=== PATIENT | male | born 1950 | race Caucasian/White ===

== ENCOUNTER 2020-03-07 20:04 | Emergency (ER) | payer OTHER ==
[2020-03-07 20:34] LABS: Absolute Lymphocytes (CBC) 0.8 K/uL (0.7-4.9); Hematocrit 25.3 % (39.6-49.0); Lymphocytes % 19.3 % (15.3-44.8); MPV 8.4 fL (7.6-11.3); RBC Red Blood Cell Count 2.94 M/uL (4.33-5.43)
[2020-03-07 20:35] LABS: Protime INR 0.98
[2020-03-07] MEDS ORDERED: METHYLPREDNISOLONE 125 MG INJ ONE (20:40)
[2020-03-07] MEDS ORDERED: ALBUTEROL 2.5 MG/3 ML NEB SOL ONE (20:41)
[2020-03-07] MEDS ORDERED: IPRATROPIUM BROM 0.5MG/2.5ML ONE (20:41)
[2020-03-07 20:55] LABS: ALT/SGPT 67 U/L (12-78); AST/SGOT 149 U/L (15-37); Albumin 3.1 g/dL (3.4-5.0); Alkaline Phosphatase 188 U/L (45-117); BUN Blood Urea Nitrogen 23 mg/dL (7-18); Bicarbonate 29 mmol/L (21-32); Bilirubin Direct 0.3 mg/dL (0-0.2); Bilirubin Total 0.8 mg/dL (0.2-1.0); Glucose Level 155 mg/dL (74-106); Lipase 148 U/L (73-393); Magnesium 1.8 mg/dL (1.8-2.4); NT PRO-BNP 486 pg/mL (<125); Potassium 3.6 mmol/L (3.5-5.1); Protein, Total 6.6 g/dL (6.4-8.2); Sodium Level 131 mmol/L (136-145); Troponin (Emerg Dept Use Only) < 0.02 ng/mL (0.0-0.045)
[2020-03-07 21:04] LABS: Platelet Estimate DECR
[2020-03-07 21:05] LABS: Anisocytosis 1+; Blood Morphology Comment NOTED (NOT SEEN); Hypochromasia 1+
[2020-03-07 21:08] LABS: Urine Blood 1+ (NEG); Urine Glucose NEGATIVE (NEG); Urine Protein 3+ (NEG); Urine Specific Gravity >1.030 (1.005-1.030)
--- NOTE | 2020-03-07 22:05 | RAD REPORT ---
EXAM DESCRIPTION: RAD - Chest Single View - 03/07/2020 8:43 pm CLINICAL HISTORY: SOB Chest pain. COMPARISON: CHEST PA AND LAT 2 VIEW dated 06/19/2010; CHEST SINGLE VIEW dated 08/25/2007; CHEST SINGLE VIEW dated 08/23/2007; CHEST SINGLE VIEW dated 08/22/2007 FINDINGS: Portable technique limits examination quality. The lungs are emphysematous but grossly clear. The heart is normal in size. No displaced fractures. IMPRESSION: COPD.
[2020-03-07] MEDS ORDERED: NA CHLORIDE 0.9% 1,000 ML ONE (22:28)
[2020-03-07] MEDS ORDERED: HYDROCODONE/APAP 5/325 MG TAB ONE (22:28)
--- NOTE | 2020-03-07 23:09 | EDPHYS ---
Physician Documentation [facility] Name: Christian Griffith Age: 69 yrs Sex: Male : 1950 Arrival Date: 03/07/2020 Time: 20:11 Bed 6 Private MD: ED Physician Yang Elias HPI: 03/07 20:18 This 69 yrs old Male presents to ER via EMS with complaints of COPD mh7 Exacerbation. 20:18 The patient has shortness of breath at rest. Onset: The symptoms/episode began/occurred mh7 3 day(s) ago. Duration: The symptoms are intermittent, with no pattern. The patient's shortness of breath is aggravated by exertion. Associated signs and symptoms: Pertinent positives: nausea, Pertinent negatives: chest pain, non-productive cough, productive cough, diaphoresis, dizziness, fever, hemoptysis, loss of consciousness, numbness in extremities, visual changes, vomiting. Severity of symptoms: At their worst the symptoms were moderate yesterday, in the emergency department the symptoms have improved mildly. The patient has experienced similar episodes in the past, multiple times. 23:13 Patient reports symptoms of SOB started after finding out that his son in a motor mh7 vehicle accident 3 days ago. Denies any fever, chest pain, injuries, sick contacts, or recent travel.. Historical: - Allergies: 20:18 No Known Allergies; ea - PMHx: 20:18 COPD; Hypertension; ea - Immunization history:: Adult Immunizations up to date. - Social history:: Smoking status: Patient reports the use of cigarette tobacco products, smokes one-half pack cigarettes per day. ROS: 20:18 Constitutional: Negative for fever, chills, and weight loss, Eyes: Negative for injury, mh7 pain, redness, and discharge, ENT: Negative for injury, pain, and discharge, Neck: Negative for injury, pain, and swelling, Cardiovascular: Negative for chest pain, palpitations, and edema, Back: Negative for injury and pain, : Negative for injury, bleeding, discharge, and swelling, MS/Extremity: Negative for injury and deformity, Skin: Negative for injury, rash, and discoloration, Psych: Negative for depression, anxiety, suicide ideation, homicidal ideation, and hallucinations, Allergy/Immunology: Negative for hives, rash, and allergies, Endocrine: Negative for neck swelling, polydipsia, polyuria, polyphagia, and marked weight changes, Hematologic/Lymphatic: Negative for swollen nodes, abnormal bleeding, and unusual bruising. Exam: 20:18 Head/Face: Normocephalic, atraumatic. Eyes: Pupils equal round and reactive to light, mh7 extra-ocular motions intact. Lids and lashes normal. Conjunctiva and sclera are non-icteric and not injected. Cornea within normal limits. Periorbital areas with no swelling, redness, or edema. Neck: Trachea midline, no thyromegaly or masses palpated, and no cervical lymphadenopathy. Supple, full range of motion without nuchal rigidity, or vertebral point tenderness. No Meningismus. Chest/axilla: Normal chest wall appearance and motion. Nontender with no deformity. No lesions are appreciated. Cardiovascular: Regular rate and rhythm with a normal S1 and S2. No gallops, murmurs, or rubs. Normal PMI, no JVD. No pulse deficits. 20:18 Abdomen/GI: Soft, non-tender, with normal bowel sounds. No distension or tympany. No guarding or rebound. No evidence of tenderness throughout. Back: No spinal tenderness. No costovertebral tenderness. Full range of motion. Skin: Warm, dry with normal turgor. Normal color with no rashes, no lesions, and no evidence of cellulitis. MS/ Extremity: Pulses equal, no cyanosis. Neurovascular intact. Full, normal range of motion. Neuro: Awake and alert, GCS 15, oriented to person, place, time, and situation. Cranial nerves II-XII grossly intact. Motor strength 5/5 in all extremities. Sensory grossly intact. Cerebellar exam normal. Normal gait. Psych: Awake, alert, with orientation to person, place and time. Behavior, mood, and affect are within normal limits. 20:18 Constitutional: The patient appears in no acute distress, alert, awake, anxious, uncomfortable. 20:18 Respiratory: mild respiratory distress is noted, Respirations: prolonged exhalation, that is moderate, tachypnea, that is mild, Breath sounds: decreased breath sounds, that are mild, are scattered, wheezing: expiratory that is mild, is scattered, Respiratory rate: 27 Vital Signs: 20:00 BP 215 / 73; Pulse 98; Resp 27; Temp 98.8; Pulse Ox 99% on R/A; Weight 49.9 kg; Height ea 5 ft. 9 in. (175.26 cm); Pain 0/10; 20:16 BP 215 / 73; Pulse 90; Temp 99.1; Pulse Ox 99% on R/A; mg2 20:38 BP 202 / 67; Pulse 79; Resp 22; Pulse Ox 100% on Nebulizer Mask; ea 21:05 BP 199 / 69; Pulse 94; Resp 22; Pulse Ox 99% on Nebulizer Mask; mg2 22:00 BP 167 / 114; Pulse 94; Resp 24; Pulse Ox 100% on 2 lpm NC; mg2 22:03 BP 163 / 90; Pulse 105; Resp 24; Pulse Ox 100% on 2 lpm NC; ea 22:19 Pulse 89; Pulse Ox 100% on 2 lpm NC; mg2 22:55 BP 183 / 65; Pulse 90; Resp 22; Pulse Ox 99% on R/A; ea 20:00 Body Mass Index 16.24 (49.90 kg, 175.26 cm) ea MDM: 20:11 Patient medically screened. [facility] 23:05 Differential diagnosis: Anemia Anxiety Reaction asthma, Bronchitis CHF exacerbation, mh7 Chronic Obstructive Pulmonary Disease Myocardial Infarction pneumonia, Pneumothorax pulmonary edema, reactive airway disease. Data reviewed: vital signs, nurses notes, EMS record, lab test result(s), cardiac enzymes, CBC, electrolytes, Flu: negative urinalysis, EKG, radiologic studies, plain films. Data interpreted: Pulse oximetry: on room air is 99 %. Interpretation: normal. Counseling: I had a detailed discussion with the patient and/or guardian regarding: the historical points, exam findings, and any diagnostic results supporting the discharge/admit diagnosis, the presence of at least one elevated blood pressure reading (>120/80) during this emergency department visit, lab results, radiology results. Response to treatment: the patient's symptoms have resolved after treatment, the patient's blood pressure is in an acceptable range, mental status has returned to baseline, the patient no longer shows bradycardia, the patient is not short of breath, the patient is not tachycardic, the patient's pain is gone, the patient's temperature has normalized. Refusal of service: The patient/guardian displays adequate decision making capability and despite a detailed discussion of alternatives, benefits, risks, and consequences refuses: Admission to the hospital for further work-up and treatment. 23:13 Refusal of service: The patient/guardian displays adequate decision making capability mh7 and despite a detailed discussion of alternatives, benefits, risks, and consequences refuses: all lab tests, Medications. 03/07 20:13 Order name: Basic Metabolic Panel; Complete Time: 21:37 mh7 03/07 20:13 Order name: CBC with Diff; Complete Time: 21:37 7 03/07 20:13 Order name: LFT's; Complete Time: 21:37 7 03/07 20:13 Order name: Magnesium; Complete Time: 21:37 7 03/07 20:13 Order name: NT PRO-BNP; Complete Time: 21:37 7 03/07 20:13 Order name: PT-INR; Complete Time: 21:37 7 03/07 20:13 Order name: Troponin (emerg Dept Use Only); Complete Time: 21:37 7 03/07 20:13 Order name: XRAY Chest (1 view); Complete Time: 22:13 [facility] 03/07 20:13 Order name: Lipase; Complete Time: 21:37 7 03/07 20:13 Order name: Influenza Screen (a \T\ B); Complete Time: 21:37 7 03/07 20:41 Order name: Manual Differential; Complete Time: 21:37 EDMS 03/07 20:43 Order name: Urine Dipstick--Ancillary (enter results); Complete Time: 21:37 tt3 03/07 20:13 Order name: EKG; Complete Time: 20:15 7 03/07 20:13 Order name: Cardiac monitoring; Complete Time: 20:15 7 03/07 20:13 Order name: EKG - Nurse/Tech; Complete Time: 20:15 7 03/07 20:13 Order name: IV Saline Lock; Complete Time: 20:15 7 03/07 20:13 Order name: Labs collected and sent; Complete Time: 20:15 7 03/07 20:13 Order name: O2 Per Protocol; Complete Time: 20:15 7 03/07 20:13 Order name: O2 Sat Monitoring; Complete Time: 20:16 7 03/07 20:13 Order name: Urine Dipstick-Ancillary (obtain specimen); Complete Time: 20:37 mh7 Administered Medications: 20:37 Drug: Albuterol - atroVENT (3:1) (2.5 mg - 0.5 mg) 3 ml Route: Nebulizer; mg2 22:00 Follow up: Response: No adverse reaction mg2 20:37 Drug: SOLU-Medrol 125 mg Route: IVP; Site: right antecubital; mg2 21:59 Follow up: Response: No adverse reaction mg2 22:19 Drug: [place] 5 mg-325 mg 1 tabs Route: PO; mg2 23:10 Follow up: Response: No adverse reaction mg2 22:19 Drug: NS 0.9% 1000 ml Route: IV; Rate: 1000 ml; Site: right antecubital; mg2 23:29 Follow up: Response: No adverse reaction; IV Status: Completed infusion; IV Intake: mg2 1000ml Disposition: 03/07/20 23:08 Discharged to Home. Impression: COPD Exacerbation, Anemia, Hypertension. - Condition is Stable. - Discharge Instructions: Anemia, Nonspecific, Hypertension, [id number], Chronic Obstructive Pulmonary Disease Exacerbation, [id number]. - Prescriptions for Prednisone 20 mg Oral Tablet - take 2 tablet by ORAL route once daily for 5 days; 10 tablet. Albuterol Sulfate 90 mcg/actuation - inhale 1-2 puff by INHALATION route every 4-6 hours; 1 Inhaler. - Medication Reconciliation Form, Thank You Letter, Antibiotic Education, Prescription Opioid Use form. - Follow up: Private Physician; When: 1 - 2 days; Reason: Worsening of condition, Recheck today's complaints, Continuance of care, Re-evaluation by your physician. Follow up: Tato Perez MD; When: 1 - 2 days; Reason: Worsening of condition, Recheck today's complaints. Follow up: Edin Hernandez MD; When: 1 - 2 days; Reason: Worsening of condition, Recheck today's complaints. - Problem is an acute exacerbation. - Symptoms have improved. Signatures: Dispatcher [employer] EDJosette Ortiz RN RN ea Gardose, Michele, RN RN mg2 Holmes, Maurice, MD MD mh7 Corrections: (The following items were deleted from the chart) 23:10 23:08 03/07/2020 23:08 Discharged to Home. Impression: COPD Exacerbation. Condition is mh7 Stable. Forms are Medication Reconciliation Form, Thank You Letter, Antibiotic Education, Prescription Opioid Use. Follow up: Private Physician; When: 1 - 2 days; Reason: Worsening of condition, Recheck today's complaints, Continuance of care, Re-evaluation by your physician. Follow up: Tato Perez; When: 1 - 2 days; Reason: Worsening of condition, Recheck today's complaints. Follow up: Edin Hernandez; When: 1 - 2 days; Reason: Worsening of condition, Recheck today's complaints. Problem is an acute exacerbation. Symptoms have improved. [facility] 23:29 23:10 03/07/2020 23:08 Discharged to Home. Impression: COPD Exacerbation; Anemia; mg2 Hypertension. Condition is Stable. Prescriptions for Prednisone 20 mg Oral Tablet - take 2 tablet by ORAL route once daily for 5 days; 10 tablet, Albuterol Sulfate 90 mcg/actuation - inhale 1-2 puff by INHALATION route every 4-6 hours; 1 Inhaler. and Forms are Medication Reconciliation Form, Thank You Letter, Antibiotic Education, Prescription Opioid Use. Follow up: Private Physician; When: 1 - 2 days; Reason: Worsening of condition, Recheck today's complaints, Continuance of care, Re-evaluation by your physician. Follow up: Tato Perez; When: 1 - 2 days; Reason: Worsening of condition, Recheck today's complaints. Follow up: Edin Hernandez; When: 1 - 2 days; Reason: Worsening of condition, Recheck today's complaints. Problem is an acute exacerbation. Symptoms have improved. 7
--- NOTE | 2020-03-07 23:09 | ER ---
Nurse's Notes [facility] Name: Christian Griffith Age: 69 yrs Sex: Male : 1950 Arrival Date: 03/07/2020 Time: 20:11 Bed 6 Private MD: Diagnosis: COPD Exacerbation;Anemia;Hypertension Presentation: 03/07 20:00 Chief complaint: EMS states: Report pt son Tuesday since then he has been ea feeling weak, pt reports his COPD has been flaring up. Pt reported nausea and vomiting. Reports he has not been taking BP meds, took meds prior to arrival. Coronavirus screen: At this time, the client does not indicate any symptoms associated with coronavirus-19. Ebola Screen: No symptoms or risks identified at this time. Initial Sepsis Screen: Does the patient meet any 2 criteria? No. Patient's initial sepsis screen is negative. Does the patient have a suspected source of infection? No. Patient's initial sepsis screen is negative. Risk Assessment: Do you want to hurt yourself or someone else? Patient reports no desire to harm self or others. Onset of symptoms was March 07, 2020. Care prior to arrival: 18 G IV initiated per EMS to right forearm, 200mls of NS administered. 20:00 Method Of Arrival: EMS: [facility] ea 20:00 Acuity: ROLANDO 3 ea Triage Assessment: 20:19 General: Appears uncomfortable, slender, Behavior is appropriate for age. Pain: Denies ea pain. Neuro: Level of Consciousness is awake, alert, obeys commands, Oriented to person, place, time, situation. Cardiovascular: Patient's skin is warm and dry. Respiratory: Airway is patent Respiratory effort is even, unlabored, Respiratory pattern is regular, symmetrical. Derm: Skin is pale. Historical: - Allergies: 20:18 No Known Allergies; ea - PMHx: 20:18 COPD; Hypertension; ea - Immunization history:: Adult Immunizations up to date. - Social history:: Smoking status: Patient reports the use of cigarette tobacco products, smokes one-half pack cigarettes per day. Screenin:12 Abuse screen: Denies threats or abuse. Nutritional screening: No deficits noted. ea Tuberculosis screening: No symptoms or risk factors identified. Fall Risk IV access (20 points). Assessment: 20:20 Reassessment: see triage assessment. ea 21:06 Reassessment: Patient appears in no apparent distress at this time. Patient and/or mg2 family updated on plan of care and expected duration. Pain level reassessed. 22:50 Reassessment: Patient and/or family updated on plan of care and expected duration. Pain ea level reassessed. Patient is alert, oriented x 3, equal unlabored respirations, skin warm/dry/pink. 23:27 Reassessment: Patient states feeling better. mg2 23:28 Reassessment: provider said patient refused for covid test and possible admission. he mg2 said he is feeling better though. Vital Signs: 20:00 BP 215 / 73; Pulse 98; Resp 27; Temp 98.8; Pulse Ox 99% on R/A; Weight 49.9 kg; Height ea 5 ft. 9 in. (175.26 cm); Pain 0/10; 20:16 BP 215 / 73; Pulse 90; Temp 99.1; Pulse Ox 99% on R/A; mg2 20:38 BP 202 / 67; Pulse 79; Resp 22; Pulse Ox 100% on Nebulizer Mask; ea 21:05 BP 199 / 69; Pulse 94; Resp 22; Pulse Ox 99% on Nebulizer Mask; mg2 22:00 BP 167 / 114; Pulse 94; Resp 24; Pulse Ox 100% on 2 lpm NC; mg2 22:03 BP 163 / 90; Pulse 105; Resp 24; Pulse Ox 100% on 2 lpm NC; ea 22:19 Pulse 89; Pulse Ox 100% on 2 lpm NC; mg2 22:55 BP 183 / 65; Pulse 90; Resp 22; Pulse Ox 99% on R/A; ea 20:00 Body Mass Index 16.24 (49.90 kg, 175.26 cm) ea ED Course: 20:11 Patient arrived in ED. ea 20:11 Yang Elias MD is Attending Physician. [facility] 20:12 David Rubalcava RN is Primary Nurse. mg2 20:16 Triage completed. ea 20:16 Arm band placed on right wrist. Patient placed in an exam room, on a stretcher, on ea pulse oximetry. 20:16 Patient has correct armband on for positive identification. Bed in low position. Call ea light in reach. Side rails up X2. 20:23 No provider procedures requiring assistance completed. Maintain EMS IV. Site clean \T\ mg2 dry. Gauge \T\ site: 18 \T\ RAC. 20:41 XRAY Chest (1 view) In Process Unspecified. EDMS 23:07 Tato Perez MD is Referral Physician. mh7 23:08 Edin Hernandez MD is Referral Physician. 7 23:27 IV discontinued, intact, bleeding controlled, No redness/swelling at site. Pressure mg2 dressing applied. Administered Medications: 20:37 Drug: Albuterol - atroVENT (3:1) (2.5 mg - 0.5 mg) 3 ml Route: Nebulizer; mg2 22:00 Follow up: Response: No adverse reaction mg2 20:37 Drug: SOLU-Medrol 125 mg Route: IVP; Site: right antecubital; mg2 21:59 Follow up: Response: No adverse reaction mg2 22:19 Drug: [place] 5 mg-325 mg 1 tabs Route: PO; mg2 23:10 Follow up: Response: No adverse reaction mg2 22:19 Drug: NS 0.9% 1000 ml Route: IV; Rate: 1000 ml; Site: right antecubital; mg2 23:29 Follow up: Response: No adverse reaction; IV Status: Completed infusion; IV Intake: mg2 1000ml Intake: 23:29 IV: 1000ml; Total: 1000ml. mg2 Outcome: 23:08 Discharge ordered by . 7 23:27 Discharged to home via wheelchair, with family. mg2 23:27 Condition: stable 23:27 Discharge instructions given to patient, family, Instructed on discharge instructions, follow up and referral plans. medication usage, Demonstrated understanding of instructions, follow-up care, medications, Prescriptions given X 2. 23:29 Patient left the ED. mg2 Signatures: Dispatcher [employer] EDMS Josette Conner RN RN David Rae RN RN mg2 Yang Elias MD MD 7 Corrections: (The following items were deleted from the chart) 23:29 23:28 Reassessment: provider said patient refused for covid test and admit. mg2 mg2
[2020-03-08 04:07] VITALS: TEMP 99.1
[2020-03-08 04:20] VITALS: BP 183/65; O2SAT 99
--- NOTE | 2020-03-09 07:44 | EKG ---
Test Date: 2020-03-07 Test Time: 20:09:34 [employer] Vendor: MEASUREMENT RESULTS: Intervals: Rate: 95 AK: 136 QRSD: 88 QT: 334 QTc: 419 Windfall: P: 85 AK: 136 QRS: 86 T: 83 INTERPRETIVE STATEMENTS: Normal sinus rhythm Anteroseptal infarct, age undetermined Abnormal ECG Compared to ECG 06/19/2010 08:55:06 Atrial premature complex(es) no longer present Myocardial infarct finding still present Electronically Signed On 03-09-20 07:40:56 DRY ROOM ATTENDANT by Ayden Perez
== END 2020-03-07 23:29 | disposition home or self-care (01) ==
LOC: ER 20:04
DX: J44.1 Chronic obstructive pulmonary disease with (acute) exacerbation (principal); D64.9 Anemia, unspecified; I10 Essential (primary) hypertension; F17.210 Nicotine dependence, cigarettes, uncomplicated
CPT/HCPCS: 96361; 93005; 85025; 80048; 36415; 83735; 85610; 80076; 81003; 84484; 83690; 83880; 87804 ×2; 71045; 96374; 99284; J7030; J2930

== ENCOUNTER 2020-06-11 13:49 | Inpatient (IN) | payer OTHER ==
[2020-06-11] MEDS ORDERED: NA CHLORIDE 0.9% 1,000 ML with FOLIC ACID 1 MG, THIAMINE HCL 100 MG, MULTIVITAMINS INJ ... IV SCH ×4 (14:30)
--- NOTE | 2020-06-11 14:30 | RAD REPORT ---
EXAM DESCRIPTION: CT - [id number] - 06/11/2020 2:13 pm CLINICAL HISTORY: seizure, altered mental status, possible head and neck trauma, headache and neck p ain COMPARISON: MRI BRAIN WITHOUT CONTRAST dated 06/19/2010 TECHNIQUE: Axial 5 mm thick images of the head were obtained. Axial 2 mm thick images of the cervic al spine were obtained with sagittal and coronal reconstruction images generated and reviewed. All CT scans are performed using dose optimization technique as appropriate and may include automated exposure control or mA/KV adjustment according to patient size. FINDINGS: No intracranial hemorrhage, mass, edema or acute intracranial finding. No acute cortical b ased infarction identified. No focal abnormality seen as a possible seizure focus. Moderate atrophy a nd mild to moderate chronic ischemic changes are present. Ventricles are in proportion to the volume loss. Brain parenchyma is similar in appearance to the 2011 MRI study. No extra-axial fluid collectio ns. Mastoid air cells and paranasal sinuses are clear. No globe or orbit abnormality seen. Dense carotid bulb calcifications are present. Any possible stenoses cannot be assessed on a CT cervi mic spine examination. Cervical bodies are normal in height. A very slight retrolisthesis of C5 on C6 noted. C5-6 and C6-7 d isc space narrowing present. No fracture or acute bony abnormality. Multilevel facet joint degenerati ve changes are present. C3-4 disc bulge changes are present. Disc bulge at C4-5 also seen. Disc bulge and endplate spurring changes at C5-6 cause central spinal stenosis to 8-9 mm. Moderate right-sided and mild left-sided foraminal stenosis seen. Mild to moderate left-sided bony foraminal stenosis at C 6-7. Prominent midline disc bulge is present. Central canal stenosis to 8 millimeter is seen. Central canal detail is inherently limited. No paraspinal mass or hematoma. IMPRESSION: No acute intracranial finding identified. No abnormality seen as a possible seizure focu s. Patient has atrophy and chronic ischemic change ranging from mild to moderate in severity. Intracrani al findings are not substantially different from 2011. No fracture or acute cervical spine finding. Patient has multilevel cervical spondylosis changes caus ing spinal stenosis and foraminal stenosis as detailed.
--- NOTE | 2020-06-11 14:32 | RAD REPORT ---
EXAM DESCRIPTION: RAD - Chest Single View - 06/11/2020 2:14 pm CLINICAL HISTORY: seizure COMPARISON: Portable February 2020 TECHNIQUE: AP portable chest image was obtained 06/11/2020 2:14 pm . FINDINGS: No peripheral mass or consolidation identified. Nodularity in each upper lung field in pro ximity to the cardiac leads not clearly different from prior imaging. Fibrotic lung pattern matches c omparison. No significant failure or volume overload. Heart and vasculature are normal. No measurable pleural effusion and no pneumothorax. No acute bony abnormality seen. No acute aortic findings suspected. IMPRESSION: COPD similar to prior imaging. No acute finding confirmed.
[2020-06-11 14:45] LABS: ALT/SGPT 33 U/L (12-78); AST/SGOT 47 U/L (15-37); Albumin 3.4 g/dL (3.4-5.0); Alkaline Phosphatase 137 U/L (45-117); BUN Blood Urea Nitrogen 12 mg/dL (7-18); Bicarbonate 27 mmol/L (21-32); Bilirubin Direct 0.3 mg/dL (0-0.2); Bilirubin Total 0.7 mg/dL (0.2-1.0); Glucose Level 130 mg/dL (74-106); Magnesium 2.5 mg/dL (1.8-2.4); NT PRO-BNP 790 pg/mL (<125); Protein, Total 6.9 g/dL (6.4-8.2); Sodium Level 131 mmol/L (136-145); Troponin (Emerg Dept Use Only) < 0.02 ng/mL (0.0-0.045)
[2020-06-11] MEDS ORDERED: DIAZEPAM 10 MG/2 ML INJ SYRINGE ONE (15:02)
[2020-06-11 15:04] LABS: Protime INR 0.98
[2020-06-11 16:14] LABS: Urine Blood TRACE (NEG); Urine Glucose NEGATIVE (NEG); Urine Protein NEGATIVE (NEG); Urine Specific Gravity >1.030 (1.005-1.030)
[2020-06-11 16:15] LABS: Absolute Lymphocytes (CBC) 1.4 K/uL (0.7-4.9); Basophils % 0.4 % (0-1.3); Hematocrit 33.7 % (39.6-49.0); Lymphocytes % 16.3 % (15.3-44.8); MPV 7.1 fL (7.6-11.3); RBC Red Blood Cell Count 4.06 M/uL (4.33-5.43)
--- NOTE | 2020-06-11 16:43 | ER ---
Nurse's Notes [facility] Name: Christian Griffith Age: 69 yrs Sex: Male : 1950 Arrival Date: 06/11/2020 Time: 13:55 Bed 20 Private MD: Diagnosis: Alcohol dependence with withdrawal;Seizure Presentation: 06/11 13:56 Chief complaint: EMS states: " heard him holler and when she walked up, saw him ss stiff, shaking and foaming at the mouth." EMS reports that patient was post ictal upon arrival to home, but now is A\\T\\O x 3. Coronavirus screen: Client denies travel out of the [place] in the last 14 days. Ebola Screen: Patient denies exposure to infectious person. Patient denies travel to an Ebola-affected area in the 21 days before illness onset. Initial Sepsis Screen: Does the patient meet any 2 criteria? No. Patient's initial sepsis screen is negative. Does the patient have a suspected source of infection? No. Patient's initial sepsis screen is negative. Risk Assessment: Do you want to hurt yourself or someone else? Patient reports no desire to harm self or others. Onset of symptoms was June 11, 2020. 13:56 Method Of Arrival: EMS: [facility] 13:56 Acuity: ROLANDO 3 ss Triage Assessment: 13:56 General: Appears in no apparent distress. comfortable, slender, emaciated, Behavior is sv calm, cooperative, appropriate for age. Pain: Complains of pain in back. Neuro: Level of Consciousness is awake, alert, obeys commands, Oriented to person, place, time, situation, Telecommunications Field Technician are equal bilaterally Moves all extremities. Full function Speech is normal. Respiratory: Airway is patent Respiratory effort is even, unlabored, Respiratory pattern is regular, symmetrical. Derm: Skin is mottled, pale. Musculoskeletal: Circulation, motion, and sensation intact. Range of motion: intact in all extremities. Historical: - Allergies: 14:07 No Known Allergies; ss - PMHx: 14:07 COPD; Hypertension; ss - Immunization history:: Adult Immunizations up to date. - Social history:: Smoking status: Patient reports the use of cigarette tobacco products, smokes one pack cigarettes per day. Patient uses alcohol, on a daily basis. Screenin:55 Abuse screen: Denies threats or abuse. Denies injuries from another. Nutritional sv screening: No deficits noted. Tuberculosis screening: No symptoms or risk factors identified. Fall Risk None identified. Assessment: 15:17 Reassessment: Patient appears in no apparent distress at this time. No changes from sv previously documented assessment. Patient and/or family updated on plan of care and expected duration. Pain level reassessed. Patient is alert, oriented x 3, equal unlabored respirations, skin warm/dry/pink. 16:30 Reassessment: Patient appears in no apparent distress at this time. No changes from sv previously documented assessment. Patient and/or family updated on plan of care and expected duration. Pain level reassessed. Patient is alert, oriented x 3, equal unlabored respirations, skin warm/dry/pink. 18:02 Reassessment: Patient appears in no apparent distress at this time. No changes from sv previously documented assessment. Patient and/or family updated on plan of care and expected duration. Pain level reassessed. Patient is alert, oriented x 3, equal unlabored respirations, skin warm/dry/pink. 19:15 Reassessment: Patient appears in no apparent distress at this time. Patient and/or wh family updated on plan of care and expected duration. Pain level reassessed. Patient is alert, oriented x 3, equal unlabored respirations, skin warm/dry/pink. Vital Signs: 13:56 BP 125 / 75; Pulse 118; Resp 20; Temp 97.9(TE); Pulse Ox 95% on R/A; Weight 47.63 kg; Height 5 ft. 9 in. (175.26 cm); Pain 3/10; 15:17 BP 164 / 75; Pulse 91; Resp 20; Pulse Ox 95% ; sv 16:21 BP 158 / 70; Pulse 80; Resp 20; Pulse Ox 95% ; sv 17:00 BP 173 / 66; Pulse 79; Resp 20; Pulse Ox 97% ; sv 17:30 Pulse 81; Resp 22; Pulse Ox 97% ; sv 19:00 BP 136 / 88; Pulse 86; Resp 22; Pulse Ox 97% on R/A; wh 13:56 Body Mass Index 15.51 (47.63 kg, 175.26 cm) Holden Coma Score: 13:56 Eye Response: spontaneous(4). Verbal Response: oriented(5). Motor Response: obeys sv commands(6). Total: 15. ED Course: 13:55 Patient arrived in ED. sv 13:55 Colleen Stratton RN is Primary Nurse. sv 13:55 Arm band placed on Patient placed in an exam room, on a stretcher. sv 13:55 Patient has correct armband on for positive identification. Placed in gown. Bed in low sv position. Call light in reach. Side rails up X2. Seizure precautions initiated. ekg monitor on. Pulse ox on. NIBP on. 13:57 Randy Leung PA is PHCP. cp 13:57 Tato Sun MD is Attending Physician. cp 14:00 Initial lab(s) drawn, by me, sent to lab. sv 14:00 Maintain EMS IV. Dressing intact. Good blood return noted. Site clean \\T\\ dry. Gauge \\T\\ sv site: 20G R AC. 14:05 room 6 son....Christopher [phone]. bd 14:06 Triage completed. ss 14:[address] via stretcher. sv 14:07 X-ray(s) taken. sv 14:09 Basic Metabolic Panel Sent. sv 14:09 XRAY Chest (1 view) Sent. sv 14:14 CT Head C Spine In Process Unspecified. EDMS 14:14 XRAY Chest (1 view) In Process Unspecified. EDMS 14:54 Lab(s) recollected, by me, sent to lab. EKG done, by ED staff, reviewed by Randy Leung em1 PA. 15:18 Awaiting lab results, Awaiting radiology results. sv 16:41 Imtiaz Paul DO is Hospitalizing Provider. cp 18:02 No provider procedures requiring assistance completed. Patient admitted, IV remains in sv place. intact. 19:19 Primary Nurse role handed off by Colleen Stratton RN sv 19:19 Report given to Belinda KOHLER and Ishan KOHLER. sv 19:37 Belinda De La Garza RN is Primary Nurse. 02 07:25 Primary Nurse role handed off by Belinda De La Garza, RN em1 Administered Medications: 06/11 15:11 Drug: Valium 1 mg Route: IVP; Site: right antecubital; sv 15:18 Follow up: Response: No adverse reaction sv 15:11 Drug: Banana Bag - (NS 0.9% 1000 ml, foLIC Acid 1 mg, Thiamine 100 mg, Multivitamin 1 sv amp) Route: IV; Rate: 100 calculated rate; Site: right antecubital; 19:37 Follow up: Response: No adverse reaction; IV Status: Completed infusion Outcome: 16:43 Decision to Hospitalize by Provider. cp 18:02 Admitted to ER Hold. Please see [facility] for further documentation. sv 18:02 Condition: stable 18:02 Instructed on the need for admit. 02 17:43 Patient left the ED. iw Signatures: Dispatcher [employer] EDMS Yue Hamm Stephanie, RN RN sv Taylor Travis, JOSE F KOHLER Danny Cortes [facility] Naila Smith RN RN ss Page, Corey, PA PA cp Habalo, Winsy, RN RN Corrections: (The following items were deleted from the chart) 06/11 19:38 19:00 BP 136 / 88; Pulse 86bpm; Resp 18bpm; Pulse Ox 97% RA; [facility]
--- NOTE | 2020-06-11 16:43 | EDPHYS ---
Physician Documentation [facility] Name: Christian Griffith Age: 69 yrs Sex: Male : 1950 Arrival Date: 06/11/2020 Time: 13:55 Bed 20 Private MD: ED Physician Tato Sun HPI: 06/11 14:05 This 69 yrs old Male presents to ER via EMS with complaints of Seizure. cp 14:05 The patient presents after having a single isolated seizure, that lasted an unknown cp period of time, the episode(s) was witnessed, by family, . Character of seizure(s): Loss of consciousness: the patient experienced loss of consciousness, brief, Motor activity: generalized, shaking all over, Incontinence: none. Seizure onset: just prior to arrival. 14:05 Patient admits to daily drinking with last drink 2 days ago. cp Historical: - Allergies: 14:07 No Known Allergies; ss - PMHx: 14:07 COPD; Hypertension; ss - Immunization history:: Adult Immunizations up to date. - Social history:: Smoking status: Patient reports the use of cigarette tobacco products, smokes one pack cigarettes per day. Patient uses alcohol, on a daily basis. ROS: 14:10 Constitutional: Negative for body aches, chills, fever, poor PO intake. cp 14:10 Eyes: Negative for injury, pain, redness, and discharge. cp 14:10 ENT: Negative for ear pain, sore throat, difficulty swallowing, difficulty handling secretions. 14:10 Cardiovascular: Negative for chest pain, palpitations. 14:10 Respiratory: Negative for cough, shortness of breath, wheezing. 14:10 Abdomen/GI: Negative for abdominal pain, nausea, vomiting, and diarrhea, black/tarry stool, rectal bleeding. 14:10 : Negative for urinary symptoms. 14:10 Neuro: Positive for history of seizure, Negative for altered mental status, headache. 14:10 All other systems are negative. Exam: 14:15 Constitutional: The patient appears in no acute distress, alert, awake, cp non-diaphoretic, non-toxic, well developed, frail. 14:15 Head/Face: Normocephalic, atraumatic. cp 14:15 Eyes: Periorbital structures: appear normal, Pupils: equal, round, and reactive to light and accomodation, Extraocular movements: intact throughout, Conjunctiva: normal, no exudate, no injection, Sclera: no appreciated abnormality, Lids and lashes: appear normal, bilaterally. 14:15 ENT: External ear(s): are unremarkable, Nose: is normal, Mouth: Lips: moist, Oral mucosa: moist, Posterior pharynx: Airway: no evidence of obstruction, patent. 14:15 Neck: ROM/movement: is normal, is supple, without pain, no range of motions limitations, no meningismus. 14:15 Chest/axilla: Inspection: normal, Palpation: crepitus, is not appreciated, tenderness, is not appreciated. 14:15 Cardiovascular: Rate: tachycardic, Rhythm: regular, Edema: is not appreciated, JVD: is not appreciated. 14:15 Respiratory: the patient does not display signs of respiratory distress, Respirations: normal, no use of accessory muscles, no retractions, labored breathing, is not present, Breath sounds: are clear throughout, no decreased breath sounds, no stridor, no wheezing. 14:15 Abdomen/GI: Inspection: abdomen appears normal, Palpation: abdomen is soft and non-tender, in all quadrants. 14:15 Back: pain, that is mild, of the lumbar area, ROM is normal. 14:15 Skin: cellulitis, is not appreciated, no rash present. 14:15 Neuro: Orientation: to person, place \T\ time. Mentation: is normal, Motor: moves all fours, strength is normal, Abnormal movements: resting tremor, is located in the right hand and left hand. 14:56 ECG was reviewed by the Attending Physician. cp 16:38 : Rectal exam: Stool: brown, soft, Guaiac testing: results were negative for occult cp blood. Vital Signs: 13:56 BP 125 / 75; Pulse 118; Resp 20; Temp 97.9(TE); Pulse Ox 95% on R/A; Weight 47.63 kg; ss Height 5 ft. 9 in. (175.26 cm); Pain 3/10; 15:17 BP 164 / 75; Pulse 91; Resp 20; Pulse Ox 95% ; sv 16:21 BP 158 / 70; Pulse 80; Resp 20; Pulse Ox 95% ; sv 17:00 BP 173 / 66; Pulse 79; Resp 20; Pulse Ox 97% ; sv 17:30 Pulse 81; Resp 22; Pulse Ox 97% ; sv 19:00 BP 136 / 88; Pulse 86; Resp 22; Pulse Ox 97% on R/A; wh 13:56 Body Mass Index 15.51 (47.63 kg, 175.26 cm) ss Holden Coma Score: 13:56 Eye Response: spontaneous(4). Verbal Response: oriented(5). Motor Response: obeys sv commands(6). Total: 15. MDM: 14:00 Patient medically screened. cp 16:40 Data reviewed: vital signs, nurses notes, lab test result(s), EKG, radiologic studies, cp CT scan, plain films. 16:40 Test interpretation: by ED physician or midlevel provider: ECG, plain radiologic cp studies. 06/11 13:59 Order name: Basic Metabolic Panel cp 06/11 13:59 Order name: CBC with Diff cp 06/11 16:33 Interpretation: Normal except: RBC 4.06; HGB 10.8; HCT 33.7; MCV 83.0; MCH 26.6; RDW cp 18.4; MPV 7.1; TAURUS% 77.3. 06/11 13:59 Order name: LFT's; Complete Time: 16:02 06/11 16:03 Interpretation: Normal except: AST 47; ALK 137; BILID 0.3; A/G 1.0. 06/11 13:59 Order name: Magnesium; Complete Time: 16:02 06/11 13:59 Order name: NT PRO-BNP; Complete Time: 16:02 06/11 13:59 Order name: PT-INR; Complete Time: 16:02 06/11 13:59 Order name: Troponin (emerg Dept Use Only); Complete Time: 16:02 06/11 13:59 Order name: XRAY Chest (1 view); Complete Time: 14:41 06/11 13:59 Order name: EKG; Complete Time: 14:00 06/11 13:59 Order name: Cardiac monitoring; Complete Time: 14:01 06/11 13:59 Order name: EKG - Nurse/Tech; Complete Time: 14:09 06/11 13:59 Order name: IV Saline Lock; Complete Time: 14:09 06/11 13:59 Order name: Labs collected and sent; Complete Time: 14:01 06/11 13:59 Order name: O2 Per Protocol; Complete Time: 14:01 06/11 13:59 Order name: O2 Sat Monitoring; Complete Time: 14:01 06/11 13:59 Order name: CT Head C Spine; Complete Time: 14:41 06/11 14:42 Interpretation: Reviewed report. 06/11 13:59 Order name: ETOH Level; Complete Time: 16:02 06/11 13:59 Order name: UDS 06/11 13:59 Order name: Urine Dipstick-Ancillary (obtain specimen); Complete Time: 16:07 06/11 13:59 Order name: Basic Metabolic Panel; Complete Time: 16:02 EDMT 06/11 14:23 Order name: Labs - recollect needed: recollect blue and lavendar top; Complete Time: bd 14:54 06/11 16:02 Order name: Urine Dipstick--Ancillary (enter results); Complete Time: 16:16 bd 06/11 16:16 Order name: Manual Differential EDMT 06/11 17:45 Order name: Regular EDMT 06/11 17:45 Order name: Urinalysis EDMT 06/11 17:45 Order name: Basic Metabolic Panel EDMT 06/11 17:45 Order name: Basic Metabolic Panel EDMT 06/11 17:45 Order name: Magnesium EDMT 06/11 17:45 Order name: Magnesium EDMT 06/11 17:45 Order name: Phosphorus EDMT 06/11 17:45 Order name: Phosphorus EDMT 06/11 17:45 Order name: Delirium Tremens Prophylaxis-IV Meds EDMT 06/11 17:46 Order name: Social Service Consult EDMT 06/11 18:16 Order name: SARS-COV-2 RT PCR EDMT 06/12 05:13 Order name: CBC with Automated Diff EDMS EC:56 Rate is 88 beats/min. Rhythm is regular. WI interval is normal. QRS interval is normal. cp QT interval is normal. T waves are Inverted in lead aVL. Interpreted by me. Reviewed by me. Administered Medications: 15:11 Drug: Valium 1 mg Route: IVP; Site: right antecubital; sv 15:18 Follow up: Response: No adverse reaction sv 15:11 Drug: Banana Bag - (NS 0.9% 1000 ml, foLIC Acid 1 mg, Thiamine 100 mg, Multivitamin 1 sv amp) Route: IV; Rate: 100 calculated rate; Site: right antecubital; 19:37 Follow up: Response: No adverse reaction; IV Status: Completed infusion Disposition: 06/11/20 16:43 Hospitalization ordered by Imtiaz Paul for Inpatient Admission. Preliminary diagnosis are Alcohol dependence with withdrawal, Seizure. - Bed requested for Telemetry/MedSurg (Inpatient). - Status is Inpatient Admission. iw - Condition is Stable. - Problem is new. - Symptoms have improved. Addendum: 07/04/2020 02:15 Co-signature as Attending Physician, Tato Sun MD. m a2 Signatures: Dispatcher [employer] [facility] Yue Hamm Stephanie, RN JOSE F Taylor Travis RN RN Naila Smith RN RN ss Page, Corey, Hosea Bruner cp, RN RN ja1 Alzahri, Mohammad, MD MD [facility] Belinda De La Garza RN Corrections: (The following items were deleted from the chart) 06/11 17:30 16:43 Hospitalization Ordered by Imtiaz Paul DO for Inpatient Admission. Preliminary bd diagnosis is Alcohol dependence with withdrawal; Seizure. Bed requested for Telemetry/MedSurg (Inpatient). Status is Inpatient Admission. Condition is Stable. Problem is new. Symptoms have improved. cp 17:47 16:41 CORONAVIRUS+MR.LAB.BRZ ordered. [facility] 06/12 15:02 06/11 17:30 06/11/2020 16:43 Hospitalization Ordered by Imtiaz Paul DO for Inpatient ja1 Admission. Preliminary diagnosis is Alcohol dependence with withdrawal; Seizure. Bed requested for [facility] ER HOLD. Status is Inpatient Admission. Condition is Stable. Problem is new. Symptoms have improved. bd 06/12 17:43 15:02 06/11/2020 16:43 Hospitalization Ordered by Imtiaz Paul DO for Inpatient iw Admission. Preliminary diagnosis is Alcohol dependence with withdrawal; Seizure. Bed requested for Telemetry/MedSurg (Inpatient). Status is Inpatient Admission. Condition is Stable. Problem is new. Symptoms have improved. ja
[2020-06-11 16:44] LABS: Barbiturates POSITIVE (NEGATIVE); Benzodiazepines NEGATIVE (NEGATIVE); Cocaine NEGATIVE (NEGATIVE); METHAMPHETAM NEGATIVE (NEGATIVE); Methadone NEGATIVE (NEGATIVE); Opiates NEGATIVE (NEGATIVE); Phencyclidine NEGATIVE (NEGATIVE); THC Cannibis NEGATIVE (NEGATIVE)
[2020-06-11 17:00] LABS: Platelet Estimate ADEQ
[2020-06-11 17:01] LABS: Blood Morphology Comment NOT SEEN (NOT SEEN)
[2020-06-11] MEDS ORDERED: ONDANSETRON 4 MG/2 ML VIAL IV PRN (17:08)
[2020-06-11] MEDS ORDERED: FLUMAZENIL 0.1 MG/ML (5 mL VIAL) IV PRN (17:11)
[2020-06-11] MEDS ORDERED: LORazepam 2 MG/ML VIAL IV PRN (17:11)
--- NOTE | 2020-06-11 17:18 | P.HP ---
Certification for Inpatient With expected LOS: >2 Midnights Patient will require the following post-hospital care: Home Health Services Practitioner: I am a practitioner with admitting privileges, knowledge of patient current condition, hospital course, and medical plan of care. Services: Services provided to patient in accordance with Admission requirements found in Title 42 Section 412.3 of the Code of Federal Regulations Patient History Date of Service: 06/11/20 Reason for admission: seizures, alcohol with drawal, malnutrition. History of Present Illness: 69 y o male pt who was brought to the hospital after he was said to have had a seire at home. he has a hx of chronic alcoholism and he was noted to have seizure episode at home. no eye witness account of episode in the ER. report was given by EMS personnel. His surveillance imaging showed no acute abnormality. He was noted to be very cachectic and confabulating. he was disoriented and not answering question appropriately. He was started on alcohol withdrawal protocol and he was admitted for in pt care. Allergies No Known Allergies Allergy (Unverified 06/11/20 14:12) Review of Systems is unable to be obtained (due to disorientation.) Physical Examination - Physical Exam General: Alert, Other (disoriented.) HEENT: Atraumatic, Normocephalic Neck: Supple Respiratory: Clear to auscultation bilaterally Cardiovascular: No edema, Normal pulses, Regular rate/rhythm Gastrointestinal: Soft and benign, Other (scaphoid.) Musculoskeletal: No swelling Neurological: Normal speech, Cranial nerves 3-12 intact - Studies Laboratory Data (last 24 hrs) 06/11/20 16:02: WBC 8.50, Hgb 10.8 L, Hct 33.7 L, Plt Count 156 06/11/20 14:50: PT 11.3, INR 0.98 06/11/20 14:05: Sodium 131 L, Potassium 4.0, BUN 12, Creatinine 0.89, Glucose 130 H, Magnesium 2.5 H D, Total Bilirubin 0.7, AST 47 H, ALT 33, Alkaline Phosphatase 137 H Assessment and Plan - Plan 1.Seizure- Deemed due to alcohol withdrawal. seizure precautions started. prn lorazepam started. we will observe. may need neurology eval. 2.Alcohol withdrawal- started on banana bag and alcohol withdrawal protocol. we will monitor closely. 3.Malnutrition- started on ensure high protein supplements. nutrition to evaluate. 4.Chronic alcoholism- started on thiamine, folic acid and multivitamin. we will monitor. seems to be confabulating. 5. hyponatremia-mild at 131. may be due to beer potomania physiology. we will feed and monitor sodium level closely. - Advance Directives Does patient have a Living Will: No Does patient have a Durable POA for Healthcare: No
[2020-06-11] MEDS: ENOXAPARIN 40 MG/0.4 ML SQ SCH (18:00)
[2020-06-11] MEDS: LORazepam 2 MG/ML VIAL IV SCH ×2 (18:00→23:00)
[2020-06-11] MEDS ORDERED: LORazepam 2 MG/ML VIAL ONE ×2 (20:28→22:07)
[2020-06-11] MEDS: ENSURE HIGH PROTEIN 237 ML CAN PO SCH (20:50)
[2020-06-11] MEDS ORDERED: ENOXAPARIN 40 MG/0.4 ML SQ ONE (21:09)
[2020-06-11 21:47] VITALS: BMI 15.5
[2020-06-12] MEDS ORDERED: LORazepam 2 MG/ML VIAL ONE ×6 (01:44→17:09)
[2020-06-12] MEDS: LORazepam 2 MG/ML VIAL IV SCH ×6 (01:55→22:31)
[2020-06-12 05:12] LABS: Absolute Lymphocytes (CBC) 0.7 K/uL (0.7-4.9); Basophils % 0.1 % (0-1.3); Hematocrit 33.6 % (39.6-49.0); Lymphocytes % 12.3 % (15.3-44.8); RBC Red Blood Cell Count 4.01 M/uL (4.33-5.43)
[2020-06-12 05:36] LABS: BUN Blood Urea Nitrogen 11 mg/dL (7-18); Bicarbonate 30 mmol/L (21-32); Glucose Level 75 mg/dL (74-106); Magnesium 2.1 mg/dL (1.8-2.4); Phosphorus 2.8 mg/dL (2.5-4.9); Potassium 3.2 mmol/L (3.5-5.1); Sodium Level 135 mmol/L (136-145)
[2020-06-12] MEDS ORDERED: POTASSIUM 25 MEQ EFFERV TAB PO ONE (07:19)
--- NOTE | 2020-06-12 07:30 | P.PN ---
Subjective Date of Service: 06/12/20 Chief Complaint: seizures, alcohol with drawal, malnutrition. Subjective: Improving (still has feeding issues.) Physical Examination - Vital Signs Temperature: 97.4 F Blood Pressure: 161/97 Pulse: 76 Respirations: 16 Pulse Ox (%): 98 - Physical Exam General: Alert, Oriented x3 HEENT: Atraumatic, Normocephalic Respiratory: Clear to auscultation bilaterally Cardiovascular: Regular rate/rhythm, Normal S1 S2 Gastrointestinal: Normal bowel sounds Musculoskeletal: Other (muscle wasting ++.) Neurological: Normal speech, Cranial nerves 3-12 intact - Studies Laboratory Data (last 24 hrs) 06/11/20 16:02: WBC 8.50, Hgb 10.8 L, Hct 33.7 L, Plt Count 156 06/11/20 14:50: PT 11.3, INR 0.98 06/11/20 14:05: Sodium 131 L, Potassium 4.0, BUN 12, Creatinine 0.89, Glucose 130 H, Magnesium 2.5 H D, Total Bilirubin 0.7, AST 47 H, ALT 33, Alkaline Phosphatase 137 H Assessment And Plan - Plan 1.Seizure: Deemed due to alcohol withdrawal. seizure precautions started. prn lorazepam started. we will observe. may need neurology eval. 2.Alcohol withdrawal: Still needing lorazepam doses. we will continue banana bag and alcohol withdrawal protocol. we will monitor closely. 3.Malnutrition: very emaciated. started on ensure high protein supplements. nutrition to evaluate. 4.Chronic alcoholism: started on thiamine, folic acid and multivitamin. we will monitor. 5.Hyponatremia: Improved at 135. may be due to beer potomania physiology. we will feed and monitor sodium level closely. 6.Hypokalemia: Potassium is low at 3.2 today. supplements started.
[2020-06-12] MEDS ORDERED: INFLUENZA VACCINE (for 3y+) 0.5 ML DOSE IMVAC ONE (08:00)
[2020-06-12] MEDS ORDERED: PNEUMOCOCCAL VACCINE 0.5 ML IMVAC ONE (08:00)
[2020-06-12] MEDS ORDERED: MULTIVITAMIN TAB PO ONE (08:59)
[2020-06-12] MEDS ORDERED: FOLIC ACID 1 MG TABLET ONE (09:00)
[2020-06-12] MEDS ORDERED: FOLIC ACID 1 MG, MULTIVITAMINS INJ 10 ML, THIAMINE HCL 100 MG in NA CHLORIDE 0.9% 1,000 ML IV SCH (09:00)
[2020-06-12] MEDS ORDERED: THIAMINE HCL 100 MG TABLET ONE (09:00)
[2020-06-12] MEDS ORDERED: ENOXAPARIN 40 MG/0.4 ML SQ ONE (09:00)
[2020-06-12] MEDS ORDERED: POTASSIUM 25 MEQ EFFERV TAB ONE (09:00)
[2020-06-12] MEDS: MULTIVITAMIN TAB PO SCH (09:14)
[2020-06-12] MEDS: FOLIC ACID 1 MG TABLET PO SCH (09:14)
[2020-06-12] MEDS: THIAMINE HCL 100 MG TABLET PO SCH (09:14)
[2020-06-12] MEDS: ENOXAPARIN 40 MG/0.4 ML SQ SCH (09:14)
[2020-06-12] MEDS: ENSURE HIGH PROTEIN 237 ML CAN PO SCH (09:15)
[2020-06-12] MEDS: ENSURE ENLIVE 237 ML CAN PO SCH ×2 (14:09→22:32)
[2020-06-13] MEDS: LORazepam 2 MG/ML VIAL IV SCH ×5 (01:52→18:23)
[2020-06-13 08:20] LABS: BUN Blood Urea Nitrogen 20 mg/dL (7-18); Bicarbonate 33 mmol/L (21-32); Glucose Level 91 mg/dL (74-106); Potassium 3.2 mmol/L (3.5-5.1); Sodium Level 135 mmol/L (136-145)
--- NOTE | 2020-06-13 08:28 | P.PN ---
Subjective Date of Service: 06/13/20 Chief Complaint: seizures, alcohol withdrawal, malnutrition. Physical Examination - Vital Signs Temperature: 98.0 F Blood Pressure: 147/62 Pulse: 87 Respirations: 16 Pulse Ox (%): 93 - Physical Exam General: Alert, Oriented x2, Other (cachectic.) HEENT: Atraumatic, Normocephalic Neck: Supple Respiratory: Clear to auscultation bilaterally Cardiovascular: Regular rate/rhythm, Normal S1 S2 Gastrointestinal: Soft and benign Neurological: Cranial nerves 3-12 intact Assessment And Plan - Plan 1.Seizure: Deemed due to alcohol withdrawal. seizure precautions started. prn lorazepam started. we will observe. may need neurology eval. 2.Alcohol withdrawal: Still needing lorazepam doses. we will continue thiamine supplements and alcohol withdrawal protocol. we will monitor closely. 3.Malnutrition: very emaciated. started on ensure high protein supplements. nutrition on board. 4.Chronic alcoholism: started on thiamine, folic acid and multivitamin. we will monitor. 5.Hyponatremia: Improved at 135. may be due to beer potomania physiology. we will continue to feed and monitor sodium level closely. 6.Hypokalemia: Potassium is still low at 3.2 today. supplements started.
[2020-06-13] MEDS: ENSURE ENLIVE 237 ML CAN PO SCH ×3 (09:00→20:50)
[2020-06-13] MEDS: MULTIVITAMIN TAB PO SCH (09:25)
[2020-06-13] MEDS: FOLIC ACID 1 MG TABLET PO SCH (09:25)
[2020-06-13] MEDS: THIAMINE HCL 100 MG TABLET PO SCH (09:25)
[2020-06-13] MEDS: ENOXAPARIN 40 MG/0.4 ML SQ SCH (09:25)
[2020-06-13] MEDS: NICOTINE 14 MG/PAT TD SCH (14:22)
[2020-06-14] MEDS: LORazepam 2 MG/ML VIAL IV SCH ×2 (00:27→06:13)
[2020-06-14] MEDS: THIAMINE HCL 100 MG TABLET PO SCH (08:54)
[2020-06-14] MEDS: ENSURE ENLIVE 237 ML CAN PO SCH ×3 (08:54→20:34)
[2020-06-14] MEDS: ENOXAPARIN 40 MG/0.4 ML SQ SCH (08:54)
[2020-06-14] MEDS: FOLIC ACID 1 MG TABLET PO SCH (08:54)
[2020-06-14] MEDS: MULTIVITAMIN TAB PO SCH (08:54)
[2020-06-14] MEDS ORDERED: AMLODIPINE 5 MG TAB PO SCH (09:00)
[2020-06-14] MEDS: ARFORMOTEROL TARTRATE 15 MCG/2 ML VIAL.NEB NEB SCH ×2 (09:52→21:00)
[2020-06-14] MEDS ORDERED: POTASSIUM CL 40 MEQ in NA CHLORIDE 0.9% 500 ML IV SCH (10:00)
[2020-06-14] MEDS ORDERED: chlordiazePOXIDE HCl 5 MG CAP PO PRN (10:57)
--- NOTE | 2020-06-14 11:01 | P.PN ---
Subjective Date of Service: 06/14/20 Chief Complaint: seizures, alcohol withdrawal, malnutrition. Subjective: Improving (Patient is doing well better he is still hallucinating and hold a conversation alert) Review of Systems General: Weakness Respiratory: Shortness of Breath Physical Examination - Vital Signs Temperature: 97.1 F Blood Pressure: 156/77 Pulse: 80 Respirations: 16 Pulse Ox (%): 99 - Physical Exam General: Alert, Oriented x2 Respiratory: Expiratory wheezes Cardiovascular: No edema, Normal S1 S2 Assessment & Plan - Problems (Diagnosis) (1) Alcohol withdrawal Current Visit: Yes Status: Acute Plan: Patient admitted with alcohol withdrawal possibly alcohol withdrawal seizures as not had any further seizures he continues to be in slight delirium although the patient has improved start on p.o. thymine (2) COPD (chronic obstructive pulmonary disease) Current Visit: Yes Status: Acute Plan: Patient has severe COPD maximize bronchodilator therapy had some Librium replace potassium patient is mildly anemic oxygenation satisfactory blood pressure elevated increase some low to be to 5 mg p.o. b.i.d. and evaluate for discharge tomorrow he has had no further seizures no treatment required CT scan of the head does not show any evidence of any acute changes Qualifiers: Emphysema type: unspecified
[2020-06-14] MEDS: AMLODIPINE 5 MG TAB PO SCH (20:33)
[2020-06-14] MEDS ORDERED: METHYLPREDNISOLONE 125 MG INJ IV SCH (21:00)
[2020-06-15 07:07] LABS: BUN Blood Urea Nitrogen 29 mg/dL (7-18); Bicarbonate 32 mmol/L (21-32); Glucose Level 109 mg/dL (74-106); Magnesium 1.9 mg/dL (1.8-2.4); Potassium 4.2 mmol/L (3.5-5.1); Sodium Level 136 mmol/L (136-145)
[2020-06-15] MEDS: ARFORMOTEROL TARTRATE 15 MCG/2 ML VIAL.NEB NEB SCH (08:10)
[2020-06-15] MEDS: MULTIVITAMIN TAB PO SCH (08:45)
[2020-06-15] MEDS: ENOXAPARIN 40 MG/0.4 ML SQ SCH (08:45)
[2020-06-15] MEDS: NICOTINE 14 MG/PAT TD SCH (08:45)
[2020-06-15] MEDS: AMLODIPINE 5 MG TAB PO SCH (08:45)
[2020-06-15] MEDS: THIAMINE HCL 100 MG TABLET PO SCH (08:45)
[2020-06-15] MEDS: FOLIC ACID 1 MG TABLET PO SCH (08:45)
[2020-06-15] MEDS: ENSURE ENLIVE 237 ML CAN PO SCH (08:46)
[2020-06-15] MEDS ORDERED: METHYLPREDNISOLONE 40 MG INJ IV SCH (09:00)
[2020-06-15 09:36] VITALS: O2SAT 98
--- NOTE | 2020-06-15 09:59 | P.DS ---
Admission Date: 06/11/20 Discharge Date: 06/15/20 Disposition: ROUTINE DISCHARGE Discharge Condition: FAIR Reason for Admission: seizures, alcohol withdrawal, malnutrition. - Problems (1) Alcohol withdrawal Current Visit: Yes Status: Acute Qualifiers: Complication of substance-induced condition: uncomplicated Qualified Code(s): F10.230 - Alcohol dependence with withdrawal, uncomplicated (2) COPD (chronic obstructive pulmonary disease) Current Visit: Yes Status: Acute Qualifiers: Emphysema type: unspecified Brief History of Present Illness: Patient is 69 years of age admitted with seizure alcohol withdrawal history of COPD Hospital Course: Patient was admitted observe did well patient was also hypokalemic that was corrected patient was instructed not to drink to light replacement was instituted no acute changes observed on CT scan at the time of discharge patient alert oriented responsive cooperative as not hallucinating had improved significantly chest gorman diminished expiratory wheezing cardiovascular system os sounds normal abdomen soft labs all reviewed patient alert oriented cooperative responsive as physical therapy at home neurological exam renal grossly normal no obvious weakness discuss with the nurse stable to be discharged he is to resume his home medication home medication list on was incomplete vital signs oxygenation stable Vital Signs/Physical Exam: Temp Pulse Resp BP Pulse Ox 97.8 F 74 18 162/78 H 96 06/15/20 08:00 06/15/20 08:00 06/15/20 08:00 06/15/20 08:00 06/15/20 08:00 Laboratory Data at Discharge: WBC 5.80 K/uL (4.3-10.9) D 06/12/20 04:46 Hgb 10.7 g/dL (13.6-17.9) L 06/12/20 04:46 Hct 33.6 % (39.6-49.0) L 06/12/20 04:46 Plt Count 141 K/uL (152-406) L 06/12/20 04:46 PT 11.3 SECONDS (9.5-12.5) 06/11/20 14:50 INR 0.98 06/11/20 14:50 Sodium 136 mmol/L (136-145) 06/15/20 06:08 Potassium 4.2 mmol/L (3.5-5.1) 06/15/20 06:08 BUN 29 mg/dL (7-18) H 06/15/20 06:08 Creatinine 0.62 mg/dL (0.55-1.3) 06/15/20 06:08 Glucose 109 mg/dL (74-106) H 06/15/20 06:08 Phosphorus 2.8 mg/dL (2.5-4.9) 06/12/20 04:46 Magnesium 1.9 mg/dL (1.8-2.4) 06/15/20 06:08 Total Bilirubin 0.7 mg/dL (0.2-1.0) 06/11/20 14:05 AST 47 U/L (15-37) H 06/11/20 14:05 ALT 33 U/L (12-78) 06/11/20 14:05 Alkaline Phosphatase 137 U/L (45-117) H 06/11/20 14:05 Home Medications: Amlodipine [Norvasc*] 5 mg PO DAILY 06/13/20 Methocarbamol [Robaxin-750] 750 mg PO BID 06/13/20 Physician Discharge Instructions: Patient console to stop drinking take over the counter vitamin B1 resume his regular inhalers at home for medication list incomplete follow-up with me in 1 or 2 weeks Diet: Regular Activity: Ad anant Followup: NONE,NONE [Primary Care Provider] -
[2020-06-15 13:11] VITALS: BP 166/66; TEMP 98.2
== END 2020-06-15 12:20 | disposition home or self-care (01) | DRG 897 ==
LOC: ER 13:49 → ERHOLD 20:09 → 4TH 06-12 15:58
PROVIDERS: ADMIT Internal Medicine Sleep Medicine; ATTEND Internal Medicine Sleep Medicine
DX: F10.230 Alcohol dependence with withdrawal, uncomplicated (principal); Z68.1 Body mass index [BMI] 19.9 or less, adult; E87.1 Hypo-osmolality and hyponatremia; R44.3 Hallucinations, unspecified; E44.1 Mild protein-calorie malnutrition; E87.6 Hypokalemia; J43.9 Emphysema, unspecified; R56.9 Unspecified convulsions; Z79.899 Other long term (current) drug therapy
CPT/HCPCS: 36415; 70450; 71045; 72125; 80048; 80076; 80307; 80320; 81003; 83735; 83880; 84100; 84443; 84484; 85025; 85610; 94640; 96365; 96366; 96375; 97161; 99285; J1650; J2920; J2930; J3360; J3411; J3480; J7030; J7040; J7605; U0003

== ENCOUNTER 2021-02-10 19:08 | Inpatient (IN) | payer OTHER ==
[2021-02-10 22:19] LABS: ALT/SGPT 35 U/L (12-78); AST/SGOT 65 U/L (15-37); Albumin 3.3 g/dL (3.4-5.0); Alkaline Phosphatase 75 U/L (45-117); BUN Blood Urea Nitrogen 18 mg/dL (7-18); Bicarbonate 33 mmol/L (21-32); Bilirubin Direct 0.2 mg/dL (0-0.2); Bilirubin Total 0.4 mg/dL (0.2-1.0); CKMB Creatine Kinase MB 1.4 ng/mL (1.0-3.6); Creatine Phosphokinase 79 U/L (39-308); Glucose Level 93 mg/dL (74-106); Lipase 149 U/L (73-393); NT PRO-BNP 1557 pg/mL (<125); Potassium 4.1 mmol/L (3.5-5.1); Protein, Total 6.7 g/dL (6.4-8.2); Sodium Level 130 mmol/L (136-145); Troponin (Emerg Dept Use Only) < 0.02 ng/mL (0.0-0.045)
[2021-02-10] MEDS ORDERED: ONDANSETRON 4 MG/2 ML VIAL ONE (22:52)
[2021-02-10] MEDS ORDERED: MORPHINE 2 MG/ML SYR ONE (22:52)
[2021-02-10] MEDS ORDERED: NA CHLORIDE 0.9% 1,000 ML ONE (22:53)
[2021-02-10 23:27] LABS: Hematocrit 27.7 % (39.6-49.0); MPV 7.1 fL (7.6-11.3); RBC Red Blood Cell Count 3.34 M/uL (4.33-5.43)
[2021-02-11 00:13] LABS: Protime INR 0.97
[2021-02-11 00:21] LABS: Blood Morphology Comment NOTED (NOT SEEN); Hypochromasia 1+; Platelet Estimate ADEQ
[2021-02-11 01:54] LABS: Urine Blood Negative (Negative); Urine Glucose Negative (Negative); Urine Protein 1+ (Negative); Urine Specific Gravity 1.015 (1.005-1.030)
--- NOTE | 2021-02-11 02:25 | EDPHYS ---
Physician Documentation [facility] Name: Christian Griffith Age: 70 yrs Sex: Male : 1950 Arrival Date: 02/10/2021 Time: 19:11 Bed 7 Private MD: ED Physician Yang Elias HPI: 02/10 21:55 This 70 yrs old Male presents to ER via Wheelchair with complaints of Back mh7 Pain, Weakness, Breathing Difficulty. 21:55 The patient presents with pain that is chronic, with no known mechanism of injury. The mh7 symptoms are located in the low back. Onset: The symptoms/episode began/occurred 8 month(s) ago, and became worse 1 month(s) ago. The pain does not radiate. Associated signs and symptoms: Pertinent positives: weakness, Generalized, Pertinent negatives: abdominal pain, chest pain, constipation, dysuria, fever, headache, hematuria, incontinence, nausea, numbness, tingling, urinary retention, vomiting. The problem was sustained from unknown cause. Modifying factors: The patient symptoms are alleviated by nothing, the patient symptoms are aggravated by movement. Severity of symptoms: At their worst the symptoms were moderate, 4 weeks ago, in the emergency department the symptoms have improved, moderately. The patient has experienced similar episodes in the past, chronically. Patient with a history of chronic back pain for several months. He complains of increased pain for the past several weeks. He complains of generalized weakness, fatigue, decreased appetite, weight loss. He also complains of intermittent episodes of shortness of breath. Denies any headache, fever, cough, chest pain, abdominal pain, nausea, vomiting, diarrhea, dizziness, numbness/tingling, or dysuria.. Historical: - Allergies: 19:55 No Known Allergies; sj1 - PMHx: 19:55 COPD; Hypertension; sj1 - Immunization history:: Client reports having NOT received the Covid vaccine. - Social history:: Smoking status: Patient reports the use of cigarette tobacco products, smokes one pack cigarettes per day. Patient/guardian denies using tobacco. ROS: 21:55 Eyes: Negative for injury, pain, redness, and discharge, ENT: Negative for injury, mh7 pain, and discharge, Neck: Negative for injury, pain, and swelling, Cardiovascular: Negative for chest pain, palpitations, and edema, Abdomen/GI: Negative for abdominal pain, nausea, vomiting, diarrhea, and constipation, : Negative for injury, bleeding, discharge, and swelling, MS/Extremity: Negative for injury and deformity, Skin: Negative for injury, rash, and discoloration, Psych: Negative for depression, anxiety, suicide ideation, homicidal ideation, and hallucinations, Allergy/Immunology: Negative for hives, rash, and allergies, Endocrine: Negative for neck swelling, polydipsia, polyuria, polyphagia, and marked weight changes, Hematologic/Lymphatic: Negative for swollen nodes, abnormal bleeding, and unusual bruising. Exam: 21:55 Eyes: Pupils equal round and reactive to light, extra-ocular motions intact. Lids and mh7 lashes normal. Conjunctiva and sclera are non-icteric and not injected. Cornea within normal limits. Periorbital areas with no swelling, redness, or edema. Neck: Trachea midline, no thyromegaly or masses palpated, and no cervical lymphadenopathy. Supple, full range of motion without nuchal rigidity, or vertebral point tenderness. No Meningismus. Chest/axilla: Normal chest wall appearance and motion. Nontender with no deformity. No lesions are appreciated. Cardiovascular: Regular rate and rhythm with a normal S1 and S2. No gallops, murmurs, or rubs. Normal PMI, no JVD. No pulse deficits. Respiratory: Lungs have equal breath sounds bilaterally, clear to auscultation and percussion. No rales, rhonchi or wheezes noted. No increased work of breathing, no retractions or nasal flaring. Abdomen/GI: Soft, non-tender, with normal bowel sounds. No distension or tympany. No guarding or rebound. No evidence of tenderness throughout. 21:55 Skin: Warm, dry with normal turgor. Normal color with no rashes, no lesions, and no evidence of cellulitis. MS/ Extremity: Pulses equal, no cyanosis. Neurovascular intact. Full, normal range of motion. Neuro: Awake and alert, GCS 15, oriented to person, place, time, and situation. Cranial nerves II-XII grossly intact. Motor strength 5/5 in all extremities. Sensory grossly intact. Cerebellar exam normal. Normal gait. Psych: Awake, alert, with orientation to person, place and time. Behavior, mood, and affect are within normal limits. 21:55 Constitutional: The patient appears in no acute distress, alert, awake, emaciated, frail. Vital Signs: 19:53 BP 150 / 64; Pulse 90; Resp 16; Temp 99.3(O); Pulse Ox 99% ; Weight 49.9 kg; Height 5 sj1 ft. 9 in. (175.26 cm); Pain 10/10; 23:33 BP 180 / 76; Pulse 73; Resp 18; Pulse Ox 100% on R/A; ms4 02/11 01:40 Pulse 68; Resp 16; Pulse Ox 98% on R/A; Pain 0/10; ms4 03:16 BP 139 / 101; Pulse 67; Resp 16; Temp 98.1; Pulse Ox 100% on R/A; Pain 0/10; ms4 04:31 BP 176 / 69; Pulse 65; Resp 18; Pulse Ox 98% on R/A; Pain 0/10; ms4 02/10 19:53 Body Mass Index 16.24 (49.90 kg, 175.26 cm) [facility] MDM: 02:19 Differential diagnosis: chronic back pain, Pyelonephritis Ureterolithiasis mh7 Malnutrition, failure to thrive. Data reviewed: vital signs, nurses notes, lab test result(s), cardiac enzymes, CBC, electrolytes, urinalysis, EKG, radiologic studies, CT scan, plain films, ultrasound. Data interpreted: Pulse oximetry: on room air is 98 %. Interpretation: normal. Counseling: I had a detailed discussion with the patient and/or guardian regarding: the historical points, exam findings, and any diagnostic results supporting the discharge/admit diagnosis, the presence of at least one elevated blood pressure reading (>120/80) during this emergency department visit, lab results, radiology results, the need for further work-up and treatment in the hospital. Response to treatment: the patient's symptoms have mildly improved after treatment. 02:24 Patient medically screened. mh7 02/10 21:14 Order name: BMP ms4 02/10 21:14 Order name: Blood Culture Adult (2) ms4 02/10 21:14 Order name: CBC with Diff ms4 02/10 21:14 Order name: CPK ms4 02/10 21:14 Order name: Ckmb ms4 02/10 21:14 Order name: D-Dimer ms4 02/10 21:14 Order name: Hepatic Function ms4 02/10 21:14 Order name: Lipase ms4 02/10 21:14 Order name: Magnesium ms4 02/10 21:14 Order name: NT PRO-BNP; Complete Time: 22:22 wa4 02/10 21:14 Order name: PT-INR; Complete Time: 00:26 wa4 02/10 21:14 Order name: Ptt, Activated; Complete Time: 00:26 wa4 02/10 21:14 Order name: Troponin (emerg Dept Use Only); Complete Time: 22:22 wa4 02/10 21:15 Order name: Basic Metabolic Panel; Complete Time: 22:22 EDMS 02/10 21:15 Order name: Blood Culture; Complete Time: 01:45 EDMS 02/10 21:15 Order name: CBC with Automated Diff; Complete Time: 00:26 MS 02/10 21:15 Order name: Creatine Phosphokinase; Complete Time: 22:22 MS 02/10 21:15 Order name: CKMB Creatine Kinase MB; Complete Time: 22:22 MS 02/10 21:15 Order name: D-Dimer; Complete Time: 00:26 EDMS 02/10 21:15 Order name: Liver (Hepatic) Function; Complete Time: 22:22 EDMS 02/10 21:15 Order name: Lipase; Complete Time: 22:22 MS 02/10 21:15 Order name: Magnesium; Complete Time: 22:22 MS 02/10 21:35 Order name: Lactate wa4 02/10 21:35 Order name: Lactate; Complete Time: 22:22 MS 02/10 22:08 Order name: TSH; Complete Time: 00:26 [facility] 02/10 22:48 Order name: SARS-COV-2 RT PCR; Complete Time: 00:26 EDMS 02/10 23:33 Order name: Manual Differential; Complete Time: 00:26 MS 02/10 23:51 Order name: AMMONIA; Complete Time: 01:14 [facility] 02/11 01:54 Order name: Urine Dipstick-Ancillary; Complete Time: 02:19 EDMS 02/10 21:14 Order name: EKG; Complete Time: 21:15 [facility] 02/10 21:14 Order name: Cardiac monitoring; Complete Time: 21:33 [facility] 02/10 21:14 Order name: EKG - Nurse/Tech; Complete Time: 21:33 ms4 02/10 21:14 Order name: IV Saline Lock; Complete Time: 21:33 ms4 02/10 21:14 Order name: Labs collected and sent; Complete Time: 21:33 ms4 02/10 21:14 Order name: O2 Per Protocol; Complete Time: 21:33 ms4 02/10 21:14 Order name: O2 Sat Monitoring; Complete Time: 21:33 ms4 02/10 22:08 Order name: Chest Single View XRAY; Complete Time: :45 7 02/10 22:09 Order name: CT Head Brain wo Cont; Complete Time: :45 7 02/10 22:09 Order name: CT Abd/Pelvis - IV Contrast Only; Complete Time: :45 7 02/11 00:29 Order name: US Extremity Venous W Compression Fletcher; Complete Time: :45 7 02/11 01:14 Order name: Urine Dipstick-Ancillary (obtain specimen); Complete Time: 01:54 7 Administered Medications: 02/10 22:38 Drug: morphine 2 mg Route: IVP; Site: right antecubital; ms4 22:38 Drug: Zofran (Ondansetron) 4 mg Route: IVP; Site: right antecubital; ms4 22:39 Drug: NS 0.9% 1000 ml Route: IV; Rate: 1000 ml; Site: right antecubital; ms4 Disposition Summary: 02/11/21 02:24 Hospitalization Ordered Hospitalization Status: Inpatient Admission [facility] Provider: Tato Perez [facility] Location: Telemetry/MedSurg (Inpatient) [facility] Condition: Stable [facility] Problem: an ongoing problem [facility] Symptoms: have improved [facility] Bed/Room Type: Standard [facility] Room Assignment: 205(02/11/21 04:08) eb1 Diagnosis - Generalized weakness mh7 - Adult failure to thrive mh7 - Low back pain [facility] - Dehydration [facility] Forms: - Medication Reconciliation Form [facility] - SBAR form [facility] Signatures: Dispatcher [employer] EDJose Dent MD MD rn Basinger, Emily, RN RN eb1 Yang Elias MD MD 7 Kareen Skelton RN RN ms4 Sheree Bailon RN RN sj1 Corrections: (The following items were deleted from the chart) 22:47 22:23 CORONAVIRUS+.BRZ ordered. EDMS EDMS 02/11 04:08 02:24 mh7 eb1
--- NOTE | 2021-02-11 02:25 | ER ---
Nurse's Notes [facility] Name: Christian Griffith Age: 70 yrs Sex: Male : 1950 Arrival Date: 02/10/2021 Time: 19:11 Bed 7 Private MD: Diagnosis: Generalized weakness;Adult failure to thrive;Low back pain;Dehydration Presentation: 02/10 19:53 Chief complaint: Patient states: rt lower back pain, gen weakness, and intermittent sj1 SOB. Coronavirus screen: Vaccine status: Patient reports being unvaccinated. Ebola Screen: Patient negative for fever greater than or equal to 101.5 degrees Fahrenheit, and additional compatible Ebola Virus Disease symptoms Patient denies exposure to infectious person. Patient denies travel to an Ebola-affected area in the 21 days before illness onset. No symptoms or risks identified at this time. Initial Sepsis Screen: Does the patient meet any 2 criteria? No. Patient's initial sepsis screen is negative. Does the patient have a suspected source of infection? No. Patient's initial sepsis screen is negative. Risk Assessment: Do you want to hurt yourself or someone else? Patient reports no desire to harm self or others. Onset of symptoms was February 05, 2021. 19:53 Method Of Arrival: Wheelchair sj1 19:53 Acuity: ROLANDO 3 sj1 Triage Assessment: 19:55 General: Appears in no apparent distress. Behavior is calm, cooperative, appropriate sj1 for age. Pain: Complains of pain in RT LOWER BACK PAIN. Musculoskeletal: Reports weakness in GEN WEAKNESS pain in LOW BACK PAIN. Historical: - Allergies: 19:55 No Known Allergies; sj1 - PMHx: 19:55 COPD; Hypertension; sj1 - Immunization history:: Client reports having NOT received the Covid vaccine. - Social history:: Smoking status: Patient reports the use of cigarette tobacco products, smokes one pack cigarettes per day. Patient/guardian denies using tobacco. Screenin:34 Abuse screen: Denies threats or abuse. Denies injuries from another. Nutritional ms4 screening: No deficits noted. Tuberculosis screening: No symptoms or risk factors identified. Fall Risk None identified. Assessment: 23:34 General: Appears in no apparent distress. Behavior is calm, cooperative, appropriate ms4 for age. Pain: Complains of pain in back. Neuro: No deficits noted. Level of Consciousness is awake, alert. Neuro: Reports weakness. Cardiovascular: No deficits noted. Respiratory: Reports shortness of breath. Vital Signs: 19:53 BP 150 / 64; Pulse 90; Resp 16; Temp 99.3(O); Pulse Ox 99% ; Weight 49.9 kg; Height 5 sj1 ft. 9 in. (175.26 cm); Pain 10/10; 23:33 BP 180 / 76; Pulse 73; Resp 18; Pulse Ox 100% on R/A; ms4 02/11 01:40 Pulse 68; Resp 16; Pulse Ox 98% on R/A; Pain 0/10; ms4 03:16 BP 139 / 101; Pulse 67; Resp 16; Temp 98.1; Pulse Ox 100% on R/A; Pain 0/10; ms4 04:31 BP 176 / 69; Pulse 65; Resp 18; Pulse Ox 98% on R/A; Pain 0/10; ms4 02/10 19:53 Body Mass Index 16.24 (49.90 kg, 175.26 cm) [facility] ED Course: 02/10 19:11 Patient arrived in ED. ja2 19:55 Triage completed. sj1 21:32 Yang Elias MD is Attending Physician. mh7 21:34 BMP Sent. ms4 21:34 Blood Culture Adult (2) Sent. ms4 21:34 CBC with Diff Sent. ms4 21:34 CPK Sent. ms4 21:34 Ckmb Sent. ms4 21:34 D-Dimer Sent. ms4 21:34 Hepatic Function Sent. ms4 21:34 Lipase Sent. ms4 21:34 Magnesium Sent. ms4 21:44 Lactate Sent. sj1 21:44 Lactate Sent. sj1 21:44 Magnesium Sent. sj1 21:44 Liver (Hepatic) Function Sent. sj1 21:44 Lipase Sent. sj1 21:44 CKMB Creatine Kinase MB Sent. sj1 21:44 D-Dimer Sent. sj1 21:44 CBC with Automated Diff Sent. sj1 21:44 Creatine Phosphokinase Sent. sj1 21:44 Basic Metabolic Panel Sent. sj1 21:44 Blood Culture Sent. sj1 21:44 NT PRO-BNP Sent. sj1 21:44 PT-INR Sent. sj1 21:44 Ptt, Activated Sent. sj1 21:44 Troponin (emerg Dept Use Only) Sent. sj1 22:25 Chest Single View XRAY In Process Unspecified. EDMS 22:41 D-Dimer Sent. wg 22:41 CBC with Automated Diff Sent. wg 22:41 Blood Culture Sent. wg 22:41 PT-INR Sent. wg 22:41 Ptt, Activated Sent. 22:41 TSH Sent. wg 23:00 CT Head Brain wo Cont In Process Unspecified. EDMS 23:04 CT Abd/Pelvis - IV Contrast Only In Process Unspecified. EDMS 23:34 Patient has correct armband on for positive identification. ms4 02/11 00:41 AMMONIA Sent. ms4 01:18 US Extremity Venous W Compression Fletcher In Process Unspecified. EDMS 02:22 Tato Perez MD is Hospitalizing Provider. [facility] Administered Medications: 02/10 22:38 Drug: morphine 2 mg Route: IVP; Site: right antecubital; ms4 22:38 Drug: Zofran (Ondansetron) 4 mg Route: IVP; Site: right antecubital; ms4 22:39 Drug: NS 0.9% 1000 ml Route: IV; Rate: 1000 ml; Site: right antecubital; ms4 Outcome: 02/11 02:24 Decision to Hospitalize by Provider. 7 04:42 Patient left the ED. ms4 Signatures: Dispatcher [employer] EDYang Rodriguez MD MD 7 Kareen Skelton, RN RN ms4 Luiz Ross, JOSE F Mercy Mckeon Sade, RN RN sj1 Corrections: (The following items were deleted from the chart) 02/10 22:47 22:41 CORONAVIRUS+MR.LAB.ASHELY drawn and sent. EDMS
[2021-02-11] MEDS ORDERED: IPRATROPIUM BROM 0.5MG/2.5ML NEB PRN (04:17)
[2021-02-11] MEDS ORDERED: ALBUTEROL 2.5 MG/3 ML NEB SOL NEB PRN ×2 (04:17→16:00)
[2021-02-11] MEDS: NA CHLORIDE 0.9% 1,000 ML IV SCH ×3 (04:17→14:26)
[2021-02-11] MEDS ORDERED: ONDANSETRON 4 MG/2 ML VIAL IV PRN (04:17)
[2021-02-11 05:32] VITALS: BMI 14.1
--- NOTE | 2021-02-11 05:36 | P.HP ---
Certification for Inpatient Patient admitted to: Inpatient With expected LOS: <2 Midnights Patient will require the following post-hospital care: None Practitioner: I am a practitioner with admitting privileges, knowledge of patient current condition, hospital course, and medical plan of care. Services: Services provided to patient in accordance with Admission requirements found in Title 42 Section 412.3 of the Code of Federal Regulations Patient History Date of Service: 02/11/21 Reason for admission: weakness History of Present Illness: Mr. Griffith is a 70 yo M with COPD, HTN, history of CVA and chronic alcoholism who presents with three weeks of increased weakness, fatigue, anorexia, weight loss, and SOB. He had a fever upon arrival. reports some night sweats and chills as well as intermittent confusion. At bedside, patient is AOx4 but does display weakness. He has been steadily declining. He has been having recurrent falls where he loses his balance. Denies LOC. He has chronic back pain from a herniated disc and symptoms were initially attributed to the pain. He received his pain injections last Tuesday. He smokes 1 ppd. also reports he has been depressed. Their son was killed one year ago around this time. H/H 8.9, Ddimer 5802, Na 130, Cl 92, BNP 1557. DVT US without acute findings. Allergies No Known Allergies Allergy (Verified 02/11/21 05:15) Home Medications: Amlodipine [Norvasc*] 5 mg PO DAILY 06/13/20 methocarbamoL [Robaxin-750] 750 mg PO BID 06/13/20 - Past Medical/Surgical History Diabetic: No -: COPD -: HTN -: CVA Past Surgical History: Patient denies surgical history - Family History Family History: Reviewed- Non-Contributory - Social History Smoking Status: Current every day smoker Alcohol use: No CD- Drugs: No Caffeine use: No Place of Residence: Home Review of Systems 10-point ROS is otherwise unremarkable General: Chills, Sweats, Weakness, Malaise Eyes: Unremarkable ENT: Unremarkable Respiratory: Shortness of Breath, As per HPI Cardiovascular: Unremarkable Gastrointestinal: Unremarkable Genitourinary: Unremarkable Musculoskeletal: Back Pain, As per HPI Integumentary: Unremarkable Neurological: Weakness, Incoordination, As per HPI Lymphatics: Unremarkable Physical Examination - Vital Signs Temperature: 98.1 F Blood Pressure: 176/69 Pulse: 65 Respirations: 18 - Physical Exam General: Alert, In no apparent distress, Oriented x3, Cooperative, Cachectic HEENT: Atraumatic, PERRLA, Mucous membr. moist/pink, EOMI, Sclerae nonicteric Neck: Supple, 2+ carotid pulse no bruit, No LAD, Without JVD or thyroid abnormality Respiratory: Normal air movement, Expiratory wheezes Cardiovascular: No edema, Regular rate/rhythm, Normal S1 S2 Gastrointestinal: Normal bowel sounds, No tenderness Musculoskeletal: No tenderness Integumentary: No rashes Neurological: Normal speech, Normal tone, Sensation intact, Normal affect, Abnormal strength Lymphatics: No axilla or inguinal lymphadenopathy - Studies Laboratory Data (last 24 hrs) 02/10/21 23:17: PT 11.2, INR 0.97, APTT 30.6 02/10/21 23:17: WBC 7.00, Hgb 8.9 L, Hct 27.7 L, Plt Count 194 02/10/21 21:30: Sodium 130 L, Potassium 4.1, BUN 18, Creatinine 0.68, Glucose 93, Magnesium 2.0, Total Bilirubin 0.4, AST 65 H, ALT 35, Alkaline Phosphatase 75, Lipase 149 Assessment and Plan - Problems (Diagnosis) (1) HTN (hypertension) Current Visit: Yes Status: Chronic Qualifiers: Hypertension type: primary hypertension Qualified Code(s): I10 - Essential (primary) hypertension (2) Chronic back pain Current Visit: Yes Status: Chronic Qualifiers: Back pain location: back pain in unspecified location Back pain laterality: unspecified Qualified Code(s): M54.9 - Dorsalgia, unspecified; G89.29 - Other chronic pain (3) Weakness Current Visit: Yes Status: Acute (4) COPD (chronic obstructive pulmonary disease) Current Visit: No Status: Chronic Qualifiers: COPD type: unspecified COPD Qualified Code(s): J44.9 - Chronic obstructive pulmonary disease, unspecified - Plan MRI brain pending, will obtain imaging of the chest to rule out PE and evaluate for lung masses continue IVF hydration anemia workup pending, thiamine and folic acid levels pending dietitian consulted, PT consulted serum alcohol pending hydralazine PRN for BP DVT ppx Discharge Plan: Home Plan to discharge in: 24 Hours - Advance Directives Does patient have a Living Will: No Does patient have a Durable POA for Healthcare: No - Code Status/Comfort Care Code Status Assessed: Yes (full code ) Critical Care: No Time Spent Managing Pts Care (In Minutes): 70
[2021-02-11 06:14] LABS: ALT/SGPT 30 U/L (12-78); AST/SGOT 37 U/L (15-37); Albumin 3.1 g/dL (3.4-5.0); Alkaline Phosphatase 66 U/L (45-117); BUN Blood Urea Nitrogen 15 mg/dL (7-18); Bicarbonate 28 mmol/L (21-32); Bilirubin Total 0.4 mg/dL (0.2-1.0); Glucose Level 90 mg/dL (74-106); Magnesium 1.9 mg/dL (1.8-2.4); Phosphorus 3.3 mg/dL (2.5-4.9); Potassium 3.9 mmol/L (3.5-5.1); Protein, Total 6.2 g/dL (6.4-8.2); Sodium Level 132 mmol/L (136-145)
[2021-02-11 07:10] LABS: Ferritin 14.7 ng/mL (26-388); Folic Acid, (Folate) 12.5 ng/mL (3.1-17.5)
--- NOTE | 2021-02-11 07:32 | RAD REPORT ---
EXAM DESCRIPTION: USExtrem Venous W Compress Bil02/11/2021 1:18 am CLINICAL HISTORY: Leg pain COMPARISON: none FINDINGS: The common femoral, superficial femoral, popliteal and posterior tibial veins bilaterally are compressible and demonstrate augmentation. Doppler demonstrates good flow. IMPRESSION: No evidence of deep venous thrombosis involving either lower extremity.
--- NOTE | 2021-02-11 07:36 | RAD REPORT ---
EXAM DESCRIPTION: [place] Single View02/10/2021 10:25 pm CLINICAL HISTORY: Shortness of breath COMPARISON: May 2020 FINDINGS: Lungs are hyperaerated. The lungs appear clear of acute infiltrate. The heart is normal size IMPRESSION: No acute abnormalities displayed
[2021-02-11 08:15] LABS: Barbiturates POSITIVE (NEGATIVE); Benzodiazepines NEGATIVE (NEGATIVE); Cocaine NEGATIVE (NEGATIVE); METHAMPHETAM NEGATIVE (NEGATIVE); Methadone NEGATIVE (NEGATIVE); Opiates NEGATIVE (NEGATIVE); Phencyclidine NEGATIVE (NEGATIVE); THC Cannibis NEGATIVE (NEGATIVE)
[2021-02-11] MEDS: ACETAMINOPHEN 500 MG TAB PO PRN ×3 (08:43→23:18)
[2021-02-11] MEDS ORDERED: POTASSIUM CL SA 10 MEQ TAB PO ONE (09:00)
[2021-02-11 12:29] LABS: MPV 7.4 fL (7.6-11.3); RBC Red Blood Cell Count 2.99 M/uL (4.33-5.43)
[2021-02-11 13:10] LABS: Blood Morphology Comment NOT SEEN (NOT SEEN); Platelet Estimate ND
--- NOTE | 2021-02-11 13:55 | RAD REPORT ---
EXAM DESCRIPTION: MRI - Brain Wo Cont - 02/11/2021 1:45 pm CLINICAL HISTORY: weakness COMPARISON: MRI BRAIN WITHOUT CONTRAST dated 06/19/2010; MRA HEAD W O CONTRAST dated 06/19/2010; MRI B RAIN WITHOUT CONTRAST dated 04/29/2006 TECHNIQUE: Sagittal T1-weighted images were obtained along with PD/heavily T2-weighted and T2-FLAIR images. Axial DWI and ADC mapping sequences were also obtained along with coronal heavily T2-weighted images were obtained. FINDINGS: No intracranial hemorrhage, mass or acute infarction. There is no edema or shift of midlin e structures. No extra-axial fluid collections. Signal voids are seen as a normal finding in the shani r intracranial vessels. Mild chronic small vessel ischemic changes. Cerebral atrophy. Trace mastoid effusions. IMPRESSION: No acute intracranial abnormality. Mild chronic small vessel ischemic changes. No signif icant change from prior.
[2021-02-11] MEDS: ENSURE ENLIVE 237 ML CAN PO SCH ×2 (14:28→21:00)
--- NOTE | 2021-02-11 15:34 | P.PN ---
Subjective Date of Service: 02/11/21 Patient is completely emaciated. He is cachectic and he has lost over 20 lb over the last year. He states that his 20 lb he did not have to lose. He was already very thin to begin with. At this time, will continue with workup with CT of the chest. Will start him on some steroids for appetite stimulation and for COPD treatment. Patient is not ambulating. He was ambulating with a walker before he came in. Will do physical therapy evaluation. He has diffuse muscular atrophy. Workup pending. He will need to be inpatient hospitalization. Review of Systems 10-point ROS is otherwise unremarkable Physical Examination - Vital Signs Temperature: 97.1 F Blood Pressure: 153/65 Pulse: 68 Respirations: 20 Pulse Ox (%): 94 - Physical Exam General: Alert, In no apparent distress, Cachectic HEENT: Atraumatic, PERRLA, EOMI Neck: Supple, JVD not distended, LAD Respiratory: Clear to auscultation bilaterally, Normal air movement Cardiovascular: Regular rate/rhythm, Normal S1 S2 Gastrointestinal: Normal bowel sounds, No tenderness Musculoskeletal: No tenderness Integumentary: No rashes Neurological: Normal speech, Normal tone, Normal affect Lymphatics: No axilla or inguinal lymphadenopathy - Studies Laboratory Data (last 24 hrs) 02/11/21 12:19: WBC 6.60, Hgb 7.6 L, Hct 25.0 L, Plt Count 197 02/11/21 05:21: Sodium 132 L, Potassium 3.9, BUN 15, Creatinine 0.59, Glucose 90, Phosphorus 3.3, Magnesium 1.9, Total Bilirubin 0.4, AST 37, ALT 30, Alkaline Phosphatase 66 02/10/21 23:17: PT 11.2, INR 0.97, APTT 30.6 02/10/21 23:17: WBC 7.00, Hgb 8.9 L, Hct 27.7 L, Plt Count 194 02/10/21 21:30: Sodium 130 L, Potassium 4.1, BUN 18, Creatinine 0.68, Glucose 93, Magnesium 2.0, Total Bilirubin 0.4, AST 65 H, ALT 35, Alkaline Phosphatase 75, Lipase 149 Medications List Reviewed: Yes Assessment & Plan - Problems (Diagnosis) (1) Emaciated Current Visit: Yes Status: Acute (2) Weight loss Current Visit: Yes Status: Acute (3) Alcohol abuse Current Visit: Yes Status: Acute (4) Tobacco abuse Current Visit: Yes Status: Acute (5) Severe malnutrition Current Visit: Yes Status: Acute (6) Weakness Current Visit: Yes Status: Acute (7) HTN (hypertension) Current Visit: Yes Status: Chronic Qualifiers: Hypertension type: primary hypertension Qualified Code(s): I10 - Essential (primary) hypertension (8) COPD (chronic obstructive pulmonary disease) Current Visit: No Status: Chronic Qualifiers: COPD type: unspecified COPD Qualified Code(s): J44.9 - Chronic obstructive pulmonary disease, unspecified - Plan Plan: 1. CT of the chest 2. Malignancy workup 3. Physical therapy 4. Appetite stimulation 5. Increase caloric intake 6. Dietary consultation 7. Monitor electrolytes 8. Iron supplementation 9. GI and DVT prophylaxis - Advance Directives Does patient have a Living Will: No Does patient have a Durable POA for Healthcare: No
--- NOTE | 2021-02-11 17:40 | RAD REPORT ---
EXAM DESCRIPTION: CT - Head Brain Wo Cont - 02/11/2021 6:53 am CLINICAL HISTORY: WEAKNESS. TECHNIQUE: Axial, coronal, and sagittal images through the brain were performed in the absence of in travenous contrast. This exam was performed according to our departmental dose-optimization program w hich includes use of Automated Exposure Control, adjustment of the mA and/or kV according to patient size and/or use of iterative reconstruction technique. COMPARISON: CT head from June 11, 2020. FINDINGS: There is diffuse age-appropriate atrophy throughout the brain parenchyma. Mild periventric ular white matter changes are present, and there is mild ex vacuo dilatation of the ventricular syste m. There is no intra-axial or extra-axial bleed. There is no mass or mass effect.The visualized paran jena sinuses and mastoid air cells are patent. No acute fracture is identified.IMPRESSION:1. No acu te intracranial abnormality identified.2. Mild chronic age-related and microvascular ischemic potts es.Electronically signed by: Yen Ewing MD 02/10/2021 11:16 PM CDT Due to temporary technical issues with the PACS/Fluency reporting system, reports are being signed by the in house radiologists without review as a courtesy to insure prompt reporting. The interpreting radiologist is fully responsible for the content of the report.
--- NOTE | 2021-02-11 19:04 | RAD REPORT ---
EXAM DESCRIPTION: CT - Abdomen Pelvis W Contrast - 02/11/2021 6:53 am CLINICAL HISTORY: FLANK PAIN. Weakness and constipation. COMPARISON: None. TECHNIQUE: CT of the abdomen and pelvis was performed following intravenous administration of iodina svitlana contrast. Arterial phase images through the abdomen, and portal venous phase images through the a bdomen and pelvis were obtained. Oral contrast was not administered. Axial, coronal, and sagittal sof t tissue window reconstructions were created and sent to PACS. This exam was performed according to our departmental dose-optimization program, which includes autom ated exposure control, adjustment of the mA and/or kV according to patient size and/or use of iterati ve reconstruction technique. FINDINGS: Thoracic: Mild centrilobular emphysema in the visualized lower lungs. Hepatobiliary: Grossly nodular hepatic contour. No concerning hepatic lesion identified. The portal v eins are patent. A few small calcified gallstones are present within the gallbladder. No definite gal lbladder wall thickening. No biliary ductal dilatation. Pancreas: Unremarkable. Spleen: Unremarkable. Gastrointestinal: No evidence of bowel obstruction or perienteric inflammation. The appendix is surgi sharlene absent. Small to moderate amount of fecal material throughout the colon. Adrenals: No abnormality identified in either adrenal gland. Renal: Interpolar right renal 1.2 cm simple cyst. Tiny hypodensity in the superior right kidney, also likely a cyst. No concerning parenchymal abnormality in either kidney. No hydronephrosis or urolithi asis. Bladder/Reproductive: Unremarkable appearance of the urinary bladder by CT technique. Mild prostatome yung. Vascular/Lymphatics: No lymphadenopathy identified by CT size criteria. Prominent mixed atheroscleros is. Infrarenal abdominal aortic aneurysm measures up to 3.3 cm in diameter. 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 Reconstitution at the level of the right common iliac artery. Musculoskeletal: No concerning osseous lesion identified. Osteopenia. Fluid / peritoneum: Mild perihepatic free fluid. No free intraperitoneal air identified. IMPRESSION 1. Small to moderate amount of fecal material throughout the colon. Suspected hepatic c irrhosis. Mild perihepatic free fluid. Patent portal veins. 2. 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 Reconstitution at the ri ght common iliac artery. 3. Infrarenal abdominal aortic aneurysm measuring up to 3.3 cm in diameter. Recommend imaging follo w-up every three years. 4. Cholelithiasis without CT evidence of acute cholecystitis. Electronically signed by: Yen Ewing MD 02/10/2021 11:25 PM CDT Due to temporary technical issues with the PACS/Fluency reporting system, reports are being signed by the in house radiologists without review as a courtesy to insure prompt reporting. The interpreting radiologist is fully responsible for the content of the report.
[2021-02-12] MEDS: HYDRALAZINE HCL 20 MG/ML VIAL IV PRN ×2 (00:07→10:51)
[2021-02-12] MEDS: NA CHLORIDE 0.9% 1,000 ML IV SCH ×3 (00:10→17:18)
[2021-02-12] MEDS ORDERED: CYCLOBENZAPRINE 10 MG TAB PO PRN (00:19)
[2021-02-12] MEDS ORDERED: FENTANYL CITR 100 MCG/2 ML IV ONE (01:05)
[2021-02-12 05:27] LABS: Absolute Lymphocytes (CBC) 1.2 K/uL (0.7-4.9); Basophils % 0.3 % (0-1.3); Hematocrit 25.5 % (39.6-49.0); Lymphocytes % 10.9 % (15.3-44.8); MPV 7.4 fL (7.6-11.3); RBC Red Blood Cell Count 3.07 M/uL (4.33-5.43)
[2021-02-12 05:57] LABS: ALT/SGPT 46 U/L (12-78); AST/SGOT 67 U/L (15-37); Albumin 2.6 g/dL (3.4-5.0); Alkaline Phosphatase 78 U/L (45-117); BUN Blood Urea Nitrogen 15 mg/dL (7-18); Bicarbonate 26 mmol/L (21-32); Bilirubin Total 0.3 mg/dL (0.2-1.0); Glucose Level 101 mg/dL (74-106); HDL Cholesterol 74 mg/dL (40-60); LDL Cholesterol, Calculated 77 (<130); Magnesium 1.8 mg/dL (1.8-2.4); Phosphorus 2.7 mg/dL (2.5-4.9); Potassium 4.3 mmol/L (3.5-5.1); Protein, Total 5.9 g/dL (6.4-8.2); Sodium Level 133 mmol/L (136-145)
[2021-02-12] MEDS: AMLODIPINE 5 MG TAB PO SCH (08:54)
[2021-02-12] MEDS: ENSURE ENLIVE 237 ML CAN PO SCH ×3 (08:55→21:00)
[2021-02-12] MEDS: SOD FERRIC GLUC COMPLX/SUCROSE 250 MG in NA CHLORIDE 0.9% 250 ML IV SCH (08:55)
[2021-02-12] MEDS: chlordiazePOXIDE HCl 5 MG CAP PO PRN ×2 (08:55→17:05)
[2021-02-12] MEDS: MORPHINE 4 MG/ML SYR IV PRN ×2 (11:54→21:33)
--- NOTE | 2021-02-12 14:10 | RAD REPORT ---
EXAM DESCRIPTION: CT - Angio Aorta For Dissection - 02/12/2021 3:09 am CLINICAL HISTORY: Back pain COMPARISON: 02/10/2021 TECHNIQUE: CTA of the chest, abdomen and pelvis performed following IV administration of iodinated c ontrast. 3-D/MIP reformatted images available. This exam was performed according to our departmental dose-optimization program, which includes automated exposure control, adjustment of the mA and/or kV according to patient size and/or use of iterative reconstruction technique. FINDINGS: Chest: Thyroid: No abnormalities of the visualized thyroid. Great Vessels: Great vessels have normal anatomic configuration. Thoracic Aorta: Normal caliber thoracic aorta with mild atherosclerotic plaque. No evidence of dissec tion. Pulmonary arteries: No filling defects identified. Heart: Coronary artery atherosclerosis. No cardiomegaly or significant pericardial effusion. Lymph Nodes: No enlarged mediastinal lymph nodes identified. Esophagus: No abnormalities of the esophagus identified Other: No additional findings. Lungs: Severe centrilobular emphysematous change. Biapical pleural parenchymal scarring. Bibasilar co mpressive atelectasis. 1.2 x 0.9 cm spiculated pulmonary nodule in the right upper lobe best seen on image #52, series 402. Pleura: Small bilateral pleural effusions. Trachea/Airways: No acute abnormalities of the trachea. Abdomen: Liver: Nodular contour of the liver Gallbladder: Calcified gallstones. Spleen, Pancreas, and Adrenal Glands: The spleen, pancreas, and adrenal glands are unremarkable. Kidneys: The kidneys have normal size and contour without evidence of solid mass or hydronephrosis. Small right renal cyst. Vasculature: Aortoiliac atherosclerosis. No evidence of aortic dissection. Redemonstrated infrarenal abdominal aortic aneurysm measuring 3.3 x 3.3 cm. High-grade stenosis of greater than 50% at the orig in of the common iliac artery. Tandem greater than 50% stenosis of the distal left common iliac arter y with redemonstrated short segment dissection with no evidence of propagation. The external iliac ar nicky on the left is patent. Occlusion of the right common and external iliac arteries again identifie d. The IVC is unremarkable. Likely chronic occlusion at the origin of the celiac artery with reconsti tution of flow in the mid and distal celiac artery on the basis of mesenteric collaterals.. Nonflow l imiting atherosclerotic plaque at the origin of the superior mesenteric artery. The inferior mesenter ic artery is patent. Nonflow limiting ostial plaque of the bilateral renal arteries. Stomach: The stomach and duodenum have normal course. Other: No free intraperitoneal air. Moderate amount of free fluid. Pelvis: Bladder: Urinary bladder is unremarkable. Bowel: No dilated loops of large or small bowel. Large amount stool in the rectum. Scattered divert icula of the colon. Appendix: Normal appendix. Pelvis: Prostate is not enlarged. Bones: Osteopenia. Mild multilevel endplate spondylosis. Stable apical to compression deformity. IMPRESSION: 1. No evidence of aortic dissection. Stable infrarenal abdominal aortic aneurysm measu ring 3.3 cm. Follow-up imaging in 3 years recommended. 2. High-grade stenosis of greater than 50% at the origin of the right common iliac artery. 3. Tandem greater than 50% stenosis of the distal left common iliac artery with redemonstrated shor t segment dissection with no evidence of propagation. 4. Occlusion of the right common and external iliac arteries again identified. 5. 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 Smal l bilateral pleural effusions with bibasilar compressive atelectasis. 6. Severe centrilobular emphysematous change. 7. Coronary artery atherosclerosis. 8. Nodular contour of the liver. Findings concerning for cirrhosis. 9. Cholelithiasis. 10. Moderate amount of ascites. 11. Diverticulosis without evidence of acute diverticulitis. 12. 1.2 cm spiculated pulmonary nodule in the right upper lobe. Findings concerning for malignancy. Consider CT at 3 months, PET/CT, or tissue sampling for continued evaluation. Electronically signed by: Frank Taylor 02/12/2021 3:03 AM CDT Due to temporary technical issues with the PACS/Fluency reporting system, reports are being signed by the in house radiologists without review as a courtesy to insure prompt reporting. The interpreting radiologist is fully responsible for the content of the report.
[2021-02-12] MEDS: CARBIDOPA/LEVODOPA 25/100 TAB PO SCH ×2 (18:02→21:33)
[2021-02-12] MEDS: NICOTINE 14 MG/PAT TD SCH (18:39)
[2021-02-13] MEDS: NA CHLORIDE 0.9% 1,000 ML IV SCH ×2 (03:32→23:36)
[2021-02-13] MEDS: chlordiazePOXIDE HCl 5 MG CAP PO PRN ×3 (04:16→22:41)
[2021-02-13 06:41] LABS: ALT/SGPT 11 U/L (12-78); AST/SGOT 43 U/L (15-37); Albumin 2.7 g/dL (3.4-5.0); Alkaline Phosphatase 65 U/L (45-117); BUN Blood Urea Nitrogen 10 mg/dL (7-18); Bicarbonate 24 mmol/L (21-32); Bilirubin Total 0.2 mg/dL (0.2-1.0); Folic Acid, (Folate) 14.3 ng/mL (3.1-17.5); Glucose Level 84 mg/dL (74-106); Magnesium 1.8 mg/dL (1.8-2.4); Phosphorus 2.8 mg/dL (2.5-4.9); Potassium 4.1 mmol/L (3.5-5.1); Protein, Total 6.3 g/dL (6.4-8.2); Sodium Level 131 mmol/L (136-145)
[2021-02-13 07:41] LABS: Hematocrit 26.7 % (39.6-49.0); MPV 6.7 fL (7.6-11.3)
[2021-02-13] MEDS: SOD FERRIC GLUC COMPLX/SUCROSE 250 MG in NA CHLORIDE 0.9% 250 ML IV SCH (08:34)
[2021-02-13] MEDS: ENSURE ENLIVE 237 ML CAN PO SCH ×3 (08:34→20:22)
[2021-02-13] MEDS: NICOTINE 14 MG/PAT TD SCH (08:35)
[2021-02-13] MEDS: AMLODIPINE 5 MG TAB PO SCH (08:35)
[2021-02-13] MEDS: CARBIDOPA/LEVODOPA 25/100 TAB PO SCH ×4 (08:35→20:20)
[2021-02-13] MEDS ORDERED: MAGNESIUM SULFATE 1 gm IVPB 1 GM/100 ML BAG IV ONE (09:00)
[2021-02-13 09:25] LABS: Blood Morphology Comment NOTED (NOT SEEN); Hypochromasia 1+; Platelet Estimate ADEQ
[2021-02-13] MEDS: ACETAMINOPHEN 500 MG TAB PO PRN (10:52)
--- NOTE | 2021-02-13 11:30 | P.PN ---
Date of Service: 02/12/21 Subjective Multiple worrisome findings on CT scan. Patient with lung not deal which will need to be further evaluated as an outpatient once he build his strength up. Even if this is a malignancy with his performance status being so diminished she does not really qualify for chemo or radiation were any surgical intervention at this time. He does have diffuse atherosclerotic disease from is history of tobacco abuse. He has a occlusion around the celiac artery but it appears he has good collaterals as well as plaquing in the common iliac artery and external iliac artery but once again he has good collaterals. Will get Pulmonary to see the patient. He also has Parkinson's like symptoms which we are treating him with medication at this time. I will get neurology consultation as well. Review of Systems 10-point ROS is otherwise unremarkable Physical Examination - Vital Signs Reviewed - Physical Exam General: Alert, In no apparent distress, Cachectic Neck: Supple, JVD not distended, anterior cervical LAD Respiratory: Clear to auscultation bilaterally, Normal air movement Cardiovascular: Regular rate/rhythm, Normal S1 S2 Gastrointestinal: Normal bowel sounds, No tenderness Musculoskeletal: No tenderness Neurological: Tremors and some ataxia with shuffled gaits Lymphatics: anterior cervical lymphadenopathy Assessment & Plan - Problems (Diagnosis) (1) Emaciated Current Visit: Yes Status: Acute (2) Weight loss Current Visit: Yes Status: Acute (3) Alcohol abuse/Tobacco abuse Current Visit: Yes Status: Chronic (4) Severe peripheral arterial disease Current Visit: Yes Status: Acute (5) Severe malnutrition Current Visit: Yes Status: Acute (6) Parkinson's disease Current Visit: Yes Status: Acute (7) Lung mass Current Visit: Yes Status: Chronic Qualifiers: Hypertension type: primary hypertension Qualified Code(s): I10 - Essential (primary) hypertension (8) COPD (chronic obstructive pulmonary disease) Current Visit: No Status: Chronic Qualifiers: COPD type: unspecified COPD Qualified Code(s): J44.9 - Chronic obstructive pulmonary disease, unspecified - Plan Plan: 1. Pulmonary consultation for lung mass 2. Cardiology consultation for severe peripheral arterial dz 3. Neurology consultation for Parkinson's symptoms 4. Continue weight Appetite stimulation to increase patient's strength has if he has a lung mass he will need to increase his performance status before any intervention 5. Increase caloric intake 6. Dietary consultation 7. Monitor electrolytes 8. Iron supplementation 9. GI and DVT prophylaxis - Advance Directives Does patient have a Living Will: No Does patient have a Durable POA for Healthcare: No
[2021-02-13] MEDS: HYDROCODONE/APAP 10/325 TAB PO PRN (15:45)
--- NOTE | 2021-02-13 16:11 | RAD REPORT ---
EXAM DESCRIPTION: RAD - Chest Single View - 02/13/2021 3:59 pm CLINICAL HISTORY: Dyspnea Chest pain. COMPARISON: Chest Single View dated 02/10/2021; Chest Single View dated 06/11/2020; Chest Single View dated 03/07/2020; CHEST PA AND LAT 2 VIEW dated 06/19/2010; Angio Aorta For Dissection dated 021 FINDINGS: Portable technique limits examination quality. The lungs are emphysematous with mild opacities in both lung bases which may represent atelectasis or developing infiltrate. The heart is normal in size. No displaced fractures.
--- NOTE | 2021-02-13 20:02 | CON ---
Reason For Consultation: Consultation called because of diffuse weakness. History Of Present Illness: Mr. Griffith is a 70-year-old right-handed patient with a hist ory of chronic tobacco and alcohol abuse, hypertension, COPD, and prior strokes, who comes in with 6- 8 months of progressive weakness and inability to stand and ambulate. Alcohol consumption was about a fifth a day for perhaps 20 years; however, he reportedly sobered up about 5-10 years ago. He still smokes maybe a pack of cigarettes daily. The patient has also been significantly depressed as his s on was killed around about a year ago. His notes he has lower back pain and was treated for his back pain with injections and an attempt was made at physical therapy, but he did not improve over 6 weeks. He has had recurrent falls where he would suddenly lose his strength in the lower extremitie s and fall. He has a history of polio as a child with bilateral lower extremity numbness and signifi cant atrophy where he is unable to be on his legs for a long time without them giving out. His [facility] p at [facility] includes a head CT scan, which showed no acute ischemic or hemorrhagic potts es; however, there is age-related diffuse atrophy, mild small-vessel ischemic disease, and ex-vacuo d ilatation of the ventricles. His brain MRI showed no acute ischemic hemorrhagic changes, mild atroph y due to small-vessel ischemic disease. His CT angiogram scan of the chest, abdomen, and pelvis iden tified a 1.2 x 9 cm speculated pulmonary nodule in the right upper lobe in addition to an infrarenal abdominal aortic aneurysm measuring 3.3 x 3.2 cm and there was high-grade stenosis of the common daina c artery, occlusion of the right common external iliac artery. He did have Doppler studies of the ex tremities showing no deep vein thrombi in either lower extremities. The patient's said that at times he would have tremors of the hands and they are concerned about the possibility of Parkinson disease. Past Medical History: Noted. Allergies: NO KNOWN DRUG ALLERGIES. Medications: At home: Norvasc 5 mg daily and methocarbamol 750 mg twice daily. Past Surgical History: Denies surgical history. Family History: Noncontributory. Social History: Smokes 1 pack cigarettes a day. Drank heavily up to perhaps 5 years ago. Review of Systems: Diffuse weakness, occasional chills, malaise, fatigue, incoordination, loss of balance, and gait, as well as weight loss, shortness of breath, some tunneling of vision along with chronic back pain, and depression. Otherwise, negative on a 10-point systems review. Physical Examination: Vital Signs: Blood pressure 174/70, pulse 83, respiratory rate 18, temperature 97.6, oxygen saturati on 97%. Weight 96 pounds, height 5 feet 9 inches at 14.2. General: Mr. Griffith is resting in bed. He is cachectic appearing, very wasted in the upper and lo wer extremities and his chest, hollowed out in his cheeks as well and in his sabianist regions. HEENT: Otherwise, he appears normocephalic and atraumatic. Sclera is anicteric. Oropharynx is mois t. Neck: Supple. Chest: Decreased breath sounds bilaterally. Extremities: Thin, cachectic, and wasted, but no significant cyanosis or clubbing noted. Neurologic: Reflexes are absent in upper and lower extremities. Coordination: He has ataxia noted in upper and lower extremities. Sensation: He has a stocking-glove loss to light touch, temperature in legs and arms. He does have position sense intact in his toes. Gait: Unable to stand and ambul ate. He just took 2 steps with physical therapy, and he is very ataxic, unsteady, and has high fall risk. Laboratory Studies: Complete blood count with differential shows white blood cell count 8.2, hemoglo bin 8.3, platelets 196. INR 0.97. Chemistries show low sodium at 131, creatinine 0.59. AST 43, ALT 11. Vitamin B12 level 1053, folate 14.3. TSH 2.5, free T4 0.99. Urinalysis essentially unremarkab le. Toxicology screen positive for barbiturates, otherwise negative. COVID-19 test is negative. Assessment: Mr. Griffith is a 70-year-old patient with multiple reasons for diffuse weakness and mul tiple falls. He has post-polio syndrome involving the lower extremities. He possibly has a paraneop lastic syndrome from potential lung cancer with a lung mass and should be checked for voltage-gated c alcium channel presynaptic antibodies. Also, he is cachectic and wasted and is malnourished with ane carlos. In addition, he is debilitated. He does not have evidence of stroke or spinal cord compression . Plan: 1.May do blood work for voltage-gated calcium channel antibodies. This will rule out Lambert-Eaton myasthenic syndrome. 2.May consider Sinemet 25/100 and re-evaluate ambulation to see if there is an improvement for possi ble parkinsonism. 3.He should have gentle therapy as he is unlikely to regain strength, and if pushed, may waste his l ower extremities further. 4.Electrolytes may be corrected as appropriate. 5.If he can withstand, perhaps a bronc or FNA to make a diagnosis to rule out small-cell lung cancer or some other form of cancer, which may be contributing to his weakness as a paraneoplastic syndrome and obvious primary treatment for that. 6.He was told to stop smoking cigarettes. 7.The patient [facility] and worked up as appropriate. MICHEL/GUICHO Voice ID: [id number] Report ID: [id number]
--- NOTE | 2021-02-13 21:17 | CON ---
Date of Consultation: 02/13/2021 Reason For Consultation: Peripheral vascular disease. History Of Present Illness: 70-year-old with COPD, CVA, hypertension, chronic alcoholism, active smo ker, presented with shortness of breath and been treated for COPD exacerbation. Had a CT scan of the chest and abdomen to rule out dissection, found to have significant peripheral vascular disease and significant coronary calcifications. Patient denies having any chest pain at the present time. Past Medical History: As outlined above in the HPI. Medications: Refer reconciliation sheet for detailed list. Allergies: NO KNOWN DRUG ALLERGIES. Family History: No premature coronary disease or cancer. Social History: Active smoker more than pack per day. Does not use any drugs. Review of Systems: All systems reviewed and they were negative except mentioned in HPI. Physical Examination: Vital Signs: Reviewed. Head and Neck: Pupils are equal and reactive to light. Intact eye movements. No JVD. No cervical adenopathy. Neck is supple. Thyroid is not enlarged. Lungs: Clear to auscultation bilaterally. No rhonchi, rales, or crackles. No accessory muscle use. Heart: Regular rate and rhythm. No extra sounds. Abdomen: Soft, nontender. Bowel sounds positive. No organomegaly. No tenderness. No rigidity or rebound. Extremities: No clubbing, cyanosis. Decreased pulses bilaterally in both feet. No signs of acute i schemia. Neurologic: Alert, awake, oriented x3. No acute events appreciated. Lymph Nodes: No cervical or axillary lymphadenopathy. Investigations: His troponin was negative on admission, but NT-proBNP was 1557. Assessment And Recommendations: 1.Severe peripheral artery disease bilaterally. Peripheral vascular disease. No signs of acute isc hemia. Patient will need a peripheral angiogram. Once the patient's condition is stable and dischar ged from the hospital, we will arrange for this as outpatient. 2.Severe coronary calcification on CT scan with multiple risk factors including heavy smoking histor y. Recommend coronary angiogram also to be done. Once the peripheral angiogram is done, above can b e arranged for as an outpatient. Thank you for the consult. /GUICHO Voice ID: [id number] Report ID: [id number]
[2021-02-14] MEDS: HYDRALAZINE HCL 20 MG/ML VIAL IV PRN ×3 (01:03→21:56)
[2021-02-14] MEDS: HYDROCODONE/APAP 10/325 TAB PO PRN ×4 (04:01→22:22)
[2021-02-14 06:28] LABS: Absolute Lymphocytes (CBC) 1.6 K/uL (0.7-4.9); Basophils % 0.2 % (0-1.3); Lymphocytes % 14.8 % (15.3-44.8); MPV 7.6 fL (7.6-11.3); RBC Red Blood Cell Count 3.33 M/uL (4.33-5.43)
[2021-02-14 06:55] LABS: BUN Blood Urea Nitrogen 10 mg/dL (7-18); Bicarbonate 26 mmol/L (21-32); Glucose Level 94 mg/dL (74-106); Magnesium 2.1 mg/dL (1.8-2.4); Potassium 4.1 mmol/L (3.5-5.1); Sodium Level 133 mmol/L (136-145)
[2021-02-14] MEDS: NICOTINE 14 MG/PAT TD SCH (08:58)
[2021-02-14] MEDS: CARBIDOPA/LEVODOPA 25/100 TAB PO SCH ×4 (08:58→21:55)
[2021-02-14] MEDS: AMLODIPINE 5 MG TAB PO SCH (08:58)
[2021-02-14] MEDS: ENSURE ENLIVE 237 ML CAN PO SCH ×3 (08:59→21:00)
[2021-02-14] MEDS: SOD FERRIC GLUC COMPLX/SUCROSE 250 MG in NA CHLORIDE 0.9% 250 ML IV SCH (09:39)
--- NOTE | 2021-02-14 10:43 | P.CNS ---
Date of Consult: 02/14/21 Reason for Consult: COPD exacerbation right upper lobe nodule Chief Complaint: weakness History of Present Illness: Patient is 70 years of age with a history of COPD hypertension history of stroke chronic alcoholism gotten worse over the past 3 weeks complaining of weakness unable to walk freely fatigue anorexia weight loss worsening shortness of breath heavy smoker 1 pack a day apparently was driving until about 3 weeks ago remittent confusion takes bronchodilators on a as needed basis CT scan showed right upper lobe spiculated nodule Allergies No Known Allergies Allergy (Verified 02/11/21 05:15) Home Medications: Amlodipine [Norvasc] 5 mg PO DAILY 02/11/21 Cyclobenzaprine [Flexeril] 10 mg GT Q8H PRN 02/11/21 - Past Medical/Surgical History Diabetic: No -: COPD -: HTN -: CVA - Social History Smoking Status: Current every day smoker Alcohol use: No CD- Drugs: No Caffeine use: No Place of Residence: Home Review of Systems 10-point ROS is otherwise unremarkable General: Weakness Respiratory: Shortness of Breath Physical Examination Temp Pulse Resp BP Pulse Ox 98.1 F 82 18 168/84 H 95 02/14/21 08:00 02/14/21 08:58 02/14/21 08:00 02/14/21 08:58 02/14/21 08:00 General: Alert, Oriented x3, Mild distress Respiratory: Diminished, Expiratory wheezes Cardiovascular: No edema, Normal S1 S2 Gastrointestinal: Normal bowel sounds, Soft and benign - Problems (1) COPD exacerbation Current Visit: Yes Status: Acute Plan: Patient is 70 years of age admitted with weakness worsening dyspnea suspect that he she has severe COPD continues to smoke patient is mildly anemic CT scan shows 1.2 cm right upper lobe spiculated nodule suspicious for cancer significant peripheral vascular disease multiple atherosclerotic lesions noted in his abdominal and and his lower extremities.pressure is mildly elevated carmelina ent has iron deficiency currently receiving IV iron infusion history of alcoholism very weak optimize bronchodilator therapy have added some prednisone and bronchodilators check room air pulse ox (2) Solitary pulmonary nodule Current Visit: Yes Status: Acute Plan: Patient has a spiculated 1.2 cm right upper lobe nodule suspicious for lung cancer continues to smoke heavily continued currently he is very weak debilitated I informed the patient that he'll need an outpatient work-up regarding a PET scan and pulmonary function testing before we proceed to further diagnostic procedures denies not a candidate for therapy until he is more ambulatory
[2021-02-14] MEDS: NA CHLORIDE 0.9% 1,000 ML IV SCH (11:38)
[2021-02-14] MEDS: THIAMINE HCL 100 MG TABLET PO SCH ×2 (11:38→21:55)
[2021-02-14] MEDS: predniSONE 20 MG TAB PO SCH ×2 (11:38→21:55)
[2021-02-14] MEDS: chlordiazePOXIDE HCl 5 MG CAP PO PRN (17:23)
[2021-02-14] MEDS: ARFORMOTEROL TARTRATE 15 MCG/2 ML VIAL.NEB NEB SCH (20:00)
[2021-02-15] MEDS: NA CHLORIDE 0.9% 1,000 ML IV SCH ×2 (02:27→16:09)
[2021-02-15] MEDS: chlordiazePOXIDE HCl 5 MG CAP PO PRN ×2 (02:27→11:30)
[2021-02-15] MEDS: HYDRALAZINE HCL 20 MG/ML VIAL IV PRN ×3 (05:02→22:57)
[2021-02-15] MEDS: HYDROCODONE/APAP 10/325 TAB PO PRN ×2 (05:02→22:56)
[2021-02-15] MEDS: ARFORMOTEROL TARTRATE 15 MCG/2 ML VIAL.NEB NEB SCH ×2 (07:50→20:50)
[2021-02-15] MEDS: AMLODIPINE 5 MG TAB PO SCH (08:37)
[2021-02-15] MEDS: ACETAMINOPHEN 500 MG TAB PO PRN (08:37)
[2021-02-15] MEDS: THIAMINE HCL 100 MG TABLET PO SCH ×2 (08:38→22:00)
[2021-02-15] MEDS: NICOTINE 14 MG/PAT TD SCH (08:38)
[2021-02-15] MEDS: predniSONE 20 MG TAB PO SCH ×2 (08:38→22:00)
[2021-02-15] MEDS: CARBIDOPA/LEVODOPA 25/100 TAB PO SCH ×4 (08:38→22:00)
[2021-02-15] MEDS: ENSURE ENLIVE 237 ML CAN PO SCH ×3 (08:40→21:00)
[2021-02-15] MEDS: SOD FERRIC GLUC COMPLX/SUCROSE 250 MG in NA CHLORIDE 0.9% 250 ML IV SCH (09:00)
[2021-02-15] MEDS ORDERED: chlordiazePOXIDE HCl 25 MG CAP PO ONE (14:40)
--- NOTE | 2021-02-15 14:45 | P.PN ---
Date of Service: 02/13/21 Subjective The patient is feeling better. Tremors are solid improved. Appetite is still diminished. We have started patient on IV steroids as well. Respiratory status is somewhat better. Patient will follow up as an outpatient for further workup of the malignancy. Patient is waiting on fpc facility placement. Review of Systems 10-point ROS is otherwise unremarkable Physical Examination - Vital Signs Reviewed - Physical Exam General: Alert, In no apparent distress, Cachectic Neck: Supple, JVD not distended, anterior cervical LAD Respiratory: Basilar wheezing Cardiovascular: Regular rate/rhythm, Normal S1 S2 Gastrointestinal: Normal bowel sounds, No tenderness Musculoskeletal: No tenderness Neurological: Tremors and some ataxia with shuffled gaits Lymphatics: anterior cervical lymphadenopathy Assessment & Plan - Problems (Diagnosis) (1) Emaciated Current Visit: Yes Status: Acute (2) Weight loss Current Visit: Yes Status: Acute (3) Alcohol abuse/Tobacco abuse Current Visit: Yes Status: Chronic (4) Severe peripheral arterial disease Current Visit: Yes Status: Acute (5) Severe malnutrition Current Visit: Yes Status: Acute (6) Parkinson's disease Current Visit: Yes Status: Acute (7) Lung mass Current Visit: Yes Status: Chronic Qualifiers: Hypertension type: primary hypertension Qualified Code(s): I10 - Essential (primary) hypertension (8) COPD (chronic obstructive pulmonary disease) Current Visit: No Status: Chronic Qualifiers: COPD type: unspecified COPD Qualified Code(s): J44.9 - Chronic obstructive pulmonary disease, unspecified - Plan Plan: 1. Pulmonary consultation recommending outpatient follow-up 2. Cardiology consultation for severe peripheral arterial dz and they have recommended outpatient angiogram 3. Neurology consultation appreciated-started on carbo/levodopa 4. Continue with IV steroids over 24 hr and oral prednisone 5. Continue to increase caloric intake 6. Physical therapy evaluation along with fpc facility placement 7. GI and DVT prophylaxis - Advance Directives Does patient have a Living Will: No Does patient have a Durable POA for Healthcare: No
--- NOTE | 2021-02-15 14:46 | P.PN ---
Date of Service: 02/14/21 Subjective Patient continues to slowly improve. Awaiting group home facility placement Review of Systems 10-point ROS is otherwise unremarkable Physical Examination - Vital Signs Reviewed - Physical Exam General: Alert, In no apparent distress, Cachectic Neck: Supple, JVD not distended, anterior cervical LAD Respiratory: Basilar wheezing Cardiovascular: Regular rate/rhythm, Normal S1 S2 Gastrointestinal: Normal bowel sounds, No tenderness Musculoskeletal: No tenderness Neurological: Tremors and some ataxia with shuffled gaits Lymphatics: anterior cervical lymphadenopathy Assessment & Plan - Problems (Diagnosis) (1) Emaciated Current Visit: Yes Status: Acute (2) Weight loss Current Visit: Yes Status: Acute (3) Alcohol abuse/Tobacco abuse Current Visit: Yes Status: Chronic (4) Severe peripheral arterial disease Current Visit: Yes Status: Acute (5) Severe malnutrition Current Visit: Yes Status: Acute (6) Parkinson's disease Current Visit: Yes Status: Acute (7) Lung mass Current Visit: Yes Status: Chronic Qualifiers: Hypertension type: primary hypertension Qualified Code(s): I10 - Essential (primary) hypertension (8) COPD (chronic obstructive pulmonary disease) Current Visit: No Status: Chronic Qualifiers: COPD type: unspecified COPD Qualified Code(s): J44.9 - Chronic obstructive pulmonary disease, unspecified - Plan Continue with plan of care as mentioned below: 1. Pulmonary consultation recommending outpatient follow-up; 2. Cardiology consultation for severe peripheral arterial dz and they have recommended outpatient angiogram 3. Neurology consultation appreciated-started on carbo/levodopa 4. Tapering dose of oral steroids 5. Continue to increase caloric intake 6. Physical therapy evaluation along with group home facility placement 7. GI and DVT prophylaxis - Advance Directives Does patient have a Living Will: No Does patient have a Durable POA for Healthcare: No
--- NOTE | 2021-02-15 14:50 | P.PN ---
Date of Service: 02/15/21 Subjective Patient appears to be more agitated today. Spoke to the patient's and she believes it started yesterday evening. Continue the Librium and will also change from intravenous steroids to oral steroids Review of Systems 10-point ROS is otherwise unremarkable Physical Examination - Vital Signs Reviewed - Physical Exam General: Alert, In no apparent distress, Cachectic Neck: Supple, JVD not distended, anterior cervical LAD Respiratory: Basilar wheezing Cardiovascular: Regular rate/rhythm, Normal S1 S2 Gastrointestinal: Normal bowel sounds, No tenderness Musculoskeletal: No tenderness Neurological: Tremors and some ataxia with shuffled gaits Lymphatics: anterior cervical lymphadenopathy Assessment & Plan - Problems (Diagnosis) (1) Emaciated Current Visit: Yes Status: Acute (2) Weight loss Current Visit: Yes Status: Acute (3) Alcohol abuse/Tobacco abuse Current Visit: Yes Status: Chronic (4) Severe peripheral arterial disease Current Visit: Yes Status: Acute (5) Severe malnutrition Current Visit: Yes Status: Acute (6) Parkinson's disease Current Visit: Yes Status: Acute (7) Lung mass Current Visit: Yes Status: Chronic Qualifiers: Hypertension type: primary hypertension Qualified Code(s): I10 - Essential (primary) hypertension (8) COPD (chronic obstructive pulmonary disease) Current Visit: No Status: Chronic Qualifiers: COPD type: unspecified COPD Qualified Code(s): J44.9 - Chronic obstructive pulmonary disease, unspecified - Plan Continue with plan of care as mentioned below: 1. Pulmonary consultation recommending outpatient follow-up; continue inhaler therapy 2. Cardiology consultation for severe peripheral arterial dz and they have recommended outpatient angiogram 3. Neurology consultation appreciated-started on carbo/levodopa 4. Tapering dose of oral steroids 5. Continue to increase caloric intake 6. Physical therapy evaluation along with correction facility placement 7. GI and DVT prophylaxis - Advance Directives Does patient have a Living Will: No Does patient have a Durable POA for Healthcare: No
[2021-02-15] MEDS ORDERED: chlordiazePOXIDE HCl 5 MG CAP PO ONE (16:00)
[2021-02-15] MEDS: chlordiazePOXIDE HCl 5 MG CAP PO SCH (22:00)
[2021-02-15] MEDS ORDERED: LORazepam 2 MG/ML VIAL IV ONE (23:51)
[2021-02-16] MEDS ORDERED: chlordiazePOXIDE HCl 5 MG CAP PO PRN (04:12)
[2021-02-16] MEDS: HYDROCODONE/APAP 10/325 TAB PO PRN ×2 (04:46→15:02)
[2021-02-16] MEDS: NA CHLORIDE 0.9% 1,000 ML IV SCH ×2 (07:06→09:04)
[2021-02-16] MEDS: ARFORMOTEROL TARTRATE 15 MCG/2 ML VIAL.NEB NEB SCH ×2 (07:31→19:50)
[2021-02-16] MEDS: chlordiazePOXIDE HCl 5 MG CAP PO SCH ×3 (08:55→21:50)
[2021-02-16] MEDS: predniSONE 20 MG TAB PO SCH ×2 (08:56→21:50)
[2021-02-16] MEDS: NICOTINE 14 MG/PAT TD SCH (08:56)
[2021-02-16] MEDS: AMLODIPINE 5 MG TAB PO SCH (08:56)
[2021-02-16] MEDS: THIAMINE HCL 100 MG TABLET PO SCH ×2 (08:56→21:51)
[2021-02-16] MEDS: ENSURE ENLIVE 237 ML CAN PO SCH ×3 (08:57→21:00)
[2021-02-16] MEDS: CARBIDOPA/LEVODOPA 25/100 TAB PO SCH ×4 (08:57→21:50)
[2021-02-16] MEDS: ACETAMINOPHEN 500 MG TAB PO PRN ×2 (09:01→21:56)
--- NOTE | 2021-02-16 09:38 | P.PN ---
Subjective Date of Service: 02/16/21 Chief Complaint: weakness Subjective: Doing well (Currently on 2 liters) Physical Examination - Vital Signs Temperature: 97.7 F Blood Pressure: 191/74 Pulse: 96 Respirations: 19 Pulse Ox (%): 92 - Studies Microbiology Data (last 24 hrs): 02/10/21 21:40 Blood - Blood Aerobic Blood Culture - Final No growth in 5 days. 02/10/21 21:40 Blood - Blood Anaerobic Blood Culture - Final No growth in 5 days. 02/10/21 21:30 Blood - Blood Aerobic Blood Culture - Final No growth in 5 days. 02/10/21 21:30 Blood - Blood Anaerobic Blood Culture - Final No growth in 5 days. Medications List Reviewed: Yes Assessment & Plan Discharge Plan: Other (SNF) Plan to discharge in: 48 Hours Physician Review Additional Text: COVID: Negative CT Head: COMPARISON: CT head from June 11, 2020. FINDINGS: There is diffuse age-appropriate atrophy throughout the brain parenchyma. Mild periventricular white matter changes are present, and there is mild ex vacuo dilatation of the ventricular system. There is no intra-axial or extra-axial bleed. There is no mass or mass effect.The visualized paranasal sinuses and mastoid air cells are patent. No acute fracture is identified. IMPRESSION: 1. No acute intracranial abnormality identified. 2. Mild chronic age-related and microvascular ischemic changes. CT Abdomen/Pelvis: COMPARISON: None. TECHNIQUE: CT of the abdomen and pelvis was performed following intravenous administration of iodinated contrast. Arterial phase images through the abdomen, and portal venous phase images through the abdomen and pelvis were obtained. Oral contrast was not administered. Axial, coronal, and sagittal soft tissue window reconstructions were created and sent to PACS. This exam was performed according to our departmental dose-optimization program, which includes automated exposure control, adjustment of the mA and/or kV according to patient size and/or use of iterative reconstruction technique. FINDINGS: Thoracic: Mild centrilobular emphysema in the visualized lower lungs. Hepatobiliary: Grossly nodular hepatic contour. No concerning hepatic lesion identified. The portal veins are patent. A few small calcified gallstones are present within the gallbladder. No definite gallbladder wall thickening. No biliary ductal dilatation. Pancreas: Unremarkable. Spleen: Unremarkable. Gastrointestinal: No evidence of bowel obstruction or perienteric inflammation. The appendix is surgically absent. Small to moderate amount of fecal material throughout the colon. Adrenals: No abnormality identified in either adrenal gland. Renal: Interpolar right renal 1.2 cm simple cyst. Tiny hypodensity in the superior right kidney, also likely a cyst. No concerning parenchymal abnormality in either kidney. No hydronephrosis or urolithiasis. Bladder/Reproductive: Unremarkable appearance of the urinary bladder by CT technique. Mild prostatomegaly. Vascular/Lymphatics: No lymphadenopathy identified by CT size criteria. Prominent mixed atherosclerosis. Infrarenal abdominal aortic aneurysm measures up to 3.3 cm in diameter. 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 Reconstitution at the level of the right common iliac artery. Musculoskeletal: No concerning osseous lesion identified. Osteopenia. Fluid / peritoneum: Mild perihepatic free fluid. No free intraperitoneal air identified. IMPRESSION 1. Small to moderate amount of fecal material throughout the colon. Suspected hepatic cirrhosis. Mild perihepatic free fluid. Patent portal veins. 2. 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 Reconstitution at the right common iliac artery. 3. Infrarenal abdominal aortic aneurysm measuring up to 3.3 cm in diameter. Recommend imaging follow-up every three years. 4. Cholelithiasis without CT evidence of acute cholecystitis. Venous doppler: COMPARISON: none FINDINGS: The common femoral, superficial femoral, popliteal and posterior tibial veins bilaterally are compressible and demonstrate augmentation. Doppler demonstrates good flow. IMPRESSION: No evidence of deep venous thrombosis involving either lower ext remity. MRI Brain: COMPARISON: MRI BRAIN WITHOUT CONTRAST dated 06/19/2010; MRA HEAD W O CONTRAST dated 06/19/2010; MRI BRAIN WITHOUT CONTRAST dated 04/29/2006 TECHNIQUE: Sagittal T1-weighted images were obtained along with PD/heavily T2- weighted and T2-FLAIR images. Axial DWI and ADC mapping sequences were also obtained along with coronal heavily T2-weighted images were obtained. FINDINGS: No intracranial hemorrhage, mass or acute infarction. There is no edema or shift of midline structures. No extra-axial fluid collections. Signal voids are seen as a normal finding in the major intracranial vessels. Mild chronic small vessel ischemic changes. Cerebral atrophy. Trace mastoid effusions. IMPRESSION: No acute intracranial abnormality. Mild chronic small vessel ischemic changes. No significant change from prior. CT Dissection: COMPARISON: 02/10/2021 TECHNIQUE: CTA of the chest, abdomen and pelvis performed following IV administration of iodinated contrast. 3-D/MIP reformatted images available. This exam was performed according to our departmental dose-optimization program, which includes automated exposure control, adjustment of the mA and/or kV according to patient size and/or use of iterative reconstruction technique. FINDINGS: Chest: Thyroid: No abnormalities of the visualized thyroid. Great Vessels: Great vessels have normal anatomic configuration. Thoracic Aorta: Normal caliber thoracic aorta with mild atherosclerotic plaque. No evidence of dissection. Pulmonary arteries: No filling defects identified. Heart: Coronary artery atherosclerosis. No cardiomegaly or significant pericardial effusion. Lymph Nodes: No enlarged mediastinal lymph nodes identified. Esophagus: No abnormalities of the esophagus identified Other: No additional findings. Lungs: Severe centrilobular emphysematous change. Biapical pleural parenchymal scarring. Bibasilar compressive atelectasis. 1.2 x 0.9 cm spiculated pulmonary nodule in the right upper lobe best seen on image #52, series 402. Pleura: Small bilateral pleural effusions. Trachea/Airways: No acute abnormalities of the trachea. Abdomen: Liver: Nodular contour of the liver Gallbladder: Calcified gallstones. Spleen, Pancreas, and Adrenal Glands: The spleen, pancreas, and adrenal glands are unremarkable. Kidneys: The kidneys have normal size and contour without evidence of solid mass or hydronephrosis. Small right renal cyst. Vasculature: Aortoiliac atherosclerosis. No evidence of aortic dissection. Redemonstrated infrarenal abdominal aortic aneurysm measuring 3.3 x 3.3 cm. High-grade stenosis of greater than 50% at the origin of the common iliac artery. Tandem greater than 50% stenosis of the distal left common iliac artery with redemonstrated short segment dissection with no evidence of propagation. The external iliac artery on the left is patent. Occlusion of the right common and external iliac arteries again identified. The IVC is unremarkable. Likely chronic occlusion at the origin of the celiac artery with reconstitution of flow in the mid and distal celiac artery on the basis of mesenteric collaterals.. Nonflow limiting atherosclerotic plaque at the origin of the superior mesenteric artery. The inferior mesenteric artery is patent. Nonflow limiting ostial plaque of the bilateral renal arteries. Stomach: The stomach and duodenum have normal course. Other: No free intraperitoneal air. Moderate amount of free fluid. Pelvis: Bladder: Urinary bladder is unremarkable. Bowel: No dilated loops of large or small bowel. Large amount stool in the rectum. Scattered diverticula of the colon. Appendix: Normal appendix. Pelvis: Prostate is not enlarged. Bones: Osteopenia. Mild multilevel endplate spondylosis. Stable apical to compression deformity. IMPRESSION: 1. No evidence of aortic dissection. Stable infrarenal abdominal aortic aneurysm measuring 3.3 cm. Follow-up imaging in 3 years recommended. 2. High-grade stenosis of greater than 50% at the origin of the right common iliac artery. 3. Tandem greater than 50% stenosis of the distal left common iliac artery with redemonstrated short segment dissection with no evidence of propagation. 4. Occlusion of the right common and external iliac arteries again identified. 5. 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 Small bilateral pleural effusions with bibasilar compressive atelectasis. 6. Severe centrilobular emphysematous change. 7. Coronary artery atherosclerosis. 8. Nodular contour of the liver. Findings concerning for cirrhosis. 9. Cholelithiasis. 10. Moderate amount of ascites. 11. Diverticulosis without evidence of acute diverticulitis. 12. 1.2 cm spiculated pulmonary nodule in the right upper lobe. Findings concerning for malignancy. Consider CT at 3 months, PET/CT, or tissue sampling for continued evaluation. Physical Exam: GENERAL: Patient alert, cooperative. Muscle wasting noted throughout VITAL SIGNS: Neck supple LUNGS: clear to auscultation. No crackles or wheezes are heard. HEART: regular rate and rhythm, no appreciable gallops, rubs, murmurs or extra heart sounds ABDOMEN: soft, nontender, and nondistended. Positive bowel sounds. No hepatosplenomegaly was noted. EXTREMITIES: Without cyanosis, clubbing, rash, lesions or peripheral edema. NEUROLOGIC: Patient alert, cooperative SKIN: normal color, turgor and temperature. No ulcerations or rashes noted. 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 1.2 cm spiculated pulmonary nodule in the right upper lobe Liver cirrhosis Infrarenal abdominal aortic aneurysm measuring 3.3 cm Iron deficiency anemia Hypertension Plan: Severe malnutrition with history of alcohol and tobacco abuse: Continue with nutrition. Patient on Librium 10 mg 1 pill 3 times a day. Will taper off. Continue thiamine. Will monitor closely. Tobacco and alcohol cessation addressed in detail. Patient with nicotine patch. Awaiting approval for skilled placement. Dietary consulted to address daily needs. Continue physical therapy. Encourage incentive spirometer. Fall precautions in place. Parkinson's disease: Neurology has evaluated patient. Patient has been started on carbidopa levodopa 25/100 mg 1 pill 4 times a day. Physical therapy to continue to monitor and assess. Await approval for skilled placement. Fall precautions in place COPD: Continue COPD medicationBrovana 1 unit dose twice daily, albuterol 1 unit dose 3 times a day as needed for shortness of breath and Atrovent 1 unit dose 3 times a day as needed for shortness of breath. Wean off oxygen. Taper off prednisone. Peripheral vascular disease with noted chronic occlusion of the celiac artery with reconstitution of blood flow from collateral vessels, high-grade stenosis of greater than 50% at origin of right common iliac artery and greater than 50% stenosis of the distal left common iliac artery with redemonstrated short segm ent dissection with no evidence of propagation: Overall stable. Cardiology has evaluated patient. Cardiology recommends outpatient angiogram to further evaluate and treat. No intervention required at this time. 1.2 cm spiculated pulmonary nodule in the right upper lobe: Pulmonology recommends follow-up as an outpatient. Patient should have outpatient PT/CT scan or tissue evaluation in the near future. This can be done as outpatient. Liver cirrhosis: Encourage alcohol cessation. This can be further addressed as an outpatient by GI. Infrarenal abdominal aortic aneurysm measuring 3.3 cm: Overall stable. Recommend to recheck with ultrasound or CT scan in 6 to 12 months. Iron deficiency anemia: We will start IV iron. Will need supplementation at discharge. Hypertension: Increase Norvasc for better control. We will add metoprolol 12.5 mg 1 pill twice daily. Code Status: Full code DVT prophylaxis: Heparin Advanced Care Planning-30 minutes: Awaiting approval for skilled placement. Time Spent Managing Pts Care (In Minutes): 55
[2021-02-16] MEDS: SOD FERRIC GLUC COMPLX/SUCROSE 125 MG in NA CHLORIDE 0.9% 100 ML IV SCH (15:36)
[2021-02-16] MEDS: METOPROLOL TAR 25 MG TAB PO SCH (17:09)
[2021-02-16] MEDS: HEPARIN 5000 UNIT/ML 1 ML VIAL SQ SCH (21:52)
[2021-02-17] MEDS: HYDROCODONE/APAP 10/325 TAB PO PRN ×2 (03:52→17:57)
[2021-02-17 05:11] LABS: Absolute Lymphocytes (CBC) 0.9 K/uL (0.7-4.9); Basophils % 0.3 % (0-1.3); Hematocrit 25.1 % (39.6-49.0); Lymphocytes % 8.3 % (15.3-44.8); MPV 7.5 fL (7.6-11.3); RBC Red Blood Cell Count 2.94 M/uL (4.33-5.43)
[2021-02-17 05:33] LABS: BUN Blood Urea Nitrogen 16 mg/dL (7-18); Bicarbonate 27 mmol/L (21-32); Glucose Level 108 mg/dL (74-106); Potassium 4.2 mmol/L (3.5-5.1); Sodium Level 135 mmol/L (136-145)
[2021-02-17] MEDS: METOPROLOL TAR 25 MG TAB PO SCH ×2 (05:47→17:57)
--- NOTE | 2021-02-17 06:26 | P.PN ---
Subjective Date of Service: 02/17/21 Chief Complaint: weakness Subjective: Doing well Physical Examination - Vital Signs Temperature: 98.6 F Blood Pressure: 175/74 Pulse: 86 Respirations: 19 Pulse Ox (%): 93 - Studies Medications List Reviewed: Yes Assessment & Plan Discharge Plan: Other (senior care facility) Plan to discharge in: 48 Hours Physician Review Additional Text: COVID: Negative CT Head: COMPARISON: CT head from June 11, 2020. FINDINGS: There is diffuse age-appropriate atrophy throughout the brain parenchyma. Mild periventricular white matter changes are present, and there is mild ex vacuo dilatation of the ventricular system. There is no intra-axial or extra-axial bleed. There is no mass or mass effect.The visualized paranasal sinuses and mastoid air cells are patent. No acute fracture is identified. IMPRESSION: 1. No acute intracranial abnormality identified. 2. Mild chronic age-related and microvascular ischemic changes. CT Abdomen/Pelvis: COMPARISON: None. TECHNIQUE: CT of the abdomen and pelvis was performed following intravenous administration of iodinated contrast. Arterial phase images through the abdomen, and portal venous phase images through the abdomen and pelvis were obtained. Oral contrast was not administered. Axial, coronal, and sagittal soft tissue window reconstructions were created and sent to PACS. This exam was performed according to our departmental dose-optimization program, which includes automated exposure control, adjustment of the mA and/or kV according to patient size and/or use of iterative reconstruction technique. FINDINGS: Thoracic: Mild centrilobular emphysema in the visualized lower lungs. Hepatobiliary: Grossly nodular hepatic contour. No concerning hepatic lesion identified. The portal veins are patent. A few small calcified gallstones are present within the gallbladder. No definite gallbladder wall thickening. No biliary ductal dilatation. Pancreas: Unremarkable. Spleen: Unremarkable. Gastrointestinal: No evidence of bowel obstruction or perienteric inflammation. The appendix is surgically absent. Small to moderate amount of fecal material throughout the colon. Adrenals: No abnormality identified in either adrenal gland. Renal: Interpolar right renal 1.2 cm simple cyst. Tiny hypodensity in the superior right kidney, also likely a cyst. No concerning parenchymal abnormality in either kidney. No hydronephrosis or urolithiasis. Bladder/Reproductive: Unremarkable appearance of the urinary bladder by CT angela hnique. Mild prostatomegaly. Vascular/Lymphatics: No lymphadenopathy identified by CT size criteria. Prominent mixed atherosclerosis. Infrarenal abdominal aortic aneurysm measures up to 3.3 cm in diameter. 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 Reconstitution at the level of the right common iliac artery. Musculoskeletal: No concerning osseous lesion identified. Osteopenia. Fluid / peritoneum: Mild perihepatic free fluid. No free intraperitoneal air identified. IMPRESSION 1. Small to moderate amount of fecal material throughout the colon. Suspected hepatic cirrhosis. Mild perihepatic free fluid. Patent portal veins. 2. 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 Reconstitution at the right common iliac artery. 3. Infrarenal abdominal aortic aneurysm measuring up to 3.3 cm in diameter. Recommend imaging follow-up every three years. 4. Cholelithiasis without CT evidence of acute cholecystitis. Venous doppler: COMPARISON: none FINDINGS: The common femoral, superficial femoral, popliteal and posterior tibial veins bilaterally are compressible and demonstrate augmentation. Doppler demonstrates good flow. IMPRESSION: No evidence of deep venous thrombosis involving either lower extremity. MRI Brain: COMPARISON: MRI BRAIN WITHOUT CONTRAST dated 06/19/2010; MRA HEAD W O CONTRAST dated 06/19/2010; MRI BRAIN WITHOUT CONTRAST dated 04/29/2006 TECHNIQUE: Sagittal T1-weighted images were obtained along with PD/heavily T2- weighted and T2-FLAIR images. Axial DWI and ADC mapping sequences were also obtained along with coronal heavily T2-weighted images were obtained. FINDINGS: No intracranial hemorrhage, mass or acute infarction. There is no edema or shift of midline structures. No extra-axial fluid collections. Signal voids are seen as a normal finding in the major intracranial vessels. Mild chronic small vessel ischemic changes. Cerebral atrophy. Trace mastoid effusions. IMPRESSION: No acute intracranial abnormality. Mild chronic small vessel ischemic changes. No significant change from prior. CT Dissection: COMPARISON: 02/10/2021 TECHNIQUE: CTA of the chest, abdomen and pelvis performed following IV administration of iodinated contrast. 3-D/MIP reformatted images available. This exam was performed according to our departmental dose-optimization program, which includes automated exposure control, adjustment of the mA and/or kV according to patient size and/or use of iterative reconstruction technique. FINDINGS: Chest: Thyroid: No abnormalities of the visualized thyroid. Great Vessels: Great vessels have normal anatomic configuration. Thoracic Aorta: Normal caliber thoracic aorta with mild atherosclerotic plaque. No evidence of dissection. Pulmonary arteries: No filling defects identified. Heart: Coronary artery atherosclerosis. No cardiomegaly or significant pericardial effusion. Lymph Nodes: No enlarged mediastinal lymph nodes identified. Esophagus: No abnormalities of the esophagus identified Other: No additional findings. Lungs: Severe centrilobular emphysematous change. Biapical pleural parenchymal scarring. Bibasilar compressive atelectasis. 1.2 x 0.9 cm spiculated pulmonary nodule in the right upper lobe best seen on image #52, series 402. Pleura: Small bilateral pleural effusions. Trachea/Airways: No acute abnormalities of the trachea. Abdomen: Liver: Nodular contour of the liver Gallbladder: Calcified gallstones. Spleen, Pancreas, and Adrenal Glands: The spleen, pancreas, and adrenal glands are unremarkable. Kidneys: The kidneys have normal size and contour without evidence of solid mass or hydronephrosis. Small right renal cyst. Vasculature: Aortoiliac atherosclerosis. No evidence of aortic dissection. Redemonstrated infrarenal abdominal aortic aneurysm measuring 3.3 x 3.3 cm. High-grade stenosis of greater than 50% at the origin of the common iliac artery. Tandem greater than 50% stenosis of the distal left common iliac artery with redemonstrated short segment dissection with no evidence of propagation. The external iliac artery on the left is patent. Occlusion of the right common and external iliac arteries again identified. The IVC is unremarkable. Likely chronic occlusion at the origin of the celiac artery with reconstitution of flow in the mid and distal celiac artery on the basis of mesenteric collaterals.. Nonflow limiting atherosclerotic plaque at the origin of the superior mesenteric artery. The inferior mesenteric artery is patent. Nonflow limiting ostial plaque of the bilateral renal arteries. Stomach: The stomach and duodenum have normal course. Other: No free intraperitoneal air. Moderate amount of free fluid. Pelvis: Bladder: Urinary bladder is unremarkable. Bowel: No dilated loops of large or small bowel. Large amount stool in the rectum. Scattered diverticula of the colon. Appendix: Normal appendix. Pelvis: Prostate is not enlarged. Bones: Osteopenia. Mild multilevel endplate spondylosis. Stable apical to compression deformity. IMPRESSION: 1. No evidence of aortic dissection. Stable infrarenal abdominal aortic aneurysm measuring 3.3 cm. Follow-up imaging in 3 years recommended. 2. High-grade stenosis of greater than 50% at the origin of the right common iliac artery. 3. Tandem greater than 50% stenosis of the distal left common iliac artery with redemonstrated short segment dissection with no evidence of propagation. 4. Occlusion of the right common and external iliac arteries again identified. 5. 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 Small bilateral pleural effusions with bibasilar compressive atelectasis. 6. Severe centrilobular emphysematous change. 7. Coronary artery atherosclerosis. 8. Nodular contour of the liver. Findings concerning for cirrhosis. 9. Cholelithiasis. 10. Moderate amount of ascites. 11. Diverticulosis without evidence of acute diverticulitis. 12. 1.2 cm spiculated pulmonary nodule in the right upper lobe. Findings concerning for malignancy. Consider CT at 3 months, PET/CT, or tissue sampling for continued evaluation. Physical Exam: GENERAL: Patient alert, cooperative. Muscle wasting noted throughout. Overall stable. VITAL SIGNS: Neck supple LUNGS: clear to auscultation. No crackles or wheezes are heard. HEART: regular rate and rhythm, no appreciable gallops, rubs, murmurs or extra heart sounds ABDOMEN: soft, nontender, and nondistended. Positive bowel sounds. No hepatosplenomegaly was noted. EXTREMITIES: Without cyanosis, clubbing, rash, lesions or peripheral edema. NEUROLOGIC: Patient alert, cooperative SKIN: normal color, turgor and temperature. No ulcerations or rashes noted. 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 1.2 cm spiculated pulmonary nodule in the right upper lobe Liver cirrhosis Infrarenal abdominal aortic aneurysm measuring 3.3 cm Iron deficiency anemia Hypertension Plan: Severe malnutrition with history of alcohol and tobacco abuse: Patient reports improvement. Nutrition improved. Patient remains on Librium 10 mg 1 pill 3 times a day. Will taper off. Continue thiamine. Will monitor closely. Tobac co and alcohol cessation addressed in detail. Patient with nicotine patch. Awaiting approval for skilled placement. Dietary consulted to address daily needs. Continue physical therapy. Encourage incentive spirometer. Fall precautions in place. Left message with to discuss plan of care. Parkinson's disease: Neurology has evaluated patient. Patient has been started on carbidopa levodopa 25/100 mg 1 pill 4 times a day. Physical therapy to continue to monitor and assess. Await approval for skilled placement. Fall precautions in place COPD: Continue COPD medicationBrovana 1 unit dose twice daily, albuterol 1 unit dose 3 times a day as needed for shortness of breath and Atrovent 1 unit dose 3 times a day as needed for shortness of breath. Wean off oxygen. Taper off prednisone. 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 Cardiology has evaluated patient. Cardiology recommends outpatient angiogram to further evaluate and treat. No intervention required at this time. 1.2 cm spiculated pulmonary nodule in the right upper lobe: Pulmonology recommends follow-up as an outpatient. Patient should have outpatient PT/CT scan or tissue evaluation in the near future. This can be done as outpatient. Liver cirrhosis: Encourage alcohol cessation. This can be further addressed as an outpatient by GI. Infrarenal abdominal aortic aneurysm measuring 3.3 cm: Overall stable. Recommend to recheck with ultrasound or CT scan in 6 to 12 months. Iron deficiency anemia: Continue IV iron. Will need supplementation at discharge. Hypertension: Continue with Norvasc. Blood pressure improved with addition of metoprolol. Code Status: Full code DVT prophylaxis: Heparin Advanced Care Planning-30 minutes: Awaiting approval for skilled placement. Time Spent Managing Pts Care (In Minutes): 55
[2021-02-17 06:38] LABS: Platelet Estimate ADEQ
[2021-02-17 06:39] LABS: Blood Morphology Comment NOT SEEN (NOT SEEN)
[2021-02-17] MEDS: ARFORMOTEROL TARTRATE 15 MCG/2 ML VIAL.NEB NEB SCH ×2 (07:32→20:00)
[2021-02-17] MEDS ORDERED: SOD FERRIC GLUC COMPLX/SUCROSE 125 MG in NA CHLORIDE 0.9% 100 ML IV SCH (09:00)
[2021-02-17] MEDS: ENSURE ENLIVE 237 ML CAN PO SCH ×3 (09:00→21:30)
[2021-02-17] MEDS: SOD FERRIC GLUC COMPLX/SUCROSE 125 MG in NA CHLORIDE 0.9% 100 ML IV SCH (09:34)
[2021-02-17] MEDS: predniSONE 20 MG TAB PO SCH ×2 (09:35→21:24)
[2021-02-17] MEDS: NICOTINE 14 MG/PAT TD SCH (09:36)
[2021-02-17] MEDS: chlordiazePOXIDE HCl 5 MG CAP PO SCH ×3 (09:38→21:24)
[2021-02-17] MEDS: THIAMINE HCL 100 MG TABLET PO SCH ×2 (09:39→21:24)
[2021-02-17] MEDS: AMLODIPINE 10 MG TAB PO SCH (09:39)
[2021-02-17] MEDS: CARBIDOPA/LEVODOPA 25/100 TAB PO SCH ×4 (09:40→21:24)
[2021-02-17] MEDS: HEPARIN 5000 UNIT/ML 1 ML VIAL SQ SCH ×2 (09:40→21:23)
[2021-02-17] MEDS ORDERED: LACTULOSE 20 GM/30 ML UCUP PO PRN (15:55)
[2021-02-18 05:17] LABS: Absolute Lymphocytes (CBC) 1.4 K/uL (0.7-4.9); Basophils % 0.1 % (0-1.3); Hematocrit 26.6 % (39.6-49.0); MPV 7.9 fL (7.6-11.3); RBC Red Blood Cell Count 3.09 M/uL (4.33-5.43)
[2021-02-18] MEDS: METOPROLOL TAR 25 MG TAB PO SCH (05:28)
[2021-02-18 05:50] LABS: BUN Blood Urea Nitrogen 17 mg/dL (7-18); Bicarbonate 28 mmol/L (21-32); Glucose Level 112 mg/dL (74-106); Magnesium 1.9 mg/dL (1.8-2.4); Potassium 4.1 mmol/L (3.5-5.1); Sodium Level 133 mmol/L (136-145)
--- NOTE | 2021-02-18 05:58 | P.PN ---
Subjective Date of Service: 02/18/21 Chief Complaint: weakness Subjective: Improving, Doing well Physical Examination - Vital Signs Temperature: 98.1 F Blood Pressure: 135/60 Pulse: 94 Respirations: 20 Pulse Ox (%): 91 - Studies Medications List Reviewed: Yes Assessment & Plan Discharge Plan: Other (residential facility) Plan to discharge in: 24 Hours Physician Review Additional Text: COVID: Negative CT Head: COMPARISON: CT head from June 11, 2020. FINDINGS: There is diffuse age-appropriate atrophy throughout the brain p arenchyma. Mild periventricular white matter changes are present, and there is mild ex vacuo dilatation of the ventricular system. There is no intra-axial or extra-axial bleed. There is no mass or mass effect.The visualized paranasal sinuses and mastoid air cells are patent. No acute fracture is identified. IMPRESSION: 1. No acute intracranial abnormality identified. 2. Mild chronic age-related and microvascular ischemic changes. CT Abdomen/Pelvis: COMPARISON: None. TECHNIQUE: CT of the abdomen and pelvis was performed following intravenous administration of iodinated contrast. Arterial phase images through the abdomen, and portal venous phase images through the abdomen and pelvis were obtained. Oral contrast was not administered. Axial, coronal, and sagittal soft tissue window reconstructions were created and sent to PACS. This exam was performed according to our departmental dose-optimization program, which includes automated exposure control, adjustment of the mA and/or kV according to patient size and/or use of iterative reconstruction technique. FINDINGS: Thoracic: Mild centrilobular emphysema in the visualized lower lungs. Hepatobiliary: Grossly nodular hepatic contour. No concerning hepatic lesion identified. The portal veins are patent. A few small calcified gallstones are present within the gallbladder. No definite gallbladder wall thickening. No biliary ductal dilatation. Pancreas: Unremarkable. Spleen: Unremarkable. Gastrointestinal: No evidence of bowel obstruction or perienteric inflammation. The appendix is surgically absent. Small to moderate amount of fecal material throughout the colon. Adrenals: No abnormality identified in either adrenal gland. Renal: Interpolar right renal 1.2 cm simple cyst. Tiny hypodensity in the s uperior right kidney, also likely a cyst. No concerning parenchymal abnormality in either kidney. No hydronephrosis or urolithiasis. Bladder/Reproductive: Unremarkable appearance of the urinary bladder by CT technique. Mild prostatomegaly. Vascular/Lymphatics: No lymphadenopathy identified by CT size criteria. Prominent mixed atherosclerosis. Infrarenal abdominal aortic aneurysm measures up to 3.3 cm in diameter. 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 Reconstitution at the level of the right common iliac artery. Musculoskeletal: No concerning osseous lesion identified. Osteopenia. Fluid / peritoneum: Mild perihepatic free fluid. No free intraperitoneal air identified. IMPRESSION 1. Small to moderate amount of fecal material throughout the colon. Suspected hepatic cirrhosis. Mild perihepatic free fluid. Patent portal veins. 2. 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 Reconstitution at the right common iliac artery. 3. Infrarenal abdominal aortic aneurysm measuring up to 3.3 cm in diameter. Recommend imaging follow-up every three years. 4. Cholelithiasis without CT evidence of acute cholecystitis. Venous doppler: COMPARISON: none FINDINGS: The common femoral, superficial femoral, popliteal and posterior tibial veins bilaterally are compressible and demonstrate augmentation. Doppler demonstrates good flow. IMPRESSION: No evidence of deep venous thrombosis involving either lower extremity. MRI Brain: COMPARISON: MRI BRAIN WITHOUT CONTRAST dated 06/19/2010; MRA HEAD W O CONTRAST dated 06/19/2010; MRI BRAIN WITHOUT CONTRAST dated 04/29/2006 TECHNIQUE: Sagittal T1-weighted images were obtained along with PD/heavily T2- weighted and T2-FLAIR images. Axial DWI and ADC mapping sequences were also obtained along with coronal heavily T2-weighted images were obtained. FINDINGS: No intracranial hemorrhage, mass or acute infarction. There is no edema or shift of midline structures. No extra-axial fluid collections. Signal voids are seen as a normal finding in the major intracranial vessels. Mild chronic small vessel ischemic changes. Cerebral atrophy. Trace mastoid effusions. IMPRESSION: No acute intracranial abnormality. Mild chronic small vessel ischemic changes. No significant change from prior. CT Dissection: COMPARISON: 02/10/2021 TECHNIQUE: CTA of the chest, abdomen and pelvis performed following IV administration of iodinated contrast. 3-D/MIP reformatted images available. This exam was performed according to our departmental dose-optimization program, which includes automated exposure control, adjustment of the mA and/or kV according to patient size and/or use of iterative reconstruction technique. FINDINGS: Chest: Thyroid: No abnormalities of the visualized thyroid. Great Vessels: Great vessels have normal anatomic configuration. Thoracic Aorta: Normal caliber thoracic aorta with mild atherosclerotic plaque. No evidence of dissection. Pulmonary arteries: No filling defects identified. Heart: Coronary artery atherosclerosis. No cardiomegaly or significant pericardial effusion. Lymph Nodes: No enlarged mediastinal lymph nodes identified. Esophagus: No abnormalities of the esophagus identified Other: No additional findings. Lungs: Severe centrilobular emphysematous change. Biapical pleural parenchymal scarring. Bibasilar compressive atelectasis. 1.2 x 0.9 cm spiculated pulmonary nodule in the right upper lobe best seen on image #52, series 402. Pleura: Small bilateral pleural effusions. Trachea/Airways: No acute abnormalities of the trachea. Abdomen: Liver: Nodular contour of the liver Gallbladder: Calcified gallstones. Spleen, Pancreas, and Adrenal Glands: The spleen, pancreas, and adrenal glands are unremarkable. Kidneys: The kidneys have normal size and contour without evidence of solid mass or hydronephrosis. Small right renal cyst. Vasculature: Aortoiliac atherosclerosis. No evidence of aortic dissection. Redemonstrated infrarenal abdominal aortic aneurysm measuring 3.3 x 3.3 cm. High-grade stenosis of greater than 50% at the origin of the common iliac a rtery. Tandem greater than 50% stenosis of the distal left common iliac artery with redemonstrated short segment dissection with no evidence of propagation. The external iliac artery on the left is patent. Occlusion of the right common and external iliac arteries again identified. The IVC is unremarkable. Likely chronic occlusion at the origin of the celiac artery with reconstitution of flow in the mid and distal celiac artery on the basis of mesenteric collaterals.. Nonflow limiting atherosclerotic plaque at the origin of the superior mesenteric artery. The inferior mesenteric artery is patent. Nonflow limiting ostial plaque of the bilateral renal arteries. Stomach: The stomach and duodenum have normal course. Other: No free intraperitoneal air. Moderate amount of free fluid. Pelvis: Bladder: Urinary bladder is unremarkable. Bowel: No dilated loops of large or small bowel. Large amount stool in the rectum. Scattered diverticula of the colon. Appendix: Normal appendix. Pelvis: Prostate is not enlarged. Bones: Osteopenia. Mild multilevel endplate spondylosis. Stable apical to compression deformity. IMPRESSION: 1. No evidence of aortic dissection. Stable infrarenal abdominal aortic aneurysm measuring 3.3 cm. Follow-up imaging in 3 years recommended. 2. High-grade stenosis of greater than 50% at the origin of the right common iliac artery. 3. Tandem greater than 50% stenosis of the distal left common iliac artery with redemonstrated short segment dissection with no evidence of propagation. 4. Occlusion of the right common and external iliac arteries again identified. 5. 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 Small bilateral pleural effusions with bibasilar compressive atelectasis. 6. Severe centrilobular emphysematous change. 7. Coronary artery atherosclerosis. 8. Nodular contour of the liver. Findings concerning for cirrhosis. 9. Cholelithiasis. 10. Moderate amount of ascites. 11. Diverticulosis without evidence of acute diverticulitis. 12. 1.2 cm spiculated pulmonary nodule in the right upper lobe. Findings concerning for malignancy. Consider CT at 3 months, PET/CT, or tissue sampling for continued evaluation. Physical Exam: GENERAL: Patient alert, cooperative. Muscle wasting noted throughout. Overall stable. VITAL SIGNS: Neck supple LUNGS: clear to auscultation. No crackles or wheezes are heard. HEART: regular rate and rhythm, no appreciable gallops, rubs, murmurs or extra heart sounds ABDOMEN: soft, nontender, and nondistended. Positive bowel sounds. No hepatosplenomegaly was noted. EXTREMITIES: Without cyanosis, clubbing, rash, lesions or peripheral edema. NEUROLOGIC: Patient alert, cooperative SKIN: normal color, turgor and temperature. No ulcerations or rashes noted. 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 1.2 cm spiculated pulmonary nodule in the right upper lobe Liver cirrhosis Infrarenal abdominal aortic aneurysm measuring 3.3 cm Iron deficiency anemia Hypertension Plan: Severe malnutrition with history of alcohol and tobacco abuse: Patient continues to improve. Nutrition improved. Will decrease Librium to 5 mg 1 pill 3 times a day. We will continue to taper off Librium over the next week. Continue thiamine. Will monitor closely. Tobacco and alcohol cessation addressed in detail. Patient with nicotine patch. Dietary consulted to address daily needs. Continue physical therapy. Encourage incentive spirometer. Fall precautions in place. Case discussed at length with and patient. Awaiting approval for skilled placement. Parkinson's disease: Neurology has evaluated patient. Continue with carbidopa levodopa 25/100 mg 1 pill 4 times a day. Physical therapy to continue to monitor and assess. Await approval for skilled placement. Fall precautions in place COPD: Continue COPD medicationBrovana 1 unit dose twice daily, albuterol 1 unit dose 3 times a day as needed for shortness of breath and Atrovent 1 unit dose 3 times a day as needed for shortness of breath. Wean off oxygen. Will decrease prednisone to 20 mg daily and taper off over the next week. Encourage incentive spirometer. 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 Cardiology has evaluated patient. Cardiology recommends outpatient angiogram to further evaluate and treat. No intervention required at this time. 1.2 cm spiculated pulmonary nodule in the right upper lobe: Pulmonology recommends follow-up as an outpatient. Patient should have outpatient PT/CT scan or tissue evaluation in the near future. This can be done as outpatient. Liver cirrhosis: Encourage alcohol cessation. This can be further addressed as an outpatient by GI. Infrarenal abdominal aortic aneurysm measuring 3.3 cm: Overall stable. Recommend to recheck with ultrasound or CT scan in 6 to 12 months. Iron deficiency anemia: Overall improved. Continue IV iron. Will need supplementation at discharge. Hypertension: Continue with Norvasc and metoprolol. Continue to monitor and adjust medication. Code Status: Full code DVT prophylaxis: Heparin Advanced Care Planning-30 minutes: Awaiting approval for skilled placement. Time Spent Managing Pts Care (In Minutes): 55
[2021-02-18] MEDS: ARFORMOTEROL TARTRATE 15 MCG/2 ML VIAL.NEB NEB SCH (07:49)
[2021-02-18] MEDS: ENSURE ENLIVE 237 ML CAN PO SCH (09:00)
[2021-02-18] MEDS ORDERED: DOCUSATE NA 100 MG CAP PO SCH (09:00)
[2021-02-18] MEDS ORDERED: chlordiazePOXIDE HCl 5 MG CAP PO SCH (09:00)
[2021-02-18] MEDS: predniSONE 20 MG TAB PO SCH (09:00)
[2021-02-18] MEDS: CARBIDOPA/LEVODOPA 25/100 TAB PO SCH (09:15)
[2021-02-18] MEDS: AMLODIPINE 10 MG TAB PO SCH (09:15)
[2021-02-18] MEDS: THIAMINE HCL 100 MG TABLET PO SCH (09:15)
[2021-02-18] MEDS: SOD FERRIC GLUC COMPLX/SUCROSE 125 MG in NA CHLORIDE 0.9% 100 ML IV SCH (09:16)
[2021-02-18] MEDS: NICOTINE 14 MG/PAT TD SCH (09:16)
[2021-02-18] MEDS: HEPARIN 5000 UNIT/ML 1 ML VIAL SQ SCH (09:17)
[2021-02-18 09:42] VITALS: O2SAT 96
--- NOTE | 2021-02-18 11:22 | P.DS ---
Admission Date: 02/11/21 Discharge Date: 02/18/21 Primary Care Provider: Dr. Valenzuela Disposition: TRANSFER TO SNF - MEDICAL Discharge Condition: GOOD Reason for Admission: weakness Consultations: Pulmonary-Dr. Hernandez Cardiology-Dr. Perez Neurology-Dr. Paez Procedures: COVID: Negative CT Head: COMPARISON: CT head from June 11, 2020. FINDINGS: There is diffuse age-appropriate atrophy throughout the brain parenchyma. Mild periventricular white matter changes are present, and there is mild ex vacuo dilatation of the ventricular system. There is no intra-axial or extra-axial bleed. There is no mass or mass effect.The visualized paranasal sinuses and mastoid air cells are patent. No acute fracture is identified. IMPRESSION: 1. No acute intracranial abnormality identified. 2. Mild chronic age-related and microvascular ischemic changes. CT Abdomen/Pelvis: COMPARISON: None. TECHNIQUE: CT of the abdomen and pelvis was performed following intravenous administration of iodinated contrast. Arterial phase images through the abdomen, and portal venous phase images through the abdomen and pelvis were obtained. Oral contrast was not administered. Axial, coronal, and sagittal soft tissue window reconstructions were created and sent to PACS. This exam was performed according to our departmental dose-optimization program, which includes automated exposure control, adjustment of the mA and/or kV according to patient size and/or use of iterative reconstruction technique. FINDINGS: Thoracic: Mild centrilobular emphysema in the visualized lower lungs. Hepatobiliary: Grossly nodular hepatic contour. No concerning hepatic lesion identified. The portal veins are patent. A few small calcified gallstones are present within the gallbladder. No definite gallbladder wall thickening. No biliary ductal dilatation. Pancreas: Unremarkable. Spleen: Unremarkable. Gastrointestinal: No evidence of bowel obstruction or perienteric inflammation. The appendix is surgically absent. Small to moderate amount of fecal material throughout the colon. Adrenals: No abnormality identified in either adrenal gland. Renal: Interpolar right renal 1.2 cm simple cyst. Tiny hypodensity in the superior right kidney, also likely a cyst. No concerning parenchymal abnormality in either kidney. No hydronephrosis or urolithiasis. Bladder/Reproductive: Unremarkable appearance of the urinary bladder by CT technique. Mild prostatomegaly. Vascular/Lymphatics: No lymphadenopathy identified by CT size criteria. Prominent mixed atherosclerosis. Infrarenal abdominal aortic aneurysm measures up to 3.3 cm in diameter. 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 Reconstitution at the level of the right common iliac artery. Musculoskeletal: No concerning osseous lesion identified. Osteopenia. Fluid / peritoneum: Mild perihepatic free fluid. No free intraperitoneal air identified. IMPRESSION 1. Small to moderate amount of fecal material throughout the colon. Suspected hepatic cirrhosis. Mild perihepatic free fluid. Patent portal veins. 2. 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 Reconstitution at the right common iliac artery. 3. Infrarenal abdominal aortic aneurysm measuring up to 3.3 cm in diameter. Recommend imaging follow-up every three years. 4. Cholelithiasis without CT evidence of acute cholecystitis. Venous doppler: COMPARISON: none FINDINGS: The common femoral, superficial femoral, popliteal and posterior tibial veins bilaterally are compressible and demonstrate augmentation. Doppler demonstrates good flow. IMPRESSION: No evidence of deep venous thrombosis involving either lower extremity. MRI Brain: COMPARISON: MRI BRAIN WITHOUT CONTRAST dated 06/19/2010; MRA HEAD W O CONTRAST dated 06/19/2010; MRI BRAIN WITHOUT CONTRAST dated 04/29/2006 TECHNIQUE: Sagittal T1-weighted images were obtained along with PD/heavily T2- weighted and T2-FLAIR images. Axial DWI and ADC mapping sequences were also obtained along with coronal heavily T2-weighted images were obtained. FINDINGS: No intracranial hemorrhage, mass or acute infarction. There is no edema or shift of midline structures. No extra-axial fluid collections. Signal voids are seen as a normal finding in the major intracranial vessels. Mild chronic small vessel ischemic changes. Cerebral atrophy. Trace mastoid effusions. IMPRESSION: No acute intracranial abnormality. Mild chronic small vessel ischemic changes. No significant change from prior. CT Dissection: COMPARISON: 02/10/2021 TECHNIQUE: CTA of the chest, abdomen and pelvis performed following IV administration of iodinated contrast. 3-D/MIP reformatted images available. This exam was performed according to our departmental dose-optimization program, which includes automated exposure control, adjustment of the mA and/or kV according to patient size and/or use of iterative reconstruction technique. FINDINGS: Chest: Thyroid: No abnormalities of the visualized thyroid. Great Vessels: Great vessels have normal anatomic configuration. Thoracic Aorta: Normal caliber thoracic aorta with mild atherosclerotic plaque. No evidence of dissection. Pulmonary arteries: No filling defects identified. Heart: Coronary artery atherosclerosis. No cardiomegaly or significant pericardial effusion. Lymph Nodes: No enlarged mediastinal lymph nodes identified. Esophagus: No abnormalities of the esophagus identified Other: No additional findings. Lungs: Severe centrilobular emphysematous change. Biapical pleural parenchymal scarring. Bibasilar compressive atelectasis. 1.2 x 0.9 cm spiculated pulmonary nodule in the right upper lobe best seen on image #52, series 402. Pleura: Small bilateral pleural effusions. Trachea/Airways: No acute abnormalities of the trachea. Abdomen: Liver: Nodular contour of the liver Gallbladder: Calcified gallstones. Spleen, Pancreas, and Adrenal Glands: The spleen, pancreas, and adrenal glands are unremarkable. Kidneys: The kidneys have normal size and contour without evidence of solid mass or hydronephrosis. Small right renal cyst. Vasculature: Aortoiliac atherosclerosis. No evidence of aortic dissection. Redemonstrated infrarenal abdominal aortic aneurysm measuring 3.3 x 3.3 cm. High-grade stenosis of greater than 50% at the origin of the common iliac artery. Tandem greater than 50% stenosis of the distal left common iliac artery with redemonstrated short segment dissection with no evidence of propagation. The external iliac artery on the left is patent. Occlusion of the right common and external iliac arteries again identified. The IVC is unremarkable. Likely chronic occlusion at the origin of the celiac artery with reconstitution of flow in the mid and distal celiac artery on the basis of mesenteric collaterals.. Nonflow limiting atherosclerotic plaque at the origin of the superior mesenteric artery. The inferior mesenteric artery is patent. Nonflow limiting ostial plaque of the bilateral renal arteries. Stomach: The stomach and duodenum have normal course. Other: No free intraperitoneal air. Moderate amount of free fluid. Pelvis: Bladder: Urinary bladder is unremarkable. Bowel: No dilated loops of large or small bowel. Large amount stool in the rectum. Scattered diverticula of the colon. Appendix: Normal appendix. Pelvis: Prostate is not enlarged. Bones: Osteopenia. Mild multilevel endplate spondylosis. Stable apical to compression deformity. IMPRESSION: 1. No evidence of aortic dissection. Stable infrarenal abdominal aortic aneurysm measuring 3.3 cm. Follow-up imaging in 3 years recommended. 2. High-grade stenosis of greater than 50% at the origin of the right common iliac artery. 3. Tandem greater than 50% stenosis of the distal left common iliac artery with redemonstrated short segment dissection with no evidence of propagation. 4. Occlusion of the right common and external iliac arteries again identified. 5. 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 Small bilateral pleural effusions with bibasilar compressive atelectasis. 6. Severe centrilobular emphysematous change. 7. Coronary artery atherosclerosis. 8. Nodular contour of the liver. Findings concerning for cirrhosis. 9. Cholelithiasis. 10. Moderate amount of ascites. 11. Diverticulosis without evidence of acute diverticulitis. 12. 1.2 cm spiculated pulmonary nodule in the right upper lobe. Findings concerning for malignancy. Consider CT at 3 months, PET/CT, or tissue sampling for continued evaluation. 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 1.2 cm spiculated pulmonary nodule in the right upper lobe Liver cirrhosis Infrarenal abdominal aortic aneurysm measuring 3.3 cm Iron deficiency anemia Hypertension GERD Brief History of Present Illness: 70-year-old male with history of COPD, hypertension, prior CVA, alcohol abuse. Patient presented with 3 weeks of increased weakness, fatigue, anorexia and weight loss. Patient had fever upon arrival. Patient with intermittent confusion. Patient was evaluated in the emergency room. Patient admitted for treatment. Hospital Course: Patient presented with severe malnutrition with history of alcohol and tobacco abuse. Patient was hospitalized. Patient required treatment for alcohol withdrawal. Patient also found to have Parkinson's and COPD exacerbation. During the course of his stay patient was seen by multiple specialists including neurology, pulmonology and cardiology. His condition improved. Patient was evaluated for skilled placement. Patient accepted to skilled placement. For his alcohol abuse and withdrawal along with malnutrition, the patient will continue with Librium 5 mg 1 pill 3 times a day for 5 days then 1 pill twice daily for 5 days then 1 pill daily for 5 days. Patient will continue with alcohol cessation. At discharge the patient will continue with thiamine 100 mg daily and folic acid 1 mg daily. Patient will go to skilled placement to continue rehabilitation. Recommend alcohol rehab or counseling after skilled placement. This will include Alcoholics Anonymous. Alcohol cessation education provided. This will need to be enforced by his PCP. Recommend follow-up with PCP within 1 to 2 weeks. As mentioned above patient was evaluated by neurology for his Parkinson's. Patient was started on medication carbidopa levodopa. Patient has done well. Patient continues with physical therapy. At discharge patient will continue with physical therapy at skilled facility. At discharge patient will continue with carbidopa levodopa 25/100 mg 1 pill 4 times a day. Recommend follow-up with neurology in 2 to 4 weeks to follow-up his hospitalization and further monitor his care. Education on Parkinson's will be provided. As mentioned above patient presented with COPD. Mild exacerbation noted. At discharge patient remained stable. Patient will continue with oxygen at 2 L per nasal cannula. This can be weaned off to maintain sats above 90%. At discharge the patient will continue with Brovana 1 unit dose twice daily and albuterol 1 unit dose 3 times a day as needed for shortness of breath. Patient will continue with prednisone 20 mg daily for 7 days. Recommend follow-up with pulmonology in 2 to 4 weeks to follow-up his hospitalization and to continue to monitor his care. 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 Patient was evaluated by cardiology. Cardiology recommended no intervention during the course of his stay. Cardiology recommends follow-up in 2 to 4 weeks to further evaluate. Patient will require outpatient angiogram to further address. At discharge patient will continue with aspirin 81 mg daily. Patient with hypertension. Overall stable. At discharge patient will continue with Norvasc 5 mg daily and metoprolol 12.5 mg 1 pill twice daily. Recommend to maintain blood pressure less than 130/80. If blood pressure remains above 140/90 further adjustment in medication may be required. This can be done with the help of his PCP. Patient found to have iron deficiency anemia. Patient received IV iron with improvement. At discharge patient will continue with iron 325 mg 1 pill twice daily. Recommend to recheck labCBC and iron level in 2 to 4 weeks to monitor his progress. Further adjustment in medication may be required. This can be done with the help of his PCP. Patient with noted liver cirrhosis. Alcohol cessation addressed in detail. Patient will continue with above recommendations. Patient may follow-up with GI as an outpatient to further address. Patient with infrarenal abdominal aortic aneurysm noted on CT scan. This measured 3.3 cm. Recommend to recheck ultrasound or CT scan in 6 to 12 months to monitor stability. Patient with tobacco abuse. Tobacco cessation education provided. Patient will be provided nicotine patch daily to help with cessation. Patient with malnutrition. At discharge patient will continue with Ensure Enlive 1 can 3 times a day. Patient will continue with docusate 100 mg daily as a stool softener. Patient likely with underlying GERD. At discharge patient will continue with Protonix 40 mg daily. Vital Signs/Physical Exam: Temp Pulse Resp BP Pulse Ox 98.1 F 94 H 20 135/60 91 02/18/21 09:11 02/18/21 09:11 02/18/21 09:11 02/18/21 09:15 02/18/21 09:11 General: Alert, In no apparent distress, Oriented x3, Cooperative HEENT: Atraumatic Neck: Supple Respiratory: Clear to auscultation bilaterally, Normal air movement Cardiovascular: Normal pulses, Regular rate/rhythm Gastrointestinal: Normal bowel sounds, No ascites Musculoskeletal: No erythema, No tenderness, No warmth Integumentary: Other (Muscle wasting to the upper and lower extremities.) Neurological: Normal speech, Normal strength at 5/5 x4 extr, Normal tone, Normal affect, Other (Tremors improved) Laboratory Data at Discharge: WBC 10.60 K/uL (4.3-10.9) 02/18/21 05:05 Hgb 8.5 g/dL (13.6-17.9) L 02/18/21 05:05 Hct 26.6 % (39.6-49.0) L 02/18/21 05:05 Plt Count 270 K/uL (152-406) 02/18/21 05:05 PT 11.2 SECONDS (9.5-12.5) 02/10/21 23:17 INR 0.97 02/10/21 23:17 APTT 30.6 SECONDS (24.3-36.9) 02/10/21 23:17 Sodium 133 mmol/L (136-145) L 02/18/21 05:05 Potassium 4.1 mmol/L (3.5-5.1) 02/18/21 05:05 BUN 17 mg/dL (7-18) 02/18/21 05:05 Creatinine 0.54 mg/dL (0.55-1.3) L 02/18/21 05:05 Glucose 112 mg/dL (74-106) H 02/18/21 05:05 Phosphorus 2.8 mg/dL (2.5-4.9) 02/13/21 05:33 Magnesium 1.9 mg/dL (1.8-2.4) 02/18/21 05:05 Total Bilirubin 0.2 mg/dL (0.2-1.0) 02/13/21 05:33 AST 43 U/L (15-37) H 02/13/21 05:33 ALT 11 U/L (12-78) L 02/13/21 05:33 Alkaline Phosphatase 65 U/L (45-117) 02/13/21 05:33 Triglycerides 38 mg/dL (<150) 02/12/21 05:20 Cholesterol 159 mg/dL (<200) 02/12/21 05:20 HDL Cholesterol 74 mg/dL (40-60) H 02/12/21 05:20 Cholesterol/HDL Ratio 2.15 02/12/21 05:20 Lipase 149 U/L (73-393) 02/10/21 21:30 Home Medications: Amlodipine [Norvasc*] 5 mg PO DAILY 02/11/21 Albuterol Neb [Proventil 0.083% Neb Soln] 3 ml NEB TID PRN #90 amp 02/18/21 Arformoterol Tartrate [Brovana] 2 ml NEB BIDRESP #60 vial.neb 02/18/21 Aspirin [Aspirin EC 81 MG] 81 mg PO DAILY #90 tablet. 02/18/21 Carbidopa/Levodopa 25-100 [Sinemet 25-100*] 1 tab PO QID #120 tab 02/18/21 Docusate [Colace Cap*] 100 mg PO DAILY #30 cap 02/18/21 Ensure Enlive 237 ml PO TID #90 can 02/18/21 Ferrous Sulfate [Iron] 325 mg PO BID #60 tablet 02/18/21 Folic Acid 1 mg PO DAILY #90 tablet 02/18/21 Metoprolol Tartrate [Lopressor*] 12.5 mg PO BID 6AM 6PM #60 tab 02/18/21 Nicotine [Nicoderm*] 14 mg TD DAILY #30 patch.td24 02/18/21 Pantoprazole [Protonix Tab] 40 mg PO DAILY #30 tab 02/18/21 Thiamine HCl [Vitamin B-1*] 100 mg PO DAILY #90 tablet 02/18/21 chlordiazePOXIDE HCl [Librium*] 5 mg PO SEECOM #30 cap 02/18/21 predniSONE [Prednisone*] 20 mg PO DAILY #7 tab 02/18/21 New Medications: Aspirin [Aspirin EC 81 MG] 81 mg PO DAILY #90 tablet. Arformoterol Tartrate [Brovana] 2 ml NEB BIDRESP #60 vial.neb Docusate [Colace Cap*] 100 mg PO DAILY #30 cap Ensure Enlive 237 ml PO TID #90 can Folic Acid 1 mg PO DAILY #90 tablet Ferrous Sulfate [Iron] 325 mg PO BID #60 tablet chlordiazePOXIDE HCl [Librium*] 5 mg PO SEECOM #30 cap Metoprolol Tartrate [Lopressor*] 12.5 mg PO BID 6AM 6PM #60 tab Nicotine [Nicoderm*] 14 mg TD DAILY #30 patch.td24 predniSONE [Prednisone*] 20 mg PO DAILY #7 tab Pantoprazole [Protonix Tab] 40 mg PO DAILY #30 tab Albuterol Neb [Proventil 0.083% Neb Soln] 3 ml NEB TID PRN #90 amp PRN Reason: Shortness Of Breath Carbidopa/Levodopa 25-100 [Sinemet 25-100*] 1 tab PO QID #120 tab Thiamine HCl [Vitamin B-1*] 100 mg PO DAILY #90 tablet Physician Discharge Instructions: Patient presented with severe malnutrition with history of alcohol and tobacco abuse. Patient was hospitalized. Patient required treatment for alcohol withdrawal. Patient also found to have Parkinson's and COPD exacerbation. During the course of his stay patient was seen by multiple specialists including neurology, pulmonology and cardiology. His condition improved. Patient was evaluated for skilled placement. Patient accepted to skilled placement. For his alcohol abuse and withdrawal along with malnutrition, the patient will continue with Librium 5 mg 1 pill 3 times a day for 5 days then 1 pill twice daily for 5 days then 1 pill daily for 5 days. Patient will continue with alcohol cessation. At discharge the patient will continue with thiamine 100 mg daily and folic acid 1 mg daily. Patient will go to skilled placement to continue rehabilitation. Recommend alcohol rehab or counseling after skilled placement. This will include Alcoholics Anonymous. Alcohol cessation education provided. This will need to be enforced by his PCP. Recommend follow-up with PCP within 1 to 2 weeks. As mentioned above patient was evaluated by neurology for his Parkinson's. Patient was started on medication carbidopa levodopa. Patient has done well. Patient continues with physical therapy. At discharge patient will continue with physical therapy at skilled facility. At discharge patient will continue with carbidopa levodopa 25/100 mg 1 pill 4 times a day. Recommend follow-up with neurology in 2 to 4 weeks to follow-up his hospitalization and further monitor his care. Education on Parkinson's will be provided. As mentioned above patient presented with COPD. Mild exacerbation noted. At discharge patient remained stable. Patient will continue with oxygen at 2 L per nasal cannula. This can be weaned off to maintain sats above 90%. At discharge the patient will continue with Brovana 1 unit dose twice daily and albuterol 1 unit dose 3 times a day as needed for shortness of breath. Patient will continue with prednisone 20 mg daily for 7 days. Recommend follow-up with pulmonology in 2 to 4 weeks to follow-up his hospitalization and to continue to monitor his care. 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 Patient was evaluated by cardiology. Cardiology recommended no intervention during the course of his stay. Cardiology recommends follow-up in 2 to 4 weeks to further evaluate. Patient will require outpatient angiogram to further address. At discharge patient will continue with aspirin 81 mg daily. Patient with hypertension. Overall stable. At discharge patient will continue with Norvasc 5 mg daily and metoprolol 12.5 mg 1 pill twice daily. Recommend to maintain blood pressure less than 130/80. If blood pressure remains above 140/90 further adjustment in medication may be required. This can be done with the help of his PCP. Patient found to have iron deficiency anemia. Patient received IV iron with improvement. At discharge patient will continue with iron 325 mg 1 pill twice daily. Recommend to recheck labCBC and iron level in 2 to 4 weeks to monitor his progress. Further adjustment in medication may be required. This can be done with the help of his PCP. Patient with noted liver cirrhosis. Alcohol cessation addressed in detail. Patient will continue with above recommendations. Patient may follow-up with GI as an outpatient to further address. Patient with infrarenal abdominal aortic aneurysm noted on CT scan. This measured 3.3 cm. Recommend to recheck ultrasound or CT scan in 6 to 12 months to monitor stability. Patient with tobacco abuse. Tobacco cessation education provided. Patient will be provided nicotine patch daily to help with cessation. Patient with malnutrition. At discharge patient will continue with Ensure Enlive 1 can 3 times a day. Patient will continue with docusate 100 mg daily as a stool softener. Patient likely with underlying GERD. At discharge patient will continue with Protonix 40 mg daily. Diet: AHA Activity: Ad anant Followup: Tristin Valenzuela MD [Primary Care Provider] - Time spent managing pt's care (in minutes): 55
[2021-02-18 12:31] VITALS: BP 137/67; TEMP 98.4
[2021-02-19] MEDS ORDERED: predniSONE 20 MG TAB PO SCH (09:00)
== END 2021-02-18 14:14 | DRG 896 ==
LOC: ER 19:08 → ERHOLD 02-11 04:02 → 2ND 02-11 04:13 → OBSVTOIN 02-11 13:01
PROVIDERS: ADMIT Hospitalist; ATTEND Family Medicine
DX: F10.139 Alcohol abuse with withdrawal, unspecified (principal); E43 Unspecified severe protein-calorie malnutrition; J44.1 Chronic obstructive pulmonary disease with (acute) exacerbation; Z68.1 Body mass index [BMI] 19.9 or less, adult; R64 Cachexia; R62.7 Adult failure to thrive; G20 Parkinson's disease; K74.60 Unspecified cirrhosis of liver; I10 Essential (primary) hypertension; F17.210 Nicotine dependence, cigarettes, uncomplicated; G89.29 Other chronic pain; E86.0 Dehydration; M54.9 Dorsalgia, unspecified; I73.9 Peripheral vascular disease, unspecified; I70.90 Unspecified atherosclerosis; K21.9 Gastro-esophageal reflux disease without esophagitis; I71.4 Abdominal aortic aneurysm, without rupture; D50.9 Iron deficiency anemia, unspecified; R91.8 Other nonspecific abnormal finding of lung field; R91.1 Solitary pulmonary nodule; Z86.73 Personal history of transient ischemic attack (TIA), and cerebral infarction without residual deficits; Z79.899 Other long term (current) drug therapy; Z79.82 Long term (current) use of aspirin; Z79.52 Long term (current) use of systemic steroids; Z20.822 Contact with and (suspected) exposure to COVID-19
CPT/HCPCS: 36415; 70450; 70551; 71045; 71275; 74175; 74177; 80048; 80053; 80061; 80076; 80307; 80320; 81003; 82140; 82550; 82553; 82607; 82728; 82746; 83540; 83605; 83690; 83735; 83880; 84100; 84425; 84439; 84443; 84466; 84484; 85025; 85379; 85610; 85730; 87040; 93005; 93970; 94010; 94760; 96374; 96375; 97110; 97116; 97161; 97530; 99284; G0378; J0360; J1644; J2270; J2405; J2916; J3010; J3475; J7030; J7050; J7512; J7605; Q9967; U0003

== ENCOUNTER 2021-04-14 08:50 | Day surgery (SDC) | payer OTHER ==
[2021-04-10 11:05] LABS: Protime INR 0.95
[2021-04-10 11:13] LABS: Absolute Lymphocytes (CBC) 1.2 K/uL (0.7-4.9); Basophils % 0.9 % (0-1.3); Hematocrit 40.4 % (39.6-49.0); Lymphocytes % 20.4 % (15.3-44.8); MPV 8.3 fL (7.6-11.3); RBC Red Blood Cell Count 4.23 M/uL (4.33-5.43)
[2021-04-10 11:19] LABS: Potassium 3.7 mmol/L (3.5-5.1)
[2021-04-10 11:44] LABS: Platelet Estimate ADEQ; White Blood Cell Scan OK (OK)
[2021-04-10 11:45] LABS: Anisocytosis 1+; Blood Morphology Comment NOTED (NOT SEEN)
--- NOTE | 2021-04-11 17:01 | EKG ---
Test Date: 2021-04-10 Test Time: 10:28:22 [employer] Manager: LAURIE MEASUREMENT RESULTS: Intervals: Rate: 73 RI: 148 QRSD: 78 QT: 408 QTc: 449 [place]: P: 81 RI: 148 QRS: 86 T: 83 INTERPRETIVE STATEMENTS: Normal sinus rhythm Normal ECG Compared to ECG 02/10/2021 21:14:54 No significant changes Electronically Signed On 04-11-21 17:00:00 [employer]OUN[employer] PROCESS ENGINEER by Ayden Perez
[2021-04-14] MEDS ORDERED: NA CHLORIDE 0.9% 500 ML ONE (09:07)
[2021-04-14 09:36] VITALS: TEMP 97.8
[2021-04-14] MEDS ORDERED: HEPA 1000U/500MLS 2,000 UNIT/1,000 ML BAG IV ONE (10:46)
[2021-04-14] MEDS ORDERED: LIDOCAINE 1% 20 ML MDV ONE (10:46)
[2021-04-14] MEDS ORDERED: MIDAZOLAM HCL 2 MG/2 ML INJ ONE (10:49)
[2021-04-14] MEDS ORDERED: VERAPAMIL HCL 10 MG/4 ML VIAL IV ONE (10:49)
[2021-04-14] MEDS ORDERED: FENTANYL CITR 100 MCG/2 ML ONE (10:50)
[2021-04-14] MEDS ORDERED: HEPARIN 5000 UNIT/ML 1 ML VIAL ONE (10:50)
[2021-04-14] MEDS ORDERED: NITROGLYCERIN 100 MCG/ML SYR (for cath lab use only) IV ONE (10:50)
[2021-04-14] MEDS ORDERED: ATROPINE SULF 1 MG/10 ML SYR IV ONE (10:50)
[2021-04-14 13:01] VITALS: O2SAT 100
[2021-04-14] MEDS ORDERED: HYDRALAZINE HCL 20 MG/ML VIAL ONE (13:18)
--- NOTE | 2021-04-14 13:48 | OP ---
Date of Procedure: 04/14/2021 Surgeon: CANDE WONG Procedures Performed: 1.Selective coronary angiogram. 2.Distal aorta exam with limited peripheral angiogram. Access: Right radial artery 6-[place] closed with TR band. Complications: None. Bleeding: Less than 10 mL. Anesthesia: Total sedation time was 25 minutes. Description Of Procedure: After risks, benefits, and alternatives were explained, the patient agreed to procedure and signed informed consent. The patient was brought into the cardiac catheterization laboratory, prepped and draped in the usual sterile fashion. Then, I accessed the right radial arter y using pediatric micropuncture kit with a 6-[place] Slender sheath. Then, I took a 5-[place] 4. 0 catheter into the aortic root over a J-wire, engaged the left main and right coronary artery. Took standard views and then using the sensor wire advanced pigtail into the distal aorta and this aortog augie with limited runoff due to table malfunction was done and then removed the catheter and sheath, p laced TR band with good hemostasis. Findings: 1.Left main is normal. 2.LAD; large with luminal irregularities. 3.Left circumflex; codominant with luminal irregularities. 4.RCA; large and codominant with luminal irregularities. Peripheral Angiogram: 1.Distal aorta is with diffuse 10% to 20% stenosis. 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 3.Left common iliac has diffuse 50% to 60% and the left common femoral artery has multiple lesions o f 80% to 90% and patent profunda. Conclusions: 1.Normal coronary arteries. 2.Severe peripheral vascular disease. Plan: Consult Vascular Surgery. /OSCARL Voice ID: [id number] Report ID: [id number]
[2021-04-14 16:03] VITALS: BP 156/54
== END 2021-04-14 15:35 | disposition home or self-care (01) ==
LOC: CCL 08:50
PROVIDERS: ATTEND Internal Medicine
PROC: B40DYZZ Plain Radiography of Aorta and Bilateral Lower Extremity Arteries using Other Contrast (ICD-10-PCS; principal; 2021-04-14)
DX: I70.203 Unspecified atherosclerosis of native arteries of extremities, bilateral legs (principal); I70.92 Chronic total occlusion of artery of the extremities; I25.10 Atherosclerotic heart disease of native coronary artery without angina pectoris; I10 Essential (primary) hypertension; F17.210 Nicotine dependence, cigarettes, uncomplicated; Z20.822 Contact with and (suspected) exposure to COVID-19
CPT/HCPCS: 93005; 85025; 80048; 36415; 85610; 85730; 93454; 75630; U0003; C1893; J0360; J2250; J3010; J7040; J1644

== ENCOUNTER 2022-10-10 02:59 | Emergency (ER) | payer OTHER ==
--- OUTSIDE RECORDS SUMMARY | 2022-10-10 03:05 | XMS REPORT | Continuity of Care Document ---
:1950 Author Organization [facility] Address [address] [place] [address]. [address] [place] [address] Care Team Providers Name Role Phone Tristin Valenzuela MD Primary Care Physician Ana Cline MD Attending Clinician EDMAR BERMAN Attending Clinician Unavailable Becky Loaiza MD Attending Clinician Johanny Cottrell Attending Clinician Unavailable Ana Cline MD Attending Clinician ANA CLINE Attending Clinician Unavailable ANA CLINE Attending Clinician Unavailable ANA CLINE Admitting Clinician Unavailable Payers Payer Name Policy Type Policy Number Effective Date Expiration Date Wayne FLOWER MEDICARE [id number] 2021 00:00:00 Problems Condition Condition Condition Status Onset Resolution Last Treating Co mments Source Name Details Category Date Date Treatment Clinician Date 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 00:00: Medica l (AAA) 3.0 (AAA) 3.0 00 Cent er cm to 5.5 cm to 5.5 cm in cm in diameter diameter in male in male PAD PAD Disease Active [facility] (periphera (periphera 06-03 Co llege l artery l artery 00:00: of disease) disease) 00 Medici n (HCCode) (HCCode) e Claudicati Claudicati Disease Active [facility] 06-03 College (HCCode) (HCCode) 00:00: of 00 Medicin e Abdominal Abdominal Disease Active [facility] aortic aortic 209 College aneurysm aneurysm 00:00: of (AAA) 3.0 (AAA) 3.0 00 Medi pedro cm to 5.5 cm to 5.5 e cm in cm in diameter diameter in male in male (HCCode) (HCCode) Allergies, Adverse Reactions, Alerts Allergy Allergy Status Severity Reaction(s) Onset Inactive Treating Comm ents Source Name Type Date Date Clinician NO KNOWN Allergy Active [facility] Social History Social Habit Start Date Stop Date Quantity Comments Source History of tobacco Smoker [facility] use [facility] History [facility]-Med Medical Center Exposure to 2021-08-09 2021-08-19 Not sure [facility] Susan galindo SARS-CoV-2 (event) 00:00:00 12:54:00 of Med icine Alcohol intake 2021-08-11 2021-08-11 Ex-drinker [facility]00 (finding) Medical Center History [facility] 2021-08-07 2021-08-[address] [facility] Housing Unable to 00:00:00 00:00:00 Medical Center Pay History [facility] 2021-08-07 2021-08-[address] [facility] Housing Places 00:00:00 00:00:00 Medical nter Lived History [facility] 2021-08-07 2021-08-[address] [facility] Housing Homeless 00:00:00 00:00:00 Medical Center Last Year History [facility] 2021-08-07 2021-08-[address] [facility] Transport Med 00:00:00 00:00:[address] [facility] [address] Tobacco use and 2021-08-05 2021-08-[address] [facility] exposure 00:00:00 00:00:00 [facility] Tobacco Comment 2021-08-05 2021-08-[address] [facility] 00:00:00 00:00:00 nicotine patches [facility] Cigarettes smoked 2021-08-05 2021-08-[address] [facility] current (pack per 00:00:00 00:00:00 Medical Center day) - Reported Cigarette 2021-08-05 2021-08-[address] [facility] pack-years 00:00:00 00:00:00 Medical Center Sex Assigned At [address] [facility] 00[facility]00[facility]00 00[facility]00 Medical Center Smoking Status Start Date Stop Date Source Ex-smoker 2021-07-01 00:00:00 2021-07-01 00:00:00 [facility] Smokes tobacco daily 2021-06-03 00:00:00 [facility] Medications Ordered Filled Start Stop Current Ordering Indication Dosage Frequency Signature Comments Components Source Medication Medication Date Date Medication? Clinician (SIG) Name Name aspirin EC Yes 81mg Take 81 mg [facility] 81 MG -04 by mouth College tablet 10:27: daily. of 19 Medicin e amlodipine 10mg Take 10 mg [facility] (NORVASC) 08-26 05-04 by mouth Colle ge 10 MG 10:25: 00:00 daily. of tablet 17 :00 Medicin e atorvastati Yes [facility] n (LIPITOR) 08-24 College 40 MG 00:00: of tablet 00 Medicin e carbidopa-l Yes 1{tbl} Take [address] evodopa 4-19 tablet by [facility] (SINEMET) 15:00: mouth 3 Medic al 25-100 mg 04 (three) Center per tablet times daily as needed. methocarbam Yes 750mg Take [address] oL 4-19 mg by [facility] (ROBAXIN) 15:00: mouth 4 Medic al 750 MG 04 (four) Center tablet times daily as needed. fluticasone Yes 1{puff} Inhale [address] propion-lily 4-19 puff by [facility]ukes meteroL 15:00: mouth via Medic al (Wixela 04 inhaler Center [facility]) every 12 250-50 (twelve) mcg/dose hours. diskus inhaler amLODIPine Yes 10mg QD Take [address] (NORVASC) 4-19 by mouth [facility] 10 MG 15:00: daily. Medical tablet 04 Center mirtazapine Yes 30mg QD Take [address] (REMERON) 4-19 by mouth [facility] 30 MG 15:00: nightly. Medical tablet 04 Center aspirin 81 0 Yes 81mg QD Take [address] MG EC 4-19 by mouth [facility] tablet 15:00: daily. Medical 04 Center clopidogreL 0 Yes 75mg QD Take [address] (PLAVIX) 75 4-19 tablet (75 [facility] mg tablet 00:00: mg total) Med ical 00 by mouth Center daily. clopidogrel 0 Yes 75mg Take 75 mg [facility] (PLAVIX) 75 4-19 by mouth. Col lege MG Tablet 00:00: of 00 Medicin e metoprolol 0 Yes 25mg QD Take 1 [facility] t succinate 4-18 tablet (25 Luke s (TOPROL-XL) 00:00: mg total) M edical 25 MG 24 hr 00 by mouth Cent er tablet daily. metoprolol 0 Yes 25mg Take 25 mg [facility] (TOPROL-XL) 4-18 by mouth Linda [facility] 25 MG XL 00:00: daily. of tablet 00 Medicin e carbidopa-l Yes 1{tbl} Take [address] evodopa 4-16 tablet by [facility] (SINEMET) 18:14: mouth 3 Medic al 25-100 mg 36 (three) Center per tablet times daily as needed. methocarbam Yes 750mg Take [address] oL 4-16 mg by [facility] (ROBAXIN) 18:14: mouth 4 Medic al 750 MG 36 (four) Center tablet times daily as needed. fluticasone Yes 1{puff} Inhale [address] propion-lily 4-16 puff by [facility]ukes meteroL 18:14: mouth via Medic al (Wixela 36 inhaler Center [facility]) every 12 250-50 (twelve) mcg/dose hours. diskus inhaler amLODIPine 0 Yes 10mg QD Take [address] (NORVASC) 4-16 by mouth [facility] 10 MG 18:14: daily. Medical tablet 36 Center mirtazapine 0 Yes 30mg QD Take [address] (REMERON) 4-16 by mouth [facility] 30 MG 18:14: nightly. Medical tablet 36 Center aspirin 81 0 Yes 81mg QD Take [address] MG EC 4-16 by mouth [facility] tablet 18:14: daily. [address] amlodipine 2021-0 Yes 10mg Take 10 mg [facility] (NORVASC) 3-09 by mouth Colleg e 10 MG 13:09: daily. of tablet 45 Medicin e aspirin EC 2021-0 Yes 81mg Take 81 mg [facility] 81 MG 3-09 by mouth College tablet 13:09: daily. of 45 Medicin e mirtazapine 2021-0 Yes TAKE 1 [facility] (REMERON) 2-17 TABLET BY Colle ge 30 MG 00:00: MOUTH of tablet 00 EVERYDAY Medicin AT BEDTIME e mirtazapine 2021-0 Yes 30mg Take 30 mg [facility] (REMERON) 2-17 by mouth Colleg e 30 MG 00:00: every of tablet 00 evening. Medicin e aspirin EC 2021-0 Yes 81mg Take 81 mg [facility] 81 MG 2-09 by mouth College tablet 13:34: daily. of 41 Medicin e amlodipine 2021-0 Yes 10mg Take 10 mg [facility] (NORVASC) 2-09 by mouth Colleg e 10 MG 13:33: daily. of tablet 03 Medicin e escitalopra 2021-0 Yes [facility] (LEXAPRO) 2-05 College 10 MG 00:00: of tablet 00 Medicin e escitalopra 2021-0 Yes [facility] (LEXAPRO) 2-05 [place] 10 MG 00:00: of tablet 00 Medicin e escitalopra 2021-0 Yes 10mg Take 10 mg [facility] m (LEXAPRO) 2-05 by mouth Linda [facility] 10 MG 00:00: daily. of tablet 00 Medicin e methocarbam 2021-0 Yes TAKE 1 [facility] 1-23 TABLET BY [place] (ROBAXIN) 00:00: MOUTH of 750 MG 00 TWICE A Medicin tablet DAY e methocarbam 2021-0 Yes TAKE 1 [facility] 1-23 TABLET BY [place] (ROBAXIN) 00:00: MOUTH of 750 MG 00 TWICE A Medicin tablet DAY e methocarbam 2021-0 Yes 750mg Take 750 [facility] 1-23 mg by [place] (ROBAXIN) 00:00: mouth two of 750 MG 00 times Medicin tablet daily. e WIXELA 2021-0 Yes USE 1 PUFF [facility] -12 BY MOUTH 2 [place] 250-50 00:00: TIMES A of MCG/DOSE 00 DAY 30 Medicin inhaler DAY(S) e WIXELA 2021-0 Yes USE 1 PUFF [facility] 1-12 BY MOUTH 2 [place] 250-50 00:00: TIMES A of MCG/DOSE 00 DAY 30 Medicin inhaler DAY(S) e WIXELA 2021-0 Yes Inhale by [facility] INHUB 1-12 mouth two [place] 250-50 00:00: times of MCG/DOSE 00 daily. Medicin inhaler e carbidopa-l 2020-04 Yes TAKE 1 [facility] evodopa 1-29 TABLET BY [place] (SINEMET) 00:00: MOUTH of 25-100 MG 00 EVERY 6 Medicin per tablet HOURS e carbidopa-l 2020-04 Yes TAKE 1 [facility] evodopa 1-29 TABLET BY [place] (SINEMET) 00:00: MOUTH of 25-100 MG 00 EVERY 6 Medicin per tablet HOURS e carbidopa-l 2020-04 Yes TAKE 1 [facility] evodopa 1-29 TABLET BY [place] (SINEMET) 00:00: MOUTH of 25-100 MG 00 EVERY 6 Medicin per tablet HOURS e Vital Signs Vital Name Observation Time Observation Value Comments Source Systolic blood 2021-08-26 15:22:00 140 mm[Hg] [facility] pressure Medicine Diastolic blood 2021-08-26 15:22:00 62 mm[Hg] [facility] of pressure Medicine Heart rate 2021-08-26 15:22:00 61 /min [facility] Body weight 2021-08-26 15:22:00 45.178 kg [facility] BMI 2021-08-26 15:22:00 14.71 kg/m2 [facility] HEIGHT 2021-08-07 05:47:00 175.3 cm WEIGHT 2021-08-07 05:47:00 48.6 kg HEIGHT 2021-08-05 15:46:00 175.3 cm WEIGHT 2021-08-05 15:46:00 47.628 kg HEIGHT 2021-08-07 05:47:00 175.3 cm WEIGHT 2021-08-07 05:47:00 48.6 kg HEIGHT 2021-08-05 15:46:00 175.3 cm WEIGHT 2021-08-05 15:46:00 47.628 kg Systolic blood 2021-07-01 19:08:00 140 mm[Hg] [facility] Diastolic blood 2021-07-01 19:08:00 80 mm[Hg] [facility] Heart rate 2021-07-01 19:08:00 80 /min [facility] Body height 2021-07-01 19:08:00 175.3 cm [facility] Body weight 2021-07-01 19:08:00 45.269 kg [facility] BMI 2021-07-01 19:08:00 14.74 kg/m2 [facility] Systolic blood 2021-06-03 19:13:00 170 mm[Hg] [facility] Diastolic blood 2021-06-03 19:13:00 83 mm[Hg] [facility] Medicine Heart rate 2021-06-03 19:13:00 69 /min [facility] Heart rate 2021-08-10 09:00:00 106 /min [facility] Oxygen saturation in 2021-08-10 08:21:00 100 /min [facility] Arterial blood by Medical Ce nter Pulse oximetry Respiratory rate 2021-08-10 08:10:00 18 /min [facility] Systolic blood 2021-08-10 07:27:00 155 mm[Hg] [facility] Diastolic blood 2021-08-10 07:27:00 67 mm[Hg] [facility] Body temperature 2021-08-10 07:27:00 36.78 Niya [facility] Body height 2021-08-07 05:47:00 175.3 cm [facility] Body weight 2021-08-07 05:47:00 48.6 kg [facility] BMI 2021-08-07 05:47:00 15.82 kg/m2 [facility] Procedures Procedure Date / Time Performed Performing Clinician Sour e BASIC METABOLIC PANEL 2021-08-10 04:06:00 Ching, [facility] () [facility] MAGNESIUM 2021-08-10 04:06:00 Ching, [facility] ECG 12-LEAD 2021-08-09 15:50:11 Unknown, Hl7 [facility] ECG 12-LEAD 2021-08-09 15:50:11 Unknown, Hl7 [facility] CBC (HEMOGRAM ONLY) 2021-08-09 05:09:00 Ching, [facility] BASIC METABOLIC PANEL 2021-08-09 05:09:00 Ching, [facility] () [facility] MAGNESIUM 2021-08-09 05:09:00 Ching, [facility] LIPID PANEL 2021-08-08 17:31:00 [facility] 2021-08-08 06:16:00 Ching, [facility] BASIC METABOLIC PANEL 2021-08-08 04:46:00 Ching, [facility] () [facility] MAGNESIUM 2021-08-08 04:46:00 Ching, [facility] PHOSPHORUS 2021-08-08 04:46:00 Harmeet Lopes [facility] CBC W/PLT COUNT & AUTO 2021-08-07 18:05:00 Vo, [facility] CBC W/PLT COUNT & AUTO 2021-08-07 18:05:00 Vo, [facility] APTT 2021-08-07 18:04:00 Vo, [facility] BASIC METABOLIC PANEL 2021-08-07 18:04:00 Vo, [place] [address]) [facility] MAGNESIUM 2021-08-07 18:04:00 Vo, [facility] PHOSPHORUS 2021-08-07 18:04:00 Vo, [facility] PROTHROMBIN TIME/INR 2021-08-07 18:04:00 Vo, [facility] POCT-GLUCOSE METER 2021-08-07 17:46:00 [facility] PREPARE RBC 2021-08-07 13:49:00 [facility] POCT-ACT 2021-08-07 12:33:00 [facility] POCT-ACT 2021-08-07 12:19:00 [facility] POCT-ACT 2021-08-07 11:36:00 [facility] RRL CRITICAL LABS 2021-08-07 11:28:25 Becky Loaiza [facility] S t [place] (ABG,NA,K,H&H,GLUCOSE) Medical C enter CALCIUM, IONIZED 2021-08-07 11:28:25 Becky Loaiza [facility] BLOOD GAS, ARTERIAL 2021-08-07 11:28:25 Becky Loaiza [facility] SODIUM NA-STAT LAB 2021-08-07 11:28:25 Becky Loaiza [facility] POTASSIUM-STAT LAB 2021-08-07 11:28:25 Becky Loaiza [facility] GLUCOSE-STAT LAB 2021-08-07 11:28:25 Becky Loaiza [facility] HGB/HCT (H&H) - STAT LAB 2021-08-07 11:28:25 Becky Loaiza [facility] POCT-ACT 2021-08-07 10:56:00 [facility] POCT-ACT 2021-08-07 10:23:00 [facility] RRL CRITICAL LABS 2021-08-07 09:10:20 Becky Loaiza [facility] S t [place] (ABG,NA,K,H&H,GLUCOSE) Medical C enter CALCIUM, IONIZED 2021-08-07 09:10:20 Becky Loaiza [facility] BLOOD GAS, ARTERIAL 2021-08-07 09:10:20 Becky Loaiza [facility] SODIUM NA-STAT LAB 2021-08-07 09:10:20 Becky Loaiza [facility] POTASSIUM-STAT LAB 2021-08-07 09:10:20 Becky Loaiza [facility] GLUCOSE-STAT LAB 2021-08-07 09:10:20 Becky Loaiza [facility] HGB/HCT (H&H) - STAT LAB 2021-08-07 09:10:20 Becky Loaiza [facility] ABORH, MANUAL 2021-08-07 06:42:00 Aruna Ashford [facility] TYPE AND SCREEN, 2021-08-07 06:22:00 Reese Pichardo [facility] s AUTOMATED [facility] POCT-GLUCOSE METER 2021-08-07 05:51:00 Ana Cline [facility] ECG 12-LEAD 2021-08-04 12:03:30 Jaspal Henderson [facility] ECG 12-LEAD 2021-08-04 12:03:30 Unknown, [facility] SARS-COV2/RT-PCR ([facility] & 2021-08-04 11:59:00 Ana Cline [facility] REF LABS) [facility] BASIC METABOLIC PANEL 2021-08-04 11:59:00 Jaspal Henderson C HI [facility] (7) [facility] HEMOGLOBIN 2021-08-04 11:59:00 Jaspal Henderson [facility] Plan of Care Planned Activity Planned Date Details Comments Source Future Scheduled 2022-12-24 Influenza Vaccine [facility] 00:00:00 (Season Ended) [code Medical Center = Influenza Vaccine (Season Ended)] Future Scheduled 2022-08-[address] [facility] Test 00:00:00 Counseling and Medical Cente r Screening (12+) [code = Tobacco Cessation Counseling and Screening (12+)] Future Scheduled 2022-04-26 MEDICARE ANNUAL [facility] Test 00:00:00 WELLNESS (YEAR 2 or Medical Center FIRST YEAR if no IPPE) [code = MEDICARE ANNUAL WELLNESS (YEAR 2 or FIRST YEAR if no IPPE)] Future Scheduled 2022-04-[address] [facility] Test 00:00:00 (12+) [code = Medical Center DEPRESSION SCREENING (12+)] Future Scheduled 2022-04-25 FALLS RISK SCREENING [facility] Test 00:00:00 [code = FALLS RISK Medical C enter SCREENING] Future Scheduled 2021-12-[address] [facility] Test 00:00:00 (Season Ended) [code Medical Center = INFLUENZA VACCINE (Season Ended)] Future Scheduled 2021-09-10 Screening for [facility] Test 08:16:50 malignant neoplasm of Medici ne of colon (procedure) [code = 646988828] Future Scheduled 2021-09-10 COVID-19 Vaccine (1) [employer] Test 08:16:50 [code = COVID-19 of Medicine Vaccine (1)] Future Scheduled 2021-09-10 TETANUS SHOT (ADULT) [employer] Test 08:16:50 [code = TETANUS SHOT of Medi cine (ADULT)] Future Scheduled 2021-09-10 BMI FOLLOW UP PLAN [employer] Test 08:16:50 [code = BMI FOLLOW of Medici ne UP PLAN] Future Scheduled 2021-09-10 Hepatitis C [facility] Test 08:16:50 screening of Medicine (procedure) [code = 901092411] Future Scheduled 2021-09-10 ZOSTER VACCINE (1 of [employer] Test 08:16:50 2) [code = ZOSTER of Medicin e VACCINE (1 of 2)] Future Scheduled 2021-09-10 Abdominal aortic [facility] [employer] Test 08:16:50 aneurysm screening of Medici ne (procedure) [code = 742070247] Future Scheduled 2021-09-10 Pneumococcal 65+ (1 [facility] [facility] [employer] Test 08:16:50 of 1 - PPSV23) [code of Medi cine = Pneumococcal 65+ (1 of 1 - PPSV23)] Future Scheduled 2021-09-10 MEDICARE IPPE [facility] Test 08:16:50 (WELCOME TO of Medicine MEDICARE) [code = MEDICARE IPPE (WELCOME TO MEDICARE)] Future Scheduled 2021-09-10 FLU VACCINE > 6 [facility] Test 08:16:50 MONTHS [code = FLU of Medici ne VACCINE > 6 MONTHS] Future Scheduled 2021-09-10 FALL SCREEN [code = [facility] Test 08:16:50 FALL SCREEN] of Medicine Future Scheduled 2021-08-26 US 1 Occurrences [facility] Test 10:32:29 AORTA,IVC,ILIACS,GRA starting of Medi cine FT COMPLETE DUPLEX 08/26/2021 until [code = 60590-8] 08/26/2022 Future Scheduled 2021-07-02 FALL SCREEN [code = [facility] Test 14:49:29 FALL SCREEN] of Medicine Future Scheduled 2021-07-02 Screening for [facility] Test 14:49:29 malignant neoplasm of Medici ne of colon (procedure) [code = 407012400] Future Scheduled 2021-07-02 COVID-19 Vaccine (1) [employer] Test 14:49:29 [code = COVID-19 of Medicine Vaccine (1)] Future Scheduled 2021-07-02 TETANUS SHOT (ADULT) [employer] Test 14:49:29 [code = TETANUS SHOT of Medi cine (ADULT)] Future Scheduled 2021-07-02 BMI FOLLOW UP PLAN [employer] Test 14:49:29 [code = BMI FOLLOW of Medici ne UP PLAN] Future Scheduled 2021-07-02 Hepatitis C [facility] Test 14:49:29 screening of Medicine (procedure) [code = 319557736] Future Scheduled 2021-07-02 ZOSTER VACCINE (1 of [employer] Test 14:49:29 2) [code = ZOSTER of Medicin e VACCINE (1 of 2)] Future Scheduled 2021-07-02 Abdominal aortic [facility] Test 14:49:29 aneurysm screening of Medici ne (procedure) [code = 082166568] Future Scheduled 2021-07-02 Pneumococcal 65+ (1 [facility] Test 14:49:29 of 1 - PPSV23) [code of Medi cine = Pneumococcal 65+ (1 of 1 - PPSV23)] Future Scheduled 2021-07-02 MEDICARE IPPE [facility] Test 14:49:29 (WELCOME TO of Medicine MEDICARE) [code = MEDICARE IPPE (WELCOME TO MEDICARE)] Future Scheduled 2021-07-02 FLU VACCINE > 6 [facility] Test 14:49:29 MONTHS [code = FLU of Medici ne VACCINE > 6 MONTHS] Future Scheduled 2021-06-03 CTA ABD AORTA AND 1 Occurrences [employer] Test 13:45:33 ILIOFEMORAL RUNOFF starting of Medici ne [code = 32841] 06/03/2021 until 06/03/2022 Future Scheduled 2021-06-03 Screening for [facility] Test 13:14:14 malignant neoplasm of Medici ne of colon (procedure) [code = 674679515] Future Scheduled 2021-06-03 COVID-19 Vaccine (1) [employer] Test 13:14:14 [code = COVID-19 of Medicine Vaccine (1)] Future Scheduled 2021-06-03 TETANUS SHOT (ADULT) [employer] Test 13:14:14 [code = TETANUS SHOT of Medi cine (ADULT)] Future Scheduled 2021-06-03 Hepatitis C [facility] Test 13:14:14 screening of Medicine (procedure) [code = 056780580] Future Scheduled 2021-06-03 ZOSTER VACCINE (1 of [facility] Test 13:14:14 2) [code = ZOSTER of Medicin e VACCINE (1 of 2)] Future Scheduled 2021-06-03 FALL SCREEN [code = [facility] Test 13:14:14 FALL SCREEN] of Medicine Future Scheduled 2021-06-03 Pneumococcal 65+ (1 [facility] Test 13:14:14 of 1 - PPSV23) [code of Medi cine = Pneumococcal 65+ (1 of 1 - PPSV23)] Future Scheduled 2021-06-03 MEDICARE IPPE [facility] Test 13:14:14 (WELCOME TO of Medicine MEDICARE) [code = MEDICARE IPPE (WELCOME TO MEDICARE)] Future Scheduled 2021-06-03 FLU VACCINE > 6 [facility] Test 13:14:14 MONTHS [code = FLU of Medici ne VACCINE > 6 MONTHS] Future Scheduled 2021-04-[address] [facility] Test 00:00:00 (WELCOME TO Medical Center MEDICARE) [code = Medicare IPPE (WELCOME TO MEDICARE)] Future Scheduled 2017 PNEUMOCOCCAL 65+ YRS [facility] Test 00:00:00 (1 of 1 - PPSV23) Medical Ce nter [code = PNEUMOCOCCAL 65+ YRS (1 of 1 - PPSV23)] Future Scheduled 2017 PNEUMOCOCCAL 65+ YRS [facility] Test 00:00:00 (1 - PCV) [code = Medical Ce nter PNEUMOCOCCAL 65+ YRS (1 - PCV)] Future Scheduled 2002 SHINGLES VACCINES ([address] [facility] Test 00:00:00 of 2) [code = Medical Center SHINGLES VACCINES (1 of 2)] Future Scheduled 2002 SHINGLES VACCINES ([address] [facility] Test 00:00:00 of 2) [code = Medical Center SHINGLES VACCINES (1 of 2)] Future Scheduled 1971-10-28 DTAP/TDAP/TD [facility] Test 00:[facility]:00 VACCINES (1 - Tdap) Medical Center [code = DTAP/TDAP/TD VACCINES (1 - Tdap)] Future Scheduled 1971-10-28 DTAP/TDAP/TD [facility] Test 00:00:00 VACCINES (1 - Tdap) Medical Center [code = DTAP/TDAP/TD VACCINES (1 - Tdap)] Future Scheduled [address] [facility] Test 00:00:00 SCREENING [code = Medical Ce nter HEPATITIS C SCREENING] Future Scheduled [address] [facility] Test 00:00:00 SCREENING [code = Medical Ce nter HEPATITIS C SCREENING] Future Scheduled 1957 COVID-19 VACCINE (1) [facility] Test 00:00:00 [code = COVID-[address] VACCINE (1)] Future Scheduled 1951-04-29 COVID-[address] [facility] Test 00:00:00 (#1) [code = Medical Center COVID-19 VACCINE (#1)] Future Scheduled [address] [facility] Test 00:00:00 (combo) [code = CT Medical C enter Colonography (combo)] Future Scheduled [address] [facility] [facility] Test 00:00:00 malignant neoplasm Medical C enter of colon (procedure) [code = 614316575] Future Scheduled [address] [facility] [facility] Test 00:00:00 malignant neoplasm Medical C enter of colon (procedure) [code = 383128470] Future Scheduled [address] [facility] Test 00:00:00 malignant neoplasm Medical C enter of colon (procedure) [code = 468214457] Future Scheduled [address] [facility] Test 00:00:00 malignant neoplasm Medical C enter of colon (procedure) [code = 491600821] Future Scheduled 1950 Sigmoidoscopy [code [facility] Test 00:00:00 = Sigmoidoscopy] Medical [facility] Encounters Start End Encounter Admission Attending Care Care Encounter Source Date/Time Date/Time Type Type Clinicians Facility Department ID 2021-08-26 2021-08-26 Office Son LETTYAnamaria [id number] [facility] 10:45:00 12:02:30 Visit Ana AMBULATOR [id number] College Y [id number] [facility] pedro 825 e 2021-08-21 2021-08-21 Outpatient [facility] [id number] [facility] 07:23:59 11:51:49 Colleg e of Medicin e 2021-08-07 2021-08-10 Inpatient [facility] Cardiology [id number] [facility] 05:34:00 15:00:00 EDMAR 2021-08-09 2021-08-09 Outpatient [facility] [id number] [facility] 00:00:00 23:59:00 Colleg e of Medicin e 2021-08-07 2021-08-07 Outpatient [facility] [id number] [facility] 05:34:00 23:59:00 Colleg e of Medicin e 2021-08-07 2021-08-[address] [facility] [id number] 07:07:00 13:31:00 Event Johanny Cottrell [facility] 2021-08-07 2021-08-07 [id number] 07:30:00 12:49:00 [facility] 2021-08-05 2021-08-05 Outpatient [facility] [id number] [facility] 16:07:10 23:59:00 2021-08-05 2021-08-05 [facility] [id number] 15:30:00 23:59:00 Encounter [facility] 2021-08-05 2021-08-05 Travel [facility] [id number] [facility] 00:[facility] 00:00:00 [facility] 2021-08-04 2021-08-04 Hospital VAISHALI Cline, [facility] [id number] 11:25:16 23:59:[address] [facility] 2021-08-04 2021-08-04 Outpatient FROY TREVINO [facility] [id number] [facility] 11:25:16 23:59:00 [facility] 2021-08-04 2021-08-04 Outpatient [facility] [id number] [facility] 00:00:00 23:59:00 [facility] 2021-08-04 2021-08-04 Outpatient VAISHALI MCDUFFIE [facility] [id number] [facility] 00:00:00 00:00:00 2021-08-04 2021-08-04 Outpatient FROY TREVINO [facility] [id number] [facility] 00:00:00 00:00:00 [facility] 2021-08-04 2021-08-[address] [facility] [id number] 00:00:00 00:00:00 Only [facility] 2021-07-01 2021-07-01 Office CLINE YAIMA [id number] [facility] 12:26:41 16:11:50 Visit [facility] AMBULATOR [id number] College Y 0.2.7.2.686 of [id number] [facility] pedro 825 e 2021-06-03 2021-06-03 Office SON YAIMA [id number] [facility] 12:19:55 16:36:53 Visit [facility] AMBULATOR 350.1.13.21 College Y 0.2.7.2.686 of [id number] [facility] 825 e Results Test Description Test Time Test Comments Results Result Comments Source CBC (HEMOGRAM ONLY) 2021-08-10 11:12:09 Test Item Value Reference Range Interpretation Comme nts WHITE BLOOD CELL COUNT (BEAKER) (test code = 775) 9.6 K/ L 3.5- 10.5 RED BLOOD CELL COUNT (BEAKER) (test code = 761) 3.44 M/ L 4.63-6 .08 L HEMOGLOBIN (BEAKER) (test code = 410) 10.8 GM/DL 13.7-17.5 L HEMATOCRIT (BEAKER) (test code = 411) 32.3 % 40.1-51.0 L MEAN CORPUSCULAR VOLUME (BEAKER) (test code = 753) 93.9 fL 79. 0-92.2 H MEAN CORPUSCULAR HEMOGLOBIN (BEAKER) (test code = 751) 31.4 pg 25.7-32.2 MEAN CORPUSCULAR HEMOGLOBIN CONC (BEAKER) (test code = 752) 33.4 GM/DL 32.3-36.5 RED CELL DISTRIBUTION WIDTH (BEAKER) (test code = 412) 12.5 % 11.6-14.4 PLATELET COUNT (BEAKER) (test code = 756) 152 K/CU MM 150-450 MEAN PLATELET VOLUME (BEAKER) (test code = 754) 11.0 fL 9.4-12 .4 NUCLEATED RED BLOOD CELLS (BEAKER) (test code = 413) 0 /100 WBC 0 -0 POC ACTIVATED CLOTTING [id number] 06:45:22 Test Item Value Reference Range Interpretation Comments Activated Clotting Time 130 sec : 74 -137 seconds, (test code = 441) Baseline: TESTED AT [address], [facility] 30: Linux Unix Engineer/Techni jitendra ID = [id number] for Candelario Hernandez [id number] 06:45:22 Test Item Value Reference Range Interpretation Comments ACTIVATED CLOTTING TIME 130 sec : 74 -137 seconds, (BEAKER) (test code = Baseli ne: TESTED AT [facility]) [address], [facility] 30: Linux Unix Engineer/Techni jitendra ID = [id number] for Candelario Hernandez [id number] 06:45:21 Test Item Value Reference Range Interpretation Comments ACTIVATED CLOTTING TIME 255 sec : 74 -137 seconds, (BEAKER) (test code = Baseli ne: TESTED AT [facility]) [address], [facility] 30: Linux Unix Engineer/Techni jitendra ID = [id number] for Candelario Hernanedz [id number] 06:44:54 Test Item Value Reference Range Interpretation Comments ACTIVATED CLOTTING TIME 285 sec : 74 -137 seconds, (BEAKER) (test code = Baseli ne: TESTED AT 441) [facility] [address] [place] [address], 770 30: Linux Unix Engineer/Techni jitendra ID = [id number] for Candelario Hernandez [id number] 06:44:53 Test Item Value Reference Range Interpretation Comments ACTIVATED CLOTTING TIME 255 sec : 74 -137 seconds, (BEAKER) (test code = Baseli ne: TESTED AT 441) [address], 770 30: Linux Unix Engineer/Techni jitendra ID = [id number] for Karen Sandoval [id number] 06:44:48 Test Item Value Reference Range Interpretation Comments ACTIVATED CLOTTING TIME 261 sec : 74 -137 seconds, (BEAKER) (test code = Baseli ne: TESTED AT 441) [address], 770 30: Linux Unix Engineer/Techni jitendra ID = [id number] for Candelario Hernandez [id number] 04:48:35 Test Item Value Reference Range Interpretation Comments MAGNESIUM (BEAKER) (test code = 1.9 mg/dL 1.6-2.6 627) Linux Unix Engineer ID - JAGRUTI WBASIC METABOLIC [id number] 04:48:34 Test Item Value Reference Range Interpretation Comments SODIUM (BEAKER) 134 meq/L 136-145 L (test code = 381) POTASSIUM (BEAKER) 4.1 meq/L 3.5-5.1 (test code = 379) CHLORIDE (BEAKER) 96 meq/L 98-107 L (test code = 382) CO2 (BEAKER) (test 28 meq/L 22-29 code = 355) BLOOD UREA NITROGEN 16 mg/dL 7-21 (BEAKER) (test code = 354) CREATININE (BEAKER) 0.89 mg/dL 0.57-1.25 (test code = 358) GLUCOSE RANDOM 90 mg/dL 70-105 (BEAKER) (test code = 652) CALCIUM (BEAKER) 8.9 mg/dL 8.4-10.2 (test code = 697) EGFR (BEAKER) (test 85 mL/min/1.73 ESTIMA LYLY GFR IS code = 1092) sq m NOT ACCURATE CREATININE CLEARANCE IN PREDICTING GLOMERULAR FILTRATION RATE . ESTIMATED GFR I S NOT APPLICABLE FOR DIALYSIS PATIEN TS. Linux Unix Engineer ID - JAGRUTI WBASIC METABOLIC [id number] 06:22:12 Test Item Value Reference Range Interpretation Comments SODIUM (BEAKER) 135 meq/L 136-145 L (test code = 381) POTASSIUM (BEAKER) 4.2 meq/L 3.5-5.1 (test code = 379) CHLORIDE (BEAKER) 97 meq/L 98-107 L (test code = 382) CO2 (BEAKER) (test 28 meq/L 22-29 code = 355) BLOOD UREA NITROGEN 13 mg/dL 7-21 (BEAKER) (test code = 354) CREATININE (BEAKER) 0.96 mg/dL 0.57-1.25 (test code = 358) GLUCOSE RANDOM 97 mg/dL 70-105 (BEAKER) (test code = 652) CALCIUM (BEAKER) 9.0 mg/dL 8.4-10.2 (test code = 697) EGFR (BEAKER) (test 78 mL/min/1.73 ESTIMA LYLY GFR IS code = 1092) sq m NOT ACCURATE CREATININE CLEARANCE IN PREDICTING GLOMERULAR FILTRATION RATE . ESTIMATED GFR I S NOT APPLICABLE FOR DIALYSIS PATIEN TS. Linux Unix Engineer ID - [id number] 06:22:12 Test Item Value Reference Range Interpretation Comments MAGNESIUM (BEAKER) (test code = 1.9 mg/dL 1.6-2.6 627) Linux Unix Engineer ID - ADMINCBC (HEMOGRAM ONLY)2021-08-09 06:11:28 Test Item Value Reference Range Interpretation Comments WHITE BLOOD CELL COUNT (BEAKER) 11.8 K/ L 3.5-10.5 H (test code = 775) RED BLOOD CELL COUNT (BEAKER) 3.87 M/ L 4.63-6.08 L (test code = 761) HEMOGLOBIN (BEAKER) (test code = 12.0 GM/DL 13.7-17.5 L 410) HEMATOCRIT (BEAKER) (test code = 37.9 % 40.1-51.0 L 411) MEAN CORPUSCULAR VOLUME (BEAKER) 97.9 fL 79.0-92.2 H (test code = 753) MEAN CORPUSCULAR HEMOGLOBIN 31.0 pg 25.7-32.2 (BEAKER) (test code = 751) MEAN CORPUSCULAR HEMOGLOBIN CONC 31.7 GM/DL 32.3-36.5 L (BEAKER) (test code = 752) RED CELL DISTRIBUTION WIDTH 12.6 % 11.6-14.4 (BEAKER) (test code = 412) PLATELET COUNT (BEAKER) (test 142 K/CU MM 150-450 L code = 756) MEAN PLATELET VOLUME (BEAKER) 10.9 fL 9.4-12.4 (test code = 754) NUCLEATED RED BLOOD CELLS 0 /100 WBC 0-0 (BEAKER) (test code = 413) LIPID [id number] 18:32:23 Test Item Value Reference Range Interpretation Comments TRIGLYCERIDES (BEAKER) (test code = 100 mg/dL 540) CHOLESTEROL (BEAKER) (test code = 152 mg/dL 631) HDL CHOLESTEROL (BEAKER) (test code 45 mg/dL = 976) LDL CHOLESTEROL CALCULATED (BEAKER) 87 mg/dL (test code = 633) Triglyceride Reference Range: Low Risk <150 Borderline 150-199 High Risk 200- 499 Very High Risk >=500Cholesterol Reference Range: Low Risk <200 Borderline 200-239 High Risk >240HDL Cholesterol Reference Range: Low Risk >=60 High Risk <40LDL Cholesterol Reference Range: Optimal <100 Near Optimal 100-129 Borderline 130-159 High 160-189 Very High >=190 Linux Unix Engineer VALENTIN BOONE MCBC (HEMOGRAM ONLY)2021-08-08 07:40:14 Test Item Value Reference Range Interpretation Comments WHITE BLOOD CELL COUNT (BEAKER) 11.4 K/ L 3.5-10.5 H (test code = 775) RED BLOOD CELL COUNT (BEAKER) 3.37 M/ L 4.63-6.08 L (test code = 761) HEMOGLOBIN (BEAKER) (test code = 10.5 GM/DL 13.7-17.5 L 410) HEMATOCRIT (BEAKER) (test code = 33.4 % 40.1-51.0 L 411) MEAN CORPUSCULAR VOLUME (BEAKER) 99.1 fL 79.0-92.2 H (test code = 753) MEAN CORPUSCULAR HEMOGLOBIN 31.2 pg 25.7-32.2 (BEAKER) (test code = 751) MEAN CORPUSCULAR HEMOGLOBIN CONC 31.4 GM/DL 32.3-36.5 L (BEAKER) (test code = 752) RED CELL DISTRIBUTION WIDTH 12.8 % 11.6-14.4 (BEAKER) (test code = 412) PLATELET COUNT (BEAKER) (test 147 K/CU MM 150-450 L code = 756) MEAN PLATELET VOLUME (BEAKER) 10.7 fL 9.4-12.4 (test code = 754) NUCLEATED RED BLOOD CELLS 0 /100 WBC 0-0 (BEAKER) (test code = 413) [id number] 05:35:54 Test Item Value Reference Range Interpretation Comments PHOSPHORUS (BEAKER) (test code = 3.6 mg/dL 2.3-4.7 604) Linux Unix Engineer ID - BSBASIC METABOLIC [id number] 05:35:53 Test Item Value Reference Range Interpretation Comments SODIUM (BEAKER) 137 meq/L 136-145 (test code = 381) POTASSIUM (BEAKER) 4.2 meq/L 3.5-5.1 (test code = 379) CHLORIDE (BEAKER) 101 meq/L 98-107 (test code = 382) CO2 (BEAKER) (test 26 meq/L 22-29 code = 355) BLOOD UREA NITROGEN 12 mg/dL 7-21 (BEAKER) (test code = 354) CREATININE (BEAKER) 1.20 mg/dL 0.57-1.25 (test code = 358) GLUCOSE RANDOM 106 mg/dL 70-105 H (BEAKER) (test code = 652) CALCIUM (BEAKER) 8.9 mg/dL 8.4-10.2 (test code = 697) EGFR (BEAKER) (test 60 mL/min/1.73 ESTIMA LYLY GFR IS code = 1092) sq m NOT ACCURATE CREATININE CLEARANCE IN PREDICTING GLOMERULAR FILTRATION RATE . ESTIMATED GFR I S NOT APPLICABLE FOR DIALYSIS PATIEN TS. Linux Unix Engineer ID - [id number] 05:35:53 Test Item Value Reference Range Interpretation Comments MAGNESIUM (BEAKER) (test code = 2.0 mg/dL 1.6-2.6 627) Linux Unix Engineer ID - [id number] 18:41:53 Test Item Value Reference Range Interpretation Comments PHOSPHORUS (BEAKER) 2.9 mg/dL 2.3-4.7 Specimen slightly (test code = 604) hemolyzed Linux Unix Engineer ID - BSBASIC METABOLIC [id number] 18:41:53 Test Item Value Reference Range Interpretation Comments SODIUM (BEAKER) 137 meq/L 136-145 (test code = 381) POTASSIUM (BEAKER) 4.4 meq/L 3.5-5.1 Specimen slightly (test code = 379) hemolyzed CHLORIDE (BEAKER) 104 meq/L 98-107 (test code = 382) CO2 (BEAKER) (test 24 meq/L 22-29 code = 355) BLOOD UREA NITROGEN 10 mg/dL 7-21 (BEAKER) (test code = 354) CREATININE (BEAKER) 1.14 mg/dL 0.57-1.25 Specimen slightly (test code = 358) hemolyzed GLUCOSE RANDOM 131 mg/dL 70-105 H (BEAKER) (test code = 652) CALCIUM (BEAKER) 9.5 mg/dL 8.4-10.2 (test code = 697) EGFR (BEAKER) (test 64 mL/min/1.73 ESTIMA LYLY GFR IS code = 1092) sq m NOT ACCURATE CREATININE CLEARANCE IN PREDICTING GLOMERULAR FILTRATION RATE . ESTIMATED GFR I S NOT APPLICABLE FOR DIALYSIS PATIEN TS. Linux Unix Engineer ID - [id number] 18:41:52 Test Item Value Reference Range Interpretation Comments MAGNESIUM (BEAKER) 1.6 mg/dL 1.6-2.6 Specimen slightly (test code = 627) hemolyzed Linux Unix Engineer ID - BSCBC W/PLT COUNT & AUTO [id number] 18:28:16 Test Item Value Reference Range Interpretation Comments WHITE BLOOD CELL COUNT (BEAKER) 11.8 K/ L 3.5-10.5 H (test code = 775) RED BLOOD CELL COUNT (BEAKER) 3.35 M/ L 4.63-6.08 L (test code = 761) HEMOGLOBIN (BEAKER) (test code = 10.5 GM/DL 13.7-17.5 L 410) HEMATOCRIT (BEAKER) (test code = 32.5 % 40.1-51.0 L 411) MEAN CORPUSCULAR VOLUME (BEAKER) 97.0 fL 79.0-92.2 H (test code = 753) MEAN CORPUSCULAR HEMOGLOBIN 31.3 pg 25.7-32.2 (BEAKER) (test code = 751) MEAN CORPUSCULAR HEMOGLOBIN CONC 32.3 GM/DL 32.3-36.5 (BEAKER) (test code = 752) RED CELL DISTRIBUTION WIDTH 12.8 % 11.6-14.4 (BEAKER) (test code = 412) PLATELET COUNT (BEAKER) (test 145 K/CU MM 150-450 L code = 756) MEAN PLATELET VOLUME (BEAKER) 10.6 fL 9.4-12.4 (test code = 754) NUCLEATED RED BLOOD CELLS 0 /100 WBC 0-0 (BEAKER) (test code = 413) NEUTROPHILS RELATIVE PERCENT 83 % (BEAKER) (test code = 429) LYMPHOCYTES RELATIVE PERCENT 8 % (BEAKER) (test code = 430) MONOCYTES RELATIVE PERCENT 8 % (BEAKER) (test code = 431) EOSINOPHILS RELATIVE PERCENT 0 % (BEAKER) (test code = 432) BASOPHILS RELATIVE PERCENT 0 % (BEAKER) (test code = 437) NEUTROPHILS ABSOLUTE COUNT 9.81 K/ L 1.78-5.38 H (BEAKER) (test code = 670) LYMPHOCYTES ABSOLUTE COUNT 0.88 K/ L 1.32-3.57 L (BEAKER) (test code = 414) MONOCYTES ABSOLUTE COUNT (BEAKER) 0.96 K/ L 0.30-0.82 H (test code = 415) EOSINOPHILS ABSOLUTE COUNT 0.03 K/ L 0.04-0.54 L (BEAKER) (test code = 416) BASOPHILS ABSOLUTE COUNT (BEAKER) 0.05 K/ L 0.01-0.08 (test code = 417) IMMATURE GRANULOCYTES-RELATIVE 0 % 0-1 PERCENT (BEAKER) (test code = 2801) [id number] 18:25:51 Test Item Value Reference Range Interpretation Comments PARTIAL THROMBOPLASTIN TIME 31.0 seconds 22.5-36.0 (BEAKER) (test code = 760) PROTHROMBIN TIME/[id number] 18:25:10 Test Item Value Reference Range Interpretation Comments PROTIME (BEAKER) 14.0 seconds 11.9-14.2 (test code = 759) INR (BEAKER) (test 1.10 See_Comment [Automat ed message] code = 370) The system [employer] generated this result transmitted ref erence range: <=5.90. The reference range was not used to int erpret this result as normal/abnormal . RECOMMENDED COUMADIN/WARFARIN INR THERAPY RANGESSTANDARD DOSE: 2.0 - 3.0 Includes: PROPHYLAXIS for venous thrombosis, systemic embolization; TREATMENT for venous thrombosis and/or pulmonary embolus.HIGH RISK: Target INR is 2.5-3.5 for patients with mechanical heart valves.POC-Glucose [id number] 18:00:01 Test Item Value Reference Range Interpretation Comments POC-Glucose Meter (test 95 mg/dL 70-110 : TE STED AT [facility] code = 1538) [address] [facility] [address] 30: Linux Unix Engineer/Techni jitendra ID = [id number] for OFE SALTER Lab Interpretation (test Normal code = 92264-4) [facility] [id number] 18:00:01 Test Item Value Reference Range Interpretation Comments POC-GLUCOSE METER 95 mg/dL 70-110 : TESTED A T [facility] 6720 (BEAKER) (test code = KHADAR Quiles [facility], 1538) [address]: Linux Unix Engineer/Techni jitendra ID = [id number] for NARESH STOVEROFE Prepare [id number] 13:49:00 Test Item Value Reference Range Interpretation Comments CROSSMATCH (test code = COMPATIBLE 2264) Unit ABO (test code = A Pos 5060601) UNIT NUMBER (test code = [id number] 934-0) Status (test code = RETURNED FROM ISSUE 7883375) Blood Bank Product (test RED BLOOD CELLS code = 2263) PRODUCT CODE (test code = P5481T06 933-2) [facility]Stat [id number] 11:39:25 Test Item Value Reference Range Interpretation Comments Hemoglobin (test code = 10.6 See_Comment L [Au tomated message] 786-4) The system [employer] generated this result transmitted ref erence range: 13.0 - 1 6.8 GM/DL. The refe rence range was not u sed to interpret this result as normal/abnor mal. Hematocrit (test code = 31.0 % 40.0-50.0 L 4544-3) Lab Interpretation (test Abnormal code = 08876-0) [facility] [id number] 11:39:25 Test Item Value Reference Range Interpretation Comments Glucose (test code = 2345-7) 122 mg/dL 70-110 H Lab Interpretation (test code = Abnormal 98147-0) [facility] [id number] 11:39:25 Test Item Value Reference Range Interpretation Comments GLUCOSE RANDOM (BEAKER) (test code 122 mg/dL 70-110 H = 652) HGB/HCT (H&H) - STAT [id number] 11:39:25 Test Item Value Reference Range Interpretation Comments HEMOGLOBIN (BEAKER) (test code = 10.6 GM/DL 13.0-16.8 L 410) HEMATOCRIT (BEAKER) (test code = 31.0 % 40.0-50.0 L 411) Blood gas, [id number] 11:39:24 Test Item Value Reference Range Interpretation Comments pH, Arterial (test code 7.35 7.35-7.45 = 2744-1) pCO2, Arterial (test 46 See_Comment H [Autom ated code = 2019-8) message] The system which generated this result transmitted reference range : 35 - 45 mm Hg. The reference range was not used to interpret this result as normal/abnormal . pO2, Arterial (test 244 See_Comment H [Automa lyly code = 2703-7) message] The system which generated this result transmitted reference range : 80 - 90 mm Hg. The reference range was not used to interpret this result as normal/abnormal . O2 Sat, Arterial (test 99.5 % 96.0-97.0 H code = 2708-6) HCO3, Arterial (test 25 mmol/L 21-29 code = 1960-4) Base Excess, Arterial -0.6 mmol/L -2.0-3.0 (test code = 1925-7) Patient Temperature 37.2 (test code = 8310-5) FIO2 (test code = 1819) 58 Lab Interpretation Abnormal (test code = 45604-4) [facility], [id number] 11:39:24 Test Item Value Reference Range Interpretation Comments Calcium, Ion (test code = 1994-3) 1.03 mmol/L 1.12-1.27 L pH, Blood (test code = 85201-0) 7.36 Lab Interpretation (test code = Abnormal 99645-1) [facility], [id number] 11:39:24 Test Item Value Reference Range Interpretation Comments CALCIUM IONIZED (BEAKER) (test 1.03 mmol/L 1.12-1.27 L code = 698) PH, BLOOD (BEAKER) (test code = 7.36 1810) BLOOD GAS, [id number] 11:39:24 Test Item Value Reference Range Interpretation Comments PH ARTERIAL (BEAKER) (test code = 7.35 7.35-7.45 383) PCO2 ARTERIAL (BEAKER) (test code 46 mm Hg 35-45 H = 384) PO2 ARTERIAL (BEAKER) (test code 244 mm Hg 80-90 H = 385) O2 SATURATION ARTERIAL (BEAKER) 99.5 % 96.0-97.0 H (test code = 386) HCO3 ARTERIAL (BEAKER) (test code 25 mmol/L 21-29 = 388) BASE EXCESS ARTERIAL (BEAKER) -0.6 mmol/L -2.0-3.0 (test code = 387) PATIENT TEMPERATURE (BEAKER) 37.2 (test code = 1818) FIO2 (BEAKER) (test code = 1819) 58.0 Sodium Na-Stat [id number] 11:38:51 Test Item Value Reference Range Interpretation Comments Sodium (test code = 2951-2) 137 meq/L 136-145 Lab Interpretation (test code = Normal 81145-3) [facility] [id number] 11:38:51 Test Item Value Reference Range Interpretation Comments Potassium (test code = 2823-3) 4.3 meq/L 3.6-5.5 Lab Interpretation (test code = Normal 19227-5) [facility] [id number] 11:38:51 Test Item Value Reference Range Interpretation Comments SODIUM (BEAKER) (test code = 381) 137 meq/L 136-145 POTASSIUM-STAT [id number] 11:38:51 Test Item Value Reference Range Interpretation Comments POTASSIUM (BEAKER) (test code = 4.3 meq/L 3.6-5.5 379) GLUCOSE-STAT [id number] 09:25:04 Test Item Value Reference Range Interpretation Comments GLUCOSE RANDOM (BEAKER) (test code 113 mg/dL 70-110 H = 652) HGB/HCT (H&H) - STAT [id number] 09:25:04 Test Item Value Reference Range Interpretation Comments HEMOGLOBIN (BEAKER) (test code = 12.2 GM/DL 13.0-16.8 L 410) HEMATOCRIT (BEAKER) (test code = 36.0 % 40.0-50.0 L 411) CALCIUM, [id number] 09:25:03 Test Item Value Reference Range Interpretation Comments CALCIUM IONIZED (BEAKER) (test 1.11 mmol/L 1.12-1.27 L code = 698) PH, BLOOD (BEAKER) (test code = 7.34 1810) BLOOD GAS, [id number] 09:24:57 Test Item Value Reference Range Interpretation Comments PH ARTERIAL (BEAKER) (test code = 7.37 7.35-7.45 383) PCO2 ARTERIAL (BEAKER) (test code 45 mm Hg 35-45 = 384) PO2 ARTERIAL (BEAKER) (test code 283 mm Hg 80-90 H = 385) O2 SATURATION ARTERIAL (BEAKER) 99.6 % 96.0-97.0 H (test code = 386) HCO3 ARTERIAL (BEAKER) (test code 26 mmol/L 21-29 = 388) BASE EXCESS ARTERIAL (BEAKER) -0.4 mmol/L -2.0-3.0 (test code = 387) PATIENT TEMPERATURE (BEAKER) 35.0 (test code = 1818) FIO2 (BEAKER) (test code = 1819) 60.0 SODIUM NA-STAT [id number] 09:23:35 Test Item Value Reference Range Interpretation Comments SODIUM (BEAKER) (test code = 381) 138 meq/L 136-145 POTASSIUM-STAT [id number] 09:23:35 Test Item Value Reference Range Interpretation Comments POTASSIUM (BEAKER) (test code = 3.5 meq/L 3.6-5.5 L 379) POCT-GLUCOSE [id number] 06:03:31 Test Item Value Reference Range Interpretation Comments POC-GLUCOSE METER 78 mg/dL 70-110 : TESTED A T [facility] 6720 (BARRETT) (test code = [place], 1538) [address]: Linux Unix Engineer/Techni jitendra ID = [id number] for ZEUS CHARLES SARS-CoV2/RT-PCR (Asymptomatic ONLY)2021-08-05 02:15:32 Test Item Value Reference Range Interpretation Comments SARS-COV2/RT-PCR (test Negative Negative code = 61506-0) MARIA E (test code = MARIA E) Negative result for this test determines that SARS-CoV-2 RNA was not present in the specimen above the Limit of Detection (LOD). However, Negative results do not preclude SARS-CoV-2 infection and should not be used as the sole basis for treatment or patient management decisions. Negative results must be combined with clinical observations, patient history, and epidemiological information. A false negative result may occur if a specimen is improperly collected, transported, or handled. A false negative result should be considered if patient's recent exposures or clinical presentation indicate that COVID-19 (SARS-CoV-2) is likely and diagnostic tests for other causes of illness are negative. Re-testing should be considered in cases of suspected false negatives. The limit of detection for this assay is 100 copies/mL. This SARS-CoV-2 test is a real-time RT_PCR test intended for the qualitative detection of nucleic acid from SARS-CoV-2 in a nasopharyngeal swab specimen collected from individuals suspected of COVID-19 by their healthcare provider. This test has not been Food and Drug Administration (FDA) cleared or approved. This is a modified version of an approved Emergency Use Authorization (EUA) and is in the process of review by the FDA. Once authorized by the FDA, the issued EUA will be effective until the declaration that circumstances exist justifying the authorization of the emergency use of in vitro diagnostic tests for detection and/or diagnosis of COVID-19 is terminated under Section 564(b)(2) of the Act or the EUA is revoked under Section 564(g) of the Act. Testing was performed using the [employer] SARS-CoV-2 assay. Fact Sheet for Healthcare Providers:https://www.anamaria garsia/lily/RT SARS-CoV-2 HCP Fact Sheet 51-182358.pdf Fact Sheet for Healthcare Patients:https://www.mo lecular.choe/lily/RT SARS-CoV-2 Patient Fact Sheet EN 51-334470Q9.pdf Lab Interpretation Normal (test code = 92067-2) [facility])2021-08-05 02:15:32 Test Item Value Reference Range Interpretation Comments SARS-COV2/RT-PCR (test code = Negative Negative 5491321) Negative result for this test determines that SARS-CoV-2 RNA was not present in the specimen above the Limit of Detection (LOD). However, Negative results do not preclude SARS-CoV-2 infection and should not be used as the sole basis for treatment or patient management decisions. Negative results must be combined with clinical observations, patient history, and epidemiological information. A false negative result may occur if a specimen is improperly collected, transported, or handled. A false negative result should be considered if patient's recent exposures or clinical presentation indicate that COVID-19 (SARS-CoV-2) is likely and diagnostic tests for other causes of illness are negative. Re-testing should be considered in cases of suspected false negatives.The limit of detection for this assay is 100 copies/mL.This SARS-CoV-2 test is a real-time RT_PCR test intended for the qualitative detection of nucleic acid from SARS-CoV-2 in a nasopharyngeal swab specimen collected from individuals suspected of COVID-19 by their healthcare provider.This test has not been Food and Drug Administration (FDA) cleared or approved. This is a modified version of an approved Emergency Use Authorization (EUA) and is in the process of review by the FDA. Once authorized by the FDA, the issued EUA will be effective until the declaration that circumstances exist justifying the authorization of the emergency use of in vitro diagnostic tests for detection and/or diagnosis of COVID-19 is terminated under Section 564(b)(2) of the Act or the EUA is revoked under Section 564(g) of the Act.Testing was performed using t [employer] SARS-CoV-2 assay.Fact Sheet for Healthcare Providers:[email or web address] SARS-CoV-2 HCP Fact Sheet [id number] Sheet for Healthcare Patients:[email or web address] SARS-CoV-2 Patient Fact Sheet [id number] METABOLIC [id number] 12:39:08 Test Item Value Reference Range Interpretation Comments SODIUM (BEAKER) 140 meq/L 136-145 (test code = 381) POTASSIUM (BEAKER) 3.7 meq/L 3.5-5.1 Specimen slightly (test code = 379) hemolyzed CHLORIDE (BEAKER) 102 meq/L 98-107 (test code = 382) CO2 (BEAKER) (test 30 meq/L 22-29 H code = 355) BLOOD UREA NITROGEN 11 mg/dL 7-21 (BEAKER) (test code = 354) CREATININE (BEAKER) 1.11 mg/dL 0.57-1.25 Specimen slightly (test code = 358) hemolyzed GLUCOSE RANDOM 46 mg/dL 70-105 L (BEAKER) (test code = 652) CALCIUM (BEAKER) 8.8 mg/dL 8.4-10.2 (test code = 697) EGFR (BEAKER) (test 66 mL/min/1.73 ESTIMA LYLY GFR IS code = 1092) sq m NOT ACCURATE CREATININE CLEARANCE IN PREDICTING GLOMERULAR FILTRATION RATE . ESTIMATED GFR I S NOT APPLICABLE FOR DIALYSIS PATIEN TS. Linux Unix Engineer ID - [id number] 12:23:56 Test Item Value Reference Range Interpretation Comments HEMOGLOBIN (BEAKER) (test code = 13.2 GM/DL 13.7-17.5 L 410) Linux Unix Engineer ID - [id number] ID - [id number]
[2022-10-10] MEDS ORDERED: LIDOCAINE 1% MPF 30 ML VIAL ONE (05:08)
[2022-10-10] MEDS ORDERED: cloNIDine HCL 0.1 MG TAB ONE (06:40)
--- NOTE | 2022-10-10 06:50 | EDPHYS ---
Physician Documentation [facility] Name: Christian Griffith Age: 71 yrs Sex: Male : 1950 Arrival Date: 10/10/2022 Time: 02:59 Bed 7 Private MD: ED Physician Casey Huynh HPI: 10/10 04:46 This 71 yrs old Male presents to ER via Wheelchair with complaints of Fall sp4 Injury, Head Injury-Adult. 04:53 Acute fall, laceration, head injury. sp4 06:43 Very pleasant 71-year-old male with history of COPD and hypertension also cachexia sp4 presents with acute fall at home secondary to Parkinson's disease. Patient states he got up to the bathroom at the nighttime and fell striking his posterior head against the door. Denied any LOC. There is laceration to posterior scalp. Historical: - Allergies: 03:33 No Known Allergies; as6 - PMHx: 03:33 COPD; Hypertension; as6 - PSHx: 03:33 Stented artery; as6 - Immunization history:: Client reports having NOT received the Covid vaccine. Last tetanus immunization: unknown. - Social history:: Smoking status: Patient/guardian denies using tobacco. - Family history:: not pertinent. ROS: 06:43 Constitutional: Negative for fever, chills, and weight loss, positive posterior scalp sp4 contusion, hematoma, posterior scalp laceration. Eyes: Negative for injury, pain, redness, and discharge, ENT: Negative for injury, pain, and discharge, Neck: Negative for injury, pain, and swelling, Cardiovascular: Negative for chest pain, palpitations, and edema, Respiratory: Negative for shortness of breath, cough, wheezing, and pleuritic chest pain, Abdomen/GI: Negative for abdominal pain, nausea, vomiting, diarrhea, and constipation, Back: Negative for injury and pain, : Negative for injury, bleeding, discharge, and swelling, MS/Extremity: Bilateral elbow abrasion and contusion. Skin: Negative for injury, rash, and discoloration, Neuro: Negative for headache, weakness, numbness, tingling, and seizure, Psych: Negative for depression, anxiety, Allergy/Immunology: Negative for hives, rash, and allergies Endocrine: Negative for neck swelling, polydipsia, polyuria, polyphagia, and weight changes Hematologic/Lymphatic: Negative for swollen nodes, abnormal bleeding, and unusual bruising Exam: 06:43 Constitutional: This is a well developed,patient who is awake, alert, visit was sp4 cachectic male who is ill-appearing but nontoxic Head/Face: Normocephalic, posterior scalp contusion measuring approximately 3 cm without active bleeding there is also posterior scalp laceration measuring about 2 cm Eyes: Pupils equal round and reactive to light, extra-ocular motions intact. Lids and lashes normal. Conjunctiva and sclera are not injected. Cornea within normal limits. Periorbital areas with no swelling, redness, or edema. ENT: Nares patent. No nasal discharge, no septal abnormalities noted. Tympanic membranes are normal and external auditory canals are clear. Oropharynx with no redness, swelling, or masses, exudates, or evidence of obstruction, uvula midline. Mucous membranes moist. Neck: Trachea midline, no thyromegaly or masses palpated, and no cervical lymphadenopathy. Supple, full range of motion without nuchal rigidity, or vertebral point tenderness. Chest/axilla: Normal chest wall appearance and motion. Nontender with no deformity. No lesions are appreciated. Cardiovascular: Regular rate and rhythm with a normal S1 and S2. No gallops, murmurs, or rubs. Normal PMI, no JVD. No pulse deficits. Respiratory: Lungs have equal breath sounds bilaterally, clear to auscultation and percussion. No rales, rhonchi or wheezes noted. No increased work of breathing, no retractions or nasal flaring. Abdomen/GI: Soft, non-tender, with normal bowel sounds. No distension or tympany. No guarding or rebound. No evidence of tenderness throughout. Back: No spinal tenderness. No costovertebral tenderness. Male : Normal genitalia with no discharge or lesions. Skin: Warm, dry with normal turgor. Normal color with no rashes, no lesions, and no evidence of cellulitis. There is bilateral elbow contusion and skin tear MS/ Extremity: Pulses equal, no cyanosis. Neurovascular intact. Full, normal range of motion. Positive for bilateral elbow contusion and skin tear. Neuro: Awake and alert, GCS 15, oriented to person, place, time, and situation. Cranial nerves II-XII grossly intact. Motor strength 5/5 in all extremities. Sensory grossly intact. Psych: Awake, alert, with orientation to person, place and time. Behavior, mood, and affect are within normal limits Vital Signs: 03:30 BP 176 / 79; Pulse 78; Resp 18 S; Temp 98.1(TE); Pulse Ox 97% on R/A; Weight 47.63 kg as6 (R); Height 5 ft. 9 in. (R); 04:48 BP 185 / 90; Pulse 78; Resp 16; Pulse Ox 93% on R/A; ll3 06:33 BP 207 / 83; Pulse 76; Resp 19; Pulse Ox 96% on R/A; kd3 03:30 Body Mass Index 15.51 (47.63 kg, 175.26 cm) as6 Laceration: 06:43 Wound Repair of 2cm ( 0.8in ) subcutaneous laceration to left parietal area. sp4 Irregularly shaped.. Hemostasis noted.. Distal neuro/vascular/tendon intact. Anesthesia: Wound infiltrated with 10 mls of 1% lidocaine. Wound prep: Moderate cleansing by me, Copious irrigation. Skin closed with 4 1-0 Dong using staple gun. Dressed with 4x4's. Patient tolerated well. MDM: 04:47 Patient medically screened. sp4 06:43 Differential diagnosis: abrasion, closed head injury, contusion, laceration, multiple sp4 trauma, sprain, strain. Data reviewed: vital signs, nurses notes, old medical records, radiologic studies, CT scan. Consideration of Admission/Observation Escalation of care including admission/observation considered. ED course: CT head and C-spine is unremarkable. Laceration was closed with dong. Patient is stable for discharge home. . 10/10 03:46 Order name: CT Head C Spine as6 10/10 04:53 Order name: Dressing - Wound; Complete Time: 06:52 sp4 10/10 04:53 Order name: Gloves, Sterile; Complete Time: 05:03 sp4 10/10 04:53 Order name: Setup Suture Tray; Complete Time: 05:03 sp4 10/10 06:43 Order name: Wound Care: Please address elbow abrasions; Complete Time: 06:52 sp4 Administered Medications: 06:34 Drug: cloNIDine PO 0.2 mg Route: PO; kd3 07:01 Follow up: Response: No adverse reaction ll3 06:53 Drug: Lidocaine Infiltration (1 %) 20 ml Volume: 20 ml; Route: Infiltration; kd3 07:01 Follow up: Response: No adverse reaction ll3 Disposition Summary: 10/10/22 06:49 Discharge Ordered Location: Home sp4 Problem: new sp4 Symptoms: have improved sp4 Condition: Stable sp4 Diagnosis - Laceration without foreign body of scalp sp4 - Closed head injury, fall at home, scalp contusion, bilateral elbow skin tear sp4 Followup: sp4 - With: Private Physician - When: 10 - 14 days - Reason: Recheck today's complaints Discharge Instructions: - Discharge Summary Sheet sp4 - Laceration Care, Adult, [id number] sp4 Signatures: Dispatcher [employer] Chidi Chávez RN RN as6 Mecca Shankar RN RN kd3 Casey Huynh MD MD sp4 Richardson Martinez RN ll3
--- NOTE | 2022-10-10 06:50 | ER ---
Nurse's Notes [facility] Name: Christian Griffith Age: 71 yrs Sex: Male : 1950 Arrival Date: 10/10/2022 Time: 02:59 Bed 7 Private MD: Diagnosis: Laceration without foreign body of scalp;Closed head injury, fall at home, scalp contusion, bilateral elbow skin tear Presentation: 10/10 03:30 Chief complaint: Patient states: "I got up to go to the bathroom and fell". Coronavirus as6 screen: At this time, the client does not indicate any symptoms associated with coronavirus-19. Ebola Screen: No symptoms or risks identified at this time. Initial Sepsis Screen: Does the patient meet any 2 criteria? No. Patient's initial sepsis screen is negative. Does the patient have a suspected source of infection? No. Patient's initial sepsis screen is negative. Risk Assessment: Do you want to hurt yourself or someone else? Patient reports no desire to harm self or others. Onset of symptoms was October 10, 2022. 03:30 Method Of Arrival: Wheelchair as6 03:30 Acuity: ROLANDO 3 as6 Historical: - Allergies: 03:33 No Known Allergies; as6 - PMHx: 03:33 COPD; Hypertension; as6 - PSHx: 03:33 Stented artery; as6 - Immunization history:: Client reports having NOT received the Covid vaccine. Last tetanus immunization: unknown. - Social history:: Smoking status: Patient/guardian denies using tobacco. - Family history:: not pertinent. Screenin:34 [facility] ED Fall Risk Assessment (Adult) History of falling in the last 3 months, kd3 including since admission Yes- single mechanical fall (1 pt) Confusion or Disorientation No (0 pts) Intoxicated or Sedated No (0 pts) Impaired Gait No (0 pts) Mobility Assist Device Used No (0 pt) Altered Elimination No (0 pt) Score/Fall Risk Level 0 - 2 = Low Risk Maintained a safe environment. Abuse screen: Denies threats or abuse. Denies injuries from another. Nutritional screening: No deficits noted. Tuberculosis screening: No symptoms or risk factors identified. Assessment: 04:46 General: Appears comfortable, Behavior is calm, cooperative. Pain: Denies pain. Neuro: ll3 Level of Consciousness is awake, alert, obeys commands, Oriented to person, place, time, situation. Respiratory: Respiratory effort is even, unlabored, Respiratory pattern is regular, symmetrical. Derm: Wound noted scalp Wound is Laceration to back of scalp, bleeding controlled. Vital Signs: 03:30 BP 176 / 79; Pulse 78; Resp 18 S; Temp 98.1(TE); Pulse Ox 97% on R/A; Weight 47.63 kg as6 (R); Height 5 ft. 9 in. (R); 04:48 BP 185 / 90; Pulse 78; Resp 16; Pulse Ox 93% on R/A; ll3 06:33 BP 207 / 83; Pulse 76; Resp 19; Pulse Ox 96% on R/A; kd3 03:30 Body Mass Index 15.51 (47.63 kg, 175.26 cm) as6 ED Course: 03:03 Patient arrived in ED. ja2 03:33 Triage completed. as6 03:34 Arm band placed on. as6 04:31 CT Head C Spine In Process Unspecified. EDMS 04:46 Casey Huynh MD is Attending Physician. sp4 04:58 Mecca Shankar, RN is Primary Nurse. kd3 06:34 No provider procedures requiring assistance completed. Patient did not have IV access kd3 during this emergency room visit. 07:01 Patient has correct armband on for positive identification. Bed in low position. Call ll3 light in reach. Side rails up X 1. Adult w/ patient. Administered Medications: 06:34 Drug: cloNIDine PO 0.2 mg Route: PO; kd3 07:01 Follow up: Response: No adverse reaction ll3 06:53 Drug: Lidocaine Infiltration (1 %) 20 ml Volume: 20 ml; Route: Infiltration; kd3 07:01 Follow up: Response: No adverse reaction ll3 Medication: 06:34 VIS not applicable for this client. kd3 Outcome: 06:34 Condition: stable kd3 06:49 Discharge ordered by . sp4 07:01 Discharged to home via wheelchair, with significant other. ll3 07:01 Condition: stable 07:01 Discharge instructions given to patient, significant other, Instructed on discharge instructions, follow up and referral plans. Demonstrated understanding of instructions, follow-up care. 07:04 Patient left the ED. ll3 Signatures: Dispatcher [employer] ALINA Mike Mercy ja2 Chidi Quiros, JOSE F RN as6 Richardson Martinez RN RN ll3 Mecca Shankar RN RN kd3 Casey Huynh MD MD sp4
[2022-10-10 07:08] VITALS: TEMP 98.1
[2022-10-10 07:11] VITALS: BP 207/83; O2SAT 96
--- NOTE | 2022-10-10 21:59 | RAD REPORT ---
EXAM DESCRIPTION: CT - Head C Spine Mpr Wo Con - 10/10/2022 6:[address] Head and Cervical Spine Without Intravenous Contrast CLINICAL HISTORY: The patient is 71 years old and is Male; Pain;Trauma TECHNIQUE: Axial computed tomography images of the head/brain and cervical spine without intravenous contrast. Sagittal and coronal reformatted images were created and reviewed. This CT exam was pe rformed using one or more of the following dose reduction techniques: automated exposure control, a djustment of the mA and/or kV according to patient size, and/or use of iterative reconstruction techn ique. COMPARISON: No relevant prior studies available. FINDINGS: Brain: Mild nonspecific white matter changes likely related to chronic microvascular isc hemic disease. Mild cerebral atrophy. No hemorrhage. Ventricles: Unremarkable. No ventriculomegaly. Skull: No acute fracture. Sinuses: Unremarkable as visualized. No acute sinusitis. Mastoid air cells: Unremarkable as visualized. No mastoid effusion. Vertebrae: See below. Discs/spinal canal/neural foramina: Moderate left neural foraminal narrowing at C2-3. Moderate left neural foraminal narrowing at C3-4. Moderate right neural foraminal narrowing C5-6. Moderate left neural foraminal narrowing C6-7. Posterior disc osteophyte complex with [id number] spinal canal narrowing at C6-7. Posterior disc bulge with [id number] spinal canal narrowing C5-6. Soft tissues: Unremarkable. Lung apices: Emphysematous changes in the lung apices. IMPRESSION: No acute intracranial abnormality. No acute findings in the cervical spine. Electronically signed by: Leopoldo Watson MD 10/10/2022 5:01 AM CDT Due to temporary technical issues with the PACS/Fluency reporting system, reports are being signed by the in house radiologists without review as a courtesy to insure prompt reporting. The interpreting radiologist is fully responsible for the content of the report.
== END 2022-10-10 07:04 | disposition home or self-care (01) ==
LOC: ER 02:59
PROC: 0HQ0XZZ Repair Scalp Skin, External Approach (ICD-10-PCS; principal; 2022-10-10)
DX: S01.01XA Laceration without foreign body of scalp, initial encounter (principal); S51.012A Laceration without foreign body of left elbow, initial encounter; S51.011A Laceration without foreign body of right elbow, initial encounter; W18.30XA Fall on same level, unspecified, initial encounter; Y92.009 Unspecified place in unspecified non-institutional (private) residence as the place of occurrence of the external cause; I10 Essential (primary) hypertension; J44.9 Chronic obstructive pulmonary disease, unspecified; G20 Parkinson's disease
CPT/HCPCS: 70450; 72125; 99283; 12001; J2001

== ENCOUNTER 2022-10-23 09:20 | Emergency (ER) | payer OTHER ==
--- OUTSIDE RECORDS SUMMARY | 2022-10-23 09:26 | XMS REPORT | Continuity of Care Document ---
:1950 Author Organization [facility] t Address [address] [facility] 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 00:00: Medica l (AAA) 3.0 (AAA) 3.0 00 Cent er cm to 5.5 cm to 5.5 cm in cm in diameter diameter in male in male Allergies, Adverse Reactions, Alerts Allergy Allergy Status Severity Reaction(s) Onset Inactive Treating Comm ents Source Name Type Date Date Clinician NO KNOWN Allergy Active [facility] Social History Social Habit Start Date Stop Date Quantity Comments Source History of tobacco Cigarette Sm[facility] Exposure to Not sure [facility] SARS-CoV-2 (event) Medica l Center History SDOH [facility] Alcohol intake 2021-08-11 2021-08-11 Ex-drinker [facility] 00:[facility]00:00 (finding) Medical Center History [facility] 2021-08-07 2021-08-[address] [facility] Housing Unable to 00:00:00 00:00:00 Medical Center Pay History [facility] 2021-08-07 2021-08-[address] [facility] Housing Places 00:00:00 00:00:00 Medical Ce nter Lived History [facility] 2021-08-07 2021-08-[address] [facility] Housing Homeless 00:00:00 00:00:00 Medical Center Last Year History [facility] 2021-08-07 2021-08-[address] [facility] Transport Med 00:00:00 00:00:[address] Tobacco use and 2021-08-05 2021-08-05 Smokeless tobacco [facility] exposure 00:00:00 00:00:00 non-user [facility] Tobacco Comment 2021-08-05 2021-08-05 Vapes or nicotine [facility] 00:00:00 00:00:00 patches [facility] Cigarettes smoked 2021-08-05 2021-08-[address] [facility] [facility] current (pack per 00:00:00 00:00:00 Medical Center day) - Reported Cigarette 2021-08-05 2021-08-[address] [facility] [address] payever pack-years 00:00:00 00:00:00 [facility] Sex Assigned At [birth year] [facility] 00:00:00 00:00:00 [facility] Smoking Status Start Date Stop Date Source Ex-smoker 2021-08-05 00:00:00 2021-08-05 00:00:00 [facility] Medications Ordered Filled Start Stop Current Ordering Indication Dosage Frequency Signature Comments Components Source Medication Medication Date Date Medication? Clinician (SIG) Name Name carbidopa-l Yes 1{tbl} Take 1 CH I [...] via Medic al (Wixela 04 inhaler Center [facility]) every 12 250-50 (twelve) mcg/dose hours. diskus inhaler amLODIPine 0 Yes 10mg QD Take [address] (NORVASC) 4-19 by mouth [facility] 10 MG 15:00: daily. Medical tablet [address] [place] [address] mirtazapine 0 Yes 30mg QD Take [address] (REMERON) 4-19 by mouth [facility] 30 MG 15:00: nightly. Medical tablet [address] [place] [address] aspirin 81 Yes 81mg QD Take [address] MG EC 4-19 by mouth [facility] tablet 15:00: daily. [address] carbidopa-l Yes 1{tbl} Take 1 CH I [...] mouth via Medic al (Wixela 04 inhaler [facility]) every 12 250-50 (twelve) mcg/dose hours. diskus inhaler amLODIPine Yes 10mg QD Take [address] (NORVASC) 4-19 by mouth [facility] 10 MG 15:00: daily. Medical tablet [address] [place] [address] mirtazapine 0 Yes 30mg QD Take [address] (REMERON) 4-19 by mouth [facility] 30 MG 15:00: nightly. Medical tablet [address] [place] [address] aspirin 81 0 Yes 81mg QD Take [address] MG EC 4-19 by mouth [facility] tablet 15:00: daily. [address] clopidogreL 0 Yes 75mg QD Take [address] (PLAVIX) 75 4-19 tablet (75 Paula kes mg tablet 00:00: mg total) Med ical 00 by mouth Center daily. clopidogreL 2021-0 Yes 75mg QD Take [address] (PLAVIX) 75 4-19 tablet (75 Paula kes mg tablet 00:00: mg total) Med ical 00 by mouth Center daily. metoprolol 2022-0 Yes 25mg QD Take 1 [facility] t succinate 4-18 tablet (25 Luke s (TOPROL-XL) 00:00: mg total) M edical 25 MG 24 hr 00 by mouth Cent er tablet daily. metoprolol 2022-0 Yes 25mg QD Take 1 [facility] t succinate 4-18 tablet (25 Luke s (TOPROL-XL) 00:00: mg total) M edical 25 MG 24 hr 00 by mouth Cent er tablet daily. carbidopa-l 0 Yes 1{tbl} Take [address] evodopa 4-16 tablet by [facility] (SINEMET) 18:14: mouth 3 Medic al 25-100 mg 36 (three) Center per tablet times daily as needed. methocarbam 0 Yes 750mg Take [address] oL 4-16 mg by [facility] (ROBAXIN) 18:14: mouth 4 Medic al 750 MG 36 (four) Center tablet times daily as needed. fluticasone 0 Yes 1{puff} Inhale [address] propion-lily 4-16 puff by [facility]ukes meteroL 18:14: mouth via Medic al (Wixela 36 inhaler Center [facility]) every 12 250-50 (twelve) mcg/dose hours. diskus inhaler amLODIPine 0 Yes 10mg QD Take [address] (NORVASC) 4-16 by mouth [facility] 10 MG 18:14: daily. Medical tablet 36 Center mirtazapine 2021-0 Yes 30mg QD Take [address] (REMERON) 4-16 by mouth [facility] 30 MG 18:14: nightly. Medical tablet 36 Center aspirin 81 2021-0 Yes 81mg QD Take [address] MG EC 4-16 by mouth [facility] tablet 18:14: daily. Medical 36 Center Vital Signs Vital Name Observation Time Observation Value Comments Source HEIGHT 2021-08-07 05:47:00 175.3 cm WEIGHT 2021-08-07 05:47:00 48.6 kg HEIGHT 2021-08-05 15:46:00 175.3 cm WEIGHT 2021-08-05 15:46:00 47.628 kg HEIGHT 2021-08-07 05:47:00 175.3 cm WEIGHT 2021-08-07 05:47:00 48.6 kg HEIGHT 2021-08-05 15:46:00 175.3 cm WEIGHT 2021-08-05 15:46:00 47.628 kg Heart rate 2021-08-10 09:00:00 106 /min [facility] Oxygen saturation in 2021-08-10 08:21:00 100 /min [facility] Arterial blood by Medical Ce nter Pulse oximetry Respiratory rate 2021-08-10 08:10:00 18 /min [facility] Systolic blood 2021-08-10 07:27:00 155 mm[Hg] [facility] Diastolic blood 2021-08-10 07:27:00 67 mm[Hg] [facility] Body temperature 2021-08-10 07:27:00 36.78 Niya [facility] Body height 2021-08-07 05:47:00 175.3 cm [facility] Body weight 2021-08-07 05:47:00 48.6 kg [facility] BMI 2021-08-07 05:47:00 15.82 kg/m2 [facility] Procedures Procedure Date / Time Performed Performing Clinician Sour e BASIC METABOLIC PANEL 2021-08-10 04:06:00 Ching, [facility] () [facility] MAGNESIUM 2021-08-10 04:06:00 Ching, [facility] ECG 12-LEAD 2021-08-09 15:50:11 Unknown, Hl7 Doctor [facility] ECG 12-LEAD 2021-08-09 15:50:11 Unknown, Hl7 Doctor [facility] CBC (HEMOGRAM ONLY) 2021-08-09 05:09:00 Ching, [facility] BASIC METABOLIC PANEL 2021-08-09 05:09:00 Ching, [facility] ([address] [place] [address] MAGNESIUM 2021-08-09 05:09:00 Ching, [facility] LIPID PANEL 2021-08-08 17:31:00 Rao Castaneda [facility] CBC (HEMOGRAM ONLY) 2021-08-08 06:16:00 Ching, [facility] BASIC METABOLIC PANEL 2021-08-08 04:46:00 Ching, [facility] () [facility] MAGNESIUM 2021-08-08 04:46:00 Ching, [facility] PHOSPHORUS 2021-08-08 04:46:00 Harmeet Lopes Chris [facility] CBC W/PLT COUNT & AUTO 2021-08-07 18:05:00 Vo, [facility] CBC W/PLT COUNT & AUTO 2021-08-07 18:05:00 Vo, [facility] APTT 2021-08-07 18:04:00 Vo, [facility] BASIC METABOLIC PANEL 2021-08-07 18:04:00 Vo, [address] MAGNESIUM 2021-08-07 18:04:00 Vo, [facility] PHOSPHORUS 2021-08-07 18:04:00 Vo, [facility] PROTHROMBIN TIME/INR 2021-08-07 18:04:00 Vo, [facility] POCT-GLUCOSE METER 2021-08-07 17:46:00 [facility] PREPARE RBC 2021-08-07 13:49:00 [facility] POCT-ACT 2021-08-07 12:33:00 [facility] POCT-ACT 2021-08-07 12:19:00 [facility] POCT-ACT 2021-08-07 11:36:00 [facility] RRL CRITICAL LABS 2021-08-07 11:28:25 Becky Loaiza [facility] (ABG,NA,K,H&H,GLUCOSE) Medical C enter CALCIUM, IONIZED 2021-08-07 11:28:25 Becky Loaiza [facility] BLOOD GAS, ARTERIAL 2021-08-07 11:28:25 Becky Loaiza [facility] SODIUM NA-STAT LAB 2021-08-07 11:28:25 Becky Loaiza [facility] POTASSIUM-STAT LAB 2021-08-07 11:28:25 Becky Loaiza [facility] GLUCOSE-STAT LAB 2021-08-07 11:28:25 Becky Loaiza [facility] HGB/HCT (H&H) - STAT LAB 2021-08-07 11:28:25 Becky Loaiza [facility] POCT-ACT 2021-08-07 10:56:00 Son [facility] POCT-ACT 2021-08-07 10:23:00 [facility] RRL CRITICAL LABS 2021-08-07 09:10:20 Becky Loaiza [facility] (ABG,NA,K,H&H,GLUCOSE) Medical C enter CALCIUM, IONIZED 2021-08-07 09:10:20 Becky Loaiza [facility] BLOOD GAS, ARTERIAL 2021-08-07 09:10:20 Becky Loaiza [facility] SODIUM NA-STAT LAB 2021-08-07 09:10:20 Becky Loaiza [facility] POTASSIUM-STAT LAB 2021-08-07 09:10:20 Becky Loaiza [facility] GLUCOSE-STAT LAB 2021-08-07 09:10:20 Becky Loaiza [facility] HGB/HCT (H&H) - STAT LAB 2021-08-07 09:10:20 Becky Loaiza [facility] ABORH, MANUAL 2021-08-07 06:42:00 Aruna Ashford [facility] TYPE AND SCREEN, 2021-08-07 06:22:00 Reese Pichardo [facility] s [facility] Center POCT-GLUCOSE METER 2021-08-07 05:51:00 Ana Cline [facility] ECG 12-LEAD 2021-08-04 12:03:30 Jaspal Henderson [facility] ECG 12-LEAD 2021-08-04 12:03:30 Unknown, Hl7 Doctor [facility] SARS-COV2/RT-PCR ([facility] & 2021-08-04 11:59:00 Ana Cline [facility] REF LABS) [facility] BASIC METABOLIC PANEL 2021-08-04 11:59:00 Jaspal Henderson [facility] (7) [facility] HEMOGLOBIN 2021-08-04 11:59:00 Jaspal Henderson [facility] Plan of Care Planned Activity Planned Date Details Comments Source Future Scheduled 2022-12-[address] [facility] Test 00:00:00 (Season Ended) [code = [facility] Influenza Vaccine (Season Ended)] Future Scheduled 2022-12-[address] [facility] Test 00:00:00 (Season Ended) [code = [facility] Influenza Vaccine (Season Ended)] Future Scheduled 2022-08-[address] [facility] Test 00:00:00 [facility] Medical Cente r Screening (12+) [code = Tobacco Cessation Counseling and Screening (12+)] Future Scheduled 2022-08-[address] [facility] Test 00:00:00 Counseling and Medical Cente r Screening (12+) [code = Tobacco Cessation Counseling and Screening (12+)] Future Scheduled 2022-04-[address] [facility] Test 00:00:00 WELLNESS (YEAR 2 or Medical Center FIRST YEAR if no IPPE) [code = MEDICARE ANNUAL WELLNESS (YEAR 2 or FIRST YEAR if no IPPE)] Future Scheduled 2022-04-[address] [facility] [facility] Test 00:00:00 WELLNESS (YEAR 2 or Medical [...] RISK Medical C enter SCREENING] Future Scheduled 2022-04-[address] [facility] Test 00:00:00 (12+) [code = Medical Center DEPRESSION SCREENING (12+)] Future Scheduled 2022-04-25 FALLS RISK SCREENING [facility] Test 00:00:00 [code = FALLS RISK Medical C enter SCREENING] Future Scheduled 2021-12-[address] [facility] Test 00:00:00 (Season Ended) [code = Medic al Center INFLUENZA VACCINE (Season Ended)] Future Scheduled 2021-04-25 Medicare IPPE (WELCOME [facility] 00:00:00 TO MEDICARE) [code = Medical Center Medicare IPPE (WELCOME TO MEDICARE)] Future Scheduled 2017 PNEUMOCOCCAL 65+ YRS ([address] [facility] Test 00:00:00 of 1 - PPSV23) [code = Medic al Center PNEUMOCOCCAL 65+ YRS (1 of 1 - PPSV23)] Future Scheduled 2017 PNEUMOCOCCAL 65+ YRS ([address] [facility] Test 00:00:00 - PCV) [code = Medical Cente r PNEUMOCOCCAL 65+ YRS (1 - PCV)] Future Scheduled 2017 PNEUMOCOCCAL 65+ YRS ([address] [facility] Test 00:00:00 - PCV) [code = Medical Cente r PNEUMOCOCCAL 65+ YRS (1 - PCV)] Future Scheduled 2002 SHINGLES VACCINES ([address] [facility] Test 00:00:00 2) [code = SHINGL Medical Center VACCINES (1 of 2)] Future Scheduled 2002 SHINGLES VACCINES ([address] [facility] Test 00:00:00 2) [code = SHINGLES Medical Center VACCINES (1 of 2)] Future Scheduled 2002 SHINGLES VACCINES ([address] [facility] 00:00[facility]00 [facility] Future Scheduled 1971-10-28 DTAP/TDAP/TD VACCINES [facility] 00:00:00 (1 - Tdap) [code = Medical C enter DTAP/TDAP/TD VACCINES (1 - Tdap)] Future Scheduled 1971-10-28 DTAP/TDAP/TD VACCINES [facility] Test 00:00:00 (1 - Tdap) [code = Medical C enter DTAP/TDAP/TD VACCINES (1 - Tdap)] Future Scheduled 1971-10-28 DTAP/TDAP/TD VACCINES [facility] Test 00:00:00 (1 - Tdap) [code = Medical C enter DTAP/TDAP/TD VACCINES (1 - Tdap)] Future Scheduled 1970 HEPATITIS C SCREENING [facility] 00:00:00 [code = HEPATITIS C Medical Center SCREENING] Future Scheduled 1970 HEPATITIS C [facility]CRE[facility]ING [facility] 00:00:00 [code = HEPATITIS C Medical Center SCREENING] Future Scheduled 1970 HEPATITIS C SCRE[facility]ING [facility] 00:00:00 [code = HEPATITIS C Medical Center SCREENING] Future Scheduled 1957 COVID-19 VACCINE (1) [facility] Test 00:00:00 [code = COVID-[address] VACCINE (1)] Future Scheduled 1951-04-29 COVID-19 VACCINE (#1) [facility] 00:00:00 [code = COVID-[address] VACCINE (#1)] Future Scheduled 1951-04-29 COVID-19 VACCINE (#1) [facility] 00:00:00 [code = COVID-[address] VACCINE (#1)] Future Scheduled 1952 CT Colonography (combo) [facility] Test 00:00:00 [code = CT Colonography [facility] (combo)] Future Scheduled 1952 Screening for malignant [facility] Test 00:00:00 neoplasm of colon Medical Ce nter (procedure) [code = 467345379] Future Scheduled 1952 Screening for malignant [facility] Test 00:00:00 neoplasm of colon Medical Ce nter (procedure) [code = 414422853] Future Scheduled 1952 Screening for malignant [facility] Test 00:00:00 neoplasm of colon Medical Ce nter (procedure) [code = 327510554] Future Scheduled 1952 Screening for malignant [facility] Test 00:00:00 neoplasm of colon Medical Ce nter (procedure) [code = 735729590] Future Scheduled 1950 Sigmoidoscopy [code = [facility] Test 00:00:00 Sigmoidoscopy] Medical Cente r Future Scheduled 1952 CT Colonography (combo) [facility] Test 00:00:00 [code = CT Colonography [facility] (combo)] Future Scheduled 1952 Screening for malignant [facility] Test 00:00:00 neoplasm of colon Medical Ce nter (procedure) [code = 223398094] Future Scheduled 1952 Screening for malignant [facility] Test 00:00:00 neoplasm of colon Medical Ce nter (procedure) [code = 056035364] Future Scheduled 1952 Screening for malignant [facility] Test 00:00:00 neoplasm of colon Medical Ce nter (procedure) [code = 194597975] Future Scheduled 1952 Screening for malignant [facility] Test 00:00:00 neoplasm of colon Medical Ce nter (procedure) [code = 956146406] Future Scheduled 1950 Sigmoidoscopy [code = [facility] Test 00:00:00 Sigmoidoscopy] Medical Cente r Encounters Start End Encounter Admission Attending Care Care Encounter Source Date/Time Date/Time Type Type Clinicians Facility Department ID 2021-08-07 2021-08-10 Inpatient [facility] Cardiology [id number] SLE 05:34:00 15:00:00 EDMAR 2021-08-07 2021-08-07 Anesthesia Becky Loaiza [facility] [id number] [facility] [facility] 07:07:00 13:31:00 Event Johanny Cottrell [facility] 2021-08-07 2021-08-07 Surgery Son, [facility] [id number] 07:30:00 12:49:00 [facility] 2021-08-05 2021-08-05 Outpatient [facility] [id number] [facility] 16:07:10 23:59:00 2021-08-05 2021-08-05 [facility] [id number] 15:30:00 23:59:00 [facility] 2021-08-05 2021-08-05 Travel [facility] [id number] [facility] 00:[facility] 00:00:00 [facility] 2021-08-04 2021-08-04 Hospital VAISHALI Cline, [facility] [id number] 11:25:16 23:59:00 Encounter [facility] 2021-08-04 2021-08-04 Outpatient FROY TREVINO [facility] [id number] SLE 11:25:16 23:59:00 [facility] 2021-08-04 2021-08-04 Outpatient VAISHALI MCDUFFIE [facility] [id number] SLE 00:00:00 00:00:00 2021-08-04 2021-08-04 Outpatient FROY TREVINO [facility] [id number] [facility] 00:00:00 00:00:00 [facility] 2021-08-04 2021-08-04 Orders [facility] [id number] 00:00:00 00:00:00 Only [facility] Results Test Description Test Time Test Comments [...] /100 WBC 0 -0 POC ACTIVATED CLOTTING [id number] 06:45:22 Test Item Value Reference Range Interpretation Comments Activated Clotting Time 130 sec : 74 -137 seconds, (test code = 441) Baseline: TESTED AT [address], [address]: Quality Control Technician/Techni jitendra ID = [id number] for [facility]ario [id number] 06:45:22 Test Item Value Reference Range Interpretation Comments ACTIVATED CLOTTING TIME 130 sec : 74 -137 seconds, (BEAKER) (test code = Baseli ne: TESTED AT [facility]) [address], [address]: Quality Control Technician/Techni jitendra ID = [id number] for Candelario Hernandez [id number] 06:45:21 Test Item Value Reference Range Interpretation Comments ACTIVATED CLOTTING TIME 255 sec : 74 -137 seconds, (BEAKER) (test code = Baseli ne: TESTED AT [facility]) [address], [address]: Quality Control Technician/Techni jitendra ID = [id number] for Candelario Hernandez [id number] 06:44:54 Test Item Value Reference Range Interpretation Comments ACTIVATED CLOTTING TIME 285 sec : 74 -137 seconds, (BEAKER) (test code = Baseli ne: TESTED AT [facility]) [address], [address]: Quality Control Technician/Techni jitendra ID = [id number] for Candelario Hernandez [id number] 06:44:53 Test Item Value Reference Range Interpretation Comments ACTIVATED CLOTTING TIME 255 sec : 74 -137 seconds, (BEAKER) (test code = Baseli ne: TESTED AT [facility]) [address], [address]: Quality Control Technician/Techni jitendra ID = [id number] for Karen Sandoval [id number] 06:44:48 Test Item Value Reference Range Interpretation Comments ACTIVATED CLOTTING TIME 261 sec : 74 -137 seconds, (BEAKER) (test code = Baseli ne: TESTED AT 441) [facility] [address] [place], [address]: Quality Control Technician/Techni jitendra ID = [id number] for Candelario Hernandez [id number] 04:48:35 Test Item Value Reference Range Interpretation Comments MAGNESIUM (BEAKER) (test code = 1.9 mg/dL 1.6-2.6 627) Quality Control Technician ID Mayra CHAND WBASIC METABOLIC [id number] 04:48:34 Test Item Value Reference Range Interpretation [...] S NOT APPLICABLE FOR DIALYSIS PATIEN TS. Quality Control Technician ID Mayra CHAND WBASIC METABOLIC [id number] 06:22:12 Test Item Value Reference Range Interpretation [...] S NOT APPLICABLE FOR DIALYSIS PATIEN TS. Quality Control Technician ID - [id number] 06:22:12 Test Item Value Reference Range Interpretation Comments MAGNESIUM (BEAKER) (test code = 1.9 mg/dL 1.6-2.6 627) Quality Control Technician ID - ADMINCBC (HEMOGRAM ONLY)2021-08-09 06:11:28 Test [...] 0-0 (BEAKER) (test code = 413) LIPID [id number] 18:32:23 Test Item Value Reference Range Interpretation [...] Borderline 130-159 High 160-189 Very High >=190 Quality Control Technician ID - PAOLO MCBC (HEMOGRAM ONLY)2021-08-08 07:40:14 Test Item Value [...] WBC 0-0 (BEAKER) (test code = 413) [id number] 05:35:54 Test Item Value Reference Range Interpretation Comments PHOSPHORUS (BEAKER) (test code = 3.6 mg/dL 2.3-4.7 604) Quality Control Technician ID - BSBASIC METABOLIC [id number] 05:35:53 Test Item Value Reference Range Interpretation [...] S NOT APPLICABLE FOR DIALYSIS PATIEN TS. Quality Control Technician ID - [id number] 05:35:53 Test Item Value Reference Range Interpretation Comments MAGNESIUM (BEAKER) (test code = 2.0 mg/dL 1.6-2.6 627) Quality Control Technician ID - [id number] 18:41:53 Test Item Value Reference Range Interpretation Comments PHOSPHORUS (BEAKER) 2.9 mg/dL 2.3-4.7 Specimen slightly (test code = 604) hemolyzed Quality Control Technician ID - BSBASIC METABOLIC [id number] 18:41:53 Test Item Value Reference Range Interpretation [...] S NOT APPLICABLE FOR DIALYSIS PATIEN TS. Quality Control Technician ID - [id number] 18:41:52 Test Item Value Reference Range Interpretation Comments MAGNESIUM (BEAKER) 1.6 mg/dL 1.6-2.6 Specimen slightly (test code = 627) hemolyzed Quality Control Technician ID - BSCBC W/PLT COUNT & AUTO [id number] 18:28:16 Test Item Value Reference Range Interpretation [...] 0-1 PERCENT (BEAKER) (test code = 2801) [id number] 18:25:51 Test Item Value Reference Range Interpretation Comments PARTIAL THROMBOPLASTIN TIME 31.0 seconds 22.5-36.0 (BEAKER) (test code = 760) PROTHROMBIN [id number] 18:25:10 Test Item Value Reference Range Interpretation Comments PROTIME (BEAKER) 14.0 seconds 11.9-14.2 (test code = 759) INR (BEAKER) (test 1.10 See_Comment [Automat ed message] code = 370) The system [employer] generated this result transmitted ref erence range: <=5.90. The reference range was not used to int erpret this result as normal/abnormal . RECOMMENDED COUMADIN/WARFARIN INR THERAPY RANGESSTANDARD DOSE: 2.0 - 3.0 Includes: PROPHYLAXIS for venous thrombosis, systemic embolization; TREATMENT for venous thrombosis and/or pulmonary embolus.HIGH RISK: Target INR is 2.5-3.5 for patients with mechanical heart valves.POC-Glucose [id number] 18:00:01 Test Item Value Reference Range Interpretation Comments POC-Glucose Meter (test 95 mg/dL 70-110 : TE STED AT [facility] code = 1538) [address] [facility] [place], [address]: Quality Control Technician/Techni jitendra ID = [id number] for OFE SALTER Lab Interpretation (test Normal code = 48602-5) [facility] [id number] 18:00:01 Test Item Value Reference Range Interpretation Comments POC-GLUCOSE METER 95 mg/dL 70-110 : TESTED Jayshree Page [facility] [address] (BEAKER) (test code = [place], [address]) [address]: Quality Control Technician/Techni jitendra ID = [id number] for OFE LINTON [id number] 13:49:00 Test Item Value Reference Range Interpretation Comments CROSSMATCH (test code = COMPATIBLE 4) Unit ABO (test code = A Pos 0292102) UNIT NUMBER (test code = [id number] 934-0) Status (test code = RETURNED FROM ISSUE 7135728) Blood Bank Product (test RED BLOOD CELLS code = 2263) PRODUCT CODE (test code = J6625P15 933-2) [facility]&H[facility]Stat [id number] 11:39:25 Test Item Value Reference Range Interpretation Comments Hemoglobin (test code = 10.6 See_Comment L [Au tomated message] 786-4) The system [employer] generated this result transmitted ref erence range: 13.0 - 1 6.8 GM/DL. The refe rence range was not u sed to interpret this result as normal/abnor mal. Hematocrit (test code = 31.0 % 40.0-50.0 L 4544-3) Lab Interpretation (test Abnormal code = 30928-4) [facility] [id number] 11:39:25 Test Item Value Reference Range Interpretation Comments Glucose (test code = 2345-7) 122 mg/dL 70-110 H Lab Interpretation (test code = Abnormal 14202-1) [facility] [id number] 11:39:25 Test Item Value Reference Range Interpretation Comments GLUCOSE RANDOM (BEAKER) (test code 122 mg/dL 70-110 H = 652) HGB/HCT (H&H) - STAT [id number] 11:39:25 Test Item Value Reference Range Interpretation Comments HEMOGLOBIN (BEAKER) (test code = 10.6 GM/DL 13.0-16.8 L 410) HEMATOCRIT (BEAKER) (test code = 31.0 % 40.0-50.0 L 411) Blood gas, [id number] 11:39:24 Test Item Value Reference Range Interpretation Comments pH, Arterial (test code 7.35 7.35-7.45 = 2744-1) pCO2, Arterial (test 46 See_Comment H [Autom ated code = 2019-) message] The system which generated this result [...] 58 Lab Interpretation Abnormal (test code = 47256-6) [facility] [id number] 11:39:24 Test Item Value Reference Range Interpretation Comments Calcium, Ion (test code = 1994-3) 1.03 mmol/L 1.12-1.27 L pH, Blood (test code = 38547-4) 7.36 Lab Interpretation (test code = Abnormal 67855-0) [facility], [id number] 11:39:24 Test Item Value Reference Range Interpretation Comments CALCIUM IONIZED (BEAKER) (test 1.03 mmol/L 1.12-1.27 L code = 698) PH, BLOOD (BEAKER) (test code = 7.36 1810) BLOOD GAS, [id number] 11:39:24 Test Item Value Reference Range Interpretation [...] (test code = 1819) 58.0 Sodium Na-Stat [id number] 11:38:51 Test Item Value Reference Range Interpretation Comments Sodium (test code = 2951-2) 137 meq/L 136-145 Lab Interpretation (test code = Normal 50070-0) [facility] [id number] 11:38:51 Test Item Value Reference Range Interpretation Comments Potassium (test code = 2823-3) 4.3 meq/L 3.6-5.5 Lab Interpretation (test code = Normal 70685-2) [facility] [id number] 11:38:51 Test Item Value Reference Range Interpretation Comments SODIUM (BEAKER) (test code = 381) 137 meq/L 136-145 POTASSIUM-STAT [id number] 11:38:51 Test Item Value Reference Range Interpretation Comments POTASSIUM (BEAKER) (test code = 4.3 meq/L 3.6-5.5 379) GLUCOSE-STAT [id number] 09:25:04 Test Item Value Reference Range Interpretation Comments GLUCOSE RANDOM (BEAKER) (test code 113 mg/dL 70-110 H = 652) HGB/HCT (H&H) - STAT [id number] 09:25:04 Test Item Value Reference Range Interpretation Comments HEMOGLOBIN (BEAKER) (test code = 12.2 GM/DL 13.0-16.8 L 410) HEMATOCRIT (BEAKER) (test code = 36.0 % 40.0-50.0 L 411) CALCIUM, [id number] 09:25:03 Test Item Value Reference Range Interpretation Comments CALCIUM IONIZED (BEAKER) (test 1.11 mmol/L 1.12-1.27 L code = 698) PH, BLOOD (BEAKER) (test code = 7.34 1810) BLOOD GAS, [id number] 09:24:57 Test Item Value Reference Range Interpretation [...] (test code = 1819) 60.0 SODIUM NA-STAT [id number] 09:23:35 Test Item Value Reference Range Interpretation Comments SODIUM (BEAKER) (test code = 381) 138 meq/L 136-145 POTASSIUM-STAT [id number] 09:23:35 Test Item Value Reference Range Interpretation Comments POTASSIUM (BEAKER) (test code = 3.5 meq/L 3.6-5.5 L 379) POCT-GLUCOSE [id number] 06:03:31 Test Item Value Reference Range Interpretation Comments POC-GLUCOSE METER 78 mg/dL 70-110 : TESTED A T [facility] 6720 (BEAKER) (test code = [place], 1538) [address]: Quality Control Technician/Techni jitendra ID = [id number] for ZEUS CHARLES SARS-CoV2/RT-PCR (Asymptomatic ONLY)2021-08-05 02:15:32 Test Item Value Reference Range Interpretation Comments SARS-COV2/RT-PCR (test Negative Negative code = 85562-9) MARIA E (test code = MARIA E) [...] the Act. Testing was performed using the Desai SARS-CoV-2 assay. Fact Sheet for Healthcare Providers:https://www.anamaria garsia/lily/RT SARS-CoV-2 HCP Fact Sheet 51-383900.pdf Fact Sheet for Healthcare Patients:https://www.sisi acuña/lily/RT SARS-CoV-2 Patient Fact Sheet EN 51-677742C5.pdf Lab Interpretation Normal (test code = 92871-7) [facility])2021-08-05 02:15:32 Test Item Value Reference Range Interpretation Comments SARS-COV2/RT-PCR (test code = Negative Negative 7317120) Negative result for this test determines that [...] 564(g) of the Act.Testing was performed using [employer]span SARS-CoV-2 assay.Fact Sheet for Healthcare Providers:https://www.Locish.desai/lily/RT SARS-CoV-2 HCP Fact Sheet 51- 282508.pdfFact Sheet for Healthcare Patients:https://www.Locish.desai/lily/RT SARS-CoV-2 Patient Fact Sheet EN 51-549707K0.pdfBASI METABOLIC [id number] 12:39:08 Test Item Value Reference Range Interpretation [...] S NOT APPLICABLE FOR DIALYSIS PATIEN TS. Quality Control Technician ID - ZAIN [id number] 12:23:56 Test Item Value Reference Range Interpretation Comments HEMOGLOBIN (BEAKER) (test code = 13.2 GM/DL 13.7-17.5 L 410) Quality Control Technician ID - [id number] ID - [id number]
--- NOTE | 2022-10-23 09:38 | EDPHYS ---
Physician Documentation [facility] Name: Christian Griffith Age: 71 yrs Sex: Male : 1950 Arrival Date: 10/23/2022 Time: 09:20 Bed 12 Private MD: ED Physician Jose Ramirez HPI: 10/23 09:33 This 71 yrs old Male presents to ER via Ambulatory with complaints of needs [place] rn removed from head. 09:33 Patient presents to ED for recheck of: laceration. The affected area is on the scalp. rn Previous treatment: The patient was initially treated 13 day(s) ago. Progress: The patient reports excellent improvement in the affected area. There has been resolution, improvement, or non-development of any drainage, fever, pain, redness or swelling. The patient has not experienced similar symptoms in the past. Pt reports had beverley placed 13 days ago on scalp, no complications, healing well, no drainage. . Historical: - Allergies: 09:33 No Known Allergies; ss - PMHx: 09:33 COPD; Hypertension; ss - PSHx: 09:33 Stented artery; ss - Family history:: not pertinent. - Hospitalizations: : No recent hospitalization is reported. ROS: 09:33 Constitutional: Negative for fever, chills, and weight loss, Skin: Well healed scalp rn laceration, 4 beverley Exam: 09:33 Skin: Warm, dry, no drainage, well-healed wound on scalp rn Vital Signs: 09:31 BP 174 / 81; Pulse 84; Resp 16; Temp 98.8(TE); Pulse Ox 96% on R/A; Pain 0/10; ss 09:31 Pain Scale: Adult ss Procedures: 09:39 Suture/Staple removal: Removed 4 beverley, from scalp, site appears well healed, Patient rn tolerated well. MDM: 09:28 Patient medically screened. rn 09:33 Differential diagnosis: encounter for staple removal. Data reviewed: vital signs, rn nurses notes, and as a result, I will discharge patient. Counseling: I had a detailed discussion with the patient and/or guardian regarding: the historical points, exam findings, and any diagnostic results supporting the discharge/admit diagnosis, the need for outpatient follow up, to return to the emergency department if symptoms worsen or persist or if there are any questions or concerns that arise at home. Special discussion: I discussed with the patient/guardian in detail that at this point there is no indication for admission to the hospital. It is understood, however, that if the symptoms persist or worsen the patient needs to return immediately for re-evaluation. Administered Medications: No medications were administered Disposition Summary: 10/23/22 09:38 Discharge Ordered Location: Home rn Problem: new rn Symptoms: have improved rn Condition: Stable rn Diagnosis - Encounter for removal of sutures - 4 beverley rn Followup: rn - With: Private Physician - When: As needed - Reason: Recheck today's complaints, Re-evaluation by your physician Discharge Instructions: - Discharge Summary Sheet rn - Wound Closure Removal, Care After rn Forms: - Medication Reconciliation Form rn - Thank You Letter rn - Antibiotic consultant internship - Prescription Opioid Use rn - [email or web address] rn Signatures: Jose Ramirez MD MD rn Blanchard, Shelby, RN RN ss
--- NOTE | 2022-10-23 09:38 | ER ---
Nurse's Notes [facility] Name: Christian Griffith Age: 71 yrs Sex: Male : 1950 Arrival Date: 10/23/2022 Time: 09:20 Bed 12 Private MD: Diagnosis: Encounter for removal of sutures-4 beverley Presentation: 10/23 09:31 Chief complaint: Patient states: here to have beverley removed from head that were ss placed 14 days ago. Coronavirus screen: Client denies travel out of the [place] in the last 14 days. Ebola Screen: Patient denies exposure to infectious person. Patient denies travel to an Ebola-affected area in the 21 days before illness onset. Initial Sepsis Screen: Does the patient meet any 2 criteria? No. Patient's initial sepsis screen is negative. Does the patient have a suspected source of infection? No. Patient's initial sepsis screen is negative. Risk Assessment: Do you want to hurt yourself or someone else? Patient reports no desire to harm self or others. Onset of symptoms was October 10, 2022. 09:31 Method Of Arrival: Ambulatory ss 09:31 Acuity: ROLANDO 5 ss Historical: - Allergies: 09:33 No Known Allergies; ss - PMHx: 09:33 COPD; Hypertension; ss - PSHx: 09:33 Stented artery; ss - Family history:: not pertinent. - Hospitalizations: : No recent hospitalization is reported. Screenin:33 [facility] ED Fall Risk Assessment (Adult) History of falling in the last 3 months, ss including since admission No falls in past 3 months (0 pts). Abuse screen: Denies threats or abuse. Denies injuries from another. Nutritional screening: No deficits noted. Tuberculosis screening: Never had TB. Assessment: 09:33 General: Appears in no apparent distress. comfortable, Behavior is calm, cooperative. ss Neuro: Level of Consciousness is awake, alert. Respiratory: Respiratory effort is even, unlabored, Respiratory pattern is regular, symmetrical. Vital Signs: 09:31 BP 174 / 81; Pulse 84; Resp 16; Temp 98.8(TE); Pulse Ox 96% on R/A; Pain 0/10; ss 09:31 Pain Scale: Adult ED Course: 09:23 Patient arrived in ED. ts1 09:28 Jose Ramirez MD is Attending Physician. rn 09:33 Triage completed. ss 09:33 Arm band placed on right wrist. ss 09:33 Patient has correct armband on for positive identification. ss 09:33 No provider procedures requiring assistance completed. Patient did not have IV access ss during this emergency room visit. Removal of Removed beverley from scalp [place] site is well healed Patient tolerated well. Administered Medications: No medications were administered Medication: 09:33 VIS not applicable for this client. ss Outcome: 09:33 Condition: good ss 09:33 Discharge instructions given to patient, Instructed on discharge instructions, follow up and referral plans. Demonstrated understanding of instructions, follow-up care, wound care. 09:38 Discharge ordered by . rn 09:45 Discharged to home ambulatory. ss 09:47 No charge visit due to suture removal. ss 09:47 Patient left the ED. ss Signatures: Jose Ramirez MD MD rn Blanchard, Shelby, RN RN ss Simpson, Tanya, PAS PAS ts1
[2022-10-23 09:52] VITALS: BP 174/81; TEMP 98.8; O2SAT 96
== END 2022-10-23 09:47 | disposition home or self-care (01) ==
LOC: ER 09:20
DX: Z48.02 Encounter for removal of sutures (principal)

== ENCOUNTER 2023-03-08 06:30 | Day surgery (SDC) | payer OTHER ==
[2023-03-04 10:52] LABS: Absolute Lymphocytes (CBC) 0.8 K/uL (0.7-4.9); Hematocrit 36.5 % (39.6-49.0); Lymphocytes % 15.4 % (15.3-44.8); MCV 85.7 fL (80-100); MPV 8.2 fL (7.6-11.3); Platelets 204 thou/uL (152-406); RBC Red Blood Cell Count 4.26 M/uL (4.33-5.43)
[2023-03-04 10:55] LABS: Protime INR 0.98
[2023-03-04 11:05] LABS: Potassium 4.6 mEq/L (3.5-5.1)
--- NOTE | 2023-03-04 11:10 | RAD REPORT ---
EXAM DESCRIPTION: RAD - Chest Pa And Lat (2 Views) - 03/04/2023 10:52 am CLINICAL HISTORY: pre op pending carotid angiogram Chest pain. COMPARISON: Chest Single View dated 02/13/2021; Chest Single View dated 02/10/2021; Chest Single Vie w dated 06/11/2020; Chest Single View dated 03/07/2020 TECHNIQUE: PA and lateral views of the chest were obtained. FINDINGS: The lungs are hyperexpanded compatible with COPD. The heart is upper limit of normal in si ze. No fracture or aggressive bony process. IMPRESSION: COPD without acute process identified. The USPSTF recommends annual screening for lung cancer with low-dose CT (LDCT) in adults aged 50 to 80 years who have a 20 pack-year smoking history and currently smoke or have quit within the past 15 years.
--- NOTE | 2023-03-05 14:09 | EKG ---
Test Date: 2023-03-04 Test Time: 11:31:33 [employer]s Fermentation Operator: SALUD MEASUREMENT RESULTS: Intervals: Rate: 57 MD: 150 QRSD: 80 QT: 408 QTc: 397 Adams: P: 81 MD: 150 QRS: 79 T: 81 INTERPRETIVE STATEMENTS: Sinus bradycardia Otherwise normal ECG Compared to ECG 04/10/2021 10:28:22 Sinus rhythm no longer present Electronically Signed On 03-05-23 14:07:01 CONICAL MIXER by Hubert Chery
[2023-03-08] MEDS ORDERED: MIDAZOLAM HCL 2 MG/2 ML INJ ONE (06:49)
[2023-03-08] MEDS ORDERED: LIDOCAINE 1% 20 ML MDV ONE (06:50)
[2023-03-08 07:07] VITALS: TEMP 98
[2023-03-08] MEDS ORDERED: FENTANYL CITR 100 MCG/2 ML ONE (08:35)
--- NOTE | 2023-03-08 09:08 | OP ---
Date of Procedure: 03/08/2023 Surgeon: CANDE WONG Procedures Performed: 1.Bilateral selective carotid angiogram. 2.Bilateral femoral artery angiogram. Indication: Carotid stenosis. Access: Left femoral artery 4-Arabic closed with manual pressure. Complications: None. Bleeding: Less than 20 mL. Description Of Procedure: After risks, benefits, and alternatives were explained, patient agreed to procedure and signed the informed consent. The patient was brought into the catheterization laborato ry, prepped and draped in sterile fashion. Incremental doses of fentanyl and Versed were given to ac hieve adequate moderate sedation. Total sedation time was 50 minutes and then after placing 4-Arabic pinnacle sheath obtaining the access using micropuncture kit ultrasound guidance and fluoroscopy, I took a 4-Arabic 3DRC catheter into the aortic root, engaged the right common carotid artery, took sta ndard views and then the left common carotid artery took standard views and then obtained a limited a ngiogram of bilateral femoral artery with a fem-fem bypass and then removed the catheter and removed the sheath and manual pressure was used for closure with good hemostasis. Findings: 1.Right common carotid artery is normal, the right external carotid artery has ostial 50% stenosis a nd the right internal carotid artery has 50% proximally. 2.The left common carotid is normal. Left external carotid is normal. Left internal carotid has 30 % to 40% stenosis proximally. 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 Plan: Medical management. /GUICHO Voice ID: [id number] Report ID: [id number]
[2023-03-08 15:31] VITALS: BP 140/74; O2SAT 94
== END 2023-03-08 11:50 | disposition home or self-care (01) ==
LOC: CCL 06:30
PROVIDERS: ATTEND Internal Medicine
DX: I65.23 Occlusion and stenosis of bilateral carotid arteries (principal); I70.223 Atherosclerosis of native arteries of extremities with rest pain, bilateral legs; I71.43 Infrarenal abdominal aortic aneurysm, without rupture; I10 Essential (primary) hypertension; E78.2 Mixed hyperlipidemia; F17.210 Nicotine dependence, cigarettes, uncomplicated; Z79.82 Long term (current) use of aspirin; Z79.02 Long term (current) use of antithrombotics/antiplatelets
CPT/HCPCS: 93005; 85025; 80048; 36415; 85610; 85730; 71046; 36222; 76937; C1893; J2001; J2250; J3010

== ENCOUNTER 2023-03-10 05:18 | Inpatient (IN) | payer OTHER ==
--- OUTSIDE RECORDS SUMMARY | 2023-03-10 05:24 | XMS REPORT | Continuity of Care Document ---
:[address] [facility] t Address [address] [place] [address] Care Team Providers Name Role Phone EDMAR BERMAN SELENE Attending Clinician Unavailable Becky Loaiza MD Attending Clinician Johanny Cottrell Attending Clinician Unavailable Ana Cline MD Attending Clinician ANA CLINE Attending Clinician Unavailable ANA CLINE Admitting Clinician Unavailable Payers Payer Name Policy Type Policy Number Effective Date Expiration Date Wayne kelly [employer] [id number] 2021 00:00:00 Problems Condition Condition Condition Status [...] Date Date Clinician NO KNOWN Allergy Active [facility] Social History Social Habit Start Date Stop Date Quantity Comments Source History of tobacco Cigarette Smoker [facility] use [facility] History SDOH [facility] Transport [facility] Exposure to Not sure [facility] SARS-CoV-2 (event) [facility]ica [facility] Center Sexual orientation [facility] Alcohol intake 2021-08-11 2021-08-11 Ex-drinker [facility] es 00:00:00 00:00:00 (finding) Medical Center History [facility] 2021-08-07 2021-08-[address] [facility] Transport Med 00:00:00 00:00:[address] [facility] 2021-08-07 2021-08-[address] [facility] Housing Unable to 00:00:00 00:00:00 Medical Center Pay History [facility] 2021-08-07 2021-08-[address] [facility] Housing Places 00:00:00 00:00:00 Medical Ce nter Lived History [facility] 2021-08-07 2021-08-[address] [facility] Housing Homeless 00:00:00 00:00:00 [facility] Center Last Year Tobacco use and 2021-08-05 2021-08-05 Smokeless tobacco [facility] exposure 00:00:00 00:00:00 non-user [facility] Cigarettes smoked 2021-08-05 2021-08-[address] [facility] current (pack per 00:00:00 00:00:00 Medical Center day) - Reported Cigarette 2021-08-05 2021-08-[address] [facility] pack-years 00:00:00 00:00:00 [facility] Tobacco Comment 2021-08-05 2021-08-05 Vapes or nicotine [facility] 00:00:00 00:00:00 patches [facility] Sex Assigned At [address] [facility] 00:00:00 00:00:00 [facility] Center Smoking Status Start Date Stop Date Source Ex-smoker 2021-08-05 00:00:00 2021-08-05 00:00:00 [facility] L [facility] Medications Ordered Filled Start Stop Current Ordering Indication Dosage Frequency Signature Comments Components Source Medication Medication Date Date Medication? Clinician (SIG) Name Name fluticasone Yes 1{puff} Inhale [address] propion-lily 4-19 puff by Lukes meteroL 15:00: mouth via Medic al (Wixela 04 inhaler Center Inh) every 12 250-50 (twelve) mcg/dose hours. diskus inhaler amLODIPine Yes 10mg QD Take [address] (NORVASC) 4-19 by mouth Lukes 10 MG 15:00: daily. Medical tablet [address] [place] [address] mirtazapine 2021-0 Yes 30mg QD Take [address] (REMERON) 4-19 by mouth Lukes 30 MG 15:00: nightly. Medical tablet [address] [place] [address] aspirin 81 2021-0 Yes 81mg QD Take [address] MG EC 4-19 by mouth [facility]ukes tablet 15:00: daily. [address] carbidopa-l 2021-0 Yes 1{tbl} Take [address] evodopa 4-19 tablet by [facility] (SINEMET) 15:00: mouth 3 Medic al 25-100 mg 04 (three) Center per tablet times daily as needed. methocarbam 2021-0 Yes 750mg Take [address] oL 4-19 mg by Lukes (ROBAXIN) 15:00: mouth 4 Medic al 750 MG 04 (four) Center tablet times daily as needed. fluticasone 2021-0 Yes 1{puff} Inhale [address] propion-lily 4-19 puff by Lukes meteroL 15:00: mouth via Medic al (Wixela 04 inhaler Center [facility]) every 12 250-50 (twelve) mcg/dose hours. diskus inhaler amLODIPine 2021-0 Yes 10mg QD Take [address] (NORVASC) 4-19 by mouth Lukes 10 MG 15:00: daily. Medical tablet [address] [place] [address] mirtazapine 2021-0 Yes 30mg QD Take [address] (REMERON) 4-19 by mouth Lukes 30 MG 15:00: nightly. Medical tablet [address] [place] [address] aspirin 81 2021-0 Yes 81mg QD Take [address] MG EC 4-19 by mouth Lukes tablet 15:00: daily. [address] carbidopa-l 2021-0 Yes 1{tbl} Take [address] evodopa 4-19 tablet by Lukes (SINEMET) 15:00: mouth 3 Medic al 25-100 mg 04 (three) Center per tablet times daily as needed. methocarbam 2021-0 Yes 750mg Take [address] oL 4-19 mg by Lukes (ROBAXIN) 15:00: mouth 4 Medic al 750 MG 04 (four) Center tablet times daily as needed. fluticasone 2021-0 Yes 1{puff} Inhale [address] propion-lily 4-19 puff by Lukes meteroL 15:00: mouth via Medic al (Wixela 04 inhaler Center [facility]) every 12 250-50 (twelve) mcg/dose hours. diskus inhaler amLODIPine 2021-0 Yes 10mg QD Take [address] (NORVASC) 4-19 by mouth Lukes 10 MG 15:00: daily. Medical tablet [address] [place] [address] mirtazapine 2021-0 Yes 30mg QD Take [address] (REMERON) 4-19 by mouth Lukes 30 MG 15:00: nightly. Medical tablet [address] [place] [address] aspirin 81 2021-0 Yes 81mg QD Take [address] MG EC 4-19 by mouth Lukes tablet 15:00: daily. [address] carbidopa-l 2021-0 Yes 1{tbl} Take [address] evodopa 4-19 tablet by Lukes (SINEMET) 15:00: mouth 3 Medic al 25-100 mg 04 (three) Center per tablet times daily as needed. methocarbam 2021-0 Yes 750mg Take [address] oL 4-19 mg by Lukes (ROBAXIN) 15:00: mouth 4 Medic al 750 MG 04 (four) Center tablet times daily as needed. fluticasone 2021-0 Yes 1{puff} Inhale [address] propion-lily 4-19 puff by Lukes meteroL 15:00: mouth via Medic al (Wixela 04 inhaler Center [facility]) every 12 250-50 (twelve) mcg/dose hours. diskus inhaler amLODIPine 2021-0 Yes 10mg QD Take [address] (NORVASC) 4-19 by mouth Lukes 10 MG 15:00: daily. Medical tablet [address] [place] [address] mirtazapine 2021-0 Yes 30mg QD Take [address] (REMERON) 4-19 by mouth Lukes 30 MG 15:00: nightly. Medical tablet [address] [place] [address] aspirin 81 2021-0 Yes 81mg QD Take [address] MG EC 4-19 by mouth Lukes tablet 15:00: daily. [address] carbidopa-l 2021-0 Yes 1{tbl} Take [address] evodopa 4-19 tablet by Lukes (SINEMET) 15:00: mouth 3 Medic al 25-100 mg 04 (three) Center per tablet times daily as needed. methocarbam 2022-0 Yes 750mg Take [address] oL 4-19 mg by Marquise (ROBAXIN) 15:00: mouth 4 Medic al 750 MG 04 (four) Center tablet times daily as needed. clopidogreL 2022-0 Yes 75mg QD Take [address] (PLAVIX) 75 4-19 tablet (75 Paula kes mg tablet 00:00: mg total) Med ical 00 by mouth Center daily. clopidogreL 2022-0 Yes 75mg QD Take [address] (PLAVIX) 75 4-19 tablet (75 Paula kes mg tablet 00:00: mg total) Med ical 00 by mouth Center daily. clopidogreL 2022-0 Yes 75mg QD Take [address] (PLAVIX) 75 4-19 tablet (75 Paula kes mg tablet 00:00: mg total) Med ical 00 by mouth Center daily. clopidogreL 2022-0 Yes 75mg QD Take [address] [...] by mouth Cent er tablet daily. carbidopa-l 2022-0 Yes 1{tbl} Take [address] evodopa 4-16 tablet by Marquise (SINEMET) 18:14: mouth 3 Medic al 25-100 [...] via Medic al (Wixela 36 inhaler Center [facility]) every 12 250-50 (twelve) mcg/dose hours. diskus inhaler amLODIPine Yes 10mg QD Take [address] (NORVASC) 4-16 by mouth Lukes 10 MG 18:14: daily. Medical tablet 36 Center mirtazapine Yes 30mg QD Take [address] (REMERON) 4-16 by mouth Lukes 30 MG 18:14: nightly. Medical tablet 36 Center aspirin 81 Yes 81mg QD Take [address] MG EC 4-16 by mouth Lukes tablet 18:14: daily. Medical [address] [place] [address] Vital Signs Vital Name Observation Time Observation Value Comments Source HEIGHT 2021-08-07 05:47:00 175.3 cm WEIGHT 2021-08-07 05:47:00 48.6 kg HEIGHT 2021-08-05 15:46:00 175.3 cm WEIGHT 2021-08-05 15:46:00 47.628 kg HEIGHT 2021-08-07 05:47:00 175.3 cm WEIGHT 2021-08-07 05:47:00 48.6 kg HEIGHT 2021-08-05 15:46:00 175.3 cm WEIGHT 2021-08-05 15:46:00 47.628 kg Heart rate 2021-08-10 09:00:00 106 /min [facility] Oxygen saturation in 2021-08-10 08:21:00 100 /min [facility] Arterial blood by [facility] nter Pulse oximetry Respiratory rate 2021-08-10 08:10:00 18 /min [facility] Systolic blood 2021-08-10 07:27:00 155 mm[Hg] [facility] Diastolic blood 2021-08-10 07:27:00 67 mm[Hg] [facility] Body temperature 2021-08-10 07:27:00 36.78 Niya [facility] Body height 2021-08-07 05:47:00 175.3 cm [facility] Body weight 2021-08-07 05:47:00 48.6 kg [facility] BMI 2021-08-07 05:47:00 15.82 kg/m2 [facility] Procedures Procedure Date / Time Performed Performing Clinician Sour e BASIC METABOLIC PANEL 2021-08-10 04:06:00 [facility] MAGNESIUM 2021-08-10 04:06:00 Ching, [facility] ECG 12-LEAD 2021-08-09 15:50:11 Unknown, Hl7 [facility] ECG 12-LEAD 2021-08-09 15:50:11 Unknown, Hl7 Doctor [facility] CBC (HEMOGRAM ONLY) 2021-08-09 05:09:00 Ching, [facility] BASIC METABOLIC PANEL 2021-08-09 05:09:00 [facility] MAGNESIUM 2021-08-09 05:09:00 Ching, [facility] LIPID PANEL 2021-08-08 17:31:00 Rao Castaneda [facility] CBC (HEMOGRAM ONLY) 2021-08-08 06:16:00 Ching, [facility] BASIC METABOLIC PANEL 2021-08-08 04:46:00 [facility] MAGNESIUM 2021-08-08 04:46:00 Ching, [facility] PHOSPHORUS 2021-08-08 04:46:00 Harmeet Lopes [facility] CBC W/PLT COUNT & AUTO 2021-08-07 18:05:00 Stevie Jean [facility] CBC W/PLT COUNT & AUTO 2021-08-07 18:05:00 VoStevie [facility] APTT 2021-08-07 18:04:00 Vo, [facility] BASIC METABOLIC PANEL 2021-08-07 18:04:00 Vo, [facility] () [facility] MAGNESIUM 2021-08-07 18:04:00 Vo, [facility] PHOSPHORUS 2021-08-07 18:04:00 Vo, [facility] PROTHROMBIN TIME/INR 2021-08-07 18:04:00 Vo, [facility] POCT-GLUCOSE METER 2021-08-07 17:46:00 [facility] PREPARE RBC 2021-08-07 13:49:00 [facility] POCT-ACT 2021-08-07 12:33:00 [facility] POCT-ACT 2021-08-07 12:19:00 [facility] POCT-ACT 2021-08-07 11:36:00 [facility] RRL CRITICAL LABS 2021-08-07 11:28:[address] [facility] (ABG,NA,K,H&H,GLUCOSE) Medical C enter CALCIUM, IONIZED 2021-08-07 11:28:25 Becky Loaiza [facility] BLOOD GAS, ARTERIAL 2021-08-07 11:28:25 Becky Loaiza [facility] SODIUM NA-STAT LAB 2021-08-07 11:28:25 Becky Loaiza [facility] POTASSIUM-STAT LAB 2021-08-07 11:28:25 Becky Loaiza [facility] GLUCOSE-STAT LAB 2021-08-07 11:28:25 Becky Loaiza [facility] HGB/HCT (H&H) - STAT LAB 2021-08-07 11:28:25 Becky Loaiza [facility] POCT-ACT 2021-08-07 10:56:00 [facility] POCT-ACT 2021-08-07 10:23:00 Ana Cline [facility] RRL CRITICAL LABS 2021-08-07 09:10:[address] [facility] (ABG,NA,K,H&H,GLUCOSE) Medical C enter CALCIUM, IONIZED 2021-08-07 09:10:20 Becky Loaiza [facility] BLOOD GAS, ARTERIAL 2021-08-07 09:10:20 Becky Loaiza [facility] SODIUM NA-STAT LAB 2021-08-07 09:10:20 Becky Loaiza [facility] POTASSIUM-STAT LAB 2021-08-07 09:10:20 Becky Loaiza [facility] GLUCOSE-STAT LAB 2021-08-07 09:10:20 Becky Loaiza [facility] HGB/HCT (H&H) - STAT LAB 2021-08-07 09:10:20 Becky Loaiza [facility] ABORH, MANUAL 2021-08-07 06:42:00 Aruna Ashford [facility] TYPE AND SCREEN, 2021-08-07 06:22:00 Reese Pichardo [facility] POCT-GLUCOSE METER 2021-08-07 05:51:00 Ana Cline [facility] ECG 12-LEAD 2021-08-04 12:03:30 Jaspal Henderson [facility] ECG 12-LEAD 2021-08-04 12:03:30 Unknown, Hl7 Doctor [facility] SARS-COV2/RT-PCR ([facility] & 2021-08-04 11:59:00 Ana Cline [facility] REF LABS) [facility] BASIC METABOLIC PANEL 2021-08-04 11:59:[address] [facility] (7) [facility] HEMOGLOBIN 2021-08-04 11:59:00 Jaspal Henderson [facility] Plan of Care Planned Activity Planned Date Details Comments Source Future Scheduled 2022-12-24 Influenza Vaccine [facility] Test 00:00:00 (Season Ended) [code = Medic al Center Influenza Vaccine (Season Ended)] Future Scheduled 2022-12-[address] [facility] Test 00:00:00 (Season Ended) [code = Medic al Center Influenza Vaccine (Season Ended)] Future Scheduled 2022-12-24 Influenza Vaccine (#1) [facility] Test 00:00:00 [code = Influenza Medical Ce nter Vaccine (#1)] Future Scheduled 2022-12-24 Influenza Vaccine (#1) [facility] Test 00:00:00 [code = Influenza Medical Ce nter Vaccine (#1)] Future Scheduled 2022-08-[address] [...] VACCINES (1 of 2)] Future Scheduled 2002 Screening for malignant [facility] Test 00:00:00 neoplasm of lung Medical [facility] (procedure) [code = 590813661] Future Scheduled 2002 SHINGLES VACCINES (1 of [...] Lukes Test 00:00:00 [code = CT Colonography [facility] (combo)] Future Scheduled 1952 Screening for malignant [facility] Test 00:00:00 neoplasm of colon Medical Ce nter (procedure) [code = 855367064] Future Scheduled 1952 Screening for malignant [facility] Test 00:00:00 neoplasm of colon Medical Ce nter (procedure) [code = 851223734] Future Scheduled 1952 Screening for malignant [facility] Test 00:00:00 neoplasm of colon Medical Ce nter (procedure) [code = 162764428] Future Scheduled 1952 Screening for malignant [facility] Test 00:00:00 neoplasm of colon Medical Ce nter (procedure) [code = 729302715] Future Scheduled 1950 Sigmoidoscopy [code = [facility] Test 00:00:00 Sigmoidoscopy] Medical Cente r Future Scheduled 1952 CT Colonography (combo) [facility] Test 00:00:00 [code = CT Colonography [facility] (combo)] Future Scheduled 1952 Screening for malignant [facility] Test 00:00:00 neoplasm of colon Medical Ce nter (procedure) [code = 345125818] Future Scheduled 1952 Screening for malignant [facility] Test 00:00:00 neoplasm of colon Medical Ce nter (procedure) [code = 890899812] Future Scheduled 1952 Screening for malignant [facility] Test 00:00:00 neoplasm of colon Medical Ce nter (procedure) [code = 809173107] Future Scheduled 1952 Screening for malignant [facility] Test 00:00:00 neoplasm of colon Medical Ce nter (procedure) [code = 512087421] Future Scheduled 1950 Sigmoidoscopy [code = [facility] Test 00:00:00 Sigmoidoscopy] Medical Cente r Future Scheduled 1952 CT Colonography (combo) [facility] Test 00:00:00 [code = CT Colonography Medi mic Center (combo)] Future Scheduled 1952 Screening for malignant [facility] Test 00:00:00 neoplasm of colon Medical Ce nter (procedure) [code = 501190248] Future Scheduled 1952 Screening for malignant [facility] Test 00:00:00 neoplasm of colon Medical Ce nter (procedure) [code = 931699364] Future Scheduled 1952 Screening for malignant [facility] Test 00:00:00 neoplasm of colon Medical Ce nter (procedure) [code = 776388124] Future Scheduled 1952 Screening for malignant [facility] Test 00:00:00 neoplasm of colon Medical Ce nter (procedure) [code = 248544684] Future Scheduled 1950 Sigmoidoscopy [code = [facility] Test 00:00:00 Sigmoidoscopy] Medical Cente r Future Scheduled 1952 CT Colonography (combo) [facility] Test 00:00:00 [code = CT Colonography [facility] (combo)] Future Scheduled 1952 Screening for malignant [facility] Test 00:00:00 neoplasm of colon Medical Ce nter (procedure) [code = 158985581] Future Scheduled 1952 Screening for malignant [facility] Test 00:00:00 neoplasm of colon Medical Ce nter (procedure) [code = 968719815] Future Scheduled 1952 Screening for malignant [facility] Test 00:00:00 neoplasm of colon Medical Ce nter (procedure) [code = 363917114] Future Scheduled 1952 Screening for malignant [facility] Test 00:00:00 neoplasm of colon Medical Ce nter (procedure) [code = 150243340] Future Scheduled 1950 Sigmoidoscopy [code = [facility] Test 00:00:00 Sigmoidoscopy] Medical Cente r Encounters Start End Encounter Admission Attending Care Care Encounter Source Date/Time Date/Time Type Type Clinicians Facility Department ID 2021-08-07 2021-08-10 Inpatient [facility] Cardiology [id number] SLE 05:34:00 15:00:00 EDMAR 2021-08-07 2021-08-[address] [facility] [id number] 07:07[facility]00 13:31[facility]00 [facility] 2021-08-07 [id number] 07:30:00 12:49:00 [facility] 2021-08-05 2021-08-05 [id number] 16:07:10 23:59:00 2021-08-05 2021-08-05 [facility] [id number] 15:30:00 23:59:00 Encounter [facility] 2021-08-05 2021-08-05 Travel [facility] [id number] [facility] 00:[facility]00 00:00:00 [facility] 2021-08-04 2021-08-04 [facility] VAISHALI Cline [facility] [id number] 11:25:16 23:59:00 Encounter [facility] 2021-08-04 2021-08-[address] [facility] [id number] [facility] 11:25:16 23:59:00 [facility] 2021-08-04 2021-08-04 Outpatient VAISHALI MCKEON [facility] [id number] [facility] 00:00:00 00:00:00 2021-08-04 2021-08-[address] [facility] [id number] [facility] 00:00:00 00:00:00 [facility] 2021-08-04 2021-08-[address] [facility] [id number] 00:00:00 00:00:00 Only [facility] Results Test Description Test Time Test Comments [...] /100 WBC 0 -0 POC ACTIVATED CLOTTING [id number] 06:45:22 Test Item Value Reference Range Interpretation Comments Activated Clotting Time 130 sec : 74 -137 seconds, (test code = 441) Baseline: TESTED AT [address], [facility] 30: Manager Business Continuity/Techni jitendra ID = [id number] for Me ndoza, Candelario [id number] 06:45:22 Test Item Value Reference Range Interpretation Comments ACTIVATED CLOTTING TIME 130 sec : 74 -137 seconds, (BEAKER) (test code = Baseli ne: TESTED AT [facility]) [address], [facility] 30: Manager Business Continuity/Techni jitendra ID = [id number] for Me ndoza, Candelario [id number] 06:45:21 Test Item Value Reference Range Interpretation Comments ACTIVATED CLOTTING TIME 255 sec : 74 -137 seconds, (BEAKER) (test code = Baseli ne: TESTED AT [facility]) [address], [facility] 30: Manager Business Continuity/Techni jitendra ID = [id number] for Me ndoza, Canedlario [id number] 06:44:54 Test Item Value Reference Range Interpretation Comments ACTIVATED CLOTTING TIME 285 sec : 74 -137 seconds, (BEAKER) (test code = Baseli ne: TESTED AT [facility]) [address], [facility] 30: Manager Business Continuity/Techni jitendra ID = [id number] for Me ndoza, Candelario [id number] 06:44:53 Test Item Value Reference Range Interpretation Comments ACTIVATED CLOTTING TIME 255 sec : 74 -137 seconds, (BEAKER) (test code = Baseli ne: TESTED AT 441) [facility] [address] [facility], [address] 30: Manager Business Continuity/Techni jitendra ID = [id number] for Karen Sandoval [id number] 06:44:48 Test Item Value Reference Range Interpretation Comments ACTIVATED CLOTTING TIME 261 sec : 74 -137 seconds, (BEAKER) (test code = Baseli ne: TESTED AT 441) [facility] [address] [facility], [address] 30: Manager Business Continuity/Techni jitendra ID = [id number] for Candelario Hernandez [id number] 04:48:35 Test Item Value Reference Range Interpretation Comments MAGNESIUM (BEAKER) (test code = 1.9 mg/dL 1.6-2.6 627) Manager Business Continuity ID - JAGRUTI WBASIC METABOLIC [id number] 04:48:34 Test Item Value Reference Range Interpretation [...] S NOT APPLICABLE FOR DIALYSIS PATIEN TS. Manager Business Continuity ID - JAGRUTI WBASIC METABOLIC [id number] 06:22:12 Test Item Value Reference Range Interpretation [...] S NOT APPLICABLE FOR DIALYSIS PATIEN TS. Manager Business Continuity ID - [id number] 06:22:12 Test Item Value Reference Range Interpretation Comments MAGNESIUM (BEAKER) (test code = 1.9 mg/dL 1.6-2.6 627) Manager Business Continuity ID - ADMINCBC (HEMOGRAM ONLY)2021-08-09 06:11:28 Test [...] 0-0 (BEAKER) (test code = 413) LIPID [id number] 18:32:23 Test Item Value Reference Range Interpretation [...] Borderline 130-159 High 160-189 Very High >=190 Manager Business Continuity ID - PAOLO MCBC (HEMOGRAM ONLY)2021-08-08 07:40:14 [...] WBC 0-0 (BEAKER) (test code = 413) [id number] 05:35:54 Test Item Value Reference Range Interpretation Comments PHOSPHORUS (BEAKER) (test code = 3.6 mg/dL 2.3-4.7 604) Manager Business Continuity ID - BSBASIC METABOLIC [id number] 05:35:53 Test Item Value Reference Range Interpretation [...] S NOT APPLICABLE FOR DIALYSIS PATIEN TS. Manager Business Continuity ID - [id number] 05:35:53 Test Item Value Reference Range Interpretation Comments MAGNESIUM (BEAKER) (test code = 2.0 mg/dL 1.6-2.6 627) Manager Business Continuity ID - [id number] 18:41:53 Test Item Value Reference Range Interpretation Comments PHOSPHORUS (BEAKER) 2.9 mg/dL 2.3-4.7 Specimen slightly (test code = 604) hemolyzed Manager Business Continuity ID - BSBASIC METABOLIC [id number] 18:41:53 Test Item Value Reference Range Interpretation [...] S NOT APPLICABLE FOR DIALYSIS PATIEN TS. Manager Business Continuity ID - [id number] 18:41:52 Test Item Value Reference Range Interpretation Comments MAGNESIUM (BEAKER) 1.6 mg/dL 1.6-2.6 Specimen slightly (test code = 627) hemolyzed Manager Business Continuity ID - BSCBC W/PLT COUNT & AUTO [id number] 18:28:16 Test Item Value Reference Range Interpretation [...] 0-1 PERCENT (BEAKER) (test code = 2801) [id number] 18:25:51 Test Item Value Reference Range Interpretation Comments PARTIAL THROMBOPLASTIN TIME 31.0 seconds 22.5-36.0 (BEAKER) (test code = 760) PROTHROMBIN [id number] 18:25:10 Test Item Value Reference Range Interpretation Comments PROTIME (BEAKER) 14.0 seconds 11.9-14.2 (test code = 759) INR (BEAKER) (test 1.10 See_Comment [Automat ed message] code = 370) The system Metaset generated this result transmitted ref erence range: <=5.90. The reference range was not used to int erpret this result as normal/abnormal . RECOMMENDED COUMADIN/WARFARIN INR THERAPY RANGESSTANDARD DOSE: 2.0 - 3.0 Includes: PROPHYLAXIS for venous thrombosis, systemic embolization; TREATMENT for venous thrombosis and/or pulmonary embolus.HIGH RISK: Target INR is 2.5-3.5 for patients with mechanical heart valves.POC-Glucose [id number] 18:00:01 Test Item Value Reference Range Interpretation Comments POC-Glucose Meter (test 95 mg/dL 70-110 : TE STED AT [facility] code = 1538) [address] [facility] [address] [address]: Manager Business Continuity/Techni jitendra ID = [id number] for OFE SALTER Lab Interpretation (test Normal code = 08726-7) [facility] [id number] 18:00:01 Test Item Value Reference Range Interpretation Comments POC-GLUCOSE METER 95 mg/dL 70-110 : TESTED A T [facility] 6720 (BEAKER) (test code = BANNERDARIUS Quiles [facility], 1538) [id number]: Manager Business Continuity/Techni jitendra ID = [id number] for OFE LINTON Prepare [id number] 13:49:00 Test Item Value Reference Range Interpretation Comments CROSSMATCH (test code = COMPATIBLE 2264) Unit ABO (test code = A Pos 8024257) UNIT NUMBER (test code = [id number] 934-0) Status (test code = RETURNED FROM ISSUE 0349091) Blood Bank Product (test RED BLOOD CELLS code = 2263) PRODUCT CODE (test code = N1568F58 933-2) [facility] [id number] 11:39:25 Test Item Value Reference Range Interpretation Comments Hemoglobin (test code = 10.6 See_Comment L [Au tomated message] 786-4) The system Metaset generated this result transmitted ref erence range: 13.0 - 1 6.8 GM/DL. The refe rence range was not u sed to interpret this result as normal/abnor mal. Hematocrit (test code = 31.0 % 40.0-50.0 L 4544-3) Lab Interpretation (test Abnormal code = 73346-0) [facility] [id number] 11:39:25 Test Item Value Reference Range Interpretation Comments Glucose (test code = 2345-7) 122 mg/dL 70-110 H Lab Interpretation (test code = Abnormal 41898-4) [facility] [id number] 11:39:25 Test Item Value Reference Range Interpretation Comments GLUCOSE RANDOM (BEAKER) (test code 122 mg/dL 70-110 H = 652) HGB/HCT (H&H) - STAT [id number] 11:39:25 Test Item Value Reference Range Interpretation Comments HEMOGLOBIN (BEAKER) (test code = 10.6 GM/DL 13.0-16.8 L 410) HEMATOCRIT (BEAKER) (test code = 31.0 % 40.0-50.0 L 411) Blood gas, [id number] 11:39:24 Test Item Value Reference Range Interpretation [...] 58 Lab Interpretation Abnormal (test code = 45444-7) [facility], [id number] 11:39:24 Test Item Value Reference Range Interpretation Comments Calcium, Ion (test code = 1993-3) 1.03 mmol/L 1.12-1.27 L pH, Blood (test code = 32484-6) 7.36 Lab Interpretation (test code = Abnormal 81887-1) [facility], [id number] 11:39:24 Test Item Value Reference Range Interpretation Comments CALCIUM IONIZED (BEAKER) (test 1.03 mmol/L 1.12-1.27 L code = 698) PH, BLOOD (BEAKER) (test code = 7.36 1810) BLOOD GAS, [id number] 11:39:24 Test Item Value Reference Range Interpretation [...] (test code = 1819) 58.0 Sodium Na-Stat [id number] 11:38:51 Test Item Value Reference Range Interpretation Comments Sodium (test code = 2951-2) 137 meq/L 136-145 Lab Interpretation (test code = Normal 41881-2) [facility] [id number] 11:38:51 Test Item Value Reference Range Interpretation Comments Potassium (test code = 2823-3) 4.3 meq/L 3.6-5.5 Lab Interpretation (test code = Normal 66583-8) [facility] [id number] 11:38:51 Test Item Value Reference Range Interpretation Comments SODIUM (BEAKER) (test code = 381) 137 meq/L 136-145 POTASSIUM-STAT [id number] 11:38:51 Test Item Value Reference Range Interpretation Comments POTASSIUM (BEAKER) (test code = 4.3 meq/L 3.6-5.5 379) GLUCOSE-STAT [id number] 09:25:04 Test Item Value Reference Range Interpretation Comments GLUCOSE RANDOM (BEAKER) (test code 113 mg/dL 70-110 H = 652) HGB/HCT (H&H) - STAT [id number] 09:25:04 Test Item Value Reference Range Interpretation Comments HEMOGLOBIN (BEAKER) (test code = 12.2 GM/DL 13.0-16.8 L 410) HEMATOCRIT (BEAKER) (test code = 36.0 % 40.0-50.0 L 411) CALCIUM, [id number] 09:25:03 Test Item Value Reference Range Interpretation Comments CALCIUM IONIZED (BEAKER) (test 1.11 mmol/L 1.12-1.27 L code = 698) PH, BLOOD (BEAKER) (test code = 7.34 1810) BLOOD GAS, [id number] 09:24:57 Test Item Value Reference Range Interpretation [...] (test code = 1819) 60.0 SODIUM NA-STAT [id number] 09:23:35 Test Item Value Reference Range Interpretation Comments SODIUM (BEAKER) (test code = 381) 138 meq/L 136-145 POTASSIUM-STAT [id number] 09:23:35 Test Item Value Reference Range Interpretation Comments POTASSIUM (BEAKER) (test code = 3.5 meq/L 3.6-5.5 L 379) POCT-GLUCOSE [id number] 06:03:31 Test Item Value Reference Range Interpretation Comments POC-GLUCOSE METER 78 mg/dL 70-110 : TESTED A T [facility] 6720 (BEAKER) (test code = KHADAR Etta [place], 1538) [address]: Manager Business Continuity/Techni jitendra ID = [id number] for ZEUS CHARLES SARS-CoV2/RT-PCR (Asymptomatic ONLY)2021-08-05 02:15:32 Test Item Value Reference Range Interpretation Comments SARS-COV2/RT-PCR (test Negative Negative code = 19840-8) MARIA E (test code = MARIA E) [...] Healthcare Providers:https://www.anamaria garsia/lily/RT SARS-CoV-2 HCP Fact Sheet 51-632276.pdf Fact Sheet for Healthcare Patients:https://www.sisi andujar.desai/lily/RT SARS-CoV-2 Patient Fact Sheet EN 51-604213O0.pdf Lab Interpretation Normal (test code = 26255-1) [facility])2021-08-05 02:15:32 Test Item Value Reference Range Interpretation Comments SARS-COV2/RT-PCR (test code = Negative Negative 7589858) Negative result for this test determines that [...] 564(g) of the Act.Testing was performed using [employer] SARS-CoV-2 assay.Fact Sheet for Healthcare Providers:https://www.[employer].desai/lily/RT SARS-CoV-2 HCP Fact Sheet 51- 106323.pdfFact Sheet for Healthcare Patients:https://www.molecular.desai/lily/RT SARS-CoV-2 Patient Fact Sheet EN 51-561386A0.pdfBASIC METABOLIC [id number] 12:39:08 Test Item Value Reference Range Interpretation [...] S NOT APPLICABLE FOR DIALYSIS PATIEN TS. Manager Business Continuity ID - ZAIN [id number] 12:23:56 Test Item Value Reference Range Interpretation Comments HEMOGLOBIN (BEAKER) (test code = 13.2 GM/DL 13.7-17.5 L 410) Manager Business Continuity ID - [id number] ID - [id number]
[2023-03-10] MEDS ORDERED: HYDROCODONE/APAP 5/325 MG TAB ONE (06:05)
[2023-03-10 06:10] LABS: Absolute Lymphocytes (CBC) 0.6 K/uL (0.7-4.9); Hematocrit 29.2 % (39.6-49.0); Lymphocytes % 11.7 % (15.3-44.8); Platelets 186 thou/uL (152-406); RBC Red Blood Cell Count 3.44 M/uL (4.33-5.43)
[2023-03-10 06:24] LABS: Potassium 4.5 mEq/L (3.5-5.1)
--- NOTE | 2023-03-10 07:10 | ER ---
Nurse's Notes [facility] Name: Christian Griffith Age: 72 yrs Sex: Male : 1950 Arrival Date: 03/10/2023 Time: 05:18 Bed 14 Private MD: Diagnosis: Hypo-osmolality and hyponatremia;Acute generalized weakness, acute fall at home, bilateral elbow skin tear, acute hyponatremia Presentation: 03/10 05:45 Chief complaint: Spouse and/or significant other states: Pt has fallen multiple times jw7 tonight and has increasing altered mental status. Coronavirus screen: At this time, the client does not indicate any symptoms associated with coronavirus-19. Ebola Screen: No symptoms or risks identified at this time. Initial Sepsis Screen: Does the patient meet any 2 criteria? No. Patient's initial sepsis screen is negative. Does the patient have a suspected source of infection? No. Patient's initial sepsis screen is negative. Risk Assessment: Do you want to hurt yourself or someone else? Patient reports no desire to harm self or others. Onset of symptoms was March 10, 2023. 05:45 Acuity: ROLANDO 3 jw7 05:45 Method Of Arrival: EMS: [facility] jw7 Triage Assessment: 05:47 General: Appears in no apparent distress. comfortable, Behavior is calm, cooperative. jw7 Pain: Denies pain. EENT: No deficits noted. No signs and/or symptoms were reported regarding the EENT system. Neuro: [place] Agitation-Sedation Scale (RASS): 0 - Alert and Calm Level of Consciousness is awake, alert, obeys commands, Oriented to person. Cardiovascular: Capillary refill < 3 seconds Clubbing of nail beds is absent JVD is absent Patient's skin is warm and dry. Rhythm is irregular. Respiratory: Airway is patent Trachea midline Respiratory effort is even, unlabored, Respiratory pattern is regular, symmetrical. GI: No deficits noted. No signs and/or symptoms were reported involving the gastrointestinal system. : No deficits noted. No signs and/or symptoms were reported regarding the genitourinary system. Derm: Skin is fragile, is thin, has skin tears on Right and Left elbows. Musculoskeletal: Circulation, motion, and sensation intact. Range of motion: intact in all extremities. Historical: - Allergies: 05:47 No Known Allergies; jw7 - PMHx: 05:47 COPD; Hypertension; jw7 05:51 Parkinson's disease; jw7 - PSHx: 05:47 Stented artery; jw7 - Immunization history:: Client reports having NOT received the Covid vaccine. Pneumococcal vaccine is not up to date, Flu vaccine is not up to date. - Social history:: Smoking status: Patient denies any tobacco usage or history of. Patient/guardian denies using alcohol, street drugs, IV drugs. - Family history:: not pertinent. Screenin:44 [facility] ED Fall Risk Assessment (Adult) History of falling in the last 3 months, jw7 including since admission Yes- fall prone (multiple falls) (3 pts) Confusion or Disorientation Yes (5 pts) Intoxicated or Sedated No (0 pts) Impaired Gait Yes (1 pt) Mobility Assist Device Used No (0 pt) Altered Elimination No (0 pt) Score/Fall Risk Level 3 or more points = High Risk Oriented to surroundings, Maintained a safe environment, Educated pt \T\ family on fall prevention, incl call for assistance when getting out of bed, Provided non-skid footwear, Hourly rounding (assess needs \T\ fall precautionary measures) done. Abuse screen: Denies threats or abuse. Denies injuries from another. Nutritional screening: No deficits noted. Tuberculosis screening: No symptoms or risk factors identified. Assessment: 05:50 General: see triage assessment. jw7 06:59 Reassessment: Patient appears in no apparent distress at this time. No changes from jw7 previously documented assessment. Patient and/or family updated on plan of care and expected duration. Pain level reassessed. Patient is alert, oriented x 3, equal unlabored respirations, skin warm/dry/pink. 07:05 General: Appears in no apparent distress. comfortable, Behavior is calm, cooperative. rs5 Pain: Denies pain. Neuro: Level of Consciousness is awake, alert, obeys commands, Oriented to person, time, situation. Cardiovascular: Heart tones S1 S2 present Patient's skin is warm and dry. Rhythm is regular. Cardiovascular: Heart tones S1 S2 present Patient's skin is warm and dry. Rhythm is regular. Respiratory: Airway is patent Respiratory effort is even, unlabored, Respiratory pattern is regular, symmetrical, Breath sounds are clear bilaterally. GI: Abdomen is round non-distended, Bowel sounds present X 4 quads. Abd is soft and non tender X 4 quads. : No signs and/or symptoms were reported regarding the genitourinary system. EENT: No signs and/or symptoms were reported regarding the EENT system. Derm: Skin is intact, Skin is pink, warm \T\ dry. Musculoskeletal: Range of motion: intact in all extremities. 08:02 Reassessment: Patient and/or family updated on plan of care and expected duration. Pain rs5 level reassessed. 09:03 Pain: Denies pain. Neuro: Level of Consciousness is awake, alert, obeys commands, rs5 Oriented to person, place, time, situation. Cardiovascular: Rhythm is regular. Respiratory: Respiratory effort is even, unlabored, Respiratory pattern is regular, symmetrical. Vital Signs: 05:45 BP 185 / 74; Pulse 70; Resp 12 S; Temp 98(O); Pulse Ox 98% on R/A; Weight 52.16 kg; jw7 Height 5 ft. 9 in. ; Pain 0/10; 06:14 BP 190 / 96; Pulse 84; Resp 14 S; Pulse Ox 98% on R/A; jw7 07:20 BP 147 / 93; Pulse 82; Resp 16; Pulse Ox 99% on R/A; rs5 08:30 BP 163 / 63; Pulse 79; Resp 17; Pulse Ox 99% on R/A; rs5 09:05 BP 167 / 65; Pulse 81; Resp 17; Pulse Ox 99% ; rs5 05:45 Body Mass Index 16.98 (52.16 kg, 175.26 cm) jw7 05:45 Pain Scale: Adult jw7 ED Course: 05:21 Patient arrived in ED. km8 05:32 Casey Huynh MD is Attending Physician. sp4 05:41 Liz Shook, JOSE F is Primary Nurse. jw7 05:43 EKG done, by ED staff, reviewed by Casey Huynh MD. jw7 05:43 Maintain EMS IV. Dressing intact. Good blood return noted. Site clean \T\ dry. Gauge \T\ jw 7 site: 18g RAC. 05:44 Patient has correct armband on for positive identification. Placed in gown. Bed in low jw7 position. Call light in reach. Side rails up X2. Adult w/ patient. 05:47 Triage completed. jw7 05:47 Arm band placed on. jw7 06:19 CT Head C Spine In Process Unspecified. EDMS 06:19 XRAY Chest (1 view) In Process Unspecified. EDMS 06:19 XRAY Pelvis In Process Unspecified. EDMS 06:27 Wound care: to skin tear located on right elbow, left elbow and palmar aspect of left jw7 forearm was cleaned with soap and water, dressed with xeroform, gauze wrap, and ramiro wrapped. , Patient tolerated well. 07:09 Sha Armenta is Hospitalizing Provider. sp4 09:00 No provider procedures requiring assistance completed. rs5 09:00 Patient admitted, IV remains in place. rs5 Administered Medications: 05:57 Drug: HYDROcodone-acetaminophen PO 5 mg-325 mg 1 tabs PO once Route: PO; km8 07:05 Follow up: Response: No adverse reaction; Pain is decreased rs5 05:57 Drug: Ondansetron PO 4 mg PO once Route: PO; km8 07:05 Follow up: Response: No adverse reaction rs5 07:10 Drug: NS 0.9% IV 1000 ml IV at 100 ml/hr continuous Route: IV; Rate: 100 ml/hr; Site: rs5 right antecubital; 07:25 Follow up: Response: No adverse reaction rs5 07:54 Not Given (Product Out of Stock): tetanus-diphtheria toxoidadult 0.5 ml IM once; rs5 Provide Vaccine Information Statement (VIS). 07:54 Drug: Boostrix Tdap IM 0.5 ml IM once; as a single dose Route: IM; Site: left deltoid; rs5 08:20 Follow up: Response: No adverse reaction rs5 Medication: 08:46 VIS not applicable for this client. rs5 Outcome: 07:09 Decision to Hospitalize by Provider. sp4 09:00 Admitted to Med/surg accompanied by tech, via stretcher, with chart, rs5 09:00 Condition: stable 09:00 Instructed on the need for admit, Demonstrated understanding of instructions, 09:12 Patient left the ED. rs5 Signatures: Dispatcher Medst EDMS Liz Shook RN RN jw7 Angel Giles RN RN rs5 Casey Huynh MD MD 4 Beverly Moore RN RN km8 Corrections: (The following items were deleted from the chart) 06:14 05:45 General: see triage assessment. jw7 jw7 09:22 09:21 Response: No adverse reaction; Pain is decreased rs5 rs5
--- NOTE | 2023-03-10 07:10 | EDPHYS ---
Physician Documentation [facility] Name: Christian Griffith Age: 72 yrs Sex: Male : 1950 Arrival Date: 03/10/2023 Time: 05:18 Bed 14 Private MD: ED Physician Casey Huynh HPI: 03/10 05:32 This 72 yrs old Male presents to ER via Unassigned with complaints of Gen sp4 complaint . 05:41 This is a very pleasant 72-year-old male who presents with EMS after acute fall at home sp4 just prior to arrival.. Patient has history of coronary artery angiography dated yesterday by Dr. Chery . . Historical: - Allergies: 05:47 No Known Allergies; jw7 - PMHx: 05:47 COPD; Hypertension; jw7 05:51 Parkinson's disease; jw7 - PSHx: 05:47 Stented artery; jw7 - Immunization history:: Client reports having NOT received the Covid vaccine. Pneumococcal vaccine is not up to date, Flu vaccine is not up to date. - Social history:: Smoking status: Patient denies any tobacco usage or history of. Patient/guardian denies using alcohol, street drugs, IV drugs. - Family history:: not pertinent. ROS: 05:41 Constitutional: Negative for fever, chills, and weight loss, positive for right elbow sp4 skin tear positive left elbow skin tear. 05:41 All other systems are negative, Exam: 05:41 Constitutional: This is a well developed, who is awake, alert, and in no acute sp4 distress. Patient is a thin debilitated male with signs of cachexia. Bilateral elbow skin tears that are rather minor.. Left groin pressure dressing with Tegaderm in place secondary to recent arterial puncture. Dressing is clean dry and intact Head/Face: Normocephalic, atraumatic. Eyes: Pupils equal round and reactive to light, extra-ocular motions intact. Lids and lashes normal. Conjunctiva and sclera are not injected. Cornea within normal limits. Periorbital areas with no swelling, redness, or edema. ENT: Nares patent. No nasal discharge, no septal abnormalities noted. Tympanic membranes are normal and external auditory canals are clear. Oropharynx with no redness, swelling, or masses, exudates, or evidence of obstruction, uvula midline. Mucous membranes moist. Neck: Trachea midline, no thyromegaly or masses palpated, and no cervical lymphadenopathy. Supple, full range of motion without nuchal rigidity, or vertebral point tenderness. Chest/axilla: Normal chest wall appearance and motion. Nontender with no deformity. No lesions are appreciated. Cardiovascular: Regular rate and rhythm with a normal S1 and S2. No gallops, murmurs, or rubs. Normal PMI, no JVD. No pulse deficits. Respiratory: Lungs have equal breath sounds bilaterally, clear to auscultation and percussion. No rales, rhonchi or wheezes noted. No increased work of breathing, no retractions or nasal flaring. Abdomen/GI: Soft, non-tender, with normal bowel sounds. No distension or tympany. No guarding or rebound. No evidence of tenderness throughout. Back: No spinal tenderness. No costovertebral tenderness. Skin: Warm, dry with normal turgor. Normal color with no rashes, no lesions, and no evidence of cellulitis. MS/ Extremity: Pulses equal, no cyanosis. Neurovascular intact. Full, normal range of motion. Neuro: Awake and alert, GCS 15, oriented to person, place, Cranial nerves II-XII grossly intact. Motor strength 5/5 in all extremities. Sensory grossly intact. Patient has signs of mild to moderate dementia, neurologically intact Psych: Awake, alert, with orientation to person, place, signs of mild to moderate dementia 05:41 ECG was reviewed by the Attending Physician. EKG at 5:27 AM. There is sinus rhythm at the rate of 66, significant muscle tremor artifact, no ST elevation or depression. Vital Signs: 05:45 BP 185 / 74; Pulse 70; Resp 12 S; Temp 98(O); Pulse Ox 98% on R/A; Weight 52.16 kg; jw7 Height 5 ft. 9 in. ; Pain 0/10; 06:14 BP 190 / 96; Pulse 84; Resp 14 S; Pulse Ox 98% on R/A; jw7 07:20 BP 147 / 93; Pulse 82; Resp 16; Pulse Ox 99% on R/A; rs5 08:30 BP 163 / 63; Pulse 79; Resp 17; Pulse Ox 99% on R/A; rs5 09:05 BP 167 / 65; Pulse 81; Resp 17; Pulse Ox 99% ; rs5 05:45 Body Mass Index 16.98 (52.16 kg, 175.26 cm) jw7 05:45 Pain Scale: Adult jw7 MDM: 05:46 Patient medically screened. sp4 07:07 ED course: CT - FINDINGS: Head CT: No acute intracranial hemorrhage identified. No sp4 mass, mass effect, shift of the midline, abnormal extra-axial fluid collection or CT evidence of acute ischemic change identified. The ventricular system and sulcal spaces are mildly enlarged compatible with mild cerebral atrophy. Scattered areas of hypodensity throughout the supratentorial white matter are nonspecific and may be related to chronic small vessel ischemic change. Minimal mucosal thickening of the paranasal sinuses. Mastoid air cells are well aerated. No skull fracture identified. Visualized orbits and globes are unremarkable. Atherosclerotic calcification of the intracranial internal carotid arteries. Cervical CT : Alignment of the cervical spine is maintained without evidence of subluxation. The atlantoaxial, atlantodental, and occipitoatlantal intervals are preserved. No acute cortical step-off or subluxation. Stable mild compression deformity of T1. Prevertebral soft tissues are unremarkable. Emwz-ut-ziskxzsd multilevel loss of intervertebral disc height with endplate spondylosis, facet arthropathy, and uncovertebral spurring. Posterior disc osteophyte complex at multiple levels mildly encroach on the anterior spinal canal. Visualized skull base is intact. Visualized thyroid is unremarkable. No cervical lymphadenopathy. No pneumothorax in the visualized lung apices. Centrilobular emphysematous change. Atherosclerotic vascular calcification. IMPRESSION: 1. No acute intracranial abnormality by CT criteria. 2. No acute fracture or subluxation of the cervical spine. 3. Moderate multilevel degenerative change of the cervical spine. Electronically signed by: Frank Taylor DO 03/10/2023 06:35 AM . ED course: X ray - TECHNIQUE: Single frontal view of the pelvis. COMPARISON: No relevant prior studies available. FINDINGS: Bones/joints: No acute fracture visualized. No dislocation. Soft tissues: Right inguinal surgical clips. Vasculature: Left iliac vascular stents. Atherosclerotic calcification. IMPRESSION: No acute fracture visualized. Electronically signed by: Colleen Noriega MD 03/10/2023 06:31 AM. ED course: Chest X ray - TECHNIQUE: Chest 1 ViewAP FINDINGS: Trachea midline. Moderate aortic arch calcification. Heart size and pulmonary vessels within normal limits. No focal consolidation, mass, or significant pulmonary edema. Bilateral lung hyperlucency reidentified. No significant pleural effusion or pneumothorax. Osteopenia or diffuse decreased bone density. New moderate leftward convex curvature of thoracic spine is likely positional. IMPRESSION: Bilateral lung hyperlucency reidentified. This may represent emphysema.. 07:10 Differential Diagnosis altered mental status, sepsis, flu. Data reviewed: vital signs, sp4 nurses notes, old medical records, lab test result(s), EKG, radiologic studies, CT scan, plain films. Consideration of Admission/Observation Patient was admitted/placed on observation. Escalation of care including admission/observation considered. Management of patient was discussed with the following: Hospitalist: Admission team . 03/10 05:40 Order name: Basic Metabolic Panel; Complete Time: 07:03 4 03/10 05:40 Order name: CBC with Diff; Complete Time: 07:03 4 03/10 05:40 Order name: Type And Screen [facility] 03/10 07:10 Order name: CK [facility] 03/10 07:10 Order name: Troponin High Sensitivity [facility] 03/10 07:11 Order name: COVID-19 SARS RT PCR 4 03/10 07:11 Order name: Influenza Screen (a \T\ B) 4 03/10 05:40 Order name: CT Head C Spine 4 03/10 05:40 Order name: XRAY Chest (1 view) 4 03/10 05:40 Order name: XRAY Pelvis 4 03/10 05:41 Order name: EKG; Complete Time: 05:42 4 03/10 05:40 Order name: Labs collected and sent; Complete Time: 05:57 sp4 03/10 05:41 Order name: EKG - Nurse/Tech; Complete Time: 05:42 sp4 03/10 05:41 Order name: Wound Care; Complete Time: 06:26 sp4 EC:41 Rate is 66 beats/min. Rhythm is regular, Sinus Rhythm. QRS [place] is Normal. MS interval sp4 is normal. QRS interval is normal. QT interval is normal. T waves are Normal. No ST changes noted. Clinical impression: No evidence of ischemia. Interpreted by me. Administered Medications: 05:57 Drug: HYDROcodone-acetaminophen PO 5 mg-325 mg 1 tabs PO once Route: PO; km8 07:05 Follow up: Response: No adverse reaction; Pain is decreased rs5 05:57 Drug: Ondansetron PO 4 mg PO once Route: PO; km8 07:05 Follow up: Response: No adverse reaction rs5 07:10 Drug: NS 0.9% IV 1000 ml IV at 100 ml/hr continuous Route: IV; Rate: 100 ml/hr; Site: rs5 right antecubital; 07:25 Follow up: Response: No adverse reaction rs5 07:54 Not Given (Product Out of Stock): tetanus-diphtheria toxoidadult 0.5 ml IM once; rs5 Provide Vaccine Information Statement (VIS). 07:54 Drug: Boostrix Tdap IM 0.5 ml IM once; as a single dose Route: IM; Site: left deltoid; rs5 08:20 Follow up: Response: No adverse reaction rs5 Disposition Summary: 03/10/23 07:09 Hospitalization Ordered Notes: Hospitalization Status: Observation sp4 Provider: Sha Armenta sp4 Location: Telemetry/MedSur (observation) sp4 Condition: Stable sp4 Problem: new sp4 Symptoms: are unchanged sp4 Bed/Room Type: Standard sp4 Room Assignment: 219(03/10/23 08:28) em1 Diagnosis - Hypo-osmolality and hyponatremia sp4 - Acute generalized weakness, acute fall at home, bilateral elbow skin tear, acute sp4 hyponatremia Forms: - Medication Reconciliation Form sp4 - SBAR form sp4 - Leadership Thank You Letter sp4 Signatures: Dispatcher [employer] Danny Cline em1 Liz Shook RN RN jw7 Angel Giles RN RN rs5 Casey Huynh MD MD sp4 Beverly Moore RN RN km8 Corrections: (The following items were deleted from the chart) 08:28 07:09 sp4 em1
[2023-03-10] MEDS ORDERED: NA CHLORIDE 0.9% 1,000 ML ONE (07:21)
--- NOTE | 2023-03-10 07:21 | P.HP ---
Certification for Inpatient Patient admitted to: Inpatient With expected LOS: <2 Midnights Patient will require the following post-hospital care: None Practitioner: I am a practitioner with admitting privileges, knowledge of patient current condition, hospital course, and medical plan of care. Services: Services provided to patient in accordance with Admission requirements found in Title 42 Section 412.3 of the Code of Federal Regulations Patient History Date of Service: 03/10/23 Reason for admission: Fall History of Present Illness: 72-year-old male with a past medical history of hypertension, COPD, Parkinson's, presents to the emergency room with fall at home. Reports a recent coronary artery angiography dated yesterday by Dr. Chery no reported stent placement. No reported chest pain, shortness of breath, edema, dizziness. He reported taking ambien last night, he is not presribed, for not sleeping. reports moderate generalized weakness, confusion, unsteady gate that is worse today, not his baseline. AO x 2, EKG sinus rhythm at rate of 66, significant muscle tremor artifact, no ST elevation or depression. Blood pressure BP 185 / 74; Pulse 70; Resp 12 S; Temp 98(O); Pulse Ox 98% on R/A; Weight 52.16 kg;Height 5 ft. 9 in. ; Pain 0/10; Plan to admit for fall, hyponatremia. Nephrology to consult for hyponatremia Laboratory evaluation sodium 128, acute kidney injury BUN 24 creatinine 1.19, normocytic anemia 9.[address]: No acute intracranial hemorrhage identified. mass, mass effect, shift of the midline, abnormal extra-axial fluid collection or CT evidence of acute ischemic change identified. The ventricular system and sulcal spaces are mildly enlarged compatible with mild cerebral atrophy. Scattered areas of hypodensity throughout the supratentorial white matter are nonspecific and may be related to chronic small vessel ischemic change. Minimal mucosal thickening of the paranasal sinuses. Mastoid air cells are well aerated. No skull fracture identified. Visualized orbits and globes are unremarkable. Atherosclerotic calcification of the intracranial internal carotid arteries. Cervical CT : Alignment of the cervical spine is maintained without evidence of subluxation. The atlantoaxial, atlantodental, and occipitoatlantal intervals are preserved. No acute cortical step-off or subluxation. Stable mild compression deformity of T1. Prevertebral soft tissues are unremarkable. [id number] multilevel loss of intervertebral disc height with endplate spondylosis, facet arthropathy, and uncovertebral spurring. Posterior disc osteophyte complex at multiple levels mildly encroach on the anterior spinal canal. Visualized skull base is intact. Visualized thyroid is unremarkable. No cervical lymphadenopathy. No pneumothorax in the visualized lung apices. Centrilobular emphysematous change. Atherosclerotic vascular calcification. IMPRESSION: 1. No acute intracranial abnormality by CT criteria. 2. No acute fracture or subluxation of the cervical spine. 3. Moderate multilevel degenerative change of the cervical spine.X ray - TECHNIQUE: Single frontal view of the pelvis. COMPARISON: No relevant prior studies available. FINDINGS: Bones/joints: No acute fracture visualized. No dislocation. Soft tissues: Right inguinal surgical clips. Vasculature: Left iliac vascular stents. Atherosclerotic calcification. IMPRESSION: No acute fracture visualized. Chest X ray - TECHNIQUE: Chest 1 ViewAP FINDINGS: Trachea midline. Moderate aortic arch calcification. Heart size and pulmonary vessels within normal limits. No focal consolidation, mass, or significant pulmonary edema. Bilateral lung hyperlucency reidentified. No significant pleural effusion or pneumothorax. Osteopenia or diffuse decreased bone density. New moderate leftward convex curvature of thoracic spine is likely positional. IMPRESSION: Bilateral lung hyperlucency reidentified. This may represent emphysema.. Allergies No Known Allergies Allergy (Verified 03/04/23 10:20) Home Medications: Amlodipine [Norvasc*] 5 mg PO DAILY 02/11/21 Albuterol Neb [Proventil 0.083% Neb Soln] 3 ml NEB TID PRN #90 amp 02/18/21 Arformoterol Tartrate [Brovana] 2 ml NEB BIDRESP #60 vial.neb 02/18/21 Aspirin [Aspirin EC 81 MG] 81 mg PO DAILY #90 tablet. 02/18/21 Carbidopa/Levodopa 25-100 [Sinemet 25-100*] 1 tab PO QID #120 tab 02/18/21 Docusate [Colace Cap*] 100 mg PO DAILY #30 cap 02/18/21 Ensure Enlive 237 ml PO TID #90 can 02/18/21 Ferrous Sulfate [Iron] 325 mg PO BID #60 tablet 02/18/21 Folic Acid 1 mg PO DAILY #90 tablet 02/18/21 Metoprolol Tartrate [Lopressor*] 12.5 mg PO BID 6AM 6PM #60 tab 02/18/21 Nicotine [Nicoderm*] 14 mg TD DAILY #30 patch.td24 02/18/21 Pantoprazole [Protonix Tab] 40 mg PO DAILY #30 tab 02/18/21 Thiamine HCl [Vitamin B-1*] 100 mg PO DAILY #90 tablet 02/18/21 chlordiazePOXIDE HCl [Librium*] 5 mg PO SEECOM #30 cap 02/18/21 predniSONE [Prednisone*] 20 mg PO DAILY #7 tab 02/18/21 - Past Medical/Surgical History Diabetic: No -: COPD -: HTN -: CVA -: CAD with recent PCI -: PCI - Social History Alcohol use: No CD- Drugs: No Caffeine use: No Place of Residence: Home Review of Systems 10-point ROS is otherwise unremarkable Physical Examination - Physical Exam General: Alert, In no apparent distress, Oriented x2, Other (confusion) HEENT: Atraumatic, Normocephalic Neck: Supple, 2+ carotid pulse no bruit Cardiovascular: No edema, Normal pulses, Regular rate/rhythm Capillary refill: <2 Seconds Gastrointestinal: Normal bowel sounds, Soft and benign Musculoskeletal: No clubbing, No swelling, Other (DJD, unsteady gate) Integumentary: No rashes, No breakdown, Other (L) groin dry dressing, no hematoma) Neurological: Normal speech, Other (mild confuion, fine motor tremors) - Studies Laboratory Data (last 24 hrs) 03/10/23 03/10/23 05:54 05:54 WBC 5.30 Hgb 9.6 L Hct 29.2 L Plt Count 186 Sodium 128 L Potassium 4.5 BUN 24 H Creatinine 1.19 Glucose 71 L Assessment and Plan - Plan Assessment plan Hyponatremia Acute kidney injury Nephrology consult, normal saline, Urine osmole, urine sodium, serum osmole ordered Laboratory evaluation sodium 128, acute kidney injury BUN 24 creatinine 1.19, Every 4 hours BMPs Fall DJD Chronic pain PT eval, fall precautions Head CT: No acute intracranial hemorrhage identified. mass, mass effect, shift of the midline, abnormal extra-axial fluid collection or CT evidence of acute ischemic change identified. The ventricular system and sulcal spaces are mildly enlarged compatible with mild cerebral atrophy. Scattered areas of hypodensity throughout the supratentorial white matter are nonspecific and may be related to chronic small vessel ischemic change. Minimal mucosal thickening of the paranasal sinuses. Mastoid air cells are well aerated. No skull fracture identified. Visualized orbits and globes are unremarkable. Atherosclerotic calcification of the intracranial internal carotid arteries. Cervical CT : Alignment of the cervical spine is maintained without evidence of subluxation. The atlantoaxial, atlantodental, and occipitoatlantal intervals are preserved. No acute cortical step-off or subluxation. Stable mild compression deformity of T1. Prevertebral soft tissues are unremarkable. [id number] multilevel loss of intervertebral disc height with endplate spondylosis, facet arthropathy, and uncovertebral spurring. Posterior disc osteophyte complex at multiple levels mildly encroach on the anterior spinal canal. Visualized skull base is intact. Visualized thyroid is unremarkable. No cervical lymphadenopathy. No pneumothorax in the visualized lung apices. Centrilobular emphysematous change. Atherosclerotic vascular calcification. IMPRESSION: 1. No acute intracranial abnormality by CT criteria. 2. No acute fracture or subluxation of the cervical spine. 3. Moderate multilevel degenerative change of the cervical spine.X ray - TECHNIQUE: Single frontal view of the pelvis. COMPARISON: No relevant prior studies available. FINDINGS: Bones/joints: No acute fracture visualized. No dislocation. Soft tissues: Right inguinal surgical clips. Vasculature: Left iliac vascular stents. Atherosclerotic calcification. IMPRESSION: No acute fracture visualized. Chest X ray - TECHNIQUE: Chest 1 ViewAP FINDINGS: Trachea midline. Moderate aortic arch calcification. Heart size and pulmonary vessels within normal limits. No focal consolidation, mass, or significant pulmonary edema. Bilateral lung hyperlucency reidentified. No significant pleural effusion or pneumothorax. Osteopenia or diffuse decreased bone density. New moderate left bush convex curvature of thoracic spine is likely positional. IMPRESSION: Bilateral lung hyperlucency reidentified. This may represent emphysema.. Hypertensive urgency As needed antihypertensives Blood pressure BP 185 / 74; Pulse 70; Resp 12 S; Temp 98(O); Pulse Ox 98% on R/A; Weight 52.16 kg;Height 5 ft. 9 in. ; Pain 0/10; Reports a recent coronary artery angiography dated yesterday by Dr. Chery. No reported chest pain, shortness of breath, edema, dizziness. EKG sinus rhythm at rate of 66, significant muscle tremor artifact, no ST elevation or depression. Normocytic anemia Trend H&H normocytic anemia 9.6 29.2 ( CAD with recent PCI with Dr. Chery Hyperlipidemia Essential hypertension Parkinson's Telemetry, Resume appropriate home meds COPD stable O2 2 L keep sats greater than 92% Resume home meds, nebs as needed Full Code DVT lovenox Diet cardiac Discharge Plan: Home Plan to discharge in: 48 Hours - Advance Directives Does patient have a Living Will: No Does patient have a Durable POA for Healthcare: No - Code Status/Comfort Care Code Status: Full Code Physician Review: Patient Assessed, Agree with Above Assessment and Plan Critical Care: No Time Spent Managing Pts Care (In Minutes): 55
[2023-03-10] MEDS ORDERED: TDAP (DIPHTH,PERTUSS(ACELL),TET VAC) 0.5 ML VIAL IMVAC ONE (07:43)
[2023-03-10 07:55] LABS: Troponin High Sensitivity 19.8 pg/mL (<58.9)
[2023-03-10] MEDS ORDERED: ONDANSETRON 4 MG/2 ML VIAL IV PRN (09:30)
[2023-03-10] MEDS ORDERED: ALBUTEROL 2.5 MG/3 ML NEB SOL NEB PRN (09:30)
[2023-03-10] MEDS: NA CHLORIDE 0.9% 1,000 ML IV SCH ×2 (09:30→17:18)
[2023-03-10] MEDS ORDERED: ACETAMINOPHEN 500 MG TAB PO PRN (09:30)
--- NOTE | 2023-03-10 09:53 | P.CNS ---
Date of Consult: 03/10/23 Reason for Consult: Hyponatremia Requesting Physician: Tato Perez Chief Complaint: Fall History of Present Illness: 72-year-old male with a past medical history of hypertension, COPD, Parkinson's, presents to the emergency room with fall at home. Reports a recent coronary artery angiography dated yesterday by Dr. Chery no reported stent placement. No reported chest pain, shortness of breath, edema, dizziness. He reported taking ambien last night, he is not presribed, for not sleeping. reports moderate generalized weakness, confusion, unsteady gate that is worse today, not his baseline. AO x 2, EKG sinus rhythm at rate of 66, significant muscle tremor artifact, no ST elevation or depression. Blood pressure BP 185 / 74; Pulse 70; Resp 12 S; Temp 98(O); Pulse Ox 98% on R/A; Weight 52.16 kg;Height 5 ft. 9 in. ; Pain 0/10; Plan to admit for fall, hyponatremia. Nephrology to consult for hyponatremia Laboratory evaluation sodium 128, acute kidney injury BUN 24 creatinine 1.19, normocytic anemia 9.[address]: No acute intracranial hemorrhage identified. mass, mass effect, shift of the midline, abnormal extra-axial fluid collection or CT evidence of acute ischemic change identified. The ventricular system and sulcal spaces are mildly enlarged compatible with mild cerebral atrophy. Scattered areas of hypodensity throughout the supratentorial white matter are nonspecific and may be related to chronic small vessel ischemic change. Minimal mucosal thickening of the paranasal sinuses. Mastoid air cells are well aerated. No skull fracture identified. Visualized orbits and globes are unremarkable. Atherosclerotic calcification of the intracranial internal carotid arteries. Cervical CT : Alignment of the cervical spine is maintained without evidence of subluxation. The atlantoaxial, atlantodental, and occipitoatlantal intervals are preserved. No acute cortical step-off or subluxation. Stable mild compression deformity of T1. Prevertebral soft tissues are unremarkable. [id number]-js-[id number] multilevel loss of intervertebral disc height with endplate spondylosis, facet arthropathy, and uncovertebral spurring. Posterior disc osteophyte complex at multiple levels mildly encroach on the anterior spinal canal. Visualized skull base is intact. Visualized thyroid is unremarkable. No cervical lymphadenopathy. No pneumothorax in the visualized lung apices. Centrilobular emphysematous change. Atherosclerotic vascular calcification. IMPRESSION: 1. No acute intracranial abnormality by CT criteria. 2. No acute fracture or subluxation of the cervical spine. 3. Moderate multilevel degenerative change of the cervical spine.X ray - TECHNIQUE: Single frontal view of the pelvis. COMPARISON: No relevant prior studies available. FINDINGS: Bones/joints: No acute fracture visualized. No dislocation. Soft tissues: Right inguinal surgical clips. Vasculature: Left iliac vascular stents. Atherosclerotic calcification. IMPRESSION: No acute fracture visualized. Chest X ray - TECHNIQUE: Chest 1 ViewAP FINDINGS: Trachea midline. Moderate aortic arch calcification. Heart size and pulmonary vessels within normal limits. No focal consolidation, mass, or significant pulmonary edema. Bilateral lung hyperlucency reidentified. No significant pleural effusion or pneumothorax. Osteopenia or diffuse decreased bone density. New moderate leftward convex curvature of thoracic spine is likely positional. IMPRESSION: Bilateral lung hyperlucency reidentified. This may represent emphysema. [id number] 05:32 This 72 yrs old Male presents to ER via Unassigned with c omplaints of Gen sp4 complaint . 05:41 This is a very pleasant 72-year-old male who presents with EMS after acute fall at home sp4 just prior to arrival.. Patient has history of coronary artery angiography dated yesterday by Dr. Chery [id number] Diagnosis: Hypo-osmolality and hyponatremia;Acute generalized weakness, acute fall at home, bilateral elbow skin tear, acute hyponatremia Presentation: 03/10 05:45 Chief complaint: Spouse and/or significant other states: Pt has fallen multiple times jw7 tonight and has increasing altered mental status. Reports intermittent NSAIDs. Nocturia 3-4X. He states that he has had increased thirst and has been drinking lots of water since his procedure on Tuesday. Allergies No Known Allergies Allergy (Verified 03/04/23 10:20) Home medications list reviewed: Yes Home Medications: Carbidopa/Levodopa 25-100 [Sinemet 25-100*] 1 tab PO QID #120 tab 02/18/21 Acetaminophen with Codeine [Tylenol with Codeine #4 Tablet] 1 tab PO BIDP PRN 03/10/23 Fluticasone Propion/Salmeterol [Wixela 250-50 Inhub] 1 puff IH BID 03/10/23 Mirtazapine 30 mg PO BEDTIME 03/10/23 lisinopriL [Lisinopril] 10 mg PO DAILY 03/10/23 methocarbamoL [Methocarbamol] 750 mg PO BIDP PRN 03/10/23 - Past Medical/Surgical History Diabetic: No -: COPD -: HTN -: CVA -: CAD with recent PCI -: CKD II (Dr. Rosenberg/ Dr. Rendon) -: Hyponatremia -: PCI - Family History Father Medical History: Hypertension Mother Medical History: Hypertension - Social History Smoking Status: Former smoker Alcohol use: No CD- Drugs: No Caffeine use: No Place of Residence: Home Review of Systems 10-point ROS is otherwise unremarkable General: Weakness, Malaise Genitourinary: Urgency Physical Examination Temp Pulse Resp BP Pulse Ox 98.0 F 72 16 150/62 H 91 03/10/23 09:32 03/10/23 09:32 03/10/23 09:32 03/10/23 09:32 03/10/23 09:32 General: In no apparent distress, Oriented x3, Cooperative HEENT: Atraumatic Neck: Supple Respiratory: Clear to auscultation bilaterally, Normal air movement Cardiovascular: No edema, Regular rate/rhythm Gastrointestinal: Soft and benign, Non-distended Musculoskeletal: No clubbing, No contractures Integumentary: No rashes, No cyanosis Neurological: Normal speech Laboratory Data (last 24 hrs) 03/10/23 03/10/23 05:54 05:54 WBC 5.30 Hgb 9.6 L Hct 29.2 L Plt Count 186 Sodium 128 L Potassium 4.5 BUN 24 H Creatinine 1.19 Glucose 71 L Imagings Data: EXAM DESCRIPTION: RAD - Chest Single View - 03/10/2023 6:17 am CLINICAL HISTORY: Fall , injury COMPARISON: Chest 1 View AP 03/04/2023 TECHNIQUE: Chest 1 View AP FINDINGS: Trachea midline. Moderate aortic arch calcification. Heart size and pulmonary vessels within normal limits. No focal consolidation, mass, or significant pulmonary edema. Bilateral lung hyperlucency reidentified. No significant pleural effusion or pneumothorax. Osteopenia or diffuse decreased bone density. New moderate leftward convex curvature of thoracic spine is likely positional. IMPRESSION: Bilateral lung hyperlucency reidentified. This may represent emphysema. Conclusions/Impression: CKD II with Proteinuria -No NSAIDs Acute Hyponatremia in the setting of excessive thirst & water intake Chronic Hyponatremia in the setting of lung disease -Continue IVF with NS -Consider fluid restriction -Repeat BMP as ordered -Send urine lytes HTN with CKD -Continue Metoprolol -Continue Amlodipine Anemia in chronic illness Hx Iron Deficiency -Check iron status -Consider IV iron -Monitor H&H Atherosclerosis of Aorta Diffuse PAD Infrarenal AAA -Continue ASA -Recommend statin Quit Cigarettes ~1 year ago Current Vaper -Nicotine TD -RUL spiculated lesion followed by Dr. Hernandez Hospitalist and ER notes reviewed Thank you kindly for the consultation
[2023-03-10] MEDS: FERROUS SULFATE 325 MG TAB PO SCH ×2 (10:00→20:25)
[2023-03-10] MEDS: NICOTINE 14 MG/PAT TD SCH ×2 (10:00→10:45)
[2023-03-10 10:10] VITALS: BMI 16.9
[2023-03-10] MEDS: AMLODIPINE 5 MG TAB PO SCH (10:41)
[2023-03-10] MEDS: THIAMINE HCL 100 MG TABLET PO SCH (10:41)
[2023-03-10] MEDS: CARBIDOPA/LEVODOPA 25/100 TAB PO SCH ×4 (10:41→20:25)
[2023-03-10] MEDS: ASPIRIN EC 81 MG TAB PO SCH (10:41)
[2023-03-10] MEDS: DOCUSATE NA 100 MG CAP PO SCH ×2 (10:41→20:25)
[2023-03-10] MEDS: PANTOPRAZOLE 40MG TABLET PO SCH (10:41)
[2023-03-10] MEDS: FOLIC ACID 1 MG TABLET PO SCH (10:41)
--- NOTE | 2023-03-10 10:41 | EKG ---
Test Date: 2023-03-10 Test Time: 05:27:58 Earth Moving Technician: ARNIE MEASUREMENT RESULTS: Intervals: Rate: 66 ME: 154 QRSD: 66 QT: 366 QTc: 383 [place]: P: 93 ME: 154 QRS: 92 T: 78 INTERPRETIVE STATEMENTS: Sinus rhythm Rightward axis Septal infarct, age undetermined Abnormal ECG Compared to ECG 03/04/2023 11:31:33 Right-axis deviation now present Myocardial infarct finding now present Electronically Signed On 03-10-23 10:40:32 CERTIFIED VETERINARY TECHNICIAN by Hubert Chery
[2023-03-10 10:48] LABS: Potassium 5.1 mEq/L (3.5-5.1)
[2023-03-10 13:56] LABS: Specific Gravity 1.008 (1.005-1.030); Urine Bacteria None Seen /HPF (<20); Urine Bilirubin NEGATIVE (Negative); Urine Blood Negative (Negative); Urine Clarity Clear (Clear); Urine Color Colorless (Yellow); Urine Glucose NEGATIVE (Negative); Urine Protein NEGATIVE (Negative); Urine RBC <5 /HPF (None Seen); Urine Urobilinogen Normal (Normal)
[2023-03-10 14:01] LABS: UR MICROALBUMIN 7.6 mg/dL (< 1.9); UR PROTEIN 15.3 mg/dL (<11.9); Urine Protein/Creatinine Ratio 0.55 ratio (<0.15)
[2023-03-10 16:18] LABS: Potassium 4.7 mEq/L (3.5-5.1)
[2023-03-10] MEDS: METOPROLOL TAR 25 MG TAB PO SCH (17:19)
--- NOTE | 2023-03-10 17:21 | RAD REPORT ---
EXAM DESCRIPTION: CT - Head C Spine Mpr Wo Con - 03/10/2023 6:51 am CLINICAL HISTORY: Fall, head injury COMPARISON: 10/10/2022 TECHNIQUE: Axial CT of the head obtained from the skull apex to the skull base without contrast. Axi al CT images of the cervical spine obtained without contrast. This exam was performed according to [facility] departmental dose-optimization program, which includes automated exposure control, adjustment of th e mA and/or kV according to patient size and/or use of iterative reconstruction technique. FINDINGS: Head CT: No acute intracranial hemorrhage identified. No mass, mass effect, shift of the midline, abnormal ext ra-axial fluid collection or CT evidence of acute ischemic change identified. The ventricular system and sulcal spaces are mildly enlarged compatible with mild cerebral atrophy. Scattered areas of hyp odensity throughout the supratentorial white matter are nonspecific and may be related to chronic sma ll vessel ischemic change. Minimal mucosal thickening of the paranasal sinuses. Mastoid air cells are well aerated. No skull fra cture identified. Visualized orbits and globes are unremarkable. Atherosclerotic calcification of t he intracranial internal carotid arteries. Cervical CT : Alignment of the cervical spine is maintained without evidence of subluxation. The atlantoaxial, at lantodental, and occipitoatlantal intervals are preserved. No acute cortical step-off or subluxatio n. Stable mild compression deformity of T1. Prevertebral soft tissues are unremarkable. Nfyb-iw-pzetxdee multilevel loss of intervertebral disc height with endplate spondylosis, facet arthr opathy, and uncovertebral spurring. Posterior disc osteophyte complex at multiple levels mildly enc doran on the anterior spinal canal. Visualized skull base is intact. Visualized thyroid is unremarkable. No cervical lymphadenopathy. No pneumothorax in the visualized lung apices. Centrilobular emphysematous change. Atherosclerotic vascular calcification. IMPRESSION: 1. No acute intracranial abnormality by CT criteria. 2. No acute fracture or subluxation of the cervical spine. 3. Moderate multilevel degenerative change of the cervical spine. Electronically signed by: Frank Taylor DO 03/10/2023 06:35 AM VIDEO COORDINATOR M Due to temporary technical issues with the PACS/Fluency reporting system, reports are being signed by the in house radiologists without review as a courtesy to insure prompt reporting. The interpreting radiologist is fully responsible for the content of the report.
--- NOTE | 2023-03-10 17:28 | RAD REPORT ---
EXAM DESCRIPTION: RAD - Pelvis - 03/10/2023 6:17 am CLINICAL HISTORY: The patient is 72 years old and is Male; acute fall TECHNIQUE: Single frontal view of the pelvis. COMPARISON: No relevant prior studies available. FINDINGS: Bones/joints: No acute fracture visualized. No dislocation. Soft tissues: Right inguinal surgical clips. Vasculature: Left iliac vascular stents. Atherosclerotic calcification. IMPRESSION: No acute fracture visualized. Electronically signed by: Colleen Noriega MD 03/10/2023 06:31 AM MANAGER PERFORMANCE Due to temporary technical issues with the PACS/Fluency reporting system, reports are being signed by the in house radiologists without review as a courtesy to insure prompt reporting. The interpreting radiologist is fully responsible for the content of the report.
[2023-03-10 17:31] LABS: Potassium 4.6 mEq/L (3.5-5.1)
--- NOTE | 2023-03-10 17:31 | RAD REPORT ---
EXAM DESCRIPTION: RAD - Chest Single View - 03/10/2023 6:17 am CLINICAL HISTORY: Fall , injury COMPARISON: Chest 1 View AP 03/04/2023 TECHNIQUE: Chest 1 View AP FINDINGS: Trachea midline. Moderate aortic arch calcification. Heart size and pulmonary vessels within normal limits. No focal consolidation, mass, or significant pulmonary edema. Bilateral lung hyperlucency reidentified. No significant pleural effusion or pneumothorax. Osteopenia or diffuse decreased bone density. New moderate leftward convex curvature of thoracic spine is likely positional. IMPRESSION: Bilateral lung hyperlucency reidentified. This may represent emphysema. Electronically signed by: Murali Cunha MD 03/10/2023 06:33 AM AUTOMOTIVE ELECTRICIAN HELPER Due to temporary technical issues with the PACS/Fluency reporting system, reports are being signed by the in house radiologists without review as a courtesy to insure prompt reporting. The interpreting radiologist is fully responsible for the content of the report.
[2023-03-10] MEDS ORDERED: METOPROLOL TAR 25 MG TAB PO SCH (18:00)
[2023-03-10] MEDS ORDERED: UREA 15 GM POWDER PACKET PO ONE (20:35)
[2023-03-10] MEDS: ARFORMOTEROL TARTRATE 15 MCG/2 ML VIAL.NEB NEB SCH (20:42)
[2023-03-11 03:07] LABS: Absolute Lymphocytes (CBC) 0.7 K/uL (0.7-4.9); Hematocrit 26.7 % (39.6-49.0); Lymphocytes % 10.2 % (15.3-44.8); MPV 7.6 fL (7.6-11.3); Platelets 189 thou/uL (152-406); RBC Red Blood Cell Count 3.11 M/uL (4.33-5.43)
[2023-03-11 04:36] LABS: Potassium 4.6 mEq/L (3.5-5.1); Uric Acid 7.7 mg/dL (3.5-7.2)
[2023-03-11 04:37] LABS: Albumin 2.8 g/dL (3.4-5.0); Bilirubin Total 0.3 mg/dL (0.2-1.0); Phosphorus 2.2 mg/dL (2.5-4.9); Protein, Total 5.9 g/dL (6.4-8.2); Thyroid Stimulating Hormone 0.427 uIU/mL (0.358-3.740)
[2023-03-11] MEDS: METOPROLOL TAR 25 MG TAB PO SCH (06:12)
[2023-03-11] MEDS ORDERED: UREA 15 GM POWDER PACKET PO ONE (08:00)
[2023-03-11] MEDS: ARFORMOTEROL TARTRATE 15 MCG/2 ML VIAL.NEB NEB SCH (08:30)
[2023-03-11] MEDS: CARBIDOPA/LEVODOPA 25/100 TAB PO SCH ×2 (08:50→13:00)
[2023-03-11] MEDS: NICOTINE 14 MG/PAT TD SCH (08:50)
[2023-03-11] MEDS: DOCUSATE NA 100 MG CAP PO SCH (08:50)
[2023-03-11] MEDS: PANTOPRAZOLE 40MG TABLET PO SCH (08:50)
[2023-03-11] MEDS: FOLIC ACID 1 MG TABLET PO SCH (08:51)
[2023-03-11] MEDS: AMLODIPINE 5 MG TAB PO SCH (08:51)
[2023-03-11] MEDS: THIAMINE HCL 100 MG TABLET PO SCH (08:51)
[2023-03-11] MEDS: ASPIRIN EC 81 MG TAB PO SCH (08:51)
[2023-03-11] MEDS: FERROUS SULFATE 325 MG TAB PO SCH (08:51)
[2023-03-11] MEDS ORDERED: DRISDOL (VITAMIN D=ERGOCALCIFEROL) 50000 UNIT CAP PO SCH (09:00)
[2023-03-11 09:21] VITALS: TEMP 98.5; O2SAT 94
--- NOTE | 2023-03-11 11:16 | P.PN ---
Nephrology note (S) Pt has no acute complaints, has been OOB, no overt dizziness/lightheadedness (O) Vitals, labs and imaging reviewed in the EMR General: In no apparent distress, Oriented x3, Cooperative HEENT: Atraumatic, not needing O2 Neck: Supple Respiratory: No rales or wheezing, Normal air movement Cardiovascular: No edema, Regular rate/rhythm Gastrointestinal: Soft and benign, Non-distended Musculoskeletal: No contractures Integumentary: No rashes Neurological: Normal speech, awake, alert Conclusions/Impression: Mild to mod (acute on chronic) hyponatremia, multifactorial -Urine studies pending. -na level did improve on isotonic IVF and with other measures. S/p ure-Na doses. Pt counseled on some free water restriction. -Can f/u in clinic with us to re-assess Na levels HTN -Cont current regimen Deniz Rendon MD, SALONI
[2023-03-11 14:30] VITALS: BP 159/63
[2023-03-11 22:15] LABS: Ferritin 23.5 ng/mL (26-388)
[2023-03-11] MEDS ORDERED: MIRTAZAPINE 15 MG TAB PO SCH (22:58)
== END 2023-03-11 14:30 | disposition home or self-care (01) | DRG 641 ==
LOC: ER 05:18 → ERHOLD 07:37 → 2ND 09:02
PROVIDERS: ADMIT Hospitalist; ATTEND Hospitalist
DX: E87.1 Hypo-osmolality and hyponatremia (principal); R64 Cachexia; Z68.1 Body mass index [BMI] 19.9 or less, adult; N17.9 Acute kidney failure, unspecified; J44.9 Chronic obstructive pulmonary disease, unspecified; G20.A1 Parkinson's disease without dyskinesia, without mention of fluctuations; M19.90 Unspecified osteoarthritis, unspecified site; G89.29 Other chronic pain; I16.0 Hypertensive urgency; I12.9 Hypertensive chronic kidney disease with stage 1 through stage 4 chronic kidney disease, or unspecified chronic kidney disease; N18.2 Chronic kidney disease, stage 2 (mild); D63.1 Anemia in chronic kidney disease; D63.8 Anemia in other chronic diseases classified elsewhere; D50.9 Iron deficiency anemia, unspecified; J98.4 Other disorders of lung; I70.0 Atherosclerosis of aorta; I25.10 Atherosclerotic heart disease of native coronary artery without angina pectoris; S51.011A Laceration without foreign body of right elbow, initial encounter; S51.012A Laceration without foreign body of left elbow, initial encounter; Z95.5 Presence of coronary angioplasty implant and graft; Z95.1 Presence of aortocoronary bypass graft; Z86.73 Personal history of transient ischemic attack (TIA), and cerebral infarction without residual deficits; Z11.52 Encounter for screening for COVID-19; Z79.82 Long term (current) use of aspirin; Z79.52 Long term (current) use of systemic steroids; Z71.89 Other specified counseling; Z79.899 Other long term (current) drug therapy; Z87.891 Personal history of nicotine dependence; Z28.310 Unvaccinated for COVID-19; W19.XXXA Unspecified fall, initial encounter; Y92.009 Unspecified place in unspecified non-institutional (private) residence as the place of occurrence of the external cause; Y93.9 Activity, unspecified
CPT/HCPCS: 36415; 70450; 71045; 72125; 72170; 80048; 80053; 81001; 82043; 82533; 82550; 82570; 82728; 83540; 83735; 83930; 84100; 84156; 84443; 84466; 84484; 84550; 85025; 86850; 86900; 86901; 87635; 87804; 93005; 96372; 97116; 97162; 97530; 99285; J7030; J7605

== ENCOUNTER 2023-10-15 09:39 | Emergency (ER) | payer OTHER ==
[2023-10-15] MEDS ORDERED: HYDROCODONE/APAP 7.5/325 MG TAB ONE (10:05)
[2023-10-15 10:21] LABS: Absolute Lymphocytes (CBC) 0.4 K/uL (0.7-4.9); Absolute Monocytes 1.2 K/uL (0.1-1.3); Absolute Neutrophil 10.4 K/uL (1.8-8.0); Basophils % 0.1 % (0-1.3); Eosinophils % 0.1 % (0-4.4); Hematocrit 31.5 % (39.6-49.0); Hemoglobin 10.5 g/dL (13.6-17.9); Lymphocytes % 3.5 % (15.3-44.8); MCH 30.5 pg (27.0-35.0); MCHC 33.5 g/dL (32.0-36.0); MCV 91.3 fL (80-100); MPV 7.5 fL (7.6-11.3); Neutrophils % 86.3 % (41.7-73.7); Platelets 218 thou/uL (152-406); RBC Red Blood Cell Count 3.45 M/uL (4.33-5.43); Red Cell Distribution Width 14.8 % (12.1-15.2)
[2023-10-15 10:37] LABS: ALT/SGPT 17 U/L (16-61); Albumin 2.9 g/dL (3.4-5.0); Alkaline Phosphatase 82 U/L (45-117); Anion Gap 11.7 mEq/L (5.0-15.0); BUN Blood Urea Nitrogen 74 mg/dL (7-18); Bicarbonate 26 mEq/L (21-32); Bilirubin Total 0.3 mg/dL (0.2-1.0); Globulin 2.8 g/dL (2.3-3.5); Glomerular Filtration Rate 60 ml/min (=/>90); Glucose Level 95 mg/dL (74-106); Magnesium 2.4 mg/dL (1.6-2.4); Potassium 4.7 mEq/L (3.5-5.1); Protein, Total 5.7 g/dL (6.4-8.2); Sodium Level 130 mEq/L (136-145)
[2023-10-15 10:38] LABS: AST/SGOT < 10 U/L (15-37)
[2023-10-15] MEDS ORDERED: NA CHLORIDE 0.9% 1,000 ML ONE (10:58)
[2023-10-15 11:40] LABS: Blood Morphology Comment NOT SEEN (NOT SEEN); Platelet Estimate ADEQ; White Blood Cell Scan OK (OK)
[2023-10-15 12:06] LABS: Calcium Oxalate Crystals- Ur Few /HPF (None Seen); Specific Gravity 1.017 (1.005-1.030); Sqamous Epithelial None Seen /HPF (None Seen); Urine Bacteria None Seen /HPF (<20); Urine Bilirubin NEGATIVE (Negative); Urine Blood Negative (Negative); Urine Clarity Clear (Clear); Urine Color Light-Yellow (Yellow); Urine Culture Reflex Order NOT NEEDED; Urine Glucose NEGATIVE (Negative); Urine Ketones NEGATIVE (Negative); Urine Micro Reflex YN NO BILL MICROSCOPIC; Urine Nitrite NEGATIVE (Negative); Urine Protein NEGATIVE (Negative); Urine RBC None Seen /HPF (None Seen); Urine Urobilinogen Normal (Normal); Urine WBC <5 /HPF (<5); Urine pH 5.5 (5.0-7.0)
--- NOTE | 2023-10-15 12:32 | EDPHYS ---
Physician Documentation [facility] Name: Christian Griffith Age: 72 yrs Sex: Male : 1950 Arrival Date: 10/15/2023 Time: 09:39 Bed 5 Private MD: ED Physician Mannie Brown HPI: 10/14 10:04 This 72 yrs old Male presents to ER via EMS with complaints of weakness, back pain. sb4 10:04 Patient states that when he got up this morning, his legs felt like "rubber bands "he sb4 thinks he may be dehydrated. states that he has not had his pain medication for his low back pain and thinks it could be contributing. Of note, he does have a history of stable lung cancer, being followed by oncology. Had a chest CT done 4 days ago. Historical: - Allergies: 09:42 No Known Allergies; ld1 - PMHx: 09:42 COPD; Hypertension; Parkinson's disease; Lung cancer; ld1 - PSHx: 09:42 Stented artery; ld1 - Immunization history:: Adult Immunizations up to date. - Infectious Disease History:: Denies. - Social history:: Smoking status: Patient/guardian denies using tobacco, the patient reports quitting approximately 1 years ago. ROS: 10:04 Constitutional: Negative for fever, chills, and weight loss, sb4 10:04 Back: Positive for pain at rest, 10:04 Neuro: Positive for weakness, 10:04 All other systems are negative, Exam: 10:04 Head/Face: Normocephalic, atraumatic. Eyes: Extra-ocular motions intact. Periorbital sb4 areas with no swelling, redness, or edema. ENT: Mucous membranes moist. Cardiovascular: Regular rate and rhythm with a normal S1 and S2. Respiratory: Lungs have equal breath sounds bilaterally, clear to auscultation and percussion. No rales, rhonchi or wheezes noted. No increased work of breathing, no retractions or nasal flaring. Abdomen/GI: Soft, non-tender, no distension. Skin: Warm, dry with normal turgor. Normal color with no rashes, no lesions, and no evidence of cellulitis. 10:04 Constitutional: The patient appears in no acute distress, alert, awake, frail, Vital Signs: 09:43 BP 127 / 81; Pulse 95; Resp 18; Temp 96.9(TE); Pulse Ox 98% on R/A; Weight 49.44 kg; ld1 Height 5 ft. 9 in. ; Pain 0/10; 11:36 BP 134 / 95; Pulse 89; Resp 16; Pulse Ox 98% on R/A; mb9 09:43 Body Mass Index 16.10 (49.44 kg, 175.26 cm) ld1 09:43 Pain Scale: Adult ld1 MDM: 09:49 Patient medically screened. sb4 09:59 External Records Reviewed: Outpatient radiology: Chest CT from 10/11/23 showed "Superior sb4 endplate compression deformity at L1 is stable. Stable right lung nodule centered on the upper aspect of the right major fissure. No other suspicious pulmonary nodules or lymphadenopathy.". 17:18 Data reviewed: vital signs, nurses notes, EMS record, lab test result(s), radiologic sb4 studies, and as a result, I will discharge patient. Historians other than the Patient: Spouse/Significant Other: . Care significantly affected by the following chronic conditions: Hypertension, Cancer. Counseling: I had a detailed discussion with the patient and/or guardian regarding the historical points, exam findings, and any diagnostic results supporting the discharge/admit diagnosis, lab results, to return to the emergency department if symptoms worsen or persist or if there are any questions or concerns that arise at home. 10/14 09:54 Order name: CBC with Diff; Complete Time: 11:41 sb4 10/14 09:54 Order name: CMP; Complete Time: 10:51 sb4 10/14 09:54 Order name: Magnesium; Complete Time: 10:51 sb4 10/14 09:54 Order name: UAM; Complete Time: 12:07 sb4 10/14 10:25 Order name: CBC Smear Scan; Complete Time: 11:41 EDMS 10/14 09:54 Order name: IV Start; Complete Time: 10:16 sb4 10/14 12:07 Order name: Misc. Order: ambulate; Complete Time: 12:10 sb4 Administered Medications: 10:16 Drug: Hydrocodone-Acetaminophen PO (7.5 mg-325 mg) 1 tabs PO once Route: PO; mb9 10:49 Follow up: Response: No adverse reaction mb9 11:01 Drug: NS 0.9% IV 1000 ml IV at 1 bolus Per protocol; 1000 mL bolus Route: IV; Rate: 1 mb9 bolus; Site: right antecubital; 11:54 Follow up: Response: No adverse reaction; IV Status: Completed infusion mb9 Disposition: 14:40 Co-signature as Attending Physician, Mannie Brown MD I reviewed the patient's care rt provided by the Advanced Practice Provider and agree with the diagnosis and treatment plan. Disposition Summary: 10/15/23 12:32 Discharge Ordered Notes: Location: Home sb4 Problem: new sb4 Symptoms: have improved sb4 Condition: Stable sb4 Diagnosis - Dehydration sb4 Followup: sb4 - With: Emergency Department - When: As needed - Reason: Trouble breathing, Worsening of condition Discharge Instructions: - Discharge Summary Sheet sb4 - Dehydration, Adult sb4 - Managing Chronic Back Pain sb4 Forms: - Patient Portal Instructions sb4 - Leadership Thank You Letter sb4 Signatures: Dispatcher [employer] EDMS Glory Snell RN RN ld1 Libby Emerson PAMayraC PAMayraC sb4 Kristin Leyva RN RN mb9 Mannie Brown MD MD rt Corrections: (The following items were deleted from the chart) 09:54 09:54 CBC+H.LAB.BRZ ordered. EDMS EDMS 09:54 09:54 COMPREHENSIVE METABOLIC PANEL+C.LAB.BRZ ordered. EDMS EDMS 09:54 09:54 MAGNESIUM+C.LAB.BRZ ordered. EDMS EDMS 09:54 09:54 Urinalysis W/Microscopic+U.LAB.BRZ ordered. EDMS EDMS
--- NOTE | 2023-10-15 12:32 | ER ---
Nurse's Notes [facility] Name: Christian Griffith Age: 72 yrs Sex: Male : 1950 Arrival Date: 10/15/2023 Time: 09:39 Bed 5 Private MD: Diagnosis: Dehydration Presentation: 10/14 09:43 Chief complaint: EMS states: toned out to pt home for lower back pain, frequent ld1 urination and thirst. Pt denies injury. Coronavirus screen: At this time, the client does not indicate any symptoms associated with coronavirus-19. Ebola Screen: No symptoms or risks identified at this time. Initial Sepsis Screen: Does the patient meet any 2 criteria? No. Patient's initial sepsis screen is negative. Does the patient have a suspected source of infection? No. Patient's initial sepsis screen is negative. Risk Assessment: Do you want to hurt yourself or someone else? Patient reports no desire to harm self or others. Onset of symptoms was October 15, 2023. 09:43 Method Of Arrival: EMS: [facility] ld1 09:43 Acuity: ROLANDO 3 ld1 Triage Assessment: 09:43 General: Appears in no apparent distress. comfortable, Behavior is calm, cooperative, ld1 appropriate for age. Pain: Complains of pain in low back area Pain does not radiate. Pain currently is 8 out of 10 on a pain scale. Quality of pain is described as throbbing, Pain began suddenly, Is continuous. EENT: No signs and/or symptoms were reported regarding the EENT system. Neuro: Level of Consciousness is awake, alert, obeys commands, Oriented to person, place, time, situation. Cardiovascular: Capillary refill < 3 seconds Patient's skin is warm and dry. Respiratory: Airway is patent Respiratory effort is even, unlabored. GI: Abdomen is round non-distended. : No signs and/or symptoms were reported regarding the genitourinary system. Derm: No signs and/or symptoms reported regarding the dermatologic system. Musculoskeletal: No signs and/or symptoms reported regarding the musculoskeletal system. Historical: - Allergies: 09:42 No Known Allergies; ld1 - PMHx: 09:42 COPD; Hypertension; Parkinson's disease; Lung cancer; ld1 - PSHx: 09:42 Stented artery; ld1 - Immunization history:: Adult Immunizations up to date. - Infectious Disease History:: Denies. - Social history:: Smoking status: Patient/guardian denies using tobacco, the patient reports quitting approximately 1 years ago. Screenin:17 [facility] ED Fall Risk Assessment (Adult) History of falling in the last 3 months, mb9 including since admission No falls in past 3 months (0 pts) Confusion or Disorientation No (0 pts) Intoxicated or Sedated No (0 pts) Impaired Gait No (0 pts) Mobility Assist Device Used No (0 pt) Altered Elimination No (0 pt) Score/Fall Risk Level 0 - 2 = Low Risk Oriented to surroundings, Maintained a safe environment, Educated pt \T\ family on fall prevention, incl call for assistance when getting out of bed. Abuse screen: Denies threats or abuse. Nutritional screening: No deficits noted. Tuberculosis screening: No symptoms or risk factors identified. Assessment: 10:16 General: Appears in no apparent distress. Behavior is calm, cooperative. Pain: Denies mb9 pain. Neuro: [place] Agitation-Sedation Scale (RASS): 0 - Alert and Calm Level of Consciousness is awake, alert, obeys commands, Oriented to person, place, time, situation, Appropriate for age. Cardiovascular: Patient's skin is warm and dry. Respiratory: Airway is patent Respiratory effort is even, unlabored, Respiratory pattern is regular, symmetrical. GI: Abdomen is flat, non-distended, Abd is soft and non tender X 4 quads. : No signs and/or symptoms were reported regarding the genitourinary system. EENT: No signs and/or symptoms were reported regarding the EENT system. Derm: Skin is pink, warm \T\ dry. Musculoskeletal: Range of motion: intact in all extremities. 11:37 Reassessment: No changes from previously documented assessment. Patient and/or family mb9 updated on plan of care and expected duration. Pain level reassessed. Patient is alert, oriented x 3, equal unlabored respirations, skin warm/dry/pink. 12:14 Reassessment: pt able to ambulate without assistance. mb9 12:39 Reassessment: Patient and/or family updated on plan of care and expected duration. Pain mb9 level reassessed. Patient is alert, oriented x 3, equal unlabored respirations, skin warm/dry/pink. Patient states feeling better. Patient states symptoms have improved. Vital Signs: 09:43 BP 127 / 81; Pulse 95; Resp 18; Temp 96.9(TE); Pulse Ox 98% on R/A; Weight 49.44 kg; ld1 Height 5 ft. 9 in. ; Pain 0/10; 11:36 BP 134 / 95; Pulse 89; Resp 16; Pulse Ox 98% on R/A; mb9 09:43 Body Mass Index 16.10 (49.44 kg, 175.26 cm) ld1 09:43 Pain Scale: Adult ld1 ED Course: 09:42 Patient arrived in ED. ld1 09:42 Miriam Zhang, RN is Primary Nurse. nj1 09:43 Arm band placed on right wrist. ld1 09:45 Triage completed. ld1 09:48 Libby Emerson PA-C is PHCP. sb4 09:49 Mannie Brown MD is Attending Physician. sb4 10:16 Kristin Leyva RN is Primary Nurse. mb9 10:16 Initial lab(s) drawn, by me, sent to lab. Maintain EMS IV. Dressing intact. Good blood mb9 return noted. Site clean \T\ dry. Gauge \T\ site: 18g right AC. 10:17 Placed in gown. Bed in low position. Call light in reach. Side rails up X 1. Provided mb9 Education on: press call light if needing anything. Client placed on continuous cardiac and pulse oximetry monitoring. NIBP monitoring applied. 10:17 No provider procedures requiring assistance completed. mb9 12:32 IV discontinued, intact, bleeding controlled, No redness/swelling at site. Pressure mb9 dressing applied. Administered Medications: 10:16 Drug: Hydrocodone-Acetaminophen PO (7.5 mg-325 mg) 1 tabs PO once Route: PO; mb9 10:49 Follow up: Response: No adverse reaction mb9 11:01 Drug: NS 0.9% IV 1000 ml IV at 1 bolus Per protocol; 1000 mL bolus Route: IV; Rate: 1 mb9 bolus; Site: right antecubital; 11:54 Follow up: Response: No adverse reaction; IV Status: Completed infusion mb9 Medication: 10:17 VIS not applicable for this client. mb9 Outcome: 12:32 Discharge ordered by . sb4 12:39 Discharged to home via wheelchair, with family, mb9 12:39 Condition: stable 12:39 Discharge instructions given to patient, Instructed on discharge instructions, follow up and referral plans. Demonstrated understanding of instructions, follow-up care, 12:39 Patient left the ED. mb9 Signatures: Glory Snell RN RN ld1 Libby Emerson PA-C PABonnie sb4 Kristin Leyva RN RN mb9 Miriam Zhang RN RN nj1
[2023-10-15 12:59] VITALS: BP 134/95; TEMP 96.9; O2SAT 98
== END 2023-10-15 12:39 | disposition home or self-care (01) ==
LOC: ER 09:39
DX: E86.0 Dehydration (principal); I10 Essential (primary) hypertension; J44.9 Chronic obstructive pulmonary disease, unspecified; G20.A1 Parkinson's disease without dyskinesia, without mention of fluctuations
CPT/HCPCS: 85025; 81001; 36415; 83735; 80053; J7030; 96360; 99284

== ENCOUNTER 2023-11-25 14:28 | Emergency (ER) | payer OTHER ==
[2023-11-25 15:09] LABS: Absolute Lymphocytes (CBC) 0.4 K/uL (0.7-4.9); Absolute Monocytes 1.6 K/uL (0.1-1.3); Absolute Neutrophil 12.3 K/uL (1.8-8.0); Basophils % 0.1 % (0-1.3); Hematocrit 25.7 % (39.6-49.0); Hemoglobin 7.8 g/dL (13.6-17.9); Lymphocytes % 2.6 % (15.3-44.8); MCH 27.7 pg (27.0-35.0); MCHC 30.5 g/dL (32.0-36.0); MCV 90.8 fL (80-100); MPV 8.6 fL (7.6-11.3); Monocytes % 11.4 % (3.3-12.3); Neutrophils % 85.9 % (41.7-73.7); Nucleated Red Blood Cells % 0.2 % (0-0); Platelets 145 thou/uL (152-406); RBC Red Blood Cell Count 2.83 M/uL (4.33-5.43); Red Cell Distribution Width 16.2 % (12.1-15.2)
[2023-11-25] MEDS ORDERED: NA CHLORIDE 0.9% 1,000 ML ONE ×2 (15:16→21:15)
[2023-11-25 15:26] LABS: Albumin 3.1 g/dL (3.4-5.0); Albumin/Globulin Ratio 0.9 (1.1-1.8); Anion Gap 23.2 mEq/L (5.0-15.0); Bilirubin Total 2.2 mg/dL (0.2-1.0); Globulin 3.3 g/dL (2.3-3.5); Magnesium 2.9 mg/dL (1.6-2.4); Protein, Total 6.4 g/dL (6.4-8.2); Troponin High Sensitivity 31.7 pg/mL (<58.9)
[2023-11-25 15:32] LABS: Potassium 6.2 mEq/L (3.5-5.1)
--- NOTE | 2023-11-25 15:35 | RAD REPORT ---
EXAM DESCRIPTION: RADChest Single View11/25/2023 3:14 pm CLINICAL HISTORY: TRAUMA COMPARISON: Chest Single View dated 03/10/2023; Chest Pa And Lat (2 Views) dated 03/04/2023; Chest S omid View dated 02/13/2021; Chest Single View dated 02/10/2021 TECHNIQUE: Portable AP view of the chest. FINDINGS: The lungs are clear. Diffuse hyperlucency and hyperinflation again seen. No pneumothorax or effusion. The cardiomediastinal contours are unremarkable. Impacted and mildly displaced fracture of the proximal humerus extending to the base of the greater tuberosity noted. IMPRESSION: No acute cardiopulmonary process. Impacted and mildly displaced fracture of the proximal humerus extending to the base of the greater t uberosity noted.
[2023-11-25] MEDS ORDERED: D50W 25 GM/50 ML SYRINGE IV ONE (15:48)
[2023-11-25 16:08] LABS: Blood Morphology Comment NOT SEEN (NOT SEEN); Platelet Estimate ADEQ; White Blood Cell Scan OK (OK)
--- NOTE | 2023-11-25 16:19 | RAD REPORT ---
EXAM DESCRIPTION: CT - Head C Spine Cap Wo Con - 11/25/2023 2:57 pm CLINICAL HISTORY: DECLINING STATE COMPARISON: Head C Spine Mpr Wo Con dated 03/10/2023; Thorax W/ Con dated 10/11/2023; Ct Skull/Thigh dated 03/24/2023; Lumbar Spine Wo Con dated 02/24/2022 TECHNIQUE: Head and cervical spine CT images were obtained without IV contrast. Chest, abdomen, and pelvis CT images were obtained also without IV contrast. Multiplanar reformats were generated and rev iewed. All CT scans are performed using dose optimization technique as appropriate and may include automated exposure control or mA/KV adjustment according to patient size. FINDINGS: CT HEAD: No intracranial hemorrhage, mass effect, or edema. No evidence of acute territorial infarct. No midli ne shift or abnormal fluid collection. The ventricles are normal in caliber and configuration for age . Basal cisterns are patent. Mastoid aircells and paranasal sinuses are clear. No acute skull fractur e. CT CERVICAL SPINE: No acute cervical spine fracture or subluxation. Vertebral body heights are well maintained. Facet vito ints are normal in alignment. No hyperattenuating canal hematoma. Prevertebral and paraspinous soft t issues are unremarkable. CT CHEST: No pneumothorax, pulmonary contusion or pleural fluid collection. Stable irregular posterior right up per lobe 9 mm nodule, with adjacent scarring extending to the pleura. No mediastinal hematoma and the aorta and pulmonary arteries are unremarkable. No chest will mass or abnormal axillary finding. No d isplaced rib fracture or other significant bony finding. CT ABDOMEN/ PELVIS: No evidence of traumatic injury to solid abdominal viscera. Atrophic changes of both kidneys again se en. Gallbladder shows a single gallstone layering dependently near the neck. No bowel injury or signi ficant finding. Gaseous distension of the proximal colon, without other suspicious abnormalities. No free air, free fluid or abnormal fat stranding. Bladder is markedly distended. Aorta thick/left iliac , and fem-fem stent grafts are present, not well evaluated. Comminuted mildly displaced fractures of the roof of the acetabulum extending to the base of the righ t superior pubic ramus and the anterior acetabular column. Mildly displaced and buckle fractures of t he right inferior pubic ramus. Comminuted fracture of the right proximal humeral metaphysis again see n. Anterior wedge compression deformities at L1 (which appears stable), and at L2 and L4. The L2 frac ture may be stable to mildly progressive compared to the February 2022 MRI, however the L4 fracture a ppears new since that time. Those are overall favored to be chronic, however correlation with any loc alized symptoms is recommended. IMPRESSION: Fractures of the pelvis involving the right acetabulum, base of the right superior pubic ramus, and the inferior pubic ramus, as detailed above. Comminuted fracture of the right proximal humerus. Anterior wedge compression deformities at L2 and L4, favored to be chronic, however correlation with any localized symptoms is recommended. No other acute traumatic findings in the chest, abdomen, or pelvis.
[2023-11-25] MEDS ORDERED: VANCOMYCIN 1 GM/VIAL ONE (16:29)
[2023-11-25] MEDS ORDERED: PIPERACIL/TAZO 4.5 GM VIAL IV ONE (16:29)
[2023-11-25] MEDS ORDERED: VANCOMYCIN 500 MG/VIAL ONE (16:29)
[2023-11-25] MEDS ORDERED: ALBUTEROL 2.5 MG/3 ML NEB SOL ONE (16:29)
[2023-11-25] MEDS ORDERED: FUROSEMIDE 40 MG/4 ML VIAL ONE (16:30)
[2023-11-25] MEDS ORDERED: NA CHLORIDE 0.9% 100 ML ONE (16:30)
[2023-11-25] MEDS ORDERED: CALCIUM GLUCONATE 1 GM IVPB 1 GM/50 ML BAG IV ONE (16:30)
[2023-11-25] MEDS ORDERED: NA CHLORIDE 0.9% 500 ML ONE ×2 (16:30→18:28)
[2023-11-25 18:07] LABS: Barbiturates NEGATIVE (NEGATIVE); Benzodiazepines POSITIVE (NEGATIVE); Cocaine NEGATIVE (NEGATIVE); METHAMPHETAM NEGATIVE (NEGATIVE); Methadone NEGATIVE (NEGATIVE); Opiates POSITIVE (NEGATIVE); Phencyclidine NEGATIVE (NEGATIVE); Specific Gravity 1.014 (1.005-1.030); Sqamous Epithelial None Seen /HPF (None Seen); THC Cannibis NEGATIVE (NEGATIVE); Urine Bacteria <20 /HPF (<20); Urine Bilirubin NEGATIVE (Negative); Urine Blood Trace (Negative); Urine Clarity Turbid (Clear); Urine Color Yellow (Yellow); Urine Culture Reflex Order NOT NEEDED; Urine Glucose NEGATIVE (Negative); Urine Ketones NEGATIVE (Negative); Urine Microscopic Reflex YN ORDER UMIC; Urine Mucus Slight /HPF (None Seen); Urine Nitrite NEGATIVE (Negative); Urine Protein NEGATIVE (Negative); Urine RBC <5 /HPF (None Seen); Urine Urobilinogen Normal (Normal); Urine WBC <5 /HPF (<5); Urine pH 5.5 (5.0-7.0)
--- NOTE | 2023-11-25 18:24 | ER ---
Nurse's Notes [facility] Name: Christian Griffith Age: 73 yrs Sex: Male : 1950 Arrival Date: 11/25/2023 Time: 14:28 Bed 2 Private MD: Diagnosis: Acute Encephalopathy;Superior pubic rami fracture;Inferior pubic rami fracture;Closed right comminuted proximal humerus fracture;Septic shock ;Acute renal failure;Acute liver failure Presentation: 11/24 14:43 Chief complaint: Spouse and/or significant other states: states pt was evaluated tl4 in this ED yesterday after a fall. Pt diagnosed with fractured pelvis and right arm. states pt lost feeling in his legs last evening while walking up steps into residence. reports pt was last known coherent at 0300. She states pt has not been responding appropriately since 0600. Pt not responsive to painful stimuli. Coronavirus screen: At this time, the client does not indicate any symptoms associated with coronavirus-19. Ebola Screen: No symptoms or risks identified at this time. Initial Sepsis Screen: Does the patient meet any 2 criteria? No. Patient's initial sepsis screen is negative. Does the patient have a suspected source of infection? No. Patient's initial sepsis screen is negative. Risk Assessment: Do you want to hurt yourself or someone else? Patient reports no desire to harm self or others. Onset of symptoms was November 25, 2023 at 06:00. 14:43 Method Of Arrival: Ambulatory tl4 14:43 Acuity: ROLANDO 2 tl4 14:46 Chief complaint: Spouse and/or significant other states: OBTUNDED LOC, UNK CAUSE. bp Coronavirus screen: At this time, the client does not indicate any symptoms associated with coronavirus-19. Ebola Screen: No symptoms or risks identified at this time. Initial Sepsis Screen: Does the patient meet any 2 criteria? Altered Mental Status. No. Patient's initial sepsis screen is negative. Does the patient have a suspected source of infection? No. Patient's initial sepsis screen is negative. Risk Assessment: Do you want to hurt yourself or someone else? Patient reports no desire to harm self or others. Onset of symptoms was November 25, 2023. 14:46 Acuity: ROLANDO 2 bp 14:46 Method Of Arrival: Wheelchair bp Triage Assessment: 14:48 General: Appears emaciated, Behavior is unresponsive. Pain: Unable to use pain scale. tl4 Patient is unresponsive. EENT: No signs and/or symptoms were reported regarding the EENT system. Neuro: Level of Consciousness is unresponsive. Cardiovascular: Capillary refill < 3 seconds Patient's skin is warm and dry. Respiratory: Airway is patent Respiratory effort is even, unlabored, Respiratory pattern is regular, symmetrical. GI: No signs and/or symptoms were reported involving the gastrointestinal system. : No signs and/or symptoms were reported regarding the genitourinary system. Derm: No signs and/or symptoms reported regarding the dermatologic system. Musculoskeletal: Parent/caregiver report the patient having unable to use legs. Historical: - Allergies: 15:26 No Known Allergies; hb - PMHx: 15:26 Parkinson's disease; Lung Cancer; Hypertension; COPD; hb - PSHx: 15:26 Stented artery; hb - Immunization history:: Adult Immunizations unknown. - Infectious Disease History:: Denies. - Social history:: Smoking status: unknown. Screenin:46 [facility] ED Fall Risk Assessment (Adult) History of falling in the last 3 months, bp including since admission Yes- single mechanical fall (1 pt) Confusion or Disorientation Yes (5 pts) Intoxicated or Sedated Yes (3 pts) Impaired Gait No (0 pts) Mobility Assist Device Used No (0 pt) Altered Elimination No (0 pt) Score/Fall Risk Level 3 or more points = High Risk Oriented to surroundings. Abuse screen: Denies threats or abuse. Denies injuries from another. Nutritional screening: No deficits noted. Tuberculosis screening: No symptoms or risk factors identified. Assessment: 15:00 General: Appears distressed, ill, unkempt, malnourished, Behavior is restless, bp uncooperative. Pain: Unable to use pain scale. Does not appear to understand pain scale. Neuro: Level of Consciousness is confused, obtunded, Oriented to none. Cardiovascular: Rhythm is sinus tachycardia. Respiratory: Airway is patent. GI: No deficits noted. : No deficits noted. EENT: No deficits noted. Derm: No deficits noted. Musculoskeletal: Bony deformity noted of right arm. 17:00 Neuro: Level of Consciousness is confused, lethargic, Speech is slurred, Pupils are bp constricted. 19:00 General: Appears distressed, ill, Behavior is uncooperative. Pain: Unable to use pain cp4 scale. Does not appear to understand pain scale. Neuro: Level of Consciousness is confused, obtunded, Speech is slurred. Cardiovascular: Rhythm is sinus tachycardia. Respiratory: Airway is patent. GI: No deficits noted. : No deficits noted. EENT: No deficits noted. Derm: No deficits noted. 20:00 Reassessment: No changes from previously documented assessment. Patient and/or family cp4 updated on plan of care and expected duration. Pain level reassessed. Patient is alert, oriented x 3, equal unlabored respirations, skin warm/dry/pink. 21:00 Reassessment: No changes from previously documented assessment. Patient and/or family cp4 updated on plan of care and expected duration. Pain level reassessed. Patient is alert, oriented x 3, equal unlabored respirations, skin warm/dry/pink. 22:00 Reassessment: No changes from previously documented assessment. Patient and/or family cp4 updated on plan of care and expected duration. Pain level reassessed. Patient is alert, oriented x 3, equal unlabored respirations, skin warm/dry/pink. Vital Signs: 14:43 BP 134 / 63; Pulse 90; Resp 24; Temp 97.2(O); Pulse Ox 97% ; Weight 44.91 kg; Height 5 tl4 ft. 3 in. ; 14:46 BP 126 / 63; Pulse 124; Resp 14; Temp 97.5; Pulse Ox 91% ; bp 15:30 BP 130 / 82; Pulse 97; Resp 20; Pulse Ox 92% ; bp 16:30 BP 132 / 64; Pulse 107; Resp 21; Pulse Ox 86% ; bp 17:30 BP 141 / 60; Pulse 107; Resp 26; Pulse Ox 95% ; bp 18:30 BP 123 / 67; Pulse 101; Resp 22; Pulse Ox 99% ; bp 19:30 BP 140 / 66; Pulse 96; Resp 22; Pulse Ox 95% ; bp 20:30 BP 140 / 66; Pulse 99; Resp 26; Pulse Ox 95% on 2 lpm NC; cp4 21:30 BP 116 / 99; Pulse 99; Resp 19; Pulse Ox 95% ; cp4 22:30 BP 123 / 70; Pulse 105; Resp 17; Pulse Ox 95% ; cp4 23:30 BP 107 / 57; Pulse 97; Resp 17; Pulse Ox 100% on 2 lpm NC; cp4 14:43 Body Mass Index 17.54 (44.91 kg, 160.02 cm) tl4 ED Course: 14:32 Patient arrived in ED. iw 14:33 Bryn Mata, RN is Primary Nurse. bp 14:34 Colleen Mendoza MD is Attending Physician. sb4 14:45 Initial lab(s) drawn, by me, sent to lab. Inserted saline lock: 22 gauge in left bp antecubital area, using aseptic technique. Blood collected. Flushed with 10 mL NS. 14:46 Patient has correct armband on for positive identification. bp 14:48 Triage completed. bp 14:49 Arm band placed on right wrist. tl4 14:57 Head C Spine Cap Wo Con In Process Unspecified. EDMS 15:16 XRAY Chest (1 view) In Process Unspecified. EDMS 15:52 Notified ED physician of a critical lab result(s). BS=LO. iw 17:39 First set of blood cultures drawn by me, Urine collected: Winkler catheter specimen, bp clear. Winkler cath inserted, using sterile technique, 16 Fr., by me, balloon inflated, to gravity drainage, urine specimen collected. 18:38 Transfer initiated with Digna at [facility]. oh1 18:44 Liver Only In Process Unspecified. EDMS 20:07 Attending Physician role handed off by Colleen Mendoza MD sp4 20:07 Casey Huynh MD is Attending Physician. sp4 20:50 Sheryl from transfer center advised there were no beds at [facility], advised vk that there was a bed at the [facility]. 21:27 Assisted provider with central line placement. Set up central line tray. Triple lumen cp4 line placed in right internal jugular. Line placed by Casey Huynh MD Placement verified by CXR, blood return, Dressed with Tegaderm, Blood was collected. Patient tolerated well. Before procedure, did Practitioner(s) obtain informed consent? Yes. Patient \T\ family education about procedure, CLABSI prevention and S/S of infection? Yes. 21:42 Chest Single View XRAY In Process Unspecified. EDMS 22:46 patient accepted to [facility] RM 19 per Sheryl at transfer center \T\2017. vk 22:[address] Andres \T\ 2041. vk 23:12 [facility] with [facility] vk 11/25 00:20 Patient transferred, IV remains in place. cp4 00:20 Provided Education on: transfer. cp4 Administered Medications: 11/24 15:24 Drug: NS 0.9% IV 1000 ml IV at 1 bolus Per protocol; 1000 mL bolus Route: IV; Rate: 1 bp bolus; Site: left antecubital; 15:43 CANCELLED (Physician Discretion): insulin regular human4 units IVP once sb4 15:51 Drug: D50W IVP 50 ml IVP once; (1 amp) Route: IVP; Site: left antecubital; iw 17:04 Drug: Calcium Gluconate IVPB 1 grams IVPB once over 60 mins; (mix in NS 100 mL) Route: bp IVPB; Infused Over: 60 mins; Site: left antecubital; 17:04 Drug: Furosemide IVP 40 mg IVP once; give over 2 minutes Route: IVP; Site: left bp antecubital; 17:04 Drug: Albuterol Inhalation 2.5 mg Inhalation once Route: Inhalation; bp 17:04 Not Given (Physician Discretion): ns 0.9% 500 ml IV at bolus once bp 17:05 Drug: Piperacillin-Tazobactam IVPB 4.5 grams IVPB once over 60 mins; (mix in 100 mL NS) bp Route: IVPB; Infused Over: 60 mins; Site: left antecubital; 17:39 Drug: vancoMYCIN IVPB 1.5 grams IVPB at calculated rate once Route: IVPB; Rate: bp calculated rate; Site: left antecubital; 18:31 Drug: NS 0.9% IV 500 ml IV at bolus once Route: IV; Rate: bolus; Site: left antecubital;bp 19:10 Follow up: Response: No adverse reaction; IV Status: Completed infusion cp4 21:12 Not Given (Physician Discretion): mupirocinointment 2 % 1 application Topical once cp4 21:12 Drug: HYDROmorphone IVP 1 mg IVP once Route: IVP; Site: left antecubital; cp4 22:28 Follow up: Response: No adverse reaction cp4 21:12 Drug: Ondansetron IVP 4 mg IVP once; over 2 minutes Route: IVP; Site: left antecubital; cp4 22:28 Follow up: Response: No adverse reaction cp4 21:26 Drug: D5-NS IV 1000 ml IV at 125 ml/hr continuous Route: IV; Rate: 125 ml/hr; Site: cp4 right jugular; 21:26 Drug: NS 0.9% IV 1000 ml IV at 1 bolus Per protocol; 1000 mL bolus Route: IV; Rate: 1 cp4 bolus; Site: right jugular; 22:27 Follow up: Response: No adverse reaction; IV Status: Completed infusion cp4 21:26 Drug: Sodium Bicarbonate IVP 1 amp IVP once; (50 mL); equals 50 mEq Route: IVP; Site: cp4 right jugular; 22:27 Follow up: Response: No adverse reaction cp4 Medication: 17:00 VIS not applicable for this client. bp Outcome: 18:24 ER care complete, transfer ordered by . sd2 11/25 00:20 Transferred by ground EMS to [facility], Transfer form completed. cp4 X-rays sent w/ patient. Condition: stable Instructed on the need for transfer, 00:21 Patient left the ED. cp4 Signatures: Dispatcher [employer] EDMS Taylor Travis RN RN iw Baxter, Heather, RN RN hb Peltier, Brian, RN RN bp Dunlop, Stephanie, MD MD sd2 Libby Emerson, PA-C PA-C Casey Ramírez MD MD sp4 Karol Nam cp4 Chago Santiago RN RN tl4 Laura Darling Olivia oh1 Corrections: (The following items were deleted from the chart) 11/24 15:17 14:43 BP 134 / 63; Resp 24bpm; Temp 97.2F Oral; 44.91 kg; Height 5 ft. 3 in.; BMI: tl4 17.5; tl4 17:46 15:00 Musculoskeletal: No deficits noted. bp bp 22:54 22:46 patient accepted to [facility] RM 19 per Sheryl at transfer center [facility] 23:08 22:39 General: Appears distressed, ill, malnourished, cp4 cp4 23:08 22:39 Pain: Unable to use pain scale. Patient is disoriented. Does not appear to cp4 understand pain scale. cp4 23:08 22:39 Neuro: Level of Consciousness is confused, obtunded, Oriented to none Speech is cp4 slurred, cp4 23:08 22:39 Cardiovascular: Rhythm is sinus tachycardia cp4 cp4 23:08 22:39 Respiratory: Airway is patent cp4 cp4 23:08 22:39 GI: No deficits noted. cp4 cp4 23:08 22:39 : No deficits noted. cp4 cp4 23:08 22:39 EENT: No deficits noted. cp4 cp4 23:08 22:39 Derm: No deficits noted. cp4 cp4
--- NOTE | 2023-11-25 18:24 | EDPHYS ---
Physician Documentation [facility] Name: Christian Griffith Age: 73 yrs Sex: Male : 1950 Arrival Date: 11/25/2023 Time: 14:28 Bed 2 Private MD: ED Physician Casey Huynh HPI: 11/24 14:37 This 73 yrs old Male presents to ER via Unassigned with complaints of altered mental sd2 status. 14:37 73 yo M presents with CC of AMS and lethargy that started this morning. reports sd2 being unable to awaken the patient much today. He was seen here yesterday following an unwitnessed fall and diagnosed with a broken arm and possible pelvic fractures. He did take 1 Egan earlier today for pain. . Historical: - Allergies: 15:26 No Known Allergies; hb - PMHx: 15:26 Parkinson's disease; Lung Cancer; Hypertension; COPD; hb - PSHx: 15:26 Stented artery; hb - Immunization history:: Adult Immunizations unknown. - Infectious Disease History:: Denies. - Social history:: Smoking status: unknown. ROS: 14:37 Unable to obtain ROS due to altered mental status, sd2 21:16 Constitutional: Full ROS is not available sp4 21:16 All other systems are negative, Exam: 14:37 Constitutional: cachectic appearing patient who is sonorous but able to awaken to sd2 physical stimuli Head/Face: Normocephalic, atraumatic. Eyes: EOMI, normal conjunctiva bilaterally Chest/axilla: Normal chest wall appearance and motion. Nontender with no deformity. Cardiovascular: Regular rate and rhythm with a normal S1 and S2. No gallops, murmurs, or rubs. 2+ distal pulses. Respiratory: Lungs have equal breath sounds bilaterally, clear to auscultation and percussion. No rales, rhonchi or wheezes noted. No increased work of breathing, no retractions or nasal flaring. Abdomen/GI: Soft, non-tender, with normal bowel sounds. No guarding or rebound. No evidence of tenderness throughout. Skin: Warm, dry with normal turgor. Normal color with no rashes, no lesions, and no evidence of cellulitis. MS/ Extremity: Pulses equal, no cyanosis. Neurovascular intact. Full, normal range of motion. Neuro: Awakens to sternal rub and will attempt to answer questions before falling back asleep. Decreased tone noted to all extremities. 15:18 ECG was reviewed by the Attending Physician. NSR, rate 93, no STEMI criteria, wandering sd2 baseline Vital Signs: 14:43 BP 134 / 63; Pulse 90; Resp 24; Temp 97.2(O); Pulse Ox 97% ; Weight 44.91 kg; Height 5 tl4 ft. 3 in. ; 14:46 BP 126 / 63; Pulse 124; Resp 14; Temp 97.5; Pulse Ox 91% ; bp 15:30 BP 130 / 82; Pulse 97; Resp 20; Pulse Ox 92% ; bp 16:30 BP 132 / 64; Pulse 107; Resp 21; Pulse Ox 86% ; bp 17:30 BP 141 / 60; Pulse 107; Resp 26; Pulse Ox 95% ; bp 18:30 BP 123 / 67; Pulse 101; Resp 22; Pulse Ox 99% ; bp 19:30 BP 140 / 66; Pulse 96; Resp 22; Pulse Ox 95% ; bp 20:30 BP 140 / 66; Pulse 99; Resp 26; Pulse Ox 95% on 2 lpm NC; cp4 21:30 BP 116 / 99; Pulse 99; Resp 19; Pulse Ox 95% ; cp4 22:30 BP 123 / 70; Pulse 105; Resp 17; Pulse Ox 95% ; cp4 23:30 BP 107 / 57; Pulse 97; Resp 17; Pulse Ox 100% on 2 lpm NC; cp4 14:43 Body Mass Index 17.54 (44.91 kg, 160.02 cm) tl4 Procedures: 21:15 Central Line: the site was prepped with in sterile fashion, Hibiclens, a triple lumen sp4 catheter was inserted, in the right internal jugular vein, in 1 attempts. placement was verified, by CXR, by blood return, Ultrasound-guided central line, the site was dressed with 4X4s, Tegaderm, using sterile technique, the patient tolerated the procedure, well, Control line placed secondary to severity of renal and liver failure. MDM: 14:37 Differential diagnosis: ICH, infection, traumatic injury, UTI, PNA, dehydration, sd2 electrolyte abnormality among others. Data reviewed: vital signs, nurses notes. 14:44 Patient medically screened. sd2 16:34 Post IV fluid administration reassessment for Sepsis: Client not prescribed the 30 sd2 mL/kg IVF due to: Due to hyponatremia and hypoglycemia, IVFs stopped at 1 liter. Focused assessment performed: November 25, 2023 at 16:35 Heart: Tachycardia noted. Lungs: noted to be clear bilaterally. Capillary refill examination performed. Capillary refill noted to be < 2 seconds. Skin examination performed. Skin noted to be pale. Current patient vital signs reviewed: Yes. Neuro: Patient's neurological exam has improved from previous exam. Cardio: Cardiovascular exam improved from previous exam. Heart rate and blood pressure have improved. 18:21 Management of patient was discussed with the following: Hospitalist: declined due to no sd2 ICU bed or GI as patient has liver failure. I considered the following discharge prescriptions or medication management in the emergency department Medications were administered in the Emergency Department. See MAR. Historians other than the Patient: Spouse/Significant Other: at BS. External Records Reviewed: Inpatient record: Prior hospitalizations reviewed with hx of being a vasculopath. Concern for being high risk for ischemic bowel.. Care significantly affected by the following chronic conditions: Hypertension, Chronic Obstructive Pulmonary Disease. Counseling: I had a detailed discussion with the patient and/or guardian regarding the historical points, exam findings, and any diagnostic results supporting the discharge/admit diagnosis, lab results, radiology results, the need to transfer to another facility. ED course: . 21:19 ED course: Abscess reevaluation done. Patient has improvement in lactic acid overall sp4 vital signs are stable. 11/24 14:37 Order name: CBC with Diff; Complete Time: 16:14 sd2 11/24 14:37 Order name: CMP; Complete Time: 15:42 sd2 11/24 14:37 Order name: Magnesium; Complete Time: 15:42 sd2 11/24 14:37 Order name: Troponin High Sensitivity; Complete Time: 15:42 sd2 11/24 14:37 Order name: BNP; Complete Time: 15:42 sd2 11/24 14:37 Order name: AMMONIA; Complete Time: 15:31 sd2 11/24 14:37 Order name: Urinalysis w/ reflexes; Complete Time: 18:12 sd2 11/24 14:37 Order name: Urine Drug Screen; Complete Time: 18:12 sd2 11/24 14:37 Order name: Ethanol; Complete Time: 15:37 sd2 08/02 14:37 Order name: Procalcitonin; Complete Time: 16:07 sd2 11/24 14:45 Order name: Lactate w/ 2H reflex if indic.; Complete Time: 15:37 bp 11/24 15:08 Order name: Lactate w/ 2H reflex if indic.; Complete Time: 18:12 sd2 11/24 15:10 Order name: CREATININE WHOLE BLOOD; Complete Time: 15:31 EDMS 11/24 15:25 Order name: CBC Smear Scan; Complete Time: 16:14 EDMS 11/24 15:38 Order name: Blood Culture Adult (2) sd2 11/24 15:52 Order name: Glucose; Complete Time: 17:39 iw 11/24 15:59 Order name: Glucose, Ancillary Testing; Complete Time: 16:07 EDMS 11/24 17:21 Order name: Glucose, Ancillary Testing; Complete Time: 17:21 EDMS 11/24 17:35 Order name: Ghost Lactate-NO COLLECT Timer; Complete Time: 17:39 EDMS 11/24 18:39 Order name: Lactate Sepsis 2 HR Follow-up; Complete Time: 18:52 EDMS 11/24 20:09 Order name: Ghost Lactate-NO COLLECT Timer; Complete Time: 20:15 EDMS 11/24 21:34 Order name: Lactate Sepsis 2 HR Follow-up; Complete Time: 21:37 EDMS 11/24 14:37 Order name: XRAY Chest (1 view); Complete Time: 15:37 sd2 11/24 14:57 Order name: Head C Spine Cap Wo Con; Complete Time: 16:20 EDMS 11/24 18:17 Order name: Liver Only; Complete Time: 20:41 EDMS 11/24 21:15 Order name: Chest Single View XRAY; Complete Time: 23:14 sp4 11/24 14:37 Order name: EKG - Nurse/Tech; Complete Time: 16:15 sd2 11/24 15:38 Order name: Straight Cath - Urine; Complete Time: 16:15 sd2 11/24 20:19 Order name: Central Line Dressing Kit; Complete Time: 21:12 sp4 11/24 20:19 Order name: Central Line Kit; Complete Time: 21:12 sp4 11/24 20:19 Order name: Chlorhexidine prep; Complete Time: 21:12 sp4 11/24 20:19 Order name: Consent for central line completed; Complete Time: 20:25 sp4 11/24 20:19 Order name: Line Caps x3; Complete Time: 21:12 sp4 11/24 20:19 Order name: NS Flushes x3; Complete Time: 21:12 sp4 11/24 20:19 Order name: Sterile Gloves; Complete Time: 21:12 sp4 11/24 20:19 Order name: Sterile Probe Cover; Complete Time: 21:12 sp4 Administered Medications: 15:24 Drug: NS 0.9% IV 1000 ml IV at 1 bolus Per protocol; 1000 mL bolus Route: IV; Rate: 1 bp bolus; Site: left antecubital; 15:43 CANCELLED (Physician Discretion): insulin regular human4 units IVP once sb4 15:51 Drug: D50W IVP 50 ml IVP once; (1 amp) Route: IVP; Site: left antecubital; iw 17:04 Drug: Calcium Gluconate IVPB 1 grams IVPB once over 60 mins; (mix in NS 100 mL) Route: bp IVPB; Infused Over: 60 mins; Site: left antecubital; 17:04 Drug: Furosemide IVP 40 mg IVP once; give over 2 minutes Route: IVP; Site: left bp antecubital; 17:04 Drug: Albuterol Inhalation 2.5 mg Inhalation once Route: Inhalation; bp 17:04 Not Given (Physician Discretion): ns 0.9% 500 ml IV at bolus once bp 17:05 Drug: Piperacillin-Tazobactam IVPB 4.5 grams IVPB once over 60 mins; (mix in 100 mL NS) bp Route: IVPB; Infused Over: 60 mins; Site: left antecubital; 17:39 Drug: vancoMYCIN IVPB 1.5 grams IVPB at calculated rate once Route: IVPB; Rate: bp calculated rate; Site: left antecubital; 18:31 Drug: NS 0.9% IV 500 ml IV at bolus once Route: IV; Rate: bolus; Site: left antecubital;bp 19:10 Follow up: Response: No adverse reaction; IV Status: Completed infusion cp4 21:12 Not Given (Physician Discretion): mupirocinointment 2 % 1 application Topical once cp4 21:12 Drug: HYDROmorphone IVP 1 mg IVP once Route: IVP; Site: left antecubital; cp4 22:28 Follow up: Response: No adverse reaction cp4 21:12 Drug: Ondansetron IVP 4 mg IVP once; over 2 minutes Route: IVP; Site: left antecubital; cp4 22:28 Follow up: Response: No adverse reaction cp4 21:26 Drug: D5-NS IV 1000 ml IV at 125 ml/hr continuous Route: IV; Rate: 125 ml/hr; Site: cp4 right jugular; 21:26 Drug: NS 0.9% IV 1000 ml IV at 1 bolus Per protocol; 1000 mL bolus Route: IV; Rate: 1 cp4 bolus; Site: right jugular; 22:27 Follow up: Response: No adverse reaction; IV Status: Completed infusion cp4 21:26 Drug: Sodium Bicarbonate IVP 1 amp IVP once; (50 mL); equals 50 mEq Route: IVP; Site: cp4 right jugular; 22:27 Follow up: Response: No adverse reaction cp4 Disposition: 21:16 Critical Care:. sp4 Disposition Summary: 11/25/23 18:24 Transfer Ordered Notes: Transfer Location: [facility] sd2 Reason: Higher level of care sd2 Condition: Fair sd2 Problem: new sd2 Symptoms: have improved sd2 Accepting Physician: Hunter PITTMAN(11/26/23 00:21) cp4 Diagnosis - Acute Encephalopathy sd2 - Superior pubic rami fracture sd2 - Inferior pubic rami fracture sd2 - Closed right comminuted proximal humerus fracture sd2 - Septic shock sd2 - Acute renal failure sd2 - Acute liver failure sd2 Forms: - Medication Reconciliation Form sd2 - SBAR form sd2 Critical care time excluding procedures: 21:16 Critical care time: Bedside Care: 36 minutes, Consultation: 12 minutes, Family sp4 Intervention: 12 minutes. Total time: 60 minutes Signatures: Dispatcher [employer] Taylor Nelson RN RN iw Logan Newman, MODEL [employer]ISTS'-C MODEL ARTISTS'-Cla1 Debra Manuel RN RN hb Peltier, Brian, RN RN bp Colleen Mendoza MD MD sd2 Libby Emerson PA-C PABonnie fried4 Casey Huynh MD MD sp4 Carlos Sanderson MD MD ec2 Karol Nam cp4 Corrections: (The following items were deleted from the chart) 14:38 14:38 Chest Single View+RAD.RAD.BRZ ordered. EDMS EDMS 14:57 14:38 Head C Spine CAP W Con+CT.RAD.BRZ ordered. EDMS EDMS 15:43 15:40 Insulin Regular Human IVP 4 units IVP once ordered. sd2 sb4 18:03 18:03 Abdomen Limited+US.RAD.BRZ ordered. EDMS EDMS 11/25 00:21 08 18:24 Accepting MD [email or web address] cp4
--- NOTE | 2023-11-25 20:40 | RAD REPORT ---
EXAM DESCRIPTION: US - Liver Only - 11/25/2023 6:43 pm CLINICAL HISTORY: elevated LFTs, septic shock COMPARISON: Head C Spine Cap Wo Con dated 11/25/2023 TECHNIQUE: Sonographic grayscale and color flow images of the upper abdomen were obtained. FINDINGS: Poor penetration somewhat limits evaluation. Liver demonstrates coarsened echotexture and mildly increased echogenicity. No focal lesions. Hepatop etal flow appreciated in the main portal vein. The liver demonstrates no findings of intrahepatic biliary dilatation. Spleen is normal in size, measuring 10.5 centimeter in long axis. The common bile duct is normal measuring 6 mm in caliber. Echogenic calculus near the gallbladder nec k. IMPRESSION: Coarsened hepatic echotexture suggesting medical hepatocellular disease. Cholelithiasis. Common bile duct is mildly prominent but within normal limits for patient's age.
[2023-11-25] MEDS ORDERED: HYDROMORPHONE HCL 1 MG/ML INJ ONE (20:58)
[2023-11-25] MEDS ORDERED: ONDANSETRON 4 MG/2 ML VIAL ONE (20:58)
[2023-11-25] MEDS ORDERED: SODIUM BICARB 50 MEQ/50ML VIAL ONE (21:15)
[2023-11-25] MEDS ORDERED: D5 0.9 NS 1,000 ML IV ONE (21:16)
--- NOTE | 2023-11-25 22:36 | RAD REPORT ---
EXAM DESCRIPTION: RADChest Single View11/25/2023 9:40 pm CLINICAL HISTORY: Right IJ line placement COMPARISON: Chest Single View dated 11/25/2023; Chest Single View dated 03/10/2023; Chest Pa And Lat ( 2 Views) dated 03/04/2023; Chest Single View dated 02/13/2021 TECHNIQUE: Portable AP view of the chest. FINDINGS: Distal aspect of the right IJ CVC projects at the level of the distal SVC. The film is mar kedly overexposed, therefore the catheter is not visualized beyond this point. The lung webster are no t clearly visualized. The cardiomediastinal contours are unremarkable allowing for this limitation. IMPRESSION: As above. Repeat radiograph is recommended at no additional charge to evaluate for lung pathology.
[2023-11-26 04:28] VITALS: TEMP 97.5
[2023-11-26 04:38] VITALS: BP 107/57; O2SAT 100
--- NOTE | 2023-11-28 17:07 | EKG ---
Test Date: 2023-11-25 Test Time: 15:11:47 Power Transmission Engineer: BP MEASUREMENT RESULTS: Intervals: Rate: 93 OR: 166 QRSD: 92 QT: 344 QTc: 427 [place]: P: 62 OR: 166 QRS: 92 T: 54 INTERPRETIVE STATEMENTS: Normal sinus rhythm Rightward axis Anteroseptal infarct, age undetermined Abnormal ECG Compared to ECG 03/10/2023 05:27:58 No significant changes Electronically Signed On 11-28-23 16:59:30 CDT by Hubert Chery
== END 2023-11-26 00:21 | disposition short-term general hospital (02) ==
LOC: ER 14:28
PROC: 05HM33Z Insertion of Infusion Device into Right Internal Jugular Vein, Percutaneous Approach (ICD-10-PCS; principal; 2023-11-26)
DX: G93.40 Encephalopathy, unspecified (principal); R65.21 Severe sepsis with septic shock; N17.9 Acute kidney failure, unspecified; K72.00 Acute and subacute hepatic failure without coma; S32.511A Fracture of superior rim of right pubis, initial encounter for closed fracture; S32.591A Other specified fracture of right pubis, initial encounter for closed fracture; S42.201A Unspecified fracture of upper end of right humerus, initial encounter for closed fracture; G20.A1 Parkinson's disease without dyskinesia, without mention of fluctuations
CPT/HCPCS: 93005; 87040 ×2; 85025; 81001; 36415; 82140; 83735; 82947 ×3; 82565; 83605 ×4; 84484; 80053; 84145; 83880; 80307; 70450; 71250; 72125; 71045 ×2; 76705; 51702; 99285; 82077; 36556; J0612; J1940; J7613; J1170; J2405; J7042; J7040 ×2; J7030 ×2

== ENCOUNTER 2023-12-25 12:01 | Emergency (ER) | payer OTHER ==
[2023-12-25 12:52] LABS: Absolute Lymphocytes (CBC) 0.7 K/uL (0.7-4.9); Absolute Monocytes 0.7 K/uL (0.1-1.3); Absolute Neutrophil 3.5 K/uL (1.8-8.0); Basophils % 0.7 % (0-1.3); Eosinophils % 0.7 % (0-4.4); Hematocrit 21.5 % (39.6-49.0); Hemoglobin 6.8 g/dL (13.6-17.9); Lymphocytes % 13.5 % (15.3-44.8); MCHC 31.6 g/dL (32.0-36.0); MCV 104.5 fL (80-100); MPV 7.9 fL (7.6-11.3); Monocytes % 14.4 % (3.3-12.3); Neutrophils % 70.7 % (41.7-73.7); Platelets 174 thou/uL (152-406); RBC Red Blood Cell Count 2.06 M/uL (4.33-5.43); Red Cell Distribution Width 21.3 % (12.1-15.2)
[2023-12-25 12:56] LABS: PT Prothrombin Time 13.1 SECONDS (9.4-12.5); Protime INR 1.18
[2023-12-25 13:14] LABS: Albumin 2.6 g/dL (3.4-5.0); Albumin/Globulin Ratio 0.9 (1.1-1.8); Alkaline Phosphatase 163 U/L (45-117); Anion Gap 8.8 mEq/L (5.0-15.0); BUN Blood Urea Nitrogen 22 mg/dL (7-18); Bicarbonate 27 mEq/L (21-32); Bilirubin Total 0.7 mg/dL (0.2-1.0); Globulin 2.8 g/dL (2.3-3.5); Glomerular Filtration Rate 93 ml/min (=/>90); Glucose Level 79 mg/dL (74-106); Potassium 3.8 mEq/L (3.5-5.1); Protein, Total 5.4 g/dL (6.4-8.2); Sodium Level 139 mEq/L (136-145)
[2023-12-25 13:15] LABS: ALT/SGPT < 14 U/L (16-61); AST/SGOT 37 U/L (15-37)
[2023-12-25 13:20] LABS: Anisocytosis 1+; Blood Morphology Comment NOTED (NOT SEEN); Macrocytosis 1+; Platelet Estimate ADEQ; Platelets Clumped FEW; Polychromasia SLIGHT; White Blood Cell Scan OK (OK)
--- NOTE | 2023-12-25 13:25 | RAD REPORT ---
EXAM DESCRIPTION: CT - Head Brain Wo Cont - 12/25/2023 1:17 pm CLINICAL HISTORY: AMS Headache, hypotension COMPARISON: Abdomen Pelvis W Contrast dated 12/17/2017Head Brain Wo Cont dated 02/10/2021; HEAD BRA IN W O CONTRAST dated 06/19/2010 TECHNIQUE: All CT scans are performed using dose optimization technique as appropriate and may inclu de automated exposure control or mA/KV adjustment according to patient size. FINDINGS: No intracranial hemorrhage, hydrocephalus or extra-axial fluid collection.Mild generalized brain atrophy is present with mild periventricular and deep white matter chronic microvascular ische todd changes.No areas of brain edema or evidence of midline shift. The paranasal sinuses and mastoids are clear. The calvarium is intact. IMPRESSION: No acute intracranial abnormality.
--- NOTE | 2023-12-25 13:29 | RAD REPORT ---
EXAM DESCRIPTION: CT - Chest Abd Pelvis Wo Con - 12/25/2023 1:17 pm CLINICAL HISTORY: Chest and abdomen pain. ABDOMINAL DISTENTION COMPARISON: Thorax W/ Con dated 10/11/2023; CT RAD RX FIELD SPINE dated 06/07/2023; Head C Spine Cap W o Con dated 11/25/2023 TECHNIQUE: Limited noncontrast study was performed. All CT scans are performed using dose optimization technique as appropriate and may include automated exposure control or mA/KV adjustment according to patient size. FINDINGS: Small left pleural effusion noted.Mild emphysema. Spiculated nodule is present in the righ t upper lobe posteriorly unchanged in size since recent comparison dated 10/11/2023.No intrathoracic adenopathy. The liver, spleen, pancreas, adrenal glands and kidneys are within normal limits. Cholelithiasis. No bowel obstruction, free air, free fluid or abscess. There is a large amount of stool impacted in t he rectum. Nonvisualized appendix. Bifemoral arterial graft noted. No pathologic lymphadenopathy in t he abdomen or pelvis. Aortoiliac stent grafting is present. Hardware is present in the right hemipelvis with fracture lucency of right acetabulum remaining prese nt. Impacted fracture proximal right humerus with early bony bridging. Fracture lucency remains present. IMPRESSION: There is a large volume of stool impacted in the rectum. Small left pleural effusion. Stable spiculated nodule right upper lobe since recent comparative study . Subacute fractures are present as detailed some evidence of early healing.
--- NOTE | 2023-12-25 13:48 | ER ---
Nurse's Notes [facility] Name: Christian Griffith Age: 73 yrs Sex: Male : 1950 Arrival Date: 12/25/2023 Time: 12:01 Bed 15 Private MD: Diagnosis: Fecal impaction, anemia, altered mental status Presentation: 12/24 12:09 Chief complaint: EMS states: they were toned out to [facility] for AMS and hypotension kc6 in the 70's. BGL en route 120. Coronavirus screen: At this time, the client does not indicate any symptoms associated with coronavirus-19. Ebola Screen: No symptoms or risks identified at this time. Initial Sepsis Screen: Does the patient meet any 2 criteria? Mean Arterial Pressure (MAP) < 65. Does the patient have a suspected source of infection? No. Patient's initial sepsis screen is negative. Risk Assessment: Do you want to hurt yourself or someone else? Patient reports no desire to harm self or others. Onset of symptoms was December 25, 2023. 12:09 Method Of Arrival: EMS: [facility] kc6 12:09 Acuity: ROLANDO 3 kc6 12:14 Care prior to arrival: IV initiated. 20 GA, in the left hand, Glucose check: 120. kc6 Triage Assessment: 12:10 General: Appears in no apparent distress. comfortable, slender, Behavior is calm, kc6 cooperative, appropriate for age. Pain: Denies pain. EENT: No signs and/or symptoms were reported regarding the EENT system. Neuro: Level of Consciousness is awake, alert, obeys commands, Oriented to person, time, situation, Appropriate for age. Cardiovascular: Capillary refill < 3 seconds. Respiratory: Airway is patent Trachea midline Respiratory effort is even, unlabored, Respiratory pattern is regular, symmetrical. GI: No signs and/or symptoms were reported involving the gastrointestinal system. : No signs and/or symptoms were reported regarding the genitourinary system. Derm: Skin is intact, is fragile, is thin, with poor turgor Skin is dry, Skin is pale, Skin temperature is cool. Musculoskeletal: No signs and/or symptoms reported regarding the musculoskeletal system. Circulation, motion, and sensation intact. Capillary refill < 3 seconds, Range of motion: intact in all extremities. Historical: - Allergies: 12:10 No Known Allergies; kc6 - PMHx: 12:10 COPD; Hypertension; Lung Cancer; Parkinson's disease; Anemia; Kidney disease; kc6 - PSHx: 12:10 Stented artery; kc6 - Immunization history:: Adult Immunizations up to date. - Infectious Disease History:: Denies. - Social history:: Smoking status: Patient reports the use of cigarette tobacco products, unknown amount pt noted to have a nicotine patch on the LUFA from senior care. Screenin:13 [facility] ED Fall Risk Assessment (Adult) History of falling in the last 3 months, kc6 including since admission Yes- fall prone (multiple falls) (3 pts) Confusion or Disorientation Yes (5 pts) Intoxicated or Sedated No (0 pts) Impaired Gait Yes (1 pt) Mobility Assist Device Used Yes (1 pt) Altered Elimination No (0 pt) Score/Fall Risk Level 3 or more points = High Risk Oriented to surroundings, Maintained a safe environment, Educated pt \T\ family on fall prevention, incl call for assistance when getting out of bed. Abuse screen: Denies threats or abuse. Denies injuries from another. Nutritional screening: No deficits noted. Tuberculosis screening: No symptoms or risk factors identified. Assessment: 12:12 Reassessment: please see triage. kc 13:12 Reassessment: Patient appears in no apparent distress at this time. No changes from 6 previously documented assessment. Patient and/or family updated on plan of care and expected duration. Pain level reassessed. 14:12 Reassessment: Patient appears in no apparent distress at this time. No changes from kc6 previously documented assessment. Patient and/or family updated on plan of care and expected duration. Pain level reassessed. 15:07 Reassessment: Patient appears in no apparent distress at this time. No changes from kc6 previously documented assessment. Patient and/or family updated on plan of care and expected duration. Pain level reassessed. 16:07 Reassessment: Patient appears in no apparent distress at this time. No changes from kc6 previously documented assessment. Patient and/or family updated on plan of care and expected duration. Pain level reassessed. 16:20 Reassessment: please see blood transfusion flow sheet for further vitals. [facility] Vital Signs: 12:09 BP 97 / 53; Pulse 83; Resp 20 S; Temp 97.4(O); Pulse Ox 95% on R/A; Weight 34.02 kg kc6 (M); Height 5 ft. 9 in. (R); Pain 0/10; 14:46 BP 97 / 75; Pulse 73; Resp 18 S; Pulse Ox 99% on R/A; kc6 12:09 Body Mass Index 11.08 (34.02 kg, 175.26 cm) kc6 12:09 Pain Scale: Adult kc6 ED Course: 12:09 Patient arrived in ED. kc6 12:10 Triage completed. kc6 12:10 Arm band placed on. kc6 12:11 Willy Mascorro MD is Attending Physician. sp3 12:13 Thea Peña, JOSE F is Primary Nurse. kc6 12:13 Patient has correct armband on for positive identification. Bed in low position. Call kc6 light in reach. Side rails up X2. Adult w/ patient. playground monitor on. Pulse ox on. NIBP on. Door closed. Noise minimized. Lights dimmed. Warm blanket given. Pillow given. 12:14 Maintain EMS IV. Dressing intact. Good blood return noted. Site clean \T\ dry. Gauge \T\ lawrence 6 site: 20G LHAND. Flushed with 10 mL NS IV is patent, is intact, with fluids infusing freely, with good blood return. Patient maintains SpO2 saturation greater than 95% on room air. 13:00 Inserted saline lock: 20 gauge in right wrist, using aseptic technique. Blood kc6 collected. Flushed with 10 mL NS. Missed attempt(s): 20 gauge in left upper arm. Missed attempt(s): 22 gauge in left upper arm. 13:18 CT Head Brain wo Cont In Process Unspecified. EDMS 13:19 Chest Abd Pelvis Wo Con In Process Unspecified. EDMS 13:42 Chest Single View XRAY In Process Unspecified. EDMS 13:54 initiated a transfer with GIORGI Quesada from the [facility] Transfer [place]. 14:[address] Mayes the hospitalist integration project manager for [facility] with Dr. Mascorro for patient transfer consultation. 14:22 administrative approval given by Sal Quesada [facility] TC/ patient has been accepted to [facility] 16 T 1605/ Dr. Juanis Mayes has accepted the patient in transfer/ report to be called to [phone]. 14:45 Straight cath inserted, using sterile technique, 14 Fr. Specimen obtained. Returned kc6 clear yellow urine. Patient tolerated well. 15:00 Provided Education on: Blood Transfusion. kc6 17:00 No provider procedures requiring assistance completed. Patient transferred, IV remains kc6 in place. Administered Medications: 14:45 Drug: Cefepime IVPB 1 grams IVPB at 200 ml/hr once over 30 mins; (mix in NS 100 mL) kc6 Route: IVPB; Rate: 200 ml/hr; Infused Over: 30 mins; Site: right wrist; 16:59 Follow up: Response: No adverse reaction; IV Status: Completed infusion; IV Intake: kc6 100ml Medication: 17:01 VIS not applicable for this client. kc6 Intake: 16:59 IV: 100ml; Total: 100ml. kc6 Outcome: 13:47 ER care complete, transfer ordered by . awilda 17:00 Transferred by ground EMS to [facility], Transfer form completed. kc6 Note: report called to JOSE F [place] 17:00 Condition: good 17:00 Instructed on the need for transfer, 17:01 Patient left the ED. kc6 Signatures: Dispatcher [employer] EDMS Haylie Galan Setul, MD MD sp3 Thea Peña RN RN kc6
--- NOTE | 2023-12-25 13:48 | EDPHYS ---
Physician Documentation [facility] Name: Christian Griffith Age: 73 yrs Sex: Male : 1950 Arrival Date: 12/25/2023 Time: 12:01 Bed 15 Private MD: ED Physician Willy Mascorro HPI: 12/24 12:42 This 73 yrs old Male presents to ER via EMS with complaints of Altered Mental Status. sp3 12:42 73-year-old male with history of COPD, prior lung cancer, Parkinson's, CKD who recently sp3 had right hip surgery and is recovering at rehab across the street who has had complicated UTIs over the last several weeks now presents to the ED for chief complaint altered mental status which started over the last 24 hours. In the past these episodes of been due to urinary tract infections. Patient is also had partial SBO and constipation secondary to fecal impaction. Review of systems, history physical limited secondary to patient being nonverbal and altered.. Historical: - Allergies: 12:10 No Known Allergies; kc6 - PMHx: 12:10 COPD; Hypertension; Lung Cancer; Parkinson's disease; Anemia; Kidney disease; kc6 - PSHx: 12:10 Stented artery; kc6 - Immunization history:: Adult Immunizations up to date. - Infectious Disease History:: Denies. - Social history:: Smoking status: Patient reports the use of cigarette tobacco products, unknown amount pt noted to [facility]. ROS: 12:43 Unable to obtain ROS due to altered mental status, sp3 Exam: 12:43 Constitutional: This is a well developed, well nourished patient who is awake, alert, sp3 and in no acute distress. Eyes: Pupils equal round and reactive to light, extra-ocular motions intact. Lids and lashes normal. Conjunctiva and sclera are non-icteric and not injected. Cornea within normal limits. Periorbital areas with no swelling, redness, or edema. Neck: Trachea midline, no thyromegaly or masses palpated, and no cervical lymphadenopathy. Supple, full range of motion without nuchal rigidity, or vertebral point tenderness. No Meningismus. Chest/axilla: Normal chest wall appearance and motion. Nontender with no deformity. No lesions are appreciated. Cardiovascular: Regular rate and rhythm with a normal S1 and S2. No gallops, murmurs, or rubs. Normal PMI, no JVD. No pulse deficits. Respiratory: Lungs have equal breath sounds bilaterally, clear to auscultation and percussion. No rales, rhonchi or wheezes noted. No increased work of breathing, no retractions or nasal flaring. 12:43 Abdomen/GI: Patient winces on abdominal palpation. No rebound or guarding noted. Patient is alert and oriented to person and situation however not to time and place., 13:12 ECG was reviewed by the Attending Physician. EKG demonstrates normal sinus rhythm at 77 sp3 bpm with normal intervals, normal QRS, normal axis, nonspecific diffuse ST's ST changes without evidence of acute ischemia. Vital Signs: 12:09 BP 97 / 53; Pulse 83; Resp 20 S; Temp 97.4(O); Pulse Ox 95% on R/A; Weight 34.02 kg kc6 (M); Height 5 ft. 9 in. (R); Pain 0/10; 14:46 BP 97 / 75; Pulse 73; Resp 18 S; Pulse Ox 99% on R/A; kc6 12:09 Body Mass Index 11.08 (34.02 kg, 175.26 cm) kc6 12:09 Pain Scale: Adult kc6 MDM: 12:11 Patient medically screened. sp3 12:46 Data reviewed: vital signs, nurses notes, lab test result(s), EKG, radiologic studies. sp3 ED course: 73-year-old male with PMH above and complicated post surgical recovery including multiple UTIs. He now presents with altered mental status. Differential diagnosis includes infection with UTI, pneumonia, other viral illness as possibilities, abdominal pathology including constipation, impaction and/or SBO or ileus. I am not highly suspicious of AMI or other ACS related pathology. Dehydration also a factor. Workup will include CT scan of the head, chest abdomen pelvis, laboratory values, UA and general supportive care. Disposition pending workup and patient course with probable admission.. 13:46 ED course: Patient with rectal impaction and hemoglobin of 6.8 which she has had sp3 transfusions before. He has been evaluated by the GI team at [facility] Given complication and possible need for GI, we will transfer patient to [facility].. 12/24 13:50 Order name: Type And Screen [facility] 12/24 12:12 Order name: Blood Culture Adult (2) 3 12/24 12:12 Order name: CBC with Diff; Complete Time: 13:35 3 12/24 12:12 Order name: CMP; Complete Time: 13:35 3 12/24 12:12 Order name: Lactate w/ 2H reflex if indic.; Complete Time: 13:35 3 12/24 12:12 Order name: Protime (+inr); Complete Time: 13:35 3 12/24 12:12 Order name: Ptt, Activated; Complete Time: 13:35 3 12/24 12:12 Order name: Urinalysis w/ reflexes [facility] 12/24 12:55 Order name: CBC Smear Scan; Complete Time: 13:35 [facility] 12/24 14:43 Order name: Packed RBC Leukored [facility] 12/24 15:21 Order name: Urine Culture [facility] 12/24 12:12 Order name: Chest Single View XRAY; Complete Time: 13:55 [facility] 12/24 12:12 Order name: CT Head Brain wo Cont; Complete Time: 13:35 3 12/24 12:53 Order name: Chest Abd Pelvis Wo Con; Complete Time: 13:35 [facility] 12/24 12:12 Order name: Cardiac monitoring; Complete Time: 12:14 [facility] 12/24 12:12 Order name: EKG - Nurse/Tech; Complete Time: 13:00 3 12/24 12:12 Order name: IV Saline Lock - Large Bore; Complete Time: 13:00 [facility] 12/24 12:12 Order name: Labs collected and sent; Complete Time: 14:45 [facility] 12/24 12:12 Order name: O2 Per Protocol; Complete Time: 12:13 3 12/24 12:12 Order name: O2 Sat Monitoring; Complete Time: 12:14 3 12/24 12:12 Order name: Vital Signs; Complete Time: 12:14 3 12/24 13:48 Order name: Cath: cath ua; Complete Time: 14:45 3 12/24 13:50 Order name: Transfuse: 2 units PRBCs; Complete Time: 16:08 3 Administered Medications: 14:45 Drug: Cefepime IVPB 1 grams IVPB at 200 ml/hr once over 30 mins; (mix in NS 100 mL) kc6 Route: IVPB; Rate: 200 ml/hr; Infused Over: 30 mins; Site: right wrist; 16:59 Follow up: Response: No adverse reaction; IV Status: Completed infusion; IV Intake: kc6 100ml Disposition Summary: 12/25/23 13:47 Transfer Ordered Notes: Transfer Location: [facility] sp3 Reason: Higher level of care sp3 Condition: Stable sp3 Problem: an acute exacerbation sp3 Symptoms: have worsened sp3 Accepting Physician: [facility](12/25/23 17:01) kc6 Diagnosis - Fecal impaction, anemia, altered mental status sp3 Forms: - Medication Reconciliation Form sp3 - SBAR form sp3 Signatures: Dispatcher [employer] EDMS Willy Mascorro MD MD sp3 Thea Peña RN RN kc6 Corrections: (The following items were deleted from the chart) 12:12 12:12 BLOOD CULTURE*+BA.LAB.BRZ ordered. EDMS EDMS 12:12 12:12 CBC+H.LAB.BRZ ordered. EDMS EDMS 12:12 12:12 COMPREHENSIVE METABOLIC PANEL+C.LAB.BRZ ordered. EDMS EDMS 12:12 12:12 LACTATE+C.LAB.BRZ ordered. EDTX EDMS 12:12 12:12 PROTIME (+INR)+COAG.LAB.BRZ ordered. EDTX EDMS 12:12 12:12 PTT, ACTIVATED+COAG.LAB.BRZ ordered. EDTX EDMS 12:12 12:12 Urinalysis+U.LAB.BRZ ordered. EDMS EDMS 12:13 12:13 Chest Single View+RAD.RAD.BRZ ordered. EDMS EDMS 12:13 12:13 Head Brain Wo Cont+CT.RAD.BRZ ordered. EDTX EDMS 12:36 12:29 Chest Abdomen W/ Con+CT.RAD.BRZ ordered. EDTX EDMS 12:43 12:43 Constitutional: Negative for fever, chills, and weight loss, Eyes: Negative for sp3 injury, pain, redness, and discharge, Neck: Negative for injury, pain, and swelling, Cardiovascular: Negative for chest pain, palpitations, and edema, Respiratory: Negative for shortness of breath, cough, wheezing, and pleuritic chest pain, Skin: Negative for injury, rash, and discoloration, sp3 12:53 12:36 Chest Abdomen Pelvis W Cont ordered. EDMS EDMS 13:50 13:50 TYPE AND SCREEN+BB.LAB.BRZ ordered. EDMS EDMS 14:44 13:50 PACKED RBC LEUKORED+BB.LAB.BRZ ordered. EDMS EDMS 14: 13:52 ABO/RH typing ordered. EDMS EDMS 14: 13:52 Antibody Screen ordered. EDMS EDMS 17:01 13:47 [facility] inpatient and GI team sp3 kc6
--- NOTE | 2023-12-25 13:53 | RAD REPORT ---
EXAM DESCRIPTION: RAD - Chest Single View - 12/25/2023 1:41 pm CLINICAL HISTORY: AMS Chest pain. COMPARISON: Chest Single View dated 11/25/2023; Chest Single View dated 11/25/2023; Chest Single View da svitlana 03/10/2023; Chest Pa And Lat (2 Views) dated 03/04/2023 FINDINGS: Portable technique limits examination quality. Mild increased reticular markings in the left lung base probably representing infection/pneumonia. Tr ramiro left pleural effusion. Right lung is emphysematous but clear. The heart is upper limit of normal in size. No displaced fractures. IMPRESSION: Mild infiltrate/developing pneumonia left base suspected.
[2023-12-25] MEDS ORDERED: NA CHLORIDE 0.9% 100 ML ONE (14:09)
[2023-12-25] MEDS ORDERED: CEFEPIME 1 GM/VIAL ONE (14:10)
[2023-12-25 15:17] LABS: Sqamous Epithelial None Seen /HPF (None Seen); Urine Bacteria <20 /HPF (<20); Urine Bilirubin NEGATIVE (Negative); Urine Blood 3+ (OVER) (Negative); Urine Clarity Extremely Turbid (Clear); Urine Color Yellow (Yellow); Urine Culture Reflex Order REFLEXED; Urine Glucose NEGATIVE (Negative); Urine Ketones 1+ (Negative); Urine Microscopic Reflex YN ORDER UMIC; Urine Nitrite NEGATIVE (Negative); Urine Protein 1+ (Negative); Urine RBC >50 /HPF (None Seen); Urine Urobilinogen Normal (Normal); Urine WBC 20-50 /HPF (<5); Urine pH 5.5 (5.0-7.0)
[2023-12-25] MEDS ORDERED: NA CHLORIDE 0.9% 250 ML ONE (16:10)
[2023-12-25 17:25] VITALS: TEMP 97.4
[2023-12-25 17:26] VITALS: BP 97/75; O2SAT 99
--- NOTE | 2023-12-27 12:43 | EKG ---
Test Date: 2023-12-25 Test Time: 12:27:52 Director [place]: PREM MEASUREMENT RESULTS: Intervals: Rate: 77 [place]: QRSD: 80 QT: 410 QTc: 463 [place]: P: WI: QRS: 78 T: 61 INTERPRETIVE STATEMENTS: Normal sinus rhythm Anterior infarct, age undetermined Abnormal ECG Compared to ECG 11/25/2023 15:11:47 Right-axis deviation no longer present Myocardial infarct finding still present Electronically Signed On 12-27-23 12:39:26 CDT by Sanjeev Conley
== END 2023-12-25 17:01 | disposition short-term general hospital (02) ==
LOC: ER 12:01
PROC: 30233N1 Transfusion of Nonautologous Red Blood Cells into Peripheral Vein, Percutaneous Approach (ICD-10-PCS; principal; 2023-12-25)
DX: D64.9 Anemia, unspecified (principal); K56.41 Fecal impaction; I10 Essential (primary) hypertension; J44.9 Chronic obstructive pulmonary disease, unspecified; G20.A1 Parkinson's disease without dyskinesia, without mention of fluctuations; Z85.118 Personal history of other malignant neoplasm of bronchus and lung
CPT/HCPCS: 96365; 93005; 87040 ×2; 87088; 85025; 81001; 87086; 36415; 86900; 86850; 85610; 86901; 83605; 85730; 86920; 80053; 70450; 71250; 74176; 71045; 51702; 99285; 96366; 36430; P9016; J7050; J0692

== ENCOUNTER 2024-02-20 17:20 | Emergency (ER) | payer OTHER ==
--- NOTE | 2024-02-20 18:36 | RAD REPORT ---
EXAM: CT brain without contrast HISTORY: Headache COMPARISON: December 2023 TECHNIQUE: Multiple contiguous axial images were obtained and a CT of the brain without contrast.. Sagittal and coronal reconstruction performed. Automated exposure control, adjustment of the mA and/or kV according to patient size, and/or iterative reconstruction. Unless otherwise specified, incidental f indings do not require dedicated imaging follow-u FINDINGS: An intracranial bleed is not seen Ventricles are normal caliber No extra-axial fluid collection noted Mild low-density paraventricular, deep and subcortical white matter may represent ischemic changes se condary to small vessel No fluid within the visualized sinuses or mastoids noted. IMPRESSION: No acute intracranial abnormality noted. If the patient's symptoms persist MRI of the brain would be recommended.
[2024-02-20 21:15] LABS: Absolute Lymphocytes (CBC) 0.7 K/uL (0.7-4.9); Absolute Monocytes 0.9 K/uL (0.1-1.3); Absolute Neutrophil 8.9 K/uL (1.8-8.0); Basophils % 0.1 % (0-1.3); Hemoglobin 9.9 g/dL (13.6-17.9); MCH 33.6 pg (27.0-35.0); MCHC 33.1 g/dL (32.0-36.0); MCV 101.2 fL (80-100); MPV 8.2 fL (7.6-11.3); Monocytes % 8.3 % (3.3-12.3); Neutrophils % 84.6 % (41.7-73.7); Nucleated RBC Absolute Count 0.1 (0-0); Nucleated Red Blood Cells % 0.5 % (0-0); Platelets 79 thou/uL (152-406); RBC Red Blood Cell Count 2.96 M/uL (4.33-5.43); Red Cell Distribution Width 21.1 % (12.1-15.2)
[2024-02-20 21:30] LABS: AST/SGOT 192 U/L (15-37); Albumin 2.8 g/dL (3.4-5.0); Albumin/Globulin Ratio 0.8 (1.1-1.8); Alkaline Phosphatase 332 U/L (45-117); Anion Gap 14.6 mEq/L (5.0-15.0); BUN Blood Urea Nitrogen 40 mg/dL (7-18); Bicarbonate 28 mEq/L (21-32); Bilirubin Total 2.9 mg/dL (0.2-1.0); Globulin 3.7 g/dL (2.3-3.5); Glomerular Filtration Rate 56 ml/min (=/>90); Glucose Level 85 mg/dL (74-106); Potassium 4.6 mEq/L (3.5-5.1); Protein, Total 6.5 g/dL (6.4-8.2); Sodium Level 134 mEq/L (136-145)
[2024-02-20 21:36] LABS: ALT/SGPT < 14 U/L (16-61)
[2024-02-20 21:49] LABS: PT Prothrombin Time 16.8 SECONDS (9.4-12.5); PTT, Activated Partial Thromb 35.7 SECONDS (24.3-36.9); Protime INR 1.52
[2024-02-20 21:58] LABS: Anisocytosis 1+; Blood Morphology Comment NOTED (NOT SEEN); Platelet Estimate DECR; White Blood Cell Scan OK (OK)
[2024-02-20] MEDS ORDERED: NA CHLORIDE 0.9% 1,000 ML ONE (22:19)
--- NOTE | 2024-02-20 22:49 | RAD REPORT ---
EXAM: CT CHEST, ABDOMEN AND PELVIS WITHOUT CONTRAST CLINICAL INDICATION: Chest and abdominal pain TECHNIQUE: CT chest, abdomen and pelvis was performed, without IV contrast, as per department protoco l. Axial, sagittal and coronal reconstructions were obtained. One or more of the following dose reduction techniques were used: Automated exposure control, adjustment of the mA and/or kV according to the patient size, and/or iterative reconstruction. Unless otherwise specified, incidental findings do not require dedicated imaging follow-up. The lack of IV and oral contrast limits evaluation of the mediastinum, maritza, vessels, organs and jalen l. COMPARISON: December 2023 FINDINGS: 1.5 cm spiculated nodule along the posterior aspect of the right major fissure is without significant change. COPD No mediastinal or hilar lymphadenopathy seen. Small left effusion. No pericardial effusion. 9 mm low-density lesion posterior segment right lobe liver. Cirrhosis. Cholelithiasis. Small stone may lie within the cystic duct. No gallbladder wall thickening seen Atrophic pancreas. Mild fullness left adrenal gland unchanged probably benign. Right adrenal gland gr ossly normal Tiny calcifications within the kidneys. No hydronephrosis. Aorto iliac stent. Bifemoral graft. Rectum is distended with stool measuring 7.7 cm. No evidence of diverticulitis. Progression in an L1 vertebral body compression fracture which is marked. It is estimated to be decom pressed 80%. No significant retropulsion of bone into the spinal canal. Development of minimal compression fractures vertebral bodies T7, T8, and T9. Development of mild com pression fracture T10 vertebral body. Minimal compression L2 and mild to moderate compression L4 vertebral bodies unchanged. IMPRESSION: Stable 1.5 cm right lung nodule Small left pleural effusion 9 mm low-density hepatic lesion. Further evaluation with ultrasound may be helpful if clinically messi cated Rectal distention Acute and subacute vertebral body fractures.
--- NOTE | 2024-02-20 23:10 | EDPHYS ---
Physician Documentation [facility] Name: Christian Griffith Age: 73 yrs Sex: Male : 1950 Arrival Date: 02/20/2024 Time: 17:20 Bed 16 Private MD: ED Physician Carlos Sanderson HPI: 02/19 17:45 This 73 yrs old Male presents to ER via Wheelchair with complaints of dr5 confusion. 17:45 Onset: The symptoms/episode began/occurred 3 week(s) ago. Associated signs and dr5 symptoms: Pertinent negatives: chest pain, constipation, cough, dysuria, headache, seizure, shortness of breath, sore throat, vomiting, wheezing. The patient has been recently seen by a physician: [facility]. Patient is a 73-year-old male with history of anemia, COPD, hypertension, kidney disease, lung cancer, Parkinson's disease, and previous SBO due to fecal impaction. Patient was recently discharged from [facility] 3 weeks ago. with patient states he had delirium that has improved since being discharged from hospital. Patient presents today with difficulty keeping thoughts straight, and being forgetful. Patient denies cough, congestion, fever, nausea, vomiting, diarrhea. Patient has follow-up on for PET scan and follow-up on Tuesday here for bone density testing. Patient denies pain at this time.. Historical: - Allergies: 17:40 No Known Allergies; cm10 - PMHx: 17:40 Anemia; COPD; Hypertension; kidney disease; Lung Cancer; Parkinson's disease; cm10 - PSHx: 17:40 Stented artery; cm10 - Immunization history:: Adult Immunizations up to date. - Infectious Disease History:: Denies. - Social history:: Smoking status: unknown. ROS: 18:13 Constitutional: as per hpi dr5 Exam: 18:13 Constitutional: This is a well developed, well nourished patient who is awake, alert, dr5 and in no acute distress. 18:13 Constitutional: The patient appears in no acute distress, alert, awake, 18:13 ENT: Exam is negative for acute changes, 18:13 Neck: Exam negative for 18:13 Chest/axilla: Exam negative for acute changes, 02/20 00:31 Respiratory: the patient does not display signs of respiratory distress, dr5 Abdomen/GI: Exam negative for acute changes, Inspection: abdomen appears normal, Bowel sounds: normal, Neuro: Exam negative for acute changes, Patient is able to recall previous past events. Patient is alert and oriented x 4.. Orientation: is normal, appropriate for stated age, to person, place, time \T\ situation. Mentation: is normal, appropriate for stated age, Memory: is normal, immediate memory is intact, recent memory is intact, remote memory is intact, Cranial nerves: is grossly normal based on the patient's age, no acute changes, Cerebellar function: Motor: is normal, Sensation: is normal, Gait: unable to assess, 00:54 ECG was reviewed by the Attending Physician. dr5 Vital Signs: 02/19 17:37 BP 117 / 66; Pulse 100; Resp 15; Temp 96.9(TE); Pulse Ox 100% on R/A; Weight 38.1 kg cm10 (R); Height 5 ft. 9 in. ; Pain 0/10; 20:00 BP 123 / 67; Pulse 75; Resp 17; Temp 97.9(O); Pulse Ox 96% on R/A; rg5 21:25 BP 128 / 88; Pulse 55; Resp 18; Pulse Ox 96% on R/A; rg5 22:26 BP 150 / 86; Pulse 80; Resp 17; Pulse Ox 96% on 2 lpm NC; Pain 6/10; rg5 23:30 BP 165 / 88; Pulse 82; Resp 17; Pulse Ox 96% on R/A; Pain 6/10; rg5 17:37 Body Mass Index 12.40 (38.10 kg, 175.26 cm) cm10 17:37 Pain Scale: Adult cm10 22:26 Pain Scale: Adult rg5 23:30 Pain Scale: Adult rg5 MDM: 17:24 Medical Screening Exam initiated dr5 19:42 Awaiting: ER Bed. Patient sitting in lobby.. dr5 02/20 00:31 Differential diagnosis: viral Infection, URI, Cirrhosis, Pneumonia, Viral Illness, dr5 Brain Tumor, ICH. Data reviewed: vital signs, nurses notes. Consideration of Admission/Observation Escalation of care including admission/observation considered. Initially wanted to transfer patient for hepatic encephalopathy due to not having GI service in hospital. Patient and do not want to be transferred because they were recently hospitalized and discharged and do not want to go through the same process. Discussed that admission is the best plan of care for him. Discussed that we could admit him to our hospital for lactulose but we wouldn't be able to consult GI. Admitted patient. Hospitalist consulted and spoke with patient about not being able to consult with GI. After hospitalist spoke with patient, and patient decided that they would rather go home and follow up with their doctor and have their PET scan completed this . I will write a prescription for lactulose for them to have. AMA formed signed for admission and I told them to come back if anything changes or worsening symptoms. Upon discharge, patient is able to recall old events that happened with his confirming.. 00:35 Management of patient was discussed with the following: Hospitalist: Tatianna Mcgrath. I dr5 considered the following discharge prescriptions or medication management in the emergency department Medications were administered in the Emergency Department. See MAR. Care significantly affected by the following chronic conditions: Hypertension, Chronic Obstructive Pulmonary Disease, Cancer, Liver Disease, Anemia, Cirrhosis. Care significantly affected by the following Social Determinants of Health: Poor access to healthcare and/or lack of insurance, Poor access to transportation. Post IV fluid administration reassessment for Sepsis: Client not prescribed the 30 mL/kg IVF due to: concern for fluid overload. Focused Assessment performed: February 20, 2024 at 23:30 Heart: Regular rate/rhythm noted. S1,S2 auscultated. Lungs: Noted to be clear bilaterally. Capillary refill examination performed. Capillary refill noted to be brisk. Capillary refill noted to be < 2 seconds. Peripheral pulse evaluation performed. Radial Skin examination performed. Skin noted to have normal turgor. Current vital signs reviewed: Yes. Neuro: No change in mentation. Mentation at A\T\O x 4 Cardio: Cardiovascular examination did not improve from previous exam. Respiratory: Respiratory exam did not improve from previous exam. Counseling: I had a detailed discussion with the patient and/or guardian regarding the historical points, exam findings, and any diagnostic results supporting the discharge/admit diagnosis, the presence of at least one elevated blood pressure reading (>120/80) during this emergency department visit, lab results, radiology results, the need for outpatient follow up, for definitive care, a family practitioner, a inspector assembly, a senior warehouse clerk, the need for further work-up and treatment in the hospital, to return to the emergency department if symptoms worsen or persist or if there are any questions or concerns that arise at home. Medication response: Lusby. Response to treatment: the patient's symptoms have markedly improved after treatment. Refusal of service: The patient/guardian displays adequate decision making capability and despite a detailed discussion of alternatives, benefits, risks, and consequences refuses: Admission to the hospital for further work-up and treatment. ED course: Printed out labs and diagnostic studies and went over all labs in detail with / patient. discussed case with her daughter who doesn't want him admitted or transferred. AMA form completed. Lactulose prescribed. Patient is well appearing on discharge and A\T\O x4. Lusby was given to patient for chronic back pain.. 02/19 17:43 Order name: CBC with Diff; Complete Time: 22:14 [facility] 02/19 17:43 Order name: CMP; Complete Time: 21:38 [facility] 02/19 17:43 Order name: Lactate w/ 2H reflex if indic.; Complete Time: 21:36 [facility] 02/19 17:43 Order name: AMMONIA; Complete Time: 21:38 [facility] 02/19 21:36 Order name: Blood Culture Adult (2) [facility] 02/19 21:36 Order name: Protime (+inr); Complete Time: 21:50 [facility] 02/19 21:36 Order name: Ptt, Activated; Complete Time: 21:50 [facility] 02/19 21:59 Order name: CBC Smear Scan; Complete Time: 22:14 [facility] 02/19 23:35 Order name: Ghost Lactate-NO COLLECT Timer; Complete Time: 00:30 [facility] 02/20 00:56 Order name: Lactate Sepsis 2 HR Follow-up [facility] 02/19 17:43 Order name: CT Head Brain wo Cont; Complete Time: 18:45 [facility] 02/19 21:42 Order name: CT Chest Abdomen Pelvis W/O Contrast; Complete Time: 22:51 [facility] 02/19 17:43 Order name: EKG; Complete Time: 17:43 [facility] 02/19 17:43 Order name: Cardiac monitoring; Complete Time: 21:21 [facility] 02/19 17:43 Order name: EKG - Nurse/Tech; Complete Time: 21:21 [facility] 02/19 17:43 Order name: IV Saline Lock - Large Bore; Complete Time: 21:21 [facility] 02/19 17:43 Order name: Labs collected and sent; Complete Time: 21:21 dr5 02/19 17:43 Order name: O2 Per Protocol; Complete Time: 20:25 dr5 02/19 17:43 Order name: O2 Sat Monitoring; Complete Time: 20:25 dr5 02/19 17:43 Order name: Vital Signs; Complete Time: 20:25 dr5 EC/28 21:15 Rhythm is regular. QRS [place] is Normal. NH interval is normal at 138 msec. QRS interval dr5 is normal at 76 msec. QT interval is normal at 358 msec. Administered Medications: 22:23 Drug: NS 0.9% IV 500 ml IV at bolus once; to be given as a bolus over 30 minutes Route: rg5 IV; Rate: bolus; Site: right antecubital; 22:55 Follow up: IV Status: Completed infusion; IV Intake: 500ml rg5 02/20 00:38 Drug: Lactulose PO 20 grams 30 ml PO once Volume: 30 ml; Route: PO; rg5 00:57 Follow up: Response: No adverse reaction rg5 00:39 Drug: HYDROcodone-acetaminophen PO 5 mg-325 mg 2 tabs PO once Route: PO; rg5 00:57 Follow up: Response: No adverse reaction rg5 Disposition Summary: 02/21/24 00:52 Discharge Ordered Notes: Location: Home(02/21/24 00:52) dr5 Condition: Stable(02/21/24 00:52) dr5 Diagnosis - Alcoholic cirrhosis of liver(02/21/24 00:52) dr5 Followup: dr5 - With: Emergency Department - When: As needed - Reason: Worsening of condition Followup: dr5 - With: Private Physician - When: 1 - 2 days - Reason: Recheck today's complaints, Continuance of care, Re-evaluation by your physician Discharge Instructions: - Discharge Summary Sheet dr5 - Cirrhosis dr5 Forms: - Medication Reconciliation Form dr5 - Patient Portal Instructions dr5 - Leadership Thank You Letter dr5 Prescriptions: - Lactulose 10 gram/15 mL Oral solution - take 30 milliliters ORAL route 2 to 3 times per day for 7 days; 700 milliliter; dr5 Refills: 0, Product Selection Permitted Addendum: 02/22/2024 01:56 I was immediately available for consultation during this patient's visit. I did not e c2 personally see the patient or discuss the patient with the HARLAN. . Signatures: Dispatcher [employer] Evelyn Cline RN RN cm10 Carlos Sanderson MD MD ec2 Sam Myles RN RN rg5 John Alfred FNP-C FNP-5 Corrections: (The following items were deleted from the chart) 02/21 00:02/19 23:09 Inpatient Admission dr5 dr5 02/20 23:09 Tato Perez dr5 dr5 02/20 23:09 Telemetry/MedSurg (Inpatient) dr5 dr5 02/21 00:02/19 23:09 Stable dr5 dr5 02/21 00:02/19 23:09 chronic dr5 dr5 02/20 23:09 have worsened dr5 dr5 02/20 23:09 Standard dr5 dr5 02/21 00:02/19 23:09 dr5 dr5 02/21 00:02/19 23:09 Alcoholic cirrhosis of liver dr5 dr5 02/20 00:48 00:31 Consideration of Admission/Observation Escalation of care including dr5 admission/observation considered. Initially wanted to transfer patient for hepatic encephalopathy due to not having GI service in hospital.. dr5 00:55 02/19 17:45 This 73 yrs old Male presents to ER via Wheelchair with dr5 complaints of confusion. dr5
--- NOTE | 2024-02-20 23:10 | ER ---
Nurse's Notes [facility] Name: Christian Griffith Age: 73 yrs Sex: Male : 1950 Arrival Date: 02/20/2024 Time: 17:20 Bed 16 Private MD: Diagnosis: Alcoholic cirrhosis of liver Presentation: 02/19 17:37 Chief complaint: Spouse and/or significant other states: Pt has been having periods of cm10 confusion recently. Pt's reports that patient will be speaking and get confused. Pt was discharged from the hospital 3 weeks ago and had delirium while in the hospital and they are worried the delirium has returned. Coronavirus screen: Client denies travel out of the [place] in the last 14 days. Ebola Screen: Patient denies travel to an Ebola-affected area in the 21 days before illness onset. Initial Sepsis Screen: Does the patient meet any 2 criteria? HR > 90 bpm. Does the patient have a suspected source of infection? No. Patient's initial sepsis screen is negative. Risk Assessment: Do you want to hurt yourself or someone else? Patient reports no desire to harm self or others. Onset of symptoms was February 20, 2024. 17:37 Method Of Arrival: Wheelchair cm10 17:37 Acuity: ROLANDO 3 cm10 Triage Assessment: 17:40 General: Appears in no apparent distress. comfortable, Behavior is calm, cooperative. cm10 Neuro: No deficits noted. Level of Consciousness is awake, alert, obeys commands, Oriented to person, place, time, situation, Appropriate for age. Respiratory: No deficits noted. Airway is patent Respiratory effort is even, unlabored, Respiratory pattern is regular, symmetrical. Historical: - Allergies: 17:40 No Known Allergies; cm10 - PMHx: 17:40 Anemia; COPD; Hypertension; kidney disease; Lung Cancer; Parkinson's disease; cm10 - PSHx: 17:40 Stented artery; cm10 - Immunization history:: Adult Immunizations up to date. - Infectious Disease History:: Denies. - Social history:: Smoking status: unknown. Screenin:00 [facility] ED Fall Risk Assessment (Adult) History of falling in the last 3 months, rg5 including since admission Yes- single mechanical fall (1 pt) Confusion or Disorientation Yes (5 pts) Intoxicated or Sedated No (0 pts) Impaired Gait Yes (1 pt) Mobility Assist Device Used Yes (1 pt) Altered Elimination No (0 pt) Score/Fall Risk Level 3 or more points = High Risk Oriented to surroundings, Maintained a safe environment, Educated pt \T\ family on fall prevention, incl call for assistance when getting out of bed, Used ambulatory aids as needed (educated on \T\ assisted with). Abuse screen: Denies threats or abuse. Nutritional screening: No deficits noted. Tuberculosis screening: No symptoms or risk factors identified. Assessment: 20:00 General: Appears in no apparent distress. Behavior is calm, cooperative, appropriate rg5 for age. 20:00 Pain: Complains of pain in back Pain currently is 6 out of 10 on a pain scale. Quality rg5 of pain is described as aching, Is continuous. Neuro: Level of Consciousness is awake, alert, obeys commands, Oriented to person, place, time. Cardiovascular: Heart tones S1 S2 Rhythm is sinus bradycardia. Respiratory: Airway is patent Trachea midline Respiratory effort is even, unlabored, Respiratory pattern is regular, symmetrical, Breath sounds are clear. GI: Bowel sounds present X 4 quads. Abd is soft and non tender X 4 quads. : No signs and/or symptoms were reported regarding the genitourinary system. EENT: No deficits noted. Derm: Skin is fragile, is thin, Skin is dry, Skin is normal, Skin temperature is cool. Musculoskeletal: Circulation, motion, and sensation intact. Range of motion: intact in all extremities. 21:15 Reassessment: Patient and/or family updated on plan of care and expected duration. Pain rg5 level reassessed. Patient is alert, oriented x 3, equal unlabored respirations, skin warm/dry/pink. 22:28 Reassessment: Patient and/or family updated on plan of care and expected duration. Pain rg5 level reassessed. Patient is alert, oriented x 3, equal unlabored respirations, skin warm/dry/pink. 23:30 Reassessment: No changes from previously documented assessment. Patient and/or family rg5 updated on plan of care and expected duration. Pain level reassessed. 02/20 00:30 Reassessment: Patient and/or family updated on plan of care and expected duration. Pain rg5 level reassessed. Patient is alert, oriented x 3, equal unlabored respirations, skin warm/dry/pink. Vital Signs: 02/19 17:37 BP 117 / 66; Pulse 100; Resp 15; Temp 96.9(TE); Pulse Ox 100% on R/A; Weight 38.1 kg cm10 (R); Height 5 ft. 9 in. ; Pain 0/10; 20:00 BP 123 / 67; Pulse 75; Resp 17; Temp 97.9(O); Pulse Ox 96% on R/A; rg5 21:25 BP 128 / 88; Pulse 55; Resp 18; Pulse Ox 96% on R/A; rg5 22:26 BP 150 / 86; Pulse 80; Resp 17; Pulse Ox 96% on 2 lpm NC; Pain 6/10; rg5 23:30 BP 165 / 88; Pulse 82; Resp 17; Pulse Ox 96% on R/A; Pain 6/10; rg5 17:37 Body Mass Index 12.40 (38.10 kg, 175.26 cm) cm10 17:37 Pain Scale: Adult cm10 22:26 Pain Scale: Adult rg5 23:30 Pain Scale: Adult rg5 ED Course: 17:23 Patient arrived in ED. im 17:24 John Alfred FNP-C [facility]. [facility]5 17:40 Triage completed. cm10 17:41 Arm band placed on right wrist. Patient placed in waiting room. cm10 18:11 CT Head Brain wo Cont In Process Unspecified. EDMS 19:57 Sam Myles, RN is Primary Nurse. rg5 20:00 Patient has correct armband on for positive identification. Fall risk band placed. Bed rg5 in low position. Call light in reach. Side rails up X 1. 20:00 No provider procedures requiring assistance completed. rg5 20:48 Missed attempt(s): 22 gauge Bleeding controlled, band aid applied, catheter tip intact. oe 20:52 First set of blood cultures drawn by me. oe 20:55 Inserted saline lock: 22 gauge in right antecubital area, using aseptic technique. oe Blood collected. Flushed with 10 mL NS. 21:35 Notified Nurse Practitioner and/or Physician Floor Coverings Salesperson of a critical lab result(s), cm10 Lactic 4.0. 22:00 Second set of blood cultures drawn by me. oe 22:07 Blood Culture Adult (2) Sent. oe 22:23 CT Chest Abdomen Pelvis W/O Contrast In Process Unspecified. EDMS 23:09 Tato Perez MD is Hospitalizing Provider. dr5 02/20 00:29 Carlos Sanderson MD is Attending Physician. dr5 01:01 Provided Education on: post er care. rg5 01:01 IV discontinued, bleeding controlled, No redness/swelling at site. Pressure dressing rg5 applied. Administered Medications: 02/19 22:23 Drug: NS 0.9% IV 500 ml IV at bolus once; to be given as a bolus over 30 minutes Route: rg5 IV; Rate: bolus; Site: right antecubital; 22:55 Follow up: IV Status: Completed infusion; IV Intake: 500ml rg5 02/20 00:38 Drug: Lactulose PO 20 grams 30 ml PO once Volume: 30 ml; Route: PO; rg5 00:57 Follow up: Response: No adverse reaction rg5 00:39 Drug: HYDROcodone-acetaminophen PO 5 mg-325 mg 2 tabs PO once Route: PO; rg5 00:57 Follow up: Response: No adverse reaction rg5 Medication: 02/19 20:00 VIS not applicable for this client. rg5 Intake: 22:55 IV: 500ml; Total: 500ml. rg5 Outcome: 23:09 Decision to Hospitalize by Provider. dr5 02/20 00:52 Discharge ordered by . dr5 01:00 Discharged to home via wheelchair, rg5 01:00 Condition: stable 01:00 Discharge instructions given to patient, Instructed on discharge instructions, follow up and referral plans. Demonstrated understanding of instructions, follow-up care, 01:01 Patient left the ED. rg5 Signatures: Dispatcher [employer] EDKY Esteban Rojas Itzel im Martinez, Clarissa, RN RN cm10 Sam Myles RN RN rg5 John Alfred, PRODUCTION WELDER-C PRODUCTION WELDER-Cdr5 Corrections: (The following items were deleted from the chart) 02/19 22:01 21:25 BP 128 / 88; Pulse 90bpm; Resp 18bpm; Pulse Ox 100% RA; rg5 rg5
[2024-02-21] MEDS ORDERED: LACTULOSE 20 GM/30 ML UCUP ONE (00:33)
[2024-02-21] MEDS ORDERED: HYDROCODONE/APAP 5/325 MG TAB ONE (00:40)
[2024-02-21 03:46] VITALS: BP 117/66; TEMP 96.9; O2SAT 100
--- NOTE | 2024-02-22 14:53 | EKG ---
Test Date: 2024-02-20 Test Time: 21:15:09 Spinner Fixer: FIORELLA MEASUREMENT RESULTS: Intervals: Rate: 87 SC: 138 QRSD: 76 QT: 358 QTc: 430 Chase: P: 74 SC: 138 QRS: 83 T: 72 INTERPRETIVE STATEMENTS: Sinus rhythm with premature atrial complexes Septal infarct, age undetermined Abnormal ECG Compared to ECG 12/25/2023 12:27:52 Atrial premature complex(es) now present Myocardial infarct finding still present Electronically Signed On 02-22-24 14:47:18 CDT by Hubert Chery
== END 2024-02-21 01:01 | disposition home or self-care (01) ==
LOC: ER 17:20
DX: K70.30 Alcoholic cirrhosis of liver without ascites (principal); I12.9 Hypertensive chronic kidney disease with stage 1 through stage 4 chronic kidney disease, or unspecified chronic kidney disease; N18.9 Chronic kidney disease, unspecified; G20.A1 Parkinson's disease without dyskinesia, without mention of fluctuations; J44.9 Chronic obstructive pulmonary disease, unspecified
CPT/HCPCS: 93005; 87040 ×2; 85025; 36415; 82140; 85610; 83605 ×2; 85730; 80053; 70450; 71250; 74176; J7030; 96360; 99284

== ENCOUNTER 2024-02-28 11:46 | Emergency (ER) | payer OTHER ==
[2024-02-28 13:41] LABS: Albumin 2.7 g/dL (3.4-5.0); Albumin/Globulin Ratio 0.8 (1.1-1.8); Anion Gap 13.3 mEq/L (5.0-15.0); Bilirubin Direct 1.5 mg/dL (0-0.2); Bilirubin Total 2.5 mg/dL (0.2-1.0); Globulin 3.6 g/dL (2.3-3.5); Magnesium 2.1 mg/dL (1.6-2.4); Potassium 4.3 mEq/L (3.5-5.1); Protein, Total 6.3 g/dL (6.4-8.2); Troponin High Sensitivity 11.4 pg/mL (<58.9)
[2024-02-28 14:22] LABS: Absolute Lymphocytes (CBC) 0.8 K/uL (0.7-4.9); Absolute Monocytes 0.6 K/uL (0.1-1.3); Absolute Neutrophil 6.2 K/uL (1.8-8.0); Basophils % 0.4 % (0-1.3); Eosinophils % 0.3 % (0-4.4); Hematocrit 28.5 % (39.6-49.0); Hemoglobin 9.2 g/dL (13.6-17.9); MCH 35.1 pg (27.0-35.0); MCHC 32.4 g/dL (32.0-36.0); MCV 108.5 fL (80-100); MPV 8.4 fL (7.6-11.3); Monocytes % 8.2 % (3.3-12.3); Neutrophils % 81.1 % (41.7-73.7); Nucleated Red Blood Cells % 0.3 % (0-0); RBC Red Blood Cell Count 2.63 M/uL (4.33-5.43); Red Cell Distribution Width 24.2 % (12.1-15.2)
[2024-02-28 14:34] LABS: Platelets 70 thou/uL (152-406)
[2024-02-28 14:35] LABS: Anisocytosis 2+; Blood Morphology Comment NOTED (NOT SEEN); Macrocytosis 1+; Platelet Estimate DECR; White Blood Cell Scan OK (OK)
--- NOTE | 2024-02-28 15:02 | ER ---
Nurse's Notes [facility] Name: Christian Griffith Age: 73 yrs Sex: Male : 1950 Arrival Date: 02/28/2024 Time: 11:46 Bed 15 Private MD: Diagnosis: Unspecified cirrhosis of liver Presentation: 02/27 11:54 Chief complaint: EMS states: FAMILY STATES "MORE ALTERED" x1 WK SINCE LAST D/C, bp CHARACTERIZES INCREASED FATIGUE. Coronavirus screen: At this time, the client does not indicate any symptoms associated with coronavirus-19. Ebola Screen: No symptoms or risks identified at this time. Initial Sepsis Screen: Does the patient meet any 2 criteria? No. Patient's initial sepsis screen is negative. Does the patient have a suspected source of infection? No. Patient's initial sepsis screen is negative. Risk Assessment: Do you want to hurt yourself or someone else? Patient reports no desire to harm self or others. Onset of symptoms is unknown. Care prior to arrival: Glucose check: 66 Oxygen administered. via nasal cannula. 11:54 Method Of Arrival: EMS: [employer] [facility] bp 11:54 Acuity: ROLANDO 3 bp Triage Assessment: 11:56 General: Appears in no apparent distress. Behavior is cooperative, appropriate for age, bp CONFUSED. Pain: Denies pain. EENT: No deficits noted. Neuro: Level of Consciousness is awake, alert, obeys commands. Cardiovascular: Rhythm is sinus rhythm. Respiratory: No deficits noted. GI: No signs and/or symptoms were reported involving the gastrointestinal system. : No signs and/or symptoms were reported regarding the genitourinary system. Derm: No deficits noted. Musculoskeletal: No deficits noted. Historical: - Allergies: 11:56 No Known Allergies; bp - PMHx: 11:56 Anemia; COPD; Hypertension; kidney disease; Lung Cancer; Parkinson's disease; Cirrhosis bp of liver; - PSHx: 11:56 Stented artery; bp - Immunization history:: Adult Immunizations up to date. - Infectious Disease History:: Denies. - Social history:: Smoking status: Patient reports the use of cigarette tobacco products, unknown amount. - Family history:: not pertinent. Screenin:58 [facility] ED Fall Risk Assessment (Adult) History of falling in the last 3 months, bp including since admission No falls in past 3 months (0 pts) Confusion or Disorientation Yes (5 pts) Intoxicated or Sedated No (0 pts) Impaired Gait No (0 pts) Mobility Assist Device Used No (0 pt) Altered Elimination No (0 pt) Score/Fall Risk Level 3 or more points = High Risk Oriented to surroundings. Abuse screen: Denies threats or abuse. Denies injuries from another. Nutritional screening: No deficits noted. Tuberculosis screening: No symptoms or risk factors identified. Assessment: 11:58 General: Appears in no apparent distress. Behavior is calm, cooperative. bp 13:24 Reassessment: No changes from previously documented assessment. Patient is alert, bp oriented x 3, equal unlabored respirations, skin warm/dry/pink. Vital Signs: 11:54 BP 134 / 82; Pulse 92; Resp 18; Temp 98; Pulse Ox 92% on 4 lpm NC; bp 13:23 BP 118 / 81; Pulse 68; Resp 16; Pulse Ox 92% ; bp 15:29 BP 141 / 69; Pulse 87; Resp 16; Temp 98; Pulse Ox 93% ; bp ED Course: 11:54 Patient arrived in ED. bp 11:54 Mannie Brown MD is Attending Physician. rt 11:56 Triage completed. bp 11:56 Arm band placed on. bp 11:58 Patient has correct armband on for positive identification. bp 11:59 Bryn Mata RN is Primary Nurse. bp 15:29 No provider procedures requiring assistance completed. IV discontinued, intact, bp bleeding controlled, No redness/swelling at site. Pressure dressing applied. Administered Medications: 15:30 Drug: traMADol PO 50 mg PO once Route: PO; bp 15:30 Follow up: Response: Medication administered at discharge. bp Medication: 11:58 VIS not applicable for this client. bp Outcome: 15:01 Discharge ordered by MD. rt 15:29 Discharged to home via wheelchair, with family, bp 15:29 Condition: stable 15:29 Discharge instructions given to patient, Instructed on discharge instructions, follow up and referral plans. Demonstrated understanding of instructions, follow-up care, 16:08 Patient left the ED. bp Signatures: Bryn Mata RN RN Mannie Ricardo MD MD rt Corrections: (The following items were deleted from the chart) 12:00 11:54 Chief complaint: EMS states: ALTERED MENTAL STATUS x1 WK SINCE D/C FROM HOSPITAL bp bp 12:00 11:54 Coronavirus screen: At this time, the client does not indicate any symptoms bp associated with coronavirus-19. bp
--- NOTE | 2024-02-28 15:02 | EDPHYS ---
Physician Documentation [facility] Name: Christian Griffith Age: 73 yrs Sex: Male : 1950 Arrival Date: 02/28/2024 Time: 11:46 Bed 15 Private MD: ED Physician Mannie Brown HPI: 02/27 14:02 This 73 yrs old Male presents to ER via EMS with complaints of FATIGUE. rt 14:20 Patient with history of liver disease with cirrhosis and frequent episodes of altered rt mental status from hepatic encephalopathy presents to the ED with worsening confusion, fatigue for the past several days. The patient's family member reports compliance with lactulose regimen and having frequent bowel movements. Denies other acute complaints at this time, symptoms are moderate in severity, no other aggravating or alleviating factors.. Historical: - Allergies: :56 No Known Allergies; bp - PMHx: :56 Anemia; COPD; Hypertension; kidney disease; Lung Cancer; Parkinson's disease; Cirrhosis bp of liver; - PSHx: :56 Stented artery; bp - Immunization history:: Adult Immunizations up to date. - Infectious Disease History:: Denies. - Social history:: Smoking status: Patient reports the use of cigarette tobacco products, unknown amount. - Family history:: not pertinent. ROS: 14:20 Unable to obtain ROS due to altered mental status, rt Exam: 14:20 Head/Face: Normocephalic, atraumatic. Chest/axilla: Normal chest wall appearance and rt motion. Nontender with no deformity. No lesions are appreciated. Cardiovascular: Regular rate and rhythm with a normal S1 and S2. No gallops, murmurs, or rubs. Normal PMI, no JVD. No pulse deficits. Respiratory: Lungs have equal breath sounds bilaterally, clear to auscultation and percussion. No rales, rhonchi or wheezes noted. No increased work of breathing, no retractions or nasal flaring. Abdomen/GI: Soft, non-tender, with normal bowel sounds. No distension or tympany. No guarding or rebound. No evidence of tenderness throughout. Skin: Warm, dry with normal turgor. Normal color with no rashes, no lesions, and no evidence of cellulitis. MS/ Extremity: Pulses equal, no cyanosis. Neurovascular intact. Full, normal range of motion. 14:20 Constitutional: The patient appears Withdrawn, thin, chronically ill-appearing 14:20 ECG was reviewed by the Attending Physician. Vital Signs: 11:54 BP 134 / 82; Pulse 92; Resp 18; Temp 98; Pulse Ox 92% on 4 lpm NC; bp 13:23 BP 118 / 81; Pulse 68; Resp 16; Pulse Ox 92% ; bp 15:29 BP 141 / 69; Pulse 87; Resp 16; Temp 98; Pulse Ox 93% ; bp MDM: 11:59 Medical Screening Exam initiated rt 17:22 Differential Diagnosis: Cirrhosis, volume depletion, hepatic encephalopathy. Data rt reviewed: vital signs, nurses notes, lab test result(s), EKG. Consideration of Admission/Observation Escalation of care including admission/observation considered. Patient with labs at baseline, suspect this is a chronic condition, ammonia is not elevated. No need for admission at this time, patient to follow-up as an outpatient.. I considered the following discharge prescriptions or medication management in the emergency department Medications were administered in the Emergency Department. See MAR. Test considered but Not performed: CT: Patient with chronic confusion, no head trauma, no lateralizing symptoms, do not believe that advanced neuroimaging is indicated at this time.. Care significantly affected by the following chronic conditions: Chronic Obstructive Pulmonary Disease. Counseling: I had a detailed discussion with the patient and/or guardian regarding the historical points, exam findings, and any diagnostic results supporting the discharge/admit diagnosis, lab results, the need for outpatient follow up. Response to treatment: the patient's symptoms have mildly improved after treatment. 02/27 12:11 Order name: Basic Metabolic Panel; Complete Time: 14:47 rt 02/27 12:11 Order name: CBC with Diff; Complete Time: 14:47 rt 02/27 12:11 Order name: LFT's; Complete Time: 14:47 rt 02/27 12:11 Order name: Magnesium; Complete Time: 14:47 rt 02/27 12:11 Order name: Troponin HS; Complete Time: 14:47 rt 02/27 12:11 Order name: AMMONIA; Complete Time: 14:47 rt 02/27 14:35 Order name: CBC Smear Scan; Complete Time: 14:47 EDMS 02/27 12:11 Order name: Cardiac monitoring; Complete Time: 12:36 rt 02/27 12:11 Order name: EKG - Nurse/Tech; Complete Time: 13:23 rt 02/27 12:11 Order name: IV Saline Lock; Complete Time: 13:23 rt 02/27 12:11 Order name: Labs collected and sent; Complete Time: 13:23 rt 02/27 12:11 Order name: O2 Per Protocol; Complete Time: 13:23 rt 02/27 12:11 Order name: O2 Sat Monitoring; Complete Time: 13:23 rt 02/27 13:33 Order name: Labs - recollect needed: lavender; Complete Time: 14:09 bc6 EC:20 Rate is 84 beats/min. Rhythm is regular, Normal Sinus Rhythm with No ectopy. QRS [place] rt is Normal. NE interval is normal. QRS interval is normal. QT interval is normal. No Q waves. T waves are Normal. No ST changes noted. Interpreted by me. Administered Medications: 15:30 Drug: traMADol PO 50 mg PO once Route: PO; bp 15:30 Follow up: Response: Medication administered at discharge. bp Disposition Summary: 02/28/24 15:01 Discharge Ordered Notes: Location: Home rt Problem: new rt Symptoms: have improved rt Condition: Stable rt Diagnosis - Unspecified cirrhosis of liver rt Followup: rt - With: Private Physician - When: 2 - 3 days - Reason: Discharge Instructions: - Discharge Summary Sheet rt - Cirrhosis rt Forms: - Medication Reconciliation Form rt - Antibiotic Education rt - Prescription Opioid Use rt - Patient Portal Instructions rt - Leadership Thank You Letter rt Signatures: Dispatcher [employer] Bryn Hickey, JOSE F KOHLER bp Mannie Brown MD MD rt [facility]
[2024-02-28] MEDS ORDERED: TRAMADOL HCL 50 MG TAB ONE (15:32)
[2024-02-28 16:13] VITALS: TEMP 98
[2024-02-28 16:16] VITALS: BP 141/69; O2SAT 93
== END 2024-02-28 16:08 | disposition home or self-care (01) ==
LOC: ER 11:46
DX: K74.60 Unspecified cirrhosis of liver (principal); N28.9 Disorder of kidney and ureter, unspecified; I10 Essential (primary) hypertension; G20.A1 Parkinson's disease without dyskinesia, without mention of fluctuations; Z72.0 Tobacco use
CPT/HCPCS: 36415; 80048; 80076; 82140; 83735; 84484; 85025; 99284